=== PATIENT | male | born 1970 | race Caucasian/White ===

== ENCOUNTER 2019-02-04 20:18 | Inpatient (IN) | payer MEDICARE, MEDICAID, SELFPAY ==
[2019-02-04 20:20] VITALS: BP 134/88; PULSE 114; RESP 16; TEMP 37.1; O2SAT 95; BMI 29.7
--- NOTE | 2019-02-04 20:34 | RAD_ITS ---
HISTORY: NAUSEA/VOMITING, ABD PAIN EXAM: Abdominal series COMPARISON: None FINDINGS: # of images incl. paperwork: 3 XR Abdomen 3 images: Pelvic phleboliths. Gaseous distention of loops of small bowel throughout the abdomen. No pneumatosis is perceived. Stool is present within the rectum. Degenerative disc disease. No free air is perceived. There is no mass or suspicious calcification. No evidence of obstruction. RAD/Abdomen Single View IMPRESSION: Abnormal gaseous distention of loops of small bowel within the left hemiabdomen with some stool type contents within bowel within the right hemipelvis may be indicative of a small bowel obstruction. at 2220 Reported and signed by: Fernando Huitron MD Electronically Signed: Fernando Huitron MD at 22:19 EST Tel , Service support ,
[2019-02-04] MEDS: Ondansetron 4 MG/2 ML Vial IV (20:49)
--- NOTE | 2019-02-04 21:09 | ED.VISSUMM ---
- ER Visit Summary Date of Service: 02/04/19 Chief Complaint: Nausea, vomiting History of Present Illness: The patient is a 48 M [facility], vomiting. Patient has had 3 episodes of vomiting today. Another resident also has similar symptoms. No known bad food exposure. No recent antibiotics. He complains of vomiting and diarrhea. Denies blood in the stool or emesis. Denies abdominal pain. He has had temperature up to 99.5. Denies other complaints. Physical Examination: Vitals are stable. Patient is afebrile. Alert no acute distress. HEENT exam is unremarkable. Neck is supple. Lungs are clear and equal bilaterally. Heart is regular and tachycardic Abdomen is soft nontender, distended. No guarding or rebound Extremities are unremarkable. Skin is warm and dry. No focal neurologic deficit. Remainder of exam is unremarkable. Emergency Department Course and Treatment: Patient was given IV fluids, Zofran. CBC, chemistries unremarkable. KUB shows abnormal gaseous distention of loops of small bowel within the left hemiabdomen with some stool type contents within bowel within the right hemipelvis may be indicative of a small bowel obstruction. CT abdomen pelvis shows findings consistent with a distal small bowel obstruction. I cannot identify the exact location of the obstruction. 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 Although this could just represent atelectasis, the possibility of pneumonia is within the differential. While in the emergency room patient developed a fever up to 102. He was given Tylenol. Influenza negative. Lactic acid normal. Urinalysis pending. He had another episode of vomiting with concern for aspiration. Chest x-ray will be obtained and is pending. NG tube will be placed. Discussed with Dr. Phelps and the hospitalist and patient will be admitted. Disposition: Admission Impression: Small bowel obstruction This note was generated with [employer] dictation software. It may contain incorrect words, spelling, and punctuation that were not noted in review of the chart prior to signing ED Disposition - Plan for ED Patient: Referrals: Mervat Carrillo MD [Primary Care Provider] -
[2019-02-04 21:26] LABS: Anion Gap 6 (5-15); BUN 18 mg/dL (7-18); BUN/Creat Ratio 17.5 RATIO (10-20); Calcium,Total 8.1 mg/dL (8.5-10.1); Chloride 105 mmol/L (98-107); Creatinine, Serum 1.03 mg/dL (0.70-1.30); EST Glomerular Filtration Rate 82 mL/min (>60); Est Glom Filt Rate - Afr Amer 99 mL/min (>60); Estimated Creatinine Clearance 87.71 ml/min; Glucose 133 mg/dL (74-106); Potassium 3.4 mmol/L (3.5-5.1); Sodium Level 139 mmol/L (136-145)
[2019-02-04] MEDS: 0.9% Normal Saline 1,000 ML 999 ML IV ×2 (21:31→23:34)
[2019-02-04 22:41] LABS: Absolute Lymphocyte Count 0.36 X10^3/uL (0.83-4.51); Absolute Neutrophil Count 9.6 X10^3/uL (2.0-7.7); Basophil# 0.03 X10^3/uL; Basophil% 0.3 % (0-1); Eosinophil# 0.01 X10^3/uL; Eosinophils% 0.1 % (0-5); Hemoglobin 14.7 g/dL (13.0-16.5); Lymphocyte # 0.36 X10^3/ul (4.0); Lymphocyte % 3.4 % (19-41); Mean Corp Hgb Conc 34.2 g/dL (32-36); Mean Corpuscular Hgb 31.6 pg (27.0-32.0); Mean Corpuscular Volume 92.5 fL (80-94); Mean Platelet Vol. 11.5 fl (6.2-12.0); Monocyte# 0.65 X10^3/uL; Monocyte% 6.1 % (0-10); NRBC Flagged by Analyzer 0 % (0-5); Neutrophil # 9.55 X10^3/uL (2.7-7.7); Neutrophil % 89.8 % (47-70); POSITIVE DIFFERENTIAL YES; Platelet Count 158 K/mm3 (150-450); RBC Distribution Width CV 13.9 % (11.6-14.6); RBC Distribution Width SD 47.7 fl (35.1-43.9); Red Blood Count 4.65 M/mm3 (4.6-6.2); White Blood Count 10.6 K/mm3 (4.4-11.0)
[2019-02-04 22:42] LABS: Differential Indicated SCAN CRITERIA MET
[2019-02-04 22:52] VITALS: BP 134/93; PULSE 121; RESP 18; TEMP 39; O2SAT 96
[2019-02-04 23:01] LABS: Platelet Estimate ADEQUATE (ADEQ); Red Cell Morphology N CHROM NORMAL (NORM C&C)
[2019-02-04 23:02] LABS: Anisocytosis RARE; Macrocytosis RARE
[2019-02-04] MEDS: Acetaminophen 500 MG Tablet 1000 MG PO (23:34)
[2019-02-04 23:43] LABS: Lactic Acid 1.6 mmol/L (0.4-1.9)
[2019-02-05] VITALS (8 sets, daily range): BP systolic 132–151; BP diastolic 61–91; PULSE 88–117; RESP 16–20; TEMP 36.6–38.2; O2SAT 91–97; BMI 28.3; BMI 28.4
--- NOTE | 2019-02-05 | CT_ITS ---
HISTORY: N/V ? sbo TECHNIQUE: Helically acquired images were obtained of the abdomen and pelvis following the intravenous administration of 94 ML of Isovue-370 Iodinated contrast. 2D reformats. No oral contrast was administered. A radiation dose optimization technique was used for this scan. COMPARISON: X-ray of the abdomen from 2 hours earlier FINDINGS: # of images incl. paperwork: 454 LUNG BASES: Bilateral basilar airspace disease greater on the right than left. No effusions. The heart is not enlarged. No pericardial effusion. CT abdomen: Thoracic spondylosis with enthesophytes continuing the lumbar spine to a lesser degree severity. Facet arthropathy is present within the lower lumbar spine. The gallbladder remains. Liver, spleen, pancreas, and adrenal glands, are normal. The right kidney is normal. The patient has a left hemipelvic kidney. It is slightly irregularly rotated and lobulated. The left renal artery comes off the aorta just above the aortic bifurcation, of below the DEAN. The aorta is normal. CT pelvis: No ascites is present. The prostate gland is not enlarged. The appendix is normal. Series 2 image 68. The bladder is normal. Abnormal increased amount of stool is present within the rectum and into the sigmoid colon. Were this stool stops within the sigmoid colon and is very anterior within the right hemiabdomen there is gaseous distention of the sigmoid colon before it becomes decompressed and traverses back across the abdomen to the ascending colon. There is gas within the anterior portions of the ascending colon, but more posterior portions of the ascending colon are almost completely decompressed. The ascending colon and the hepatic flexure of colon are very posterior in position due to the empty left renal fossa due to the left hemipelvic kidney. The transverse colon is posterior to many loops of abnormally distended and dilated loops of small bowel with many air-fluid levels. There is some gas within the anterior aspects of the transverse colon, and more posterior portions of the transverse colon into the descending colon are decompressed. There are abnormal dilated fluid-filled loops of small bowel with air-fluid levels. There are decompressed loops of distal small bowel. I cannot follow the small bowel to determine where the obstruction is. I believe it is a distal small bowel obstruction. CT/Abdomen/Pelvis WITH Contrast IMPRESSION: Findings consistent with a distal small bowel obstruction. I cannot identify the exact location of the obstruction. 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 Although this could just represent atelectasis, the possibility of pneumonia is within the differential. Individualized dose optimization techniques were used for this CT. at 0037 Reported and signed by: Fernando Huitron MD Electronically Signed: Fernando Huitron MD at 0:36 EST Tel , Service support ,
--- NOTE | 2019-02-05 00:40 | RAD_ITS ---
HISTORY: NG TUBE PLACEMENTBEST IMAGES POSSIBLE, PATIENT UNABLE TO FOLLOW INSTRUCTIONS EXAMINATION/TECHNIQUE: XR Abdomen 1 View: COMPARISON: Chest x-ray from [address] scan of the abdomen and pelvis from February 05, 2019, 1-1/2 hours earlier FINDINGS: LINES AND TUBES: The esophagogastric tube tip terminates within the left hemiabdomen below the diaphragm, likely within the stomach. The proximalmost sidehole is also below the diaphragm, and likely within the stomach BOWEL GAS PATTERN: Distention of small bowel loops persists. No bowel or stomach distention. FREE AIR: Not assessed on a single supine view. ORGANOMEGALY: Not seen. CALCIFICATIONS: No abnormal calcifications observed. LOWER CHEST: No acute pathology. BONES AND SOFT TISSUES: No acute pathology. Contrast within the right renal collecting system is well demonstrated. RAD/Abdomen Single View (Portable) IMPRESSION: Adequate position of esophagogastric tube below the diaphragm in the left upper quadrant, likely within the stomach. Persistent gaseous distention of many loops of small bowel, suggestive of small bowel obstruction at 0241 Reported and signed by: Fernando Huitron MD Electronically Signed: Fernando Huitron MD at 2:40 EST Tel , Service support ,
--- NOTE | 2019-02-05 00:40 | RAD_ITS ---
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 paperwork: 2 Esophagogastric tube tip and its proximal sidehole but terminate below the diaphragm, likely within the stomach. Basilar atelectasis was better demonstrated on the CT scan. That right long basilar airspace disease and right lower lobe right middle lobe is better demonstrated on the CT scan. The left lung has some minimal left basilar disease better demonstrated on the CT scan. No more apical lung disease is perceived. No pneumothorax is identified Heart is not enlarged. Thoracic spondylosis persists Pulmonary vascularity is distinct. No effusions. RAD/Chest 1 View (Portable) IMPRESSION: Basilar airspace disease greatest within the right middle lobe and right lower lobe better demonstrated on the previous CT scan and may represent pneumonia. at 0244 Reported and signed by: Fernando Huitron MD Electronically Signed: Fernando Huitron MD at 2:43 EST Tel , Service support ,
--- NOTE | 2019-02-05 00:48 | HP.PCM_ITS ---
Problem List (1) Small bowel obstruction Status: Acute (2) Gastroenteritis Status: Acute (3) Aspiration pneumonia Status: Acute (4) Sepsis Status: Acute History of Present Illness Date of Admission: 02/05/19 Chief Complaint: nausea and vomiting The patient is a 48 year old M with a significant history of mental retardation who [facility] the [facility] presenting with nausea and vomiting. Associated with symptoms is abdominal pain. Another resident in a [facility] was also vomiting. Patient reports dizziness but is unable to elaborate on what he means by dizziness. Patient's restaurant operations manager who was with patient reported that patient has an increase in his abdominal girth. Initial KUB at the emergency department was concerning for small bowel obstruction. Follow-up CT was also concern for small bowel obstruction and bilateral basilar lung disease. At the emergency department patient developed a fever of 102.2. Also his heart rate was elevated. Emergent department doctor ordered follow-up x-ray. Past Medical History Medical History: Medical History (Last Reviewed 02/05/19 @ 07:07 by Tam Oropeza MD) MRDD Allergies No Known Allergies Allergy (Verified 02/04/19 20:20) Home Medications: Ambulatory Orders Medication Instructions Recorded Clozapine 100 mg PO BREAKFAST 02/04/19 Clozapine 125 mg PO QHS 02/04/19 Docusate Sodium [Dok] 100 mg PO BID 02/04/19 Escitalopram Oxalate 15 mg PO DAILY 02/04/19 Lorazepam 0.5 mg PO DAILY 02/04/19 Melatonin 6 mg PO QHS 02/04/19 Polyethylene Glycol 3350 [Gavilax] 8.5 gm PO DAILY 02/04/19 Clindamycin Phos/Benzoyl Perox 1 applic TOPICAL QHS 02/05/19 [Clind pH-Benzoyl Perox 1.2-5%] Lorazepam 1 mg PO QHS 02/05/19 Surgical History: - - Patient did not know and restaurant operations manager who was with patient also did not know. Lives: Long Term Smoking Status: Never smoker Alcohol: None - *Family History Maternal History Items: - - Patient is an MRDD patient and he did not know. Patient's restaurant operations manager who was with patient also did not know. Paternal History Items: - - Patient is an MRDD patient and he did not know. Patient's restaurant operations manager who was with patient also did not know. Review of Systems Constitutional: Denies: Chills, Fever, Weight Change HEENT: Denies: Head Aches, Sinus Congestion, Sinus Drainage Cardiovascular: Denies: Chest Pain, Palpitations Respiratory: Denies: Cough, Shortness of breath at rest, Sputum production Gastrointestinal: Reports: Abdominal Pain, Nausea, Vomiting Genitourinary: Denies: Dysuria Musculoskeletal: Denies: Joint Pain, Joint Tenderness Skin: Denies: Rash, Wounds Neurological: Denies: Numbness, Tingling, Focal weakness Psychiatric: Denies: Anxiety, Depression, Homicidal Ideations, Suicidal Ideations Hematologic/ Lymphatic: Denies: Easy Bruising, Easy Bleeding VTE Information - Inpt Only VTE Present on Admission: No VTE Mechan Device Prophylaxis: None VTE Pharm Prophylaxis ordered?: Yes Patient Problems: Active and Suspected Problems (Last Reviewed 02/05/19 @ 07:07 by Tam Oropeza MD) Small bowel obstruction (Acute) Gastroenteritis (Acute) Aspiration pneumonia (Acute) Sepsis (Acute) - Physical Exam Vitals/I&O's: Vital Signs Temp Pulse Resp BP Pulse Ox 102.2 F H 121 H 18 134/93 H 96 02/04/19 22:52 02/04/19 22:52 02/04/19 22:52 02/04/19 22:52 02/04/19 22:52 Oxygen Delivery Method Room Air Weight: 91.3 kg Body Mass Index (BMI) 29.7 Intake and Output for Last 24 Hours 02/03/19 02/04/19 02/05/19 23:59 23:59 23:59 Intake Total 1000 / 1000 Balance 1000 / 1000 General: Alert, Oriented x3, Cooperative HEENT: Atraumatic, PERRLA, EOMI, Normocephalic Neck: Supple, No JVD, Negative Carotid Bruits Lungs: Clear to auscultation, Normal air movement, No rhonchi, No wheeze, No rales Cardiovascular: Regular Rhythm, Normal S1, Normal S2, No murmurs, Tachycardic Abdomen: Bowel Sounds Present, Soft, Non Tender, Obese Extremities: No edema, Capillary Refill Less than 3 Seconds Skin: No rashes, No breakdown Musculoskeletal: No Tenderness to Palpation of Joints or Extremities Neurological: Cranial nerves II-XII grossly intact Psych/Mental Status: Normal Affect, Appropriate Microbiology Past 72 Hours 02/04/19 23:10 Mucosa - Nasopharyngeal Influenza Types A,B Direct FA (RADHA) - Final Laboratory Results 02/04/19 20:50: Sodium 139, Potassium 3.4 L, Chloride 105, Carbon Dioxide 28.0, Anion Gap 6, BUN 18, Creatinine 1.03, Estim Creat Clear Calc 87.71, Est GFR (MDRD) Af Amer 99, Est GFR (MDRD) Non-Af 82, BUN/Creatinine Ratio 17.5, Glucose 133 H, Calcium 8.1 L 02/04/19 20:50: WBC 10.6, RBC 4.65, Hgb 14.7, Hct 43.0, MCV 92.5, MCH 31.6, MCHC 34.2, RDW Std Deviation 47.7 H, RDW Coeff of J Luis 13.9, Plt Count 158, MPV 11.5, Immature Gran % (Auto) 0.300, Neut % (Auto) 89.8 H, Lymph % (Auto) 3.4 L, Mcnairy % (Auto) 6.1, Eos % (Auto) 0.1, Baso % (Auto) 0.3, Absolute Neuts (auto) 9.6 H, Absolute Lymphs (auto) 0.36 L, Nucleated RBC % 0, Differential Comment SEE COMMENT, Platelet Estimate ADEQUATE, RBC Morphology N CHROM, Anisocytosis RARE, Macrocytosis RARE 02/04/19 23:09: Lactic Acid 1.6 Assessment/Plan All Active Problems (Last Reviewed 02/05/19 @ 07:07 by Tam Oropeza MD) Small bowel obstruction (Acute) Gastroenteritis (Acute) Aspiration pneumonia (Acute) Sepsis (Acute) The patient is a 48 year old M with a significant history of mental retardation who [facility] the [facility] presenting with nausea and vomiting; and abdominal pain concerning and radiographic finding consistent with SBO; and bibasilar lung disease which could also represent aspiration pneumonia in the setting of vomiting; and who meet SIRS criteria making an additional diagnosis of sepsis. Small bowel obstruction Patient will be kept n.p.o. for now. Received normal saline bolus at the emergency department. Because of concomitant mild hypokalemia will start patient on lactated Ringer's with potassium. Will consult general surgery. The plan for the emergency department was to put an NG tube and get an x-ray that is also important in the setting suggested bibasilar atelectasis on CT of the abdomen. Antiemetics with Zofran; pain medication with IV morphine. Hold all medications including home psychiatry medications. General surgery consult Sepsis from probable aspiration pneumonia and gastroenteritis Sirs criteria: Temperature of 102.2; highest heart rate of 121. Source: Abdomen; lungs Received Unasyn at emergency department; continued Lactic acid is unremarkable. Follow-up checks x-ray ordered at the emergency department. Get blood cultures . Hypokalemia Normal saline with IV potassium was ordered. Because of persistent hypokalemia will order potassium boluses. Trend BMP. Magnesium was ordered. Magnesium level returned unremarkable. DVT prophylaxis Subcutaneous Lovenox Code Visit Inpatient E&M: 94056 Init Hosp L3
[2019-02-05] MEDS: Lidocaine 4% 5 ML Ampul 2 ML INHALATION (01:03)
[2019-02-05 01:26] LABS: Bacteria 0 SEEN /hpf (None Seen); Mucous, Urine 0 SEEN /hpf (<or=2+); Red Blood Cells-Urine 0 SEEN /hpf (0-5); White Blood Cells 0 SEEN /hpf (0-5)
[2019-02-05 01:42] LABS: Color, Urine Yellow (Yellow); Glucose, Dipstick Normal (Normal); Ketone-Dipstick 5 mg/dl (Negative); Leukocyte Esterase-Dipstick Negative /ul (Negative); Nitrite-Dipstick Negative (Negative); Occult Blood-Urine Negative /ul (Negative); Protein-Dipstick 15 mg/dl (Negative); Urine Bilirubin Dipstick Negative (Negative); Urine Clarity Clear (Clear); Urine Urobilinogen Normal (Normal)
[2019-02-05 01:44] LABS: Squamous Epithelial Cells - UA 0-5 SEEN /hpf (0-5)
[2019-02-05 04:25] LABS: Magnesium 2.2 mg/dL (1.6-2.6)
[2019-02-05 04:54] LABS: Absolute Lymphocyte Count 0.34 X10^3/uL (0.83-4.51); Absolute Neutrophil Count 9.9 X10^3/uL (2.0-7.7); Anion Gap 8 (5-15); BUN 17 mg/dL (7-18); BUN/Creat Ratio 16.3 RATIO (10-20); Basophil# 0.01 X10^3/uL; Basophil% 0.1 % (0-1); Calcium,Total 7.7 mg/dL (8.5-10.1); Chloride 109 mmol/L (98-107); Creatinine, Serum 1.04 mg/dL (0.70-1.30); EST Glomerular Filtration Rate 81 mL/min (>60); Eosinophil# 0.15 X10^3/uL; Eosinophils% 1.4 % (0-5); Est Glom Filt Rate - Afr Amer 98 mL/min (>60); Estimated Creatinine Clearance 86.86 ml/min; Glucose 143 mg/dL (74-106); Hematocrit 39.2 % (40-54); Hemoglobin 13.2 g/dL (13.0-16.5); Lymphocyte # 0.34 X10^3/ul (4.0); Lymphocyte % 3.1 % (19-41); Mean Corp Hgb Conc 33.7 g/dL (32-36); Mean Corpuscular Hgb 31.4 pg (27.0-32.0); Mean Corpuscular Volume 93.1 fL (80-94); Mean Platelet Vol. 11.8 fl (6.2-12.0); Monocyte# 0.49 X10^3/uL; Monocyte% 4.5 % (0-10); NRBC Flagged by Analyzer 0 % (0-5); Neutrophil # 9.87 X10^3/uL (2.7-7.7); Neutrophil % 90.5 % (47-70); POSITIVE DIFFERENTIAL YES; POSITIVE MORPHOLOGY YES; Platelet Count 158 K/mm3 (150-450); Potassium 3.2 mmol/L (3.5-5.1); RBC Distribution Width CV 14.3 % (11.6-14.6); RBC Distribution Width SD 48.7 fl (35.1-43.9); Red Blood Count 4.21 M/mm3 (4.6-6.2); Sodium Level 143 mmol/L (136-145); White Blood Count 10.9 K/mm3 (4.4-11.0)
[2019-02-05 05:01] LABS: Differential Indicated SCAN CRITERIA MET
[2019-02-05 05:02] LABS: Differential Comment SCANNED
[2019-02-05] MEDS: Acetaminophen 650 MG Suppository RECTAL (07:13)
[2019-02-05] MEDS: Potassium Chloride 10mEq/100mL 10 MEQ/100 ML IV.SOLN. 100 MEQ IV BOLUS (08:19)
--- NOTE | 2019-02-05 08:19 | NURSING ---
K-riders titrated and diluted for patient comfort.
[2019-02-05] MEDS: Potassium Chloride 10mEq/100mL 10 MEQ/100 ML IV.SOLN. 75 MEQ IV BOLUS ×3 (09:36→12:37)
[2019-02-05] MEDS: Enoxaparin 40 MG/0.4 ML Syringe SC (09:40)
--- NOTE | 2019-02-05 09:57 | PN_ITS ---
Patient Problems: Active and Suspected Problems (Last Reviewed 02/05/19 @ 07:07 by Tam Oropeza MD) Small bowel obstruction (Acute) Gastroenteritis (Acute) Aspiration pneumonia (Acute) Sepsis (Acute) Reason for Visit: Patient seen and examined. He was admitted from his longterm with a complaint of nausea and vomiting, together with abdominal pain. He also complained of dizziness, and he also had increase in abdominal girth. KUB done in ED was concerning for small bowel obstruction, and CT abdomen done afterwards was also concerning for small bowel obstruction and bibasilar lung disease. He was also noted to be febrile, with temperature of 102.2F and tachyardia. He is being managed for small bowel obstruction and sepsis possibly due to aspiration pneumonia. Patient has no complaints today. He has an NG tube in, draining bilious fluid. He says he is passing gas. He denies any nausea, fever or chills or diarrhea. R eview of systems otherwise negative. Patient kept asking if he was going to have surgery; I informed patient that he had to be evaluated by general surgery, before decision about surgery, if any, could be made. Vitals/I&O's: Vital Signs Temp Pulse Resp BP Pulse Ox 98.9 F 110 H 18 140/72 H 95 02/05/19 08:32 02/05/19 08:32 02/05/19 08:32 02/05/19 08:32 02/05/19 08:32 Oxygen Flow Rate (L/min) 2 Oxygen Delivery Method Nasal Cannula Weight: 192 lb 3.889 oz Body Mass Index (BMI) 28.3 Intake and Output for Last 24 Hours 02/03/19 02/04/19 02/05/19 23:59 23:59 23:59 Intake Total 1000 / 1000 1634.5 / 1634.5 Balance 1000 / 1000 1634.5 / 1634.5 General: Alert, Cooperative, No apparent distress HEENT: Atraumatic, PERRLA, EOMI, Normocephalic Oral: Moist Mucosa, - - NG tube in place, draining bilious fluid Neck: Supple, No JVD, Negative Carotid Bruits Lungs: Clear to auscultation, Normal air movement, No rhonchi, No wheeze Cardiovascular: Regular Rhythm, Normal S1, Normal S2, No murmurs, Tachycardic Abdomen: Bowel Sounds Present, Soft, Distended - tympanitic to percussion Extremities: No clubbing, No cyanosis, No edema, Capillary Refill Less than 3 Seconds Skin: No rashes, No breakdown Musculoskeletal: No Tenderness to Palpation of Joints or Extremities Lymphatic: No Cervical, Supraclavicular, or Inguinal Adenopathy Neurological: Cranial nerves II-XII grossly intact Psych/Mental Status: Normal Affect, Appropriate Microbiology Past 72 Hours 02/04/19 23:10 Mucosa - Nasopharyngeal Influenza Types A,B Direct FA (RADHA) - Final Laboratory Results 02/04/19 20:50: Sodium 139, Potassium 3.4 L, Chloride 105, Carbon Dioxide 28.0, Anion Gap 6, BUN 18, Creatinine 1.03, Estim Creat Clear Calc 87.71, Est GFR (MDRD) Af Amer 99, Est GFR (MDRD) Non-Af 82, BUN/Creatinine Ratio 17.5, Glucose 133 H, Calcium 8.1 L 02/04/19 20:50: WBC 10.6, RBC 4.65, Hgb 14.7, Hct 43.0, MCV 92.5, MCH 31.6, MCHC 34.2, RDW Std Deviation 47.7 H, RDW Coeff of J Luis 13.9, Plt Count 158, MPV 11.5, Immature Gran % (Auto) 0.300, Neut % (Auto) 89.8 H, Lymph % (Auto) 3.4 L, Terrell % (Auto) 6.1, Eos % (Auto) 0.1, Baso % (Auto) 0.3, Absolute Neuts (auto) 9.6 H, Absolute Lymphs (auto) 0.36 L, Nucleated RBC % 0, Differential Comment SEE COMMENT, Platelet Estimate ADEQUATE, RBC Morphology N CHROM, Anisocytosis RARE, Macrocytosis RARE 02/04/19 23:09: Lactic Acid 1.6 02/05/19 01:25: Urine Color Yellow, Urine Clarity Clear, Urine pH 5.0, Ur Specific [place] 1.020, Urine Protein 15 H, Urine Glucose (UA) Normal, Urine Ketones 5 H, Urine Occult Blood Negative, Urine Nitrite Negative, Urine Bilirubin Negative, Urine Urobilinogen Normal, Ur Leukocyte Esterase Negative, Urine RBC 0 SEEN, Urine WBC 0 SEEN, Ur Squamous Epith Cells 0-5 SEEN, Urine Bacteria 0 SEEN, Urine Mucus 0 SEEN 02/05/19 02:40: Magnesium 2.2 02/05/19 02:40: WBC 10.9, RBC 4.21 L, Hgb 13.2, Hct 39.2 L, MCV 93.1, MCH 31.4, MCHC 33.7, RDW Std Deviation 48.7 H, RDW Coeff of J Luis 14.3, Plt Count 158, MPV 11.8, Immature Gran % (Auto) 0.400, Neut % (Auto) 90.5 H, Lymph % (Auto) 3.1 L, Terrell % (Auto) 4.5, Eos % (Auto) 1.4, Baso % (Auto) 0.1, Absolute Neuts (auto) 9.9 H, Absolute Lymphs (auto) 0.34 L, Nucleated RBC % 0, Differential Comment SCANNED 02/05/19 02:40: Sodium 143, Potassium 3.2 L, Chloride 109 H, Carbon Dioxide 26.0, Anion Gap 8, BUN 17, Creatinine 1.04, Estim Creat Clear Calc 86.86, Est GFR (MDRD) Af Amer 98, Est GFR (MDRD) Non-Af 81, BUN/Creatinine Ratio 16.3, Glucose 143 H, Calcium 7.7 L Diagnostic Data Abdomen/Pelvis CT 02/05/19 00:00 IMPRESSION: Findings consistent with a distal small bowel obstruction. I cannot identify the exact location of the obstruction. 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 Although this could just represent atelectasis, the possibility of pneumonia is within the differential. Individualized dose optimization techniques were used for this CT. at 0037 Reported and signed by: Fernando Huitron MD Electronically Signed: Fernando Huitron MD at 0:36 EST Tel , Service support , Chest X-Ray 02/05/19 00:40 IMPRESSION: Basilar airspace disease greatest within the right middle lobe and right lower lobe better demonstrated on the previous CT scan and may represent pneumonia. at 0244 Reported and signed by: Fernando Huitron MD Electronically Signed: Fernando Huitron MD at 2:43 EST Tel , Service support , KUB X-Ray 02/05/19 00:40 IMPRESSION: Adequate position of esophagogastric tube below the diaphragm in the left upper quadrant, likely within the stomach. Persistent gaseous distention of many loops of small bowel, suggestive of small bowel obstruction at 0241 Reported and signed by: Fernando Huitron MD Electronically Signed: Fernando Huitron MD at 2:40 EST Tel , Service support , Current Medications Acetaminophen (Tylenol) 650 mg RECTAL Q6H PRN PRN PRN Reason: Temp > 100.7 F Last Admin: 02/05/19 07:13 Dose: 650 mg Documented by: Enoxaparin Sodium (Lovenox) 40 mg SC DAILY TYLER Last Admin: 02/05/19 09:40 Dose: 40 mg Documented by: Glucagon () 1 mg IM .X1 PRN PRN Reason: Hypoglycemia Ampicillin Sodium/Sulbactam (Sodium 3 gm/ Sodium Chloride) 112 mls @ 150 mls/hr IV Q6 TYLER Last Infusion: 02/05/19 07:22 Dose: Infused Documented by: Potassium Chloride 40 meq/ (Lactated Ringer's) 1,020 mls @ 100 mls/hr IV .[id number] TYLER Stop: 02/05/19 23:05 Last Infusion: 02/05/19 06:37 Dose: 0 mls/hr Documented by: Dextrose (Dextrose 10%-Water) 250 mls @ 999 mls/hr IV X1 PRN; Protocol PRN Reason: HYPOGLYCEMIA Sodium Chloride () 250 mls @ 15 mls/hr IV .[id number] PRN PRN Reason: Saline Flush Last Infusion: 02/05/19 08:19 Dose: 40 mls/hr Documented by: Potassium Chloride () 10 meq in 100 mls @ 100 mls/hr IV BOLUS Q1H TYLER Stop: 02/05/19 09:59 Last Admin: 02/05/19 09:36 Dose: 75 mls/hr Documented by: Non-Formulary Medication (Clindamycin Phos/Benzoyl Perox [Clind Ph-Benzoyl Perox 1.2-5%]) 1 applic topical QHS TYLER Ondansetron HCl (Zofran) 4 mg IV Q8H PRN PRN PRN Reason: NAUSEA/VOMITING Sodium Chloride () 10 - 40 ml IV UD PRN PRN Reason: SALINE FLUSH STROKE Vital Signs/Narrative: Vital Signs Temp Pulse Resp BP Pulse Ox 02/05/19 08:32 98.9 F 110 H 18 140/72 H 95 02/05/19 06:11 100.8 F H 117 H 20 H 137/91 H 94 Medical Necessity - Tobacco Use Smoking Status: Never smoker Assessment/Plan All Active Problems (Last Reviewed 02/05/19 @ 07:07 by Tam Oropeza MD) Small bowel obstruction (Acute) Gastroenteritis (Acute) Aspiration pneumonia (Acute) Sepsis (Acute) 1. Small bowel obstruction * patient remains NPO * still has significant abdominal distension; does have good bowel sounds, and he says he passed gas this morning * general surgery consulted; per discussion with Dr Phelps, size of patient's abdomen is normal for him. She thinks this is all likely due to severe constipation. Relief of constipation should help with his symptoms. * NG tube in place * on IVF with Lactated Ringer's * on IV zofran prn 2. Sepsis due to aspiration pneumonia and gastroenteritis * SIRS criteria is now 1/3 (tachycardia) * CXR showed bibasilar airspace disease greatest in right middle lobe and right lower lobe * may have been caused by aspiration during vomiting * On IV unasyn * blood cultures pending * KUB this morning shows persistent gaseous distension of many loops of small bowel, suggestive of small bowel obstruction * 3.Hypokalemia: K is 3.2. Likely due to vomiting. Will replace and monitor 4. History of MRDD: stable DVT prophylaxis: lovenox Code Visit Inpatient E&M: 28172 Subs Hosp L3
--- NOTE | 2019-02-05 11:29 | PCM.CONS.B ---
- Consult Date of Consult: 02/05/19 - Reason for Consult CC: nausea and emesis HISTORY OF PRESENT ILLNESS: 48 y/o WM with MRDD who lives in a penitentiary presents with nausea and emesis. He was also noted to have abdominal pain, though he denies this at present. Had noted to have temp 102.2F. Admitted to hospitalist service WBC 10.9, positive left shift of differential, low potassium, normal lactate acid ? PAST MEDICAL HISTORY ? Acne vulgaris ? ? Impulse control disorder, unspecified ? ? Mild intellectual disabilities ? ? PAST SURGICAL HISTORY: denies ? Current Outpatient Medications: docusate sodium (COLACE) 100 mg capsule Take 1 capsule by mouth twice daily. polyethylene glycol 3350 (MIRALAX, GLYCOLAX) 17 gram/dose powder Take 17 g by mouth twice daily. Drink a mix of 1 scoop in 8oz of water/beverage once daily as needed for constipation. ondansetron orally disintegrating (ZOFRAN ODT) 4 mg disintegrating tablet Take 1 tablet by mouth every 6 hours as needed for Nausea/Vomiting. melatonin 3 mg tablet Take 2 tablets by mouth daily at bedtime. Clindamycin-Benzoyl Peroxide (DUAC) 1.2 %(1 % base) -5 % gel Apply 1 application to affected area daily at bedtime. LORazepam (ATIVAN) 1 mg tablet 0.5 mg each AM and 1 mg each PM. cloZAPine (CLOZARIL) 25 mg tablet Take 1 tablet by mouth daily at bedtime. (take with 100 mg to total 125 mg) escitalopram oxalate (LEXAPRO) 10 mg tablet Take 1 tablet by mouth once daily. take with 5 mg pill escitalopram oxalate (LEXAPRO) 5 mg tablet Take 1 tablet by mouth once daily. take with 10 mg capsules clozapine (CLOZARIL) 100 mg ORAL Tab Take one(1) tablet two(2) times daily. COMPOUNDED PRESCRIPTION CBC w/ diff Q month. Dx: V58.[address] Carrillo and patient's psychiatrist ? REVIEW OF SYSTEMS: General: patient resident of penitentiary with MRDD with limited communication skill (ROS obtained from medical records) Neuro: no chronic headaches/numbness or weakness of extremities Cardiac: denies chest pain Pulmonary: no cough GI: long history of constipation, has had intermittent bouts of nausea and emesis as reported in outpatient records : hemipelvic kidney - left Neuro: sleeping disorder Psych: history of depression, anxiety and impulse control disorder - seen by psychology PHYSICAL EXAMINATION: Vitals: Temp 98.9F HR 110 BP 140/72 RR 20 General: WD/WN WM in no apparent distress, with NG tube in place Head: normocephalic Neck: supple with no JVD or tracheal deviation Lungs: normal breath sounds, no labored breathing noted, no rhonchi/wheezing/rales noted Heart: regular rate Abdomen: soft and protuberant -(from previous notes - this is his baseline), some bowel sounds noted, no peritoneal signs noted Extremities: no pitting edema IMPRESSION: constipation nausea/emesis ileus PLAN: In my opinion, patient presents with ileus, primarily due to chronic constipation. May be viral, as another penitentiary member with similar symptoms. No surgical options at this point in time. Can continue NG tube decompression. Will order reglan to improve peristalsis In review of patient's PMH, he has a long history of chronic constipation Oral contrast from CT scan should help as a laxative (gastrografin) follow with serial KUB will follow patient with you, thank you for this consultation
[2019-02-05] MEDS: 0.9% Saline Lock 10 ML Syringe IV ×4 (12:47→23:14)
--- NOTE | 2019-02-05 14:02 | CASEMGMT ---
SOCIAL WORK: SW consult received this date per RN Nicolasa NELSON. Patient Address: [address] [place] [address] ([place]irement) Legal Guardian: Rashmi Cuello [phone] PCP: Mervat Carrillo Insurance: Medicare A&B Medicaid Warranty Manager through [facility] and [place]. Guardian did not have this information with her when we spoke PLAN: Return to assisted when medically ready This SW met with patient in his room. Introduced self and SW role. Patient very sweet and kept asking when he can go home. Reassured him that his doctor will talk to him about this. Subsequent call to legal guardian, Rashmi, who reports that assisted did not notify her of patient admission. She confirms that plan is for his return to current assisted when medically ready. She states this is his home and that he has lived there for a long time. She plans to call assisted. Guardian unable to provide electrical contacts adjuster for assisted at this time. Advised her of SW availability during the week. She thanked me for calling and states she will come to visit patient. No further issues at this time. RADHA Prakash
[2019-02-05 15:42] LABS: Anion Gap 9 (5-15); BUN 19 mg/dL (7-18); BUN/Creat Ratio 17.4 RATIO (10-20); Calcium,Total 8.3 mg/dL (8.5-10.1); Chloride 109 mmol/L (98-107); Creatinine, Serum 1.09 mg/dL (0.70-1.30); EST Glomerular Filtration Rate 77 mL/min (>60); Est Glom Filt Rate - Afr Amer 93 mL/min (>60); Estimated Creatinine Clearance 82.88 ml/min; Glucose 138 mg/dL (74-106); Potassium 3.6 mmol/L (3.5-5.1); Sodium Level 142 mmol/L (136-145)
[2019-02-05] MEDS: Metoclopramide 10 MG/2 ML Vial IV ×2 (18:32→23:07)
[2019-02-05] MEDS: Ondansetron 4 MG/2 ML Vial IV (19:20)
[2019-02-06] VITALS (8 sets, daily range): BP systolic 126–144; BP diastolic 72–92; PULSE 94–103; RESP 16–20; TEMP 36.6–37.1; O2SAT 91–100
[2019-02-06] MEDS: 0.9% Saline Lock 10 ML Syringe IV
--- NOTE | 2019-02-06 04:55 | RAD_ITS ---
STUDY: X-RAY - ABDOMEN/PELVIS REASON FOR EXAM: Male, 48 years old. Follow-up small bowel obstruction. TECHNIQUE: 3 AP supine views of the abdomen and pelvis were performed. COMPARISON: 02/05/2019. FINDINGS: Nasogastric tube tip is in the body the stomach. There is gaseous distention of large and small bowel loops, which shows no definite change from previous exam. There is no demonstrated free abdominal air. The visualized liver, spleen and kidneys are grossly normal in size and morphology. Normal soft tissue structures. Normal visualized osseous structures. RAD/Abdomen Single View IMPRESSION: Persistent gaseous distention of large and small bowel loops, with no definite change from previous study. Nasogastric tube is in adequate position. Electronically Signed: Mau Duong MD at 6:27 EST , Service support ,
[2019-02-06] MEDS: Metoclopramide 10 MG/2 ML Vial IV ×4 (05:22→23:51)
[2019-02-06 06:22] LABS: Absolute Lymphocyte Count 0.85 X10^3/uL (0.83-4.51); Absolute Neutrophil Count 3.9 X10^3/uL (2.0-7.7); Basophil# 0.01 X10^3/uL; Basophil% 0.2 % (0-1); Hematocrit 39.5 % (40-54); Hemoglobin 12.9 g/dL (13.0-16.5); Lymphocyte # 0.85 X10^3/ul (4.0); Lymphocyte % 15.5 % (19-41); Mean Corp Hgb Conc 32.7 g/dL (32-36); Mean Platelet Vol. 11.6 fl (6.2-12.0); Monocyte# 0.68 X10^3/uL; Monocyte% 12.4 % (0-10); NRBC Flagged by Analyzer 0 % (0-5); Neutrophil # 3.93 X10^3/uL (2.7-7.7); Neutrophil % 71.5 % (47-70); Platelet Count 159 K/mm3 (150-450); RBC Distribution Width CV 14.6 % (11.6-14.6); RBC Distribution Width SD 51.3 fl (35.1-43.9); Red Blood Count 4.16 M/mm3 (4.6-6.2); White Blood Count 5.5 K/mm3 (4.4-11.0)
[2019-02-06 07:06] LABS: Anion Gap 6 (5-15); BUN 22 mg/dL (7-18); BUN/Creat Ratio 23.9 RATIO (10-20); Calcium,Total 7.8 mg/dL (8.5-10.1); Chloride 111 mmol/L (98-107); Creatinine, Serum 0.92 mg/dL (0.70-1.30); EST Glomerular Filtration Rate 93 mL/min (>60); Est Glom Filt Rate - Afr Amer 113 mL/min (>60); Estimated Creatinine Clearance 98.19 ml/min; Glucose 118 mg/dL (74-106); Potassium 3.4 mmol/L (3.5-5.1); Sodium Level 144 mmol/L (136-145)
[2019-02-06] MEDS: Potassium Chloride 10mEq/100mL 10 MEQ/100 ML IV.SOLN. 100 MEQ IV BOLUS ×4 (08:17→13:23)
--- NOTE | 2019-02-06 09:08 | NURSING ---
Walked in ness, did 2 laps with this nurse. Sitting in chair now with personal chair alarm maintained. Call lomeli in reach. Tv on. Ng back to suction after walking ness.
[2019-02-06] MEDS: Enoxaparin 40 MG/0.4 ML Syringe SC (11:09)
--- NOTE | 2019-02-06 11:10 | PN.SURG_ITS ---
Patient Problems: Active and Suspected Problems (Last Reviewed 02/05/19 @ 07:07 by Tam Oropeza MD) Small bowel obstruction (Acute) Gastroenteritis (Acute) Aspiration pneumonia (Acute) Sepsis (Acute) Subjective: difficult to assess patient's pain and discomfort level - his communicative skill are minimal. He will state that he has pain and then shortly will state that he has no pain He has been noted to have two bowel movements since yesterday repeat KUB reveals large amount of bowel gas, but this may be patient's baseline - Physical Exam Vitals/I&O's: Vital Signs Temp Pulse Resp BP Pulse Ox 98 F 99 20 H 134/89 H 100 02/06/19 10:07 02/06/19 10:07 02/06/19 10:07 02/06/19 10:07 02/06/19 10:07 Oxygen Flow Rate (L/min) 2 Oxygen Delivery Method Room Air Weight: 87.2 kg Body Mass Index (BMI) 28.3 Intake and Output for Last 24 Hours 02/04/19 02/05/19 02/06/19 23:59 23:59 23:59 Intake Total 1000 / 1000 3314.50 / 3314.50 1084 / 1084 Output Total 1650 / 1650 1025 / 1025 Balance 1000 / 1000 1664.50 / 1664.50 59 / 59 General: Alert, Cooperative - limited communication Oral: Moist Mucosa Neck: Supple Lungs: Normal air movement Abdomen: Soft - distended - but this is patient's norm according to outpatient notes no tenderness elicited by my examination Microbiology Past 72 Hours 02/04/19 23:10 Mucosa - Nasopharyngeal Influenza Types A,B Direct FA (RADHA) - Final Laboratory Results 02/05/19 15:00: Sodium 142, Potassium 3.6, Chloride 109 H, Carbon Dioxide 24.0, Anion Gap 9, BUN 19 H, Creatinine 1.09, Estim Creat Clear Calc 82.88, Est GFR (MDRD) Af Amer 93, Est GFR (MDRD) Non-Af 77, BUN/Creatinine Ratio 17.4, Glucose 138 H, Calcium 8.3 L 02/06/19 00:51: WBC 5.5, RBC 4.16 L, Hgb 12.9 L, Hct 39.5 L, MCV 95.0 H, MCH 31.0, MCHC 32.7, RDW Std Deviation 51.3 H, RDW Coeff of J Luis 14.6, Plt Count 159, MPV 11.6, Immature Gran % (Auto) 0.400, Neut % (Auto) 71.5 H, Lymph % (Auto) 15.5 L, [place] % (Auto) 12.4 H, Eos % (Auto) 0.0, Baso % (Auto) 0.2, Absolute Neuts (auto) 3.9, Absolute Lymphs (auto) 0.85, Nucleated RBC % 0 02/06/19 00:51: Sodium 144, Potassium 3.4 L, Chloride 111 H, Carbon Dioxide 27.0, Anion Gap 6, BUN 22 H, Creatinine 0.92, Estim Creat Clear Calc 98.19, Est GFR (MDRD) Af Amer 113, Est GFR (MDRD) Non-Af 93, BUN/Creatinine Ratio 23.9 H, Glucose 118 H, Calcium 7.8 L Current Medications Acetaminophen (Tylenol) 650 mg RECTAL Q6H PRN PRN PRN Reason: Temp > 100.7 F Last Admin: 02/05/19 07:13 Dose: 650 mg Documented by: Enoxaparin Sodium (Lovenox) 40 mg SC DAILY [facility] Last Admin: 02/05/19 09:40 Dose: 40 mg Documented by: Glucagon () 1 mg IM .X1 PRN PRN Reason: Hypoglycemia Ampicillin Sodium/Sulbactam (Sodium 3 gm/ Sodium Chloride) 112 mls @ 150 mls/hr IV Q6 [facility] Last Infusion: 02/06/19 06:13 Dose: Infused Documented by: Dextrose (Dextrose 10%-Water) 250 mls @ 999 mls/hr IV X1 PRN; Protocol PRN Reason: HYPOGLYCEMIA Sodium Chloride () 250 mls @ 15 mls/hr IV .[id number] PRN PRN Reason: Saline Flush Last Infusion: 02/05/19 16:15 Dose: 0 mls/hr Documented by: Potassium Chloride () 10 meq in 100 mls @ 100 mls/hr IV BOLUS Q1H [facility] Stop: 02/06/19 11:29 Last Admin: 02/06/19 10:38 Dose: 100 mls/hr Documented by: Pantoprazole Sodium 40 mg/ (Sodium Chloride) 110 mls @ 330 mls/hr IV Q12 [facility] Metoclopramide HCl (Reglan) 10 mg IV Q6 [facility] Last Admin: 02/06/19 05:22 Dose: 10 mg Documented by: Ondansetron HCl (Zofran) 4 mg IV Q8H PRN PRN PRN Reason: NAUSEA/VOMITING Last Admin: 02/05/19 19:20 Dose: 4 mg Documented by: Sodium Chloride () 10 - 40 ml IV UD PRN PRN Reason: SALINE FLUSH Last Admin: 02/06/19 00:00 Dose: 10 ml Documented by: Medical Necessity - Tobacco Use Smoking Status: Never smoker Assessment/Plan All Active Problems (Last Reviewed 02/05/19 @ 07:07 by Tam Oropeza MD) Small bowel obstruction (Acute) Gastroenteritis (Acute) Aspiration pneumonia (Acute) Sepsis (Acute) Impression: ?bowel obstruction - however patient is having bowel movements KUB difficult to evaluate due to large amount of bowel gas Plan: 48 y/o WM with limited communicative skills - cannot discern if having good bowel function and assessment of abdominal pain Patient still with large amount of NG output - about 700 ml over last 24 hours, albeit he has had two bowel movements He has a protuberant abdomen, this may be his baseline as his outpatient notes chronic constipation/distention/intermittent nausea and emesis at this point, as an inpatient, if he remains status quo, will obtain repeat CT scan to re-evaluate his abdomen tomorrow
--- NOTE | 2019-02-06 11:23 | PN_ITS ---
Patient Problems: Active and Suspected Problems (Last Reviewed 02/05/19 @ 07:07 by Tam Oropeza MD) Small bowel obstruction (Acute) Gastroenteritis (Acute) Aspiration pneumonia (Acute) Sepsis (Acute) Subjective: Patient seen and examined. He had no active complaints. He said he had 2 large bowel movements overnight. He denied any abdominal pain, nausea vomiting. Review of symptoms otherwise negative. Patient does appear to have coffee- ground emesis being suctioned out of his NG tube. This was not present yesterday. Does deny any abdominal pain and hemoglobin has remained stable. It was 14.7 on admission and is now 12.9. He denies any history of peptic ulcer disease and any frequent use of NSAIDs. Vitals/I&O's: Vital Signs Temp Pulse Resp BP Pulse Ox 98 F 99 20 H 134/89 H 100 02/06/19 10:07 02/06/19 10:07 02/06/19 10:07 02/06/19 10:07 02/06/19 10:07 Oxygen Flow Rate (L/min) 2 Oxygen Delivery Method Room Air Weight: 192 lb 3.889 oz Body Mass Index (BMI) 28.3 Intake and Output for Last 24 Hours 02/04/19 02/05/19 02/06/19 23:59 23:59 23:59 Intake Total 1000 / 1000 3314.50 / 3314.50 1084 / 1084 Output Total 1650 / 1650 1025 / 1025 Balance 1000 / 1000 1664.50 / 1664.50 59 / 59 General: Alert, Cooperative, No apparent distress HEENT: Atraumatic, PERRLA, EOMI, Normocephalic Oral: Moist Mucosa, - - NG tube in place, draining coffee ground fluid. Neck: Supple, No JVD, Negative Carotid Bruits Lungs: Clear to auscultation, Normal air movement, No rhonchi, No wheeze Cardiovascular: Regular Rhythm, Normal S1, Normal S2, No murmurs, Tachycardic Abdomen: Bowel Sounds Present, Soft, Distended - tympanitic to percussion Extremities: No clubbing, No cyanosis, No edema, Capillary Refill Less than 3 Seconds Skin: No rashes, No breakdown Musculoskeletal: No Tenderness to Palpation of Joints or Extremities Lymphatic: No Cervical, Supraclavicular, or Inguinal Adenopathy Neurological: Cranial nerves II-XII grossly intact Psych/Mental Status: Normal Affect, Appropriate Microbiology Past 72 Hours 02/04/19 23:10 Mucosa - Nasopharyngeal Influenza Types A,B Direct FA (RADHA) - Final Laboratory Results 02/05/19 15:00: Sodium 142, Potassium 3.6, Chloride 109 H, Carbon Dioxide 24.0, Anion Gap 9, BUN 19 H, Creatinine 1.09, Estim Creat Clear Calc 82.88, Est GFR (MDRD) Af Amer 93, Est GFR (MDRD) Non-Af 77, BUN/Creatinine Ratio 17.4, Glucose 138 H, Calcium 8.3 L 02/06/19 00:51: WBC 5.5, RBC 4.16 L, Hgb 12.9 L, Hct 39.5 L, MCV 95.0 H, MCH 31.0, MCHC 32.7, RDW Std Deviation 51.3 H, RDW Coeff of J Luis 14.6, Plt Count 159, MPV 11.6, Immature Gran % (Auto) 0.400, Neut % (Auto) 71.5 H, Lymph % (Auto) 15.5 L, [place] % (Auto) 12.4 H, Eos % (Auto) 0.0, Baso % (Auto) 0.2, Absolute Neuts (auto) 3.9, Absolute Lymphs (auto) 0.85, Nucleated RBC % 0 02/06/19 00:51: Sodium 144, Potassium 3.4 L, Chloride 111 H, Carbon Dioxide 27.0, Anion Gap 6, BUN 22 H, Creatinine 0.92, Estim Creat Clear Calc 98.19, Est GFR (MDRD) Af Amer 113, Est GFR (MDRD) Non-Af 93, BUN/Creatinine Ratio 23.9 H, Glucose 118 H, Calcium 7.8 L Diagnostic Data Abdomen/Pelvis CT 02/05/19 00:00 IMPRESSION: Findings consistent with a distal small bowel obstruction. I cannot identify the exact location of the obstruction. 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 Although this could just represent atelectasis, the possibility of pneumonia is within the differential. Individualized dose optimization techniques were used for this CT. at 0037 Reported and signed by: Fernando Huitron MD Electronically Signed: Fernando Huitron MD at 0:36 EST Tel , Service support , Chest X-Ray 02/05/19 00:40 IMPRESSION: Basilar airspace disease greatest within the right middle lobe and right lower lobe better demonstrated on the previous CT scan and may represent pneumonia. at 0244 Reported and signed by: Fernando Huitron MD Electronically Signed: Fernando Huitron MD at 2:43 EST Tel , Service support , KUB X-Ray 02/06/19 04:55 IMPRESSION: Persistent gaseous distention of large and small bowel loops, with no definite change from previous study. Nasogastric tube is in adequate position. Electronically Signed: Mau Duong MD at 6:27 EST , Service support , Current Medications Acetaminophen (Tylenol) 650 mg RECTAL Q6H PRN PRN PRN Reason: Temp > 100.7 F Last Admin: 02/05/19 07:13 Dose: 650 mg Documented by: Enoxaparin Sodium (Lovenox) 40 mg SC DAILY [facility] Last Admin: 02/06/19 11:09 Dose: 40 mg Documented by: Glucagon () 1 mg IM .X1 PRN PRN Reason: Hypoglycemia Ampicillin Sodium/Sulbactam (Sodium 3 gm/ Sodium Chloride) 112 mls @ 150 mls/hr IV Q6 [facility] Last Infusion: 02/06/19 06:13 Dose: Infused Documented by: Dextrose (Dextrose 10%-Water) 250 mls @ 999 mls/hr IV X1 PRN; Protocol PRN Reason: HYPOGLYCEMIA Sodium Chloride () 250 mls @ 15 mls/hr IV .[id number] PRN PRN Reason: Saline Flush Last Infusion: 02/05/19 16:15 Dose: 0 mls/hr Documented by: Potassium Chloride () 10 meq in 100 mls @ 100 mls/hr IV BOLUS Q1H [facility] Stop: 02/06/19 11:29 Last Admin: 02/06/19 10:38 Dose: 100 mls/hr Documented by: Pantoprazole Sodium 40 mg/ (Sodium Chloride) 110 mls @ 330 mls/hr IV Q12 [facility] Metoclopramide HCl (Reglan) 10 mg IV Q6 [facility] Last Admin: 02/06/19 05:22 Dose: 10 mg Documented by: Ondansetron HCl (Zofran) 4 mg IV Q8H PRN PRN PRN Reason: NAUSEA/VOMITING Last Admin: 02/05/19 19:20 Dose: 4 mg Documented by: Sodium Chloride () 10 - 40 ml IV UD PRN PRN Reason: SALINE FLUSH Last Admin: 02/06/19 00:00 Dose: 10 ml Documented by: STROKE Vital Signs/Narrative: Vital Signs Temp Pulse Resp BP Pulse Ox 02/06/19 10:07 98 F 99 20 H 134/89 H 100 02/06/19 10:00 20 H 100 Medical Necessity - Tobacco Use Smoking Status: Never smoker Assessment/Plan All Active Problems (Last Reviewed 02/05/19 @ 07:07 by Tam Oropeza MD) Small bowel obstruction (Acute) Gastroenteritis (Acute) Aspiration pneumonia (Acute) Sepsis (Acute) 1. Small bowel obstruction * patient remains NPO * had 2 larger bowel movements yesterday * general surgery on board: think it is due to severe constipation. Plan of CT abdomen tomorrow if abdomen is still distended * NG tube draining coffee ground fluids. Hb is 12.7 today, from ~ 14 on admission * continue gentle hydration with IVF * start IV pantoprazole and monitor * KUB of abdomen today: Persistent gaseous distention of small and large bowel loops with no definite change from previous study. * IV zofran prn * * 2. Sepsis due to aspiration pneumonia * SIRS criteria is now 0/4 * CXR showed bibasilar airspace disease greatest in right middle lobe and right lower lobe * may have been caused by aspiration during vomiting * On IV unasyn * blood cultures pending * 3.Hypokalemia: K is 3.4 today. WIll replace and monitor. 4. History of MRDD: stable DVT prophylaxis: lovenox Code Visit Inpatient E&M: 39618 Subs Hosp L2
[2019-02-06] MEDS: 0.9% Normal Saline 1,000 ML 150 ML IV ×2 (13:08→18:56)
[2019-02-07] VITALS: BP 141/94; PULSE 96; RESP 18; TEMP 36.8; O2SAT 97
[2019-02-07] MEDS: 0.9% Normal Saline 1,000 ML 150 ML IV ×3 (01:53→19:14)
[2019-02-07] MEDS: Metoclopramide 10 MG/2 ML Vial IV ×4 (05:08→23:33)
[2019-02-07 05:43] LABS: Absolute Lymphocyte Count 1.15 X10^3/uL (0.83-4.51); Absolute Neutrophil Count 5.1 X10^3/uL (2.0-7.7); Basophil# 0.02 X10^3/uL; Basophil% 0.3 % (0-1); Eosinophil# 0.08 X10^3/uL; Eosinophils% 1.1 % (0-5); Hemoglobin 11.3 g/dL (13.0-16.5); Lymphocyte # 1.15 X10^3/ul (4.0); Lymphocyte % 16.2 % (19-41); Mean Corp Hgb Conc 32.3 g/dL (32-36); Mean Corpuscular Hgb 31.1 pg (27.0-32.0); Mean Corpuscular Volume 96.4 fL (80-94); Monocyte# 0.71 X10^3/uL; NRBC Flagged by Analyzer 0 % (0-5); Neutrophil # 5.12 X10^3/uL (2.7-7.7); Neutrophil % 72.1 % (47-70); Platelet Count 155 K/mm3 (150-450); RBC Distribution Width CV 14.9 % (11.6-14.6); RBC Distribution Width SD 52.9 fl (35.1-43.9); Red Blood Count 3.63 M/mm3 (4.6-6.2); White Blood Count 7.1 K/mm3 (4.4-11.0)
--- NOTE | 2019-02-07 06:00 | CT_ITS ---
STUDY: CT ABDOMEN AND PELVIS WITHOUT CONTRAST REASON FOR EXAM: Male, 48 years old. Small bowel obstruction. Abdominal pain. Nausea and vomiting. RADIATION DOSAGE (If Supplied By Facility): CTDIvol = ( 12.22 ) mGy, DLP = ( 656.51 ) mGycm TECHNIQUE: Transaxial images were obtained from the dome of the diaphragm to the symphysis pubis with oral contrast, and without intravenous contrast. Sagittal and coronal images were reconstructed. Individualized dose optimization techniques were used for this CT. COMPARISON: February 05, 2019. FINDINGS: Bibasilar groundglass opacities more nodular in the left lower lobe since the prior exam which could represent pneumonia. The visualized portions of the heart are within normal limits. Normal liver. No gallstones or gallbladder wall thickening. Normal spleen. Normal pancreas. Normal bilateral adrenal glands. Normal right kidney. Left pelvic kidney. Nasogastric tube in the proximal gastric body. Mild wall thickening involving multiple loops of small bowel, including the terminal ileum, compatible with enteritis. Normal colon. The appendix is visualized and appears normal. Normal abdominal aorta. Normal inferior vena cava. Normal retroperitoneum. No intra-abdominal free air. Normal urinary bladder. Prostate gland not enlarged. Normal abdominal wall. Degenerative changes of the lower thoracic and lumbar spine. CT/Abdomen/Pel W ORAL Cont Only IMPRESSION: Interval development of mild wall thickening involving the majority of the small bowel compatible with enteritis. Considerations include infection, inflammatory bowel disease and probably less likely ischemia. Appearance does not suggest a small bowel obstruction. Possible pneumonia involving the lung bases most prominent in the left lower lobe. Left pelvic kidney noted previously. Electronically Signed: Bam Ware MD at 6:46 EST , Service support ,
[2019-02-07 06:08] LABS: Anion Gap 6 (5-15); BUN 17 mg/dL (7-18); BUN/Creat Ratio 21.5 RATIO (10-20); Calcium,Total 7.4 mg/dL (8.5-10.1); Chloride 116 mmol/L (98-107); Creatinine, Serum 0.79 mg/dL (0.70-1.30); EST Glomerular Filtration Rate 111 mL/min (>60); Est Glom Filt Rate - Afr Amer 134 mL/min (>60); Estimated Creatinine Clearance 114.35 ml/min; Glucose 82 mg/dL (74-106); Potassium 3.6 mmol/L (3.5-5.1); Sodium Level 146 mmol/L (136-145)
[2019-02-07 06:15] VITALS: BP 123/87; PULSE 74; RESP 18; TEMP 36.8; O2SAT 95
[2019-02-07 07:31] VITALS: O2SAT 94
[2019-02-07] MEDS: Enoxaparin 40 MG/0.4 ML Syringe SC (07:38)
[2019-02-07 09:46] VITALS: BP 137/94; PULSE 92; RESP 18; TEMP 36.5; O2SAT 97
--- NOTE | 2019-02-07 12:25 | PN_ITS ---
Patient Problems: Active and Suspected Problems (Last Reviewed 02/05/19 @ 07:07 by Tam Oropeza MD) Small bowel obstruction (Acute) Gastroenteritis (Acute) Aspiration pneumonia (Acute) Sepsis (Acute) Subjective: Patient seen and examined. NG tube was removed this morning and he was started on clear liquid diet, which he is tolerating. He had no active complaints. Review of systems is otherwise negative. Labs and vitals reviewed. Vitals/I&O's: Vital Signs Temp Pulse Resp BP Pulse Ox 97.7 F L 92 18 137/94 H 97 02/07/19 09:46 02/07/19 09:46 02/07/19 09:46 02/07/19 09:46 02/07/19 09:46 Oxygen Flow Rate (L/min) 2 Oxygen Delivery Method Room Air Weight: 192 lb 3.889 oz Body Mass Index (BMI) 28.3 Intake and Output for Last 24 Hours 02/05/19 02/06/19 02/07/19 23:59 23:59 23:59 Intake Total 3314.50 / 3314.50 3279.50 / 3279.50 2803.5 / 2803.5 Output Total 1650 / 1650 1935 / 1935 120 / 120 Balance 1664.50 / 1664.50 1344.50 / 1344.50 2683.5 / 2683.5 General: Alert, Cooperative, No apparent distress HEENT: Atraumatic, PERRLA, EOMI, Normocephalic Oral: Moist Mucosa, - NG tube has been removed. Suction container had bilious fluid Neck: Supple, No JVD, Negative Carotid Bruits Lungs: Clear to auscultation, Normal air movement, No rhonchi, No wheeze Cardiovascular: Regular Rhythm, Normal S1, Normal S2, No murmurs, Tachycardic Abdomen: Bowel Sounds Present, Soft, Distended - tympanitic to percussion Extremities: No clubbing, No cyanosis, No edema, Capillary Refill Less than 3 Seconds Skin: No rashes, No breakdown Musculoskeletal: No Tenderness to Palpation of Joints or Extremities Lymphatic: No Cervical, Supraclavicular, or Inguinal Adenopathy Neurological: Cranial nerves II-XII grossly intact Psych/Mental Status: Normal Affect, Appropriate Microbiology Past 72 Hours 02/04/19 23:10 Mucosa - Nasopharyngeal Influenza Types A,B Direct FA (RADHA) - Final Laboratory Results 02/07/19 05:25: WBC 7.1, RBC 3.63 L, Hgb 11.3 L, Hct 35.0 L, MCV 96.4 H, MCH 3 1.1, MCHC 32.3, RDW Std Deviation 52.9 H, RDW Coeff of J Luis 14.9 H, Plt Count 155, MPV 11.0, Immature Gran % (Auto) 0.300, Neut % (Auto) 72.1 H, Lymph % (Auto) 16.2 L, [place] % (Auto) 10.0, Eos % (Auto) 1.1, Baso % (Auto) 0.3, Absolute Neuts (auto) 5.1, Absolute Lymphs (auto) 1.15, Nucleated RBC % 0 02/07/19 05:25: Sodium 146 H, Potassium 3.6, Chloride 116 H, Carbon Dioxide 24.0, Anion Gap 6, BUN 17, Creatinine 0.79, Estim Creat Clear Calc 114.35, Est GFR (MDRD) Af Amer 134, Est GFR (MDRD) Non-Af 111, BUN/Creatinine Ratio 21.5 H, Glucose 82, Calcium 7.4 L Diagnostic Data Abdomen/Pelvis CT 02/05/19 00:00 IMPRESSION: Findings consistent with a distal small bowel obstruction. I cannot identify the exact location of the obstruction. 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 Although this could just represent atelectasis, the possibility of pneumonia is within the differential. Individualized dose optimization techniques were used for this CT. at 0037 Reported and signed by: Fernando Huitron MD Electronically Signed: Fernando Huitron MD at 0:36 EST Tel , Service support , Chest X-Ray 02/05/19 00:40 IMPRESSION: Basilar airspace disease greatest within the right middle lobe and right lower lobe better demonstrated on the previous CT scan and may represent pneumonia. at 0244 Reported and signed by: Fernando Huitron MD Electronically Signed: Fernando Huitron MD at 2:43 EST Tel , Service support , KUB X-Ray 02/06/19 04:55 IMPRESSION: Persistent gaseous distention of large and small bowel loops, with no definite change from previous study. Nasogastric tube is in adequate position. Electronically Signed: Mau Duong MD at 6:27 EST , Service support , Abdomen CT 02/07/19 06:00 IMPRESSION: Interval development of mild wall thickening involving the majority of the small bowel compatible with enteritis. Considerations include infection, inflammatory bowel disease and probably less likely ischemia. Appearance does not suggest a small bowel obstruction. Possible pneumonia involving the lung bases most prominent in the left lower lobe. Left pelvic kidney noted previously. Electronically Signed: Bam Ware MD at 6:46 EST , Service support , Current Medications Acetaminophen (Tylenol) 650 mg RECTAL Q6H PRN PRN PRN Reason: Temp > 100.7 F Last Admin: 02/05/19 07:13 Dose: 650 mg Documented by: Enoxaparin Sodium (Lovenox) 40 mg SC DAILY [facility] Last Admin: 02/07/19 07:38 Dose: 40 mg Documented by: Glucagon () 1 mg IM .X1 PRN PRN Reason: Hypoglycemia Ampicillin Sodium/Sulbactam (Sodium 3 gm/ Sodium Chloride) 112 mls @ 150 mls/hr IV Q6 [facility]YLER Last Admin: 02/07/19 11:47 Dose: 150 mls/hr Documented by: Dextrose (Dextrose 10%-Water) 250 mls @ 999 mls/hr IV X1 PRN; Protocol PRN Reason: HYPOGLYCEMIA Sodium Chloride () 250 mls @ 15 mls/hr IV .[id number] PRN PRN Reason: Saline Flush Last Infusion: 02/07/19 11:38 Dose: Infused Documented by: Pantoprazole Sodium 40 mg/ (Sodium Chloride) 110 mls @ 330 mls/hr IV Q12 [facility] Last Infusion: 02/07/19 09:50 Dose: Infused Documented by: Sodium Chloride () 1,000 mls @ 150 mls/hr IV .[id number] [facility] Last Infusion: 02/07/19 11:51 Dose: 0 mls/hr Documented by: Metoclopramide HCl (Reglan) 10 mg IV Q6 TYLER Last Admin: 02/07/19 11:42 Dose: 10 mg Documented by: Ondansetron HCl (Zofran) 4 mg IV Q8H PRN PRN PRN Reason: NAUSEA/VOMITING Last Admin: 02/05/19 19:20 Dose: 4 mg Documented by: Sodium Chloride () 10 - 40 ml IV UD PRN PRN Reason: SALINE FLUSH Last Admin: 02/06/19 00:00 Dose: 10 ml Documented by: STROKE Vital Signs/Narrative: Vital Signs Temp Pulse Resp BP Pulse Ox 02/07/19 09:46 97.7 F L 92 18 137/94 H 97 Medical Necessity - Tobacco Use Smoking Status: Never smoker Assessment/Plan All Active Problems (Last Reviewed 02/05/19 @ 07:07 by Tam Oropeza MD) Small bowel obstruction (Acute) Gastroenteritis (Acute) Aspiration pneumonia (Acute) Sepsis (Acute) 1. Small bowel obstruction * patient has had several large bowel movements * now on clear liquid diet; NG tube was removed this morning * CT abdomen showed interval development of mild wall thickening of majority of small gowel, compatible with enteritis,a nd possible pneumonia of hte lung bases, prominent in left lower lobe. * on IV zofran. * Suspected coffee ground NG tube aspirate has cleared up to bilious fluid. * will monitor * general surgery on board. * 2. Sepsis due to aspiration pneumonia * SIRS criteria is now 0/4 * CXR showed bibasilar airspace disease greatest in right middle lobe and right lower lobe * CT abdomen also showed pneumonia in lung bases, most prominent in left lower lobe * may have been caused by aspiration during vomiting * On IV unasyn * blood cultures pending * 3.Hypokalemia: resolved. 4. History of MRDD: stable DVT prophylaxis: lovenox Code Visit Inpatient E&M: 92346 Subs Hosp L2
[2019-02-07 15:45] VITALS: BP 146/90; PULSE 91; RESP 18; TEMP 37; O2SAT 97
--- NOTE | 2019-02-07 15:53 | PN.SURG_ITS ---
Patient Problems: Active and Suspected Problems (Last Reviewed 02/05/19 @ 07:07 by Tam Oropeza MD) Small bowel obstruction (Acute) Gastroenteritis (Acute) Aspiration pneumonia (Acute) Sepsis (Acute) Subjective: patient tells me that he has no abdominal pain he states that he is passing flatus - Physical Exam Vitals/I&O's: Vital Signs Temp Pulse Resp BP Pulse Ox 97.7 F L 92 18 137/94 H 97 02/07/19 09:46 02/07/19 09:46 02/07/19 09:46 02/07/19 09:46 02/07/19 09:46 Oxygen Flow Rate (L/min) 2 Oxygen Delivery Method Room Air Weight: 87.2 kg Body Mass Index (BMI) 28.3 Intake and Output for Last 24 Hours 02/05/19 02/06/19 02/07/19 23:59 23:59 23:59 Intake Total 3314.50 / 3314.50 3279.50 / 3279.50 3275.5 / 3275.5 Output Total 1650 / 1650 1935 / 1935 120 / 120 Balance 1664.50 / 1664.50 1344.50 / 1344.50 3155.5 / 3155.5 General: Alert HEENT: Atraumatic Oral: Moist Mucosa Lungs: Normal air movement Abdomen: Soft - and protuberant (this is his baseline), Non Tender - with deep palpation - patient denies abdominal pain and there is no wincing noted Microbiology Past 72 Hours 02/05/19 02:50 Blood Culture (Wb) - Right Hand Blood Culture - Preliminary No growth in 48 hours. 02/05/19 02:40 Blood Culture (Wb) - Anticubital Right Blood Culture - Preliminary No growth in 48 hours. 02/04/19 23:10 Mucosa - Nasopharyngeal Influenza Types A,B Direct FA (RADHA) - Final Laboratory Results 02/07/19 05:25: WBC 7.1, RBC 3.63 L, Hgb 11.3 L, Hct 35.0 L, MCV 96.4 H, MCH 31.1, MCHC 32.3, RDW Std Deviation 52.9 H, RDW Coeff of J Luis 14.9 H, Plt Count 155, MPV 11.0, Immature Gran % (Auto) 0.300, Neut % (Auto) 72.1 H, Lymph % (Auto) 16.2 L, [place] % (Auto) 10.0, Eos % (Auto) 1.1, Baso % (Auto) 0.3, Absolute Neuts (auto) 5.1, Absolute Lymphs (auto) 1.15, Nucleated RBC % 0 02/07/19 05:25: Sodium 146 H, Potassium 3.6, Chloride 116 H, Carbon Dioxide 24.0, Anion Gap 6, BUN 17, Creatinine 0.79, Estim Creat Clear Calc 114.35, Est GFR (MDRD) Af Amer 134, Est GFR (MDRD) Non-Af 111, BUN/Creatinine Ratio 21.5 H, Glucose 82, Calcium 7.4 L Current Medications Acetaminophen (Tylenol) 650 mg RECTAL Q6H PRN PRN PRN Reason: Temp > 100.7 F Last Admin: 02/05/19 07:13 Dose: 650 mg Documented by: Enoxaparin Sodium (Lovenox) 40 mg SC DAILY [facility] Last Admin: 02/07/19 07:38 Dose: 40 mg Documented by: Glucagon () 1 mg IM .X1 PRN PRN Reason: Hypoglycemia Ampicillin Sodium/Sulbactam (Sodium 3 gm/ Sodium Chloride) 112 mls @ 150 mls/hr IV Q6 TYLER Last Infusion: 02/07/19 12:32 Dose: Infused Documented by: Dextrose (Dextrose 10%-Water) 250 mls @ 999 mls/hr IV X1 PRN; Protocol PRN Reason: HYPOGLYCEMIA Sodium Chloride () 250 mls @ 15 mls/hr IV .[id number] PRN PRN Reason: Saline Flush Last Infusion: 02/07/19 11:38 Dose: Infused Documented by: Pantoprazole Sodium 40 mg/ (Sodium Chloride) 110 mls @ 330 mls/hr IV Q12 TYLER Last Infusion: 02/07/19 09:50 Dose: Infused Documented by: Sodium Chloride () 1,000 mls @ 150 mls/hr IV .Q6H40M [facility]YLER Last Infusion: 02/07/19 12:35 Dose: 150 mls/hr Documented by: Metoclopramide HCl (Reglan) 10 mg IV Q6 [facility] Last Admin: 02/07/19 11:42 Dose: 10 mg Documented by: Ondansetron HCl (Zofran) 4 mg IV Q8H PRN PRN PRN Reason: NAUSEA/VOMITING Last Admin: 02/05/19 19:20 Dose: 4 mg Documented by: Sodium Chloride () 10 - 40 ml IV UD PRN PRN Reason: SALINE FLUSH Last Admin: 02/06/19 00:00 Dose: 10 ml Documented by: Medical Necessity - Tobacco Use Smoking Status: Never smoker Assessment/Plan All Active Problems (Last Reviewed 02/05/19 @ 07:07 by Tam Oropeza MD) Small bowel obstruction (Acute) Gastroenteritis (Acute) Aspiration pneumonia (Acute) Sepsis (Acute) Impression: ileus - resolved Plan: 48 y/o WM with limited communicative skills CT scan - no evidence of bowel obstruction NG tube was removed and patient started on clear liquids, has tolerated this can advance to regular diet No surgical indications at this point in time
[2019-02-07 20:37] VITALS: BP 143/98; PULSE 95; RESP 18; TEMP 37.3; O2SAT 98
[2019-02-08 01:51] VITALS: BP 135/91; PULSE 93; RESP 16; TEMP 36.8; O2SAT 97
[2019-02-08] MEDS: 0.9% Normal Saline 1,000 ML 150 ML IV (02:01)
[2019-02-08] MEDS: Metoclopramide 10 MG/2 ML Vial IV (05:13)
[2019-02-08 05:54] LABS: Absolute Lymphocyte Count 1.05 X10^3/uL (0.83-4.51); Absolute Neutrophil Count 7.6 X10^3/uL (2.0-7.7); Basophil# 0.03 X10^3/uL; Basophil% 0.3 % (0-1); Eosinophil# 0.09 X10^3/uL; Eosinophils% 0.9 % (0-5); Hematocrit 38.7 % (40-54); Hemoglobin 12.8 g/dL (13.0-16.5); Lymphocyte # 1.05 X10^3/ul (4.0); Lymphocyte % 11.1 % (19-41); Mean Corp Hgb Conc 33.1 g/dL (32-36); Mean Corpuscular Volume 93.7 fL (80-94); Mean Platelet Vol. 10.6 fl (6.2-12.0); Monocyte# 0.73 X10^3/uL; Monocyte% 7.7 % (0-10); NRBC Flagged by Analyzer 0 % (0-5); Neutrophil # 7.56 X10^3/uL (2.7-7.7); Neutrophil % 79.6 % (47-70); Platelet Count 182 K/mm3 (150-450); RBC Distribution Width CV 14.2 % (11.6-14.6); RBC Distribution Width SD 48.9 fl (35.1-43.9); Red Blood Count 4.13 M/mm3 (4.6-6.2); White Blood Count 9.5 K/mm3 (4.4-11.0)
[2019-02-08 06:11] LABS: Anion Gap 7 (5-15); BUN 7 mg/dL (7-18); Calcium,Total 7.9 mg/dL (8.5-10.1); Chloride 111 mmol/L (98-107); Creatinine, Serum 0.78 mg/dL (0.70-1.30); EST Glomerular Filtration Rate 113 mL/min (>60); Est Glom Filt Rate - Afr Amer 137 mL/min (>60); Estimated Creatinine Clearance 115.82 ml/min; Glucose 99 mg/dL (74-106); Potassium 3.4 mmol/L (3.5-5.1); Sodium Level 141 mmol/L (136-145)
[2019-02-08 09:55] VITALS: BP 152/99; PULSE 107; RESP 16; TEMP 36.8; O2SAT 97
[2019-02-08] MEDS: Enoxaparin 40 MG/0.4 ML Syringe SC (09:56)
--- NOTE | 2019-02-08 10:28 | PCM.DC ---
- Discharge Diagnoses Current Active Problems: Current Active and Chronic Problems (Last Reviewed 02/05/19 @ 07:07 by Tam Oropeza MD) Small bowel obstruction (Acute) Gastroenteritis (Acute) Aspiration pneumonia (Acute) Sepsis (Acute) You will use the following diet at home:: Regular, High fiber Your food should be the consistency of: Regular Your liquids should be the consistency of: Regular/Thin Discharge Activity: Return to Normal Activity Weight Bearing Status: Weight bearing as tolerated Call your doctor if you observe: Fever of 101 or Higher, Inability to have a bowel movement, Shortness of breath Instructions: Small Bowel Obstruction, Pneumonia, Treating Constipation Allergies/Adverse Reactions: Allergies No Known Allergies Allergy (Verified 02/04/19 20:20) Medications to take at Discharge Clozapine 100 mg PO BREAKFAST 02/04/19 Clozapine 125 mg PO QHS 02/04/19 Docusate Sodium [Dok] 100 mg PO BID 02/04/19 Escitalopram Oxalate 15 mg PO DAILY 02/04/19 Lorazepam 0.5 mg PO DAILY 02/04/19 Melatonin 6 mg PO QHS 02/04/19 Polyethylene Glycol 3350 [Gavilax] 8.5 gm PO DAILY 02/04/19 Clindamycin Phos/Benzoyl Perox [Clind pH-Benzoyl Perox 1.2-5%] 1 applic TOPICAL QHS 02/05/19 Lorazepam 1 mg PO QHS 02/05/19 levoFLOXacin tablet [Levaquin tablet] 750 mg PO DAILY #3 tab 02/08/19 The following prescriptions were given: levoFLOXacin tablet [Levaquin tablet] 750 mg PO DAILY #3 tab Transmission Status: Pending to [facility] Primary Care Physician: Mervat Carrillo MD [Primary Care Provider] - Please follow up with your Primary Care Physician in: one week Test Results: Test results from this visit will be discussed in further detail at your follow-up appointment, if applicable. Please Follow Up With: Jazlyn Phelps MD When: 1-2 weeks Proposed Discharge Date: 02/08/19
--- NOTE | 2019-02-08 10:30 | PCM.DC.SUM ---
Discharge Date and Diagnosis Date of Admission: 02/05/19 Date of Discharge: 02/08/19 - Primary Discharge Diagnosis Active and Suspected Problems (Last Reviewed 02/05/19 @ 07:07 by Tam Oropeza MD) Small bowel obstruction (Acute) Gastroenteritis (Acute) Aspiration pneumonia (Acute) Sepsis (Acute) Hospital Course and Treatment Imaging Results: Diagnostic Data Abdomen/Pelvis CT 02/05/19 00:00 IMPRESSION: Findings consistent with a distal small bowel obstruction. I cannot identify the exact location of the obstruction. 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 Although this could just represent atelectasis, the possibility of pneumonia is within the differential. Individualized dose optimization techniques were used for this CT. at 0037 Reported and signed by: Fernando Huitron MD Electronically Signed: Fernando Huitron MD at 0:36 EST Tel , Service support , Chest X-Ray 02/05/19 00:40 IMPRESSION: Basilar airspace disease greatest within the right middle lobe and right lower lobe better demonstrated on the previous CT scan and may represent pneumonia. at 0244 Reported and signed by: Fernando Huitron MD Electronically Signed: Fernando Huitron MD at 2:43 EST Tel , Service support , KUB X-Ray 02/06/19 04:55 IMPRESSION: Persistent gaseous distention of large and small bowel loops, with no definite change from previous study. Nasogastric tube is in adequate position. Electronically Signed: Mau Duong MD at 6:27 EST , Service support , Abdomen CT 02/07/19 06:00 IMPRESSION: Interval development of mild wall thickening involving the majority of the small bowel compatible with enteritis. Considerations include infection, inflammatory bowel disease and probably less likely ischemia. Appearance does not suggest a small bowel obstruction. Possible pneumonia involving the lung bases most prominent in the left lower lobe. Left pelvic kidney noted previously. Electronically Signed: Bam Ware MD at 6:46 EST , Service support , general surgery- Dr Phelps Operations: None Procedures: None Summary of Care Provided: The patient is a 48 year old M with a history of MRDD and resident in a nursing home. He was admitted through the ED on 02/05/2019 with a complaint of nausea and vomiting. He also had abdominal pain. Patient's international sourcing manager who brought patient also noted that patient had had an increase in his abdominal girth. On admission KUB done in the ED was concerning for small bowel obstruction and CT of the abdomen done also showed possible small bowel obstruction and by lateral basilar lung disease. He also developed a fever of 102.2 Fahrenheit in the ED with associated tachycardia. He was admitted and managed for small bowel obstruction and sepsis due to probable aspiration pneumonia. He was started on IV Unasyn and he was kept n.p.o. and NG tube inserted. General surgery was consulted. General surgery evaluated patient's and thought his symptoms were likely due to constipation as CT of the abdomen showed a large stool burden. Patient had a follow-up KUB with Gastrografin with Gastrografin acting as a laxative. Patient subsequently had several large bowel movements. NG tube aspirate at a point was thought to be possibly coffee-ground in nature but it subsequently cleared up after the canister was changed. Patient remained stable and NG tube was taken out on 02/07/2019. He tolerated clear liquids and also tolerated regular diet once diet was advanced. Blood culture showed no growth after 48 hours. Patient remained stable and was discharged home on 02/08/2019. He was discharged with a prescription for p.o. levofloxacin for 3 days. He is to follow-up with his primary care doctor and general surgery. Patient seen and examined prior to discharge. He had no active complaints. Review of symptoms otherwise negative. Labs and vitals reviewed. Home medications reviewed and reconciled. o/e: Vital Signs Height 5 ft 9 in Weight: 192 lb 3.889 oz Weight in Pounds 192.2 lbs Pulse Ox 97 Temperature 98.3 F Pulse Rate 107 Respiratory Rate 16 Blood Pressure 152/99 Blood Pressure Position Semi-Fowlers General: Alert, Cooperative, No apparent distress HEENT: Atraumatic, PERRLA, EOMI, Normocephalic Oral: Moist Mucosa, - - NG tube in place, draining bilious fluid Neck: Supple, No JVD, Negative Carotid Bruits Lungs: Clear to auscultation, Normal air movement, No rhonchi, No wheeze Cardiovascular: Regular Rhythm, Normal S1, Normal S2, No murmurs, Tachycardic Abdomen: Bowel Sounds Present, Soft, Distended - tympanitic to percussion Extremities: No clubbing, No cyanosis, No edema, Capillary Refill Less than 3 Seconds Skin: No rashes, No breakdown Musculoskeletal: No Tenderness to Palpation of Joints or Extremities Lymphatic: No Cervical, Supraclavicular, or Inguinal Adenopathy Neurological: Cranial nerves II-XII grossly intact Psych/Mental Status: Normal Affect, Appropriate Plan as above. - Physical Exam Vitals/I&O's: Vital Signs Temp Pulse Resp BP Pulse Ox 98.3 F 107 H 16 152/99 H 97 02/08/19 09:55 02/08/19 09:55 02/08/19 09:55 02/08/19 09:55 02/08/19 09:55 Oxygen Flow Rate (L/min) 2 Oxygen Delivery Method Room Air Weight: 192 lb 3.889 oz Body Mass Index (BMI) 28.3 Intake and Output for Last 24 Hours 02/06/19 02/07/19 02/08/19 23:59 23:59 23:59 Intake Total 3279.50 / 3279.50 4752.5 / 4752.5 1484 / 1484 Output Total 1935 / 1935 120 / 120 Balance 1344.50 / 1344.50 4632.5 / 4632.5 1484 / 1484 Microbiology Past 72 Hours 02/05/19 02:50 Blood Culture (Wb) - Right Hand Blood Culture - Preliminary No growth in 48 hours. 02/05/19 02:40 Blood Culture (Wb) - Anticubital Right Blood Culture - Preliminary No growth in 48 hours. Laboratory Results 02/08/19 05:37: WBC 9.5, RBC 4.13 L, Hgb 12.8 L, Hct 38.7 L, MCV 93.7, MCH 31.0, MCHC 33.1, RDW Std Deviation 48.9 H, RDW Coeff of J Luis 14.2, Plt Count 182, MPV 10.6, Immature Gran % (Auto) 0.400, Neut % (Auto) 79.6 H, Lymph % (Auto) 11.1 L, [place] % (Auto) 7.7, Eos % (Auto) 0.9, Baso % (Auto) 0.3, Absolute Neuts (auto) 7.6, Absolute Lymphs (auto) 1.05, Nucleated RBC % 0 02/08/19 05:37: Sodium 141, Potassium 3.4 L, Chloride 111 H, Carbon Dioxide 23.0, Anion Gap 7, BUN 7, Creatinine 0.78, Estim Creat Clear Calc 115.82, Est GFR (MDRD) Af Amer 137, Est GFR (MDRD) Non-Af 113, BUN/Creatinine Ratio 9.0 L, Glucose 99, Calcium 7.9 L Current Medications Acetaminophen (Tylenol) 650 mg RECTAL Q6H PRN PRN PRN Reason: Temp > 100.7 F Last Admin: 02/05/19 07:13 Dose: 650 mg Documented by: Enoxaparin Sodium (Lovenox) 40 mg SC DAILY [facility] Last Admin: 02/07/19 07:38 Dose: 40 mg Documented by: Glucagon () 1 mg IM .X1 PRN PRN Reason: Hypoglycemia Ampicillin Sodium/Sulbactam (Sodium 3 gm/ Sodium Chloride) 112 mls @ 150 mls/hr IV Q6 [facility] Last Infusion: 02/08/19 05:58 Dose: Infused Documented by: Dextrose (Dextrose 10%-Water) 250 mls @ 999 mls/hr IV X1 PRN; Protocol PRN Reason: HYPOGLYCEMIA Sodium Chloride () 250 mls @ 15 mls/hr IV .[id number] PRN PRN Reason: Saline Flush Last Infusion: 02/07/19 11:38 Dose: Infused Documented by: Pantoprazole Sodium 40 mg/ (Sodium Chloride) 110 mls @ 330 mls/hr IV Q12 TYLER Last Infusion: 02/07/19 21:10 Dose: Infused Documented by: Sodium Chloride () 1,000 mls @ 150 mls/hr IV .Q6H40M [facility] Last Infusion: 02/08/19 09:46 Dose: Infused Documented by: Metoclopramide HCl (Reglan) 10 mg IV Q6 [facility]YLER Last Admin: 02/08/19 05:13 Dose: 10 mg Documented by: Ondansetron HCl (Zofran) 4 mg IV Q8H PRN PRN PRN Reason: NAUSEA/VOMITING Last Admin: 02/05/19 19:20 Dose: 4 mg Documented by: Sodium Chloride () 10 - 40 ml IV UD PRN PRN Reason: SALINE FLUSH Last Admin: 02/06/19 00:00 Dose: 10 ml Documented by: Discharge Diet: No Restrictions Discharge Activity: Return to Normal Activity Weight Bearing Status: Weight bearing as tolerated Call your doctor if you observe: Fever of 101 or Higher, Inability to have a bowel movement, Shortness of breath Home Medications: Medications to take at Discharge Clozapine 100 mg PO BREAKFAST 02/04/19 Clozapine 125 mg PO QHS 02/04/19 Docusate Sodium [Dok] 100 mg PO BID 02/04/19 Escitalopram Oxalate 15 mg PO DAILY 02/04/19 Lorazepam 0.5 mg PO DAILY 02/04/19 Melatonin 6 mg PO QHS 02/04/19 Polyethylene Glycol 3350 [Gavilax] 8.5 gm PO DAILY 02/04/19 Clindamycin Phos/Benzoyl Perox [Clind pH-Benzoyl Perox 1.2-5%] 1 applic TOPICAL QHS 02/05/19 Lorazepam 1 mg PO QHS 02/05/19 levoFLOXacin tablet [Levaquin tablet] 750 mg PO DAILY #3 tab 02/08/19 Following Prescrptions Were Given to Patient: levoFLOXacin tablet [Levaquin tablet] 750 mg PO DAILY #3 tab Transmission Status: Received by [facility] Primary Care Physician: Mervat Carrillo MD [Primary Care Provider] - Please follow up with your Primary Care Physician in: one week Please Follow Up With: Jazlyn Phelps MD When: 1-2 weeks Patient Instructions: Small Bowel Obstruction, Treating Constipation, Pneumonia Disposition: Asstd Living/Non-Skill [place] - [facility] Minutes spent on discharge:: 40 Patient Condition:: Stable Medical Necessity - Tobacco Use Smoking Status: Never smoker Meaningful Use Info Meaningful Use Diagnoses (Choose all that apply): None applicable Code Visit Inpatient E&M: 00599 Disch Hosp
--- NOTE | 2019-02-08 10:45 | CASEMGMT ---
Social Work Note Pt is discharging back to [facility] today. ELI placed a call to Ophelia that is listed on pt's contact sheet and has the same address as snf. Ophelia states she used to work at pt's snf but transferred to different region. Ophelia states pt's nurse at [facility] and [facility] and number is [phone]. ELI placed a call to SUSAN Mars at [facility] ([facility]). Madisyn confirms pt is able to return to snf. ELI reviewed discharge paperwork with SUSAN Mars and discharge paperwork states pt is able to have regular diet at [facility] and resume activities. Per notes, pt has been ambulating in hallways. Madisyn asked for discharge paperwork to be faxed to [phone]. Madisyn states that [facility] is able to transport pt back to snf. ELI updated Madisyn that discharge is in and pt is able to discharge. Madisyn states she will check with staff at [facility] to determine when they are able to transport pt. ELI updated RN that staff from [facility] will be transporting pt and that this worker is just waiting to determine time that they will transport. ELI faxed discharge paperwork to [facility]. Yasmine Sanchez LUNG PULLER, UTILITIES OPERATOR
--- NOTE | 2019-02-08 11:10 | CASEMGMT ---
Social Work Note ELI receive call from SUSAN Mars at [facility] stating transportation is able to come to [facility] now to transport pt. 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 ELI updated RN. RN confirms pt is ready for discharge. ELI placed a call to pt's Legal Guardian Kia and updated her that pt will be discharged back to [facility] today and assisted is on way to transport pt. Kia states understanding. Plan: Return to [facility] with [facility] transporting pt. Yasmine Sanchez HARDBOARD PANEL PRINTER, STATION ATTENDANT
== END 2019-02-08 12:00 | disposition home or self-care (01) | DRG 871 ==
LOC: ED 21:04 → MS3 02-05 01:37
PROVIDERS: Admitting Provider Hospitalist; Emergency Provider Emergency Medicine; Family Provider Internal Medicine; PCP Internal Medicine; Visit Provider Student in an Organized Health Care Education/Training Program
DX: A41.9 Sepsis, unspecified organism (principal); J69.0 Pneumonitis due to inhalation of food and vomit; K56.609 Unspecified intestinal obstruction, unspecified as to partial versus complete obstruction; E87.6 Hypokalemia; F70 Mild intellectual disabilities; K52.9 Noninfective gastroenteritis and colitis, unspecified; K59.00 Constipation, unspecified
CPT/HCPCS: 36415; 71045; 74018; 74176; 74177; 80048; 81001; 83605; 83735; 85025; 87040; 87804; 94640; 97802; 99251; 99285; J7030; J7040; J7050; J7120; Q9967; A4216; G0463; J0295; J2405

== ENCOUNTER 2019-07-18 23:22 | Inpatient (IN) | payer MEDICARE, MEDICAID, SELFPAY ==
[2019-02-05 02:10] VITALS: BMI 28.3
[2019-07-18 23:23] VITALS: BP 136/101; PULSE 122; RESP 16; TEMP 36.6; O2SAT 97; BMI 29.3
--- NOTE | 2019-07-18 23:57 | ED.VIS.GI ---
History of Present Illness Chief Complaint: Abd Pain Informant: Patient - Abdominal Pain/Flank Pain Onset: Hours - 7-8 approximately Context: Gradual Onset Timing: Waxes and wanes Quality: Aching Location: - - Periumbilical Current Severity: Gone Maximum Severity: Moderate Worsened by: - - Unknown Relieved by: - - Unknown - Nausea/Vomiting/Emesis GI Symptom: Nausea, Vomiting Onset: Today Quality: Nonbilious - Diarrhea/Melena/Hematochezia GI Symptom: Diarrhea - Once before coming to emergency department, - - Unknown last bowel movement prior to diarrhea Stool Quality: Negative for: TRISTIAN per rectum Narrative: History is limited due to the patient's mental retardation and intellectual disability, there is a snf staff that is helping. She thinks he is more distended than usual. He has a history of a small bowel obstruction, and there was concern that he may have a recurrent one. He has never had any abdominal surgeries. He points to the periumbilical area where he was having pain earlier, he states it is not hurting as bad now. - Past Medical History (1) Intellectual disability Status: Chronic (2) Conduct disorder Status: Chronic Past Medical History - Allergies and Home Meds Allergies/Adverse Reactions: Allergies No Known Allergies Allergy (Verified 07/18/19 23:28) Primary Care Physician: Mervat Carrillo MD [Primary Care Provider] - Surgical History: - - Patient did not know and assistant community manager who was with patient also did not know. Smoking Status: Never smoker - Family History Maternal Family History: Reports: - - Patient is an MRDD patient and he did not know. Patient's assistant community manager who was with patient also did not know. Paternal Family History: Reports: - - Patient is an MRDD patient and he did not know. Patient's assistant community manager who was with patient also did not know. Review of Systems General: Denies: Chills, Fever, Sweats Eyes: Denies: Visual changes - bilaterally, Diplopia ENT: Denies: Rhinorrhea, Sore throat Cardiovascular: Denies: Chest pain, Palpitations Respiratory: Denies: Dyspnea, Cough, Dyspnea on exertion Gastrointestinal: Reports: Abdominal pain, Nausea, Vomiting. Denies: Diarrhea, Melena, Hematochezia Genitourinary: Denies: Dysuria, Hematuria, Frequency Musculoskeletal: Denies: Back pain, Extremity Pain Skin: Denies: Rash, Wounds Neurological: Denies: Headache, Weakness, Numbness Physical Exam Vital Signs/Narrative: Vital Signs Temp Pulse Resp BP Pulse Ox 07/18/19 23:23 97.9 F 122 H 16 136/101 H 97 Inital Vital Signs reviewed: Yes General: Well nourished, Well developed, No Acute Distress - Well-appearing, cooperative Head: Normocephalic, Atraumatic Eyes: Perrl, EOMI ENT: Moist mucous membranes, No rhinorrhea Neck: Supple, Nontender Cardiovascular: Regular rate, Regular rhythm, No murmurs, Tachycardia Respiratory: No distress, CTA bilaterally, Chest nontender Abdomen: Soft, Nontender, No masses, Hypoactive bowel sounds - But present and normal-sounding, - - Diffusely distended. Negative for: Rebound tenderness, Pulsatile mass Back: Nontender, Normal Inspection. Negative for: CVA tenderness Extremities: Nontender, No edema Skin: Normal color, No rash, No Trauma Neurological: Alert, Oriented x3, Cranial nerves II-XII grossly intact, Normal Strength, Normal Sensation Psychological: Normal affect, Normal Mood Diagnostic/Tx/Re-eval Impressions Abdomen/Pelvis CT 07/19/19 00:05 IMPRESSION: Motion degraded study. Fluid distended colon correlate for diarrhea/infectious inflammatory process. There are multiple loops of dilated small bowel with air-fluid levels present. There is distal small bowel decompression. Findings would be concerning for small bowel obstruction given the distal decompression. Likely right upper abdominal lead point. No hydronephrosis or nephrolithiasis. The left kidney is located within the pelvis. Other findings as discussed above. Electronically Signed: Moises Cole, at 0:49 EDT Tel , Service support , 07/19/19 00:05 Abdomen/Pelvis without Cont [CT] Stat Laboratory Results 07/18/19 07/18/19 07/19/19 23:53 23:53 00:10 WBC 20.8 H RBC 5.12 Hgb 16.0 Hct 47.2 MCV 92.2 MCH 31.3 MCHC 33.9 RDW Std Deviation 46.4 H RDW Coeff of J Luis 13.6 Plt Count 184 MPV 10.9 Immature Gran % (Auto) 0.400 Neut % (Auto) 91.2 H Lymph % (Auto) 3.9 L [place] % (Auto) 4.3 Eos % (Auto) 0.0 Baso % (Auto) 0.2 Absolute Neuts (auto) 19.0 H Absolute Lymphs (auto) 0.81 L Nucleated RBC % 0 Sodium 138 Potassium 3.5 Chloride 105 Carbon Dioxide 25.0 Anion Gap 8 BUN 21 H Creatinine 1.00 Estim Creat Clear Calc 84.46 Est GFR (MDRD) Af Amer 102 Est GFR (MDRD) Non-Af 85 BUN/Creatinine Ratio 21.0 H Glucose 154 H Calcium 9.1 Total Bilirubin 0.60 AST 24 ALT 61 Alkaline Phosphatase 207 H Troponin I < 0.015 Total Protein 8.8 H Albumin 4.4 Globulin 4.4 H Albumin/Globulin Ratio 1.0 Lipase 42 L Urine Color Yellow Urine Clarity Clear Urine pH 5.0 Ur Specific [place] 1.025 Urine Protein 30 H Urine Glucose (UA) Normal Urine Ketones 15 H Urine Occult Blood Negative Urine Nitrite Negative Urine Bilirubin 1 H Urine Urobilinogen Normal Ur Leukocyte Esterase 25 H Urine RBC 0 SEEN Urine WBC 0-5 SEEN Ur Squamous Epith Cells 0-5 SEEN Urine Bacteria 0 SEEN Hyaline Casts 0-5 SEEN Urine Mucus 2+ - Medical Decision Making Patient had another bout of diarrhea here in the emergency department. It was nonbloody. He did not develop any more abdominal pain and his abdomen is benign on reevaluation, he is drinking sips of water and tolerating it without vomiting. His white blood count is 20 with certainly which is concerning. I suspect this all could be gastroenteritis, however the CT findings of some decompressed bowel with other areas that have air-fluid levels and distention is all consistent with small bowel obstruction which is in the differential diagnosis as well. I discussed with Dr. Valencia on-call for surgery, the patient had seen Dr. Phelps before, he recommends admission with observation and avoiding the NG tube for now since he is not vomiting. I think this is reasonable, discussed with hospitalist. ED Disposition - Plan for ED Patient: Disposition: Acute Care Hospital [facility] Diagnosis: Periumbilical abdominal pain, Nausea, vomiting, and diarrhea Referrals: Mervat Carrillo MD [Primary Care Provider] -
[2019-07-19] VITALS (7 sets, daily range): BP systolic 132–152; BP diastolic 79–89; PULSE 71–107; RESP 16–18; TEMP 36.6–36.8; O2SAT 95–99; BMI 29.2
[2019-07-19 00:03] LABS: Absolute Lymphocyte Count 0.81 X10^3/uL (0.83-4.51); Basophil# 0.05 X10^3/uL; Basophil% 0.2 % (0-1); Eosinophil# 0.01 X10^3/uL; Hematocrit 47.2 % (40-54); Lymphocyte # 0.81 X10^3/ul (4.0); Lymphocyte % 3.9 % (19-41); Mean Corp Hgb Conc 33.9 g/dL (32-36); Mean Corpuscular Hgb 31.3 pg (27.0-32.0); Mean Corpuscular Volume 92.2 fL (80-94); Mean Platelet Vol. 10.9 fl (6.2-12.0); Monocyte# 0.89 X10^3/uL; Monocyte% 4.3 % (0-10); NRBC Flagged by Analyzer 0 % (0-5); Neutrophil # 18.97 X10^3/uL (2.7-7.7); Neutrophil % 91.2 % (47-70); Platelet Count 184 K/mm3 (150-450); RBC Distribution Width CV 13.6 % (11.6-14.6); RBC Distribution Width SD 46.4 fl (35.1-43.9); Red Blood Count 5.12 M/mm3 (4.6-6.2); White Blood Count 20.8 K/mm3 (4.4-11.0)
--- NOTE | 2019-07-19 00:05 | CT_ITS ---
STUDY: CT ABDOMEN AND PELVIS WITHOUT CONTRAST REASON FOR EXAM: Male, 48 years old. ABD PAIN/VOMITING/HX SBO. Repeated images d/t motion RADIATION DOSAGE (If Supplied By Facility): CTDIvol = ( 16.26 ) mGy, DLP = ( 1113.12 ) mGycm TECHNIQUE: Transaxial images were obtained from the dome of the diaphragm to the symphysis pubis without oral contrast, and without intravenous contrast. Sagittal and coronal images were reconstructed. Individualized dose optimization techniques were used for this CT. COMPARISON: None. FINDINGS: Evaluation is limited by lack of IV and oral contrast material. Motion degraded evaluation of the lung bases. No focal consolidation is seen. Areas of groundglass opacity cannot be excluded. The visualized portions of the heart are within normal limits. Normal liver. Normal gallbladder and extrahepatic biliary system. Splenomegaly 15 cm. Normal pancreas. Normal bilateral adrenal glands. Normal right kidney. Left pelvic kidney. Evaluation of bowel limited by lack of IV and oral contrast. Fluid distended colon. Fluid dilated loops of small bowel with air-fluid levels measuring up to 4.5 cm. There is distal small bowel decompression. No free air is seen. No free fluid identified. Normal abdominal aorta. Normal inferior vena cava. Normal retroperitoneum. Normal urinary bladder. Normal abdominal wall. There are diffuse degenerative changes of the visualized lumbar spine. Degenerative changes of the sacroiliac joints greater on the right. CT/Abdomen/Pelvis without Cont IMPRESSION: Motion degraded study. Fluid distended colon correlate for diarrhea/infectious inflammatory process. There are multiple loops of dilated small bowel with air-fluid levels present. There is distal small bowel decompression. Findings would be concerning for small bowel obstruction given the distal decompression. Likely right upper abdominal lead point. No hydronephrosis or nephrolithiasis. The left kidney is located within the pelvis. Other findings as discussed above. Electronically Signed: Moises Cole, at 0:49 EDT Tel , Service support ,
[2019-07-19] MEDS: 0.9% Normal Saline 1,000 ML 125 ML IV (00:12)
[2019-07-19] MEDS: Ondansetron 4 MG/2 ML Vial IV (00:12)
[2019-07-19 00:15] LABS: Bacteria 0 SEEN /hpf (None Seen); Color, Urine Yellow (Yellow); Glucose, Dipstick Normal (Normal); Ketone-Dipstick 15 mg/dl (Negative); Leukocyte Esterase-Dipstick 25 /ul (Negative); Nitrite-Dipstick Negative (Negative); Occult Blood-Urine Negative /ul (Negative); Protein-Dipstick 30 mg/dl (Negative); Red Blood Cells-Urine 0 SEEN /hpf (0-5); Specific Gravity, Urine 1.025 (1.002-1.030); Urine Clarity Clear (Clear); Urine Urobilinogen Normal (Normal)
[2019-07-19 00:18] LABS: Urine Bilirubin Dipstick 1 mg/dL (Negative)
[2019-07-19 00:22] LABS: Hyaline Cast 0-5 SEEN /lpf (0-5); Mucous, Urine 2+ /hpf (<or=2+); Squamous Epithelial Cells - UA 0-5 SEEN /hpf (0-5); White Blood Cells 0-5 SEEN /hpf (0-5)
[2019-07-19 00:23] LABS: AST(SGOT) 24 U/L (15-37); Alanine Aminotransfer ALT/SGPT 61 U/L (16-61); Albumin, Serum 4.4 g/dL (3.2-5.0); Alkaline Phosphatase 207 U/L (45-117); Anion Gap 8 (5-15); BUN 21 mg/dL (7-18); Calcium,Total 9.1 mg/dL (8.5-10.1); Chloride 105 mmol/L (98-107); EST Glomerular Filtration Rate 85 mL/min (>60); Est Glom Filt Rate - Afr Amer 102 mL/min (>60); Estimated Creatinine Clearance 84.46 ml/min; Globulin 4.4 g/dL (2.2-4.2); Glucose 154 mg/dL (74-106); Lipase 42 U/L (73-393); Potassium 3.5 mmol/L (3.5-5.1); Protein, Total 8.8 g/dL (6.4-8.2); Sodium Level 138 mmol/L (136-145)
--- NOTE | 2019-07-19 02:53 | HP.PCM_ITS ---
Problem List (1) Ileus Status: Acute (2) History of small bowel obstruction Status: Chronic (3) Intellectual disability Status: Chronic (4) Conduct disorder Status: Chronic History of Present Illness Date of Admission: 07/19/19 Chief Complaint: Abdominal pain, vomiting. The patient is a 48 year old M with past medical history as mentioned above presented to the emergency room because of abdominal pain, nausea and vomiting. Patient is a poor informant because of history of intellectual disabilities and his caregiver was at the bedside. [facility]. According to the caregiver, patient had couple of episodes of nausea and vomiting yesterday and then he complained of lower abdominal pain with abdominal distention. Shortly after, he had an episode of diarrhea. Patient was not able to provide any details about this abdominal pain. He was admitted on January, for small bowel obstruction which was treated conservatively and was resolving. He had a history of MRDD and intellectual disability and he has been a resident of a [facility]. In the emergency department, patient was slightly tachycardic, other vital signs were stable. Routine blood work was remarkable for leukocytosis, otherwise normal. Alkaline phosphatase was slightly limited which is chronic, liver transaminases were normal. Lipase was normal. Troponin was negative. Urinalysis showed no evidence of infection. CT scan abdomen and pelvis without contrast revealed multiple loops of dilated small bowel with air-fluid levels and distal decompression. He is being admitted for ileus and suspected small bowel obstruction. Past Medical History Past Medical History (Chronic Problems): Chronic Problems (Last Reviewed 02/05/19 @ 07:[address] Tam Oropeza MD) History of small bowel obstruction (Chronic) Intellectual disability (Chronic) Conduct disorder (Chronic) Medical History: Medical History (Last Reviewed 02/05/19 @ 07:[address] Tam Oropeza MD) MRDD Allergies No Known Allergies Allergy (Verified 07/18/19 23:28) Home Medications: Ambulatory Orders Medication Instructions Recorded Clozapine 100 mg PO BREAKFAST 02/04/19 Clozapine 125 mg PO QHS 02/04/19 Docusate Sodium [Dok] 100 mg PO BID 02/04/19 Escitalopram Oxalate 15 mg PO DAILY 02/04/19 Lorazepam 0.5 mg PO DAILY 02/04/19 Melatonin 6 mg PO QHS 02/04/19 Polyethylene Glycol 3350 [Gavilax] 8.5 gm PO DAILY 02/04/19 Clindamycin Phos/Benzoyl Perox 1 applic TOPICAL QHS 02/05/19 [Clind pH-Benzoyl Perox 1.2-5%] Lorazepam 1 mg PO QHS 02/05/19 levoFLOXacin tablet [Levaquin 750 mg PO DAILY #3 tab 02/08/19 tablet] Surgical History: - - Patient did not know and manager center who was with patient also did not know. Lives: - - [facility]. Smoking Status: Current every day smoker Alcohol: None Drugs: None - *Family History Maternal History Items: - - Patient is an MRDD patient and he did not know. Paternal History Items: - - Patient is an MRDD patient and he did not know. Review of Systems Constitutional: Denies: Anorexia, Chills, Fever, Weakness Eyes: Denies: Blurred vision, Double vision, Drainage, Redness HEENT: Denies: Difficulty Hearing, Ear Pain, Eye Pain, Nasal Congestion, Sore Throat Cardiovascular: Denies: Chest Pain, Chest Pressure, Chest Tightness, Heaviness, Light Headedness, Palpitations, Syncope Respiratory: Denies: Cough, Pleuritic Pain, Shortness of Breath, Sputum production, Wheezing Gastrointestinal: Reports: Abdominal Pain, Diarrhea, Nausea, Vomiting. Denies: Constipation Genitourinary: Denies: Dysuria, Frequency, Hematuria Musculoskeletal: Denies: Arm Pain, Back Pain, Foot Pain Skin: Denies: Dryness, Rash Neurological: Denies: Balance problems, Double vision, Change in Speech, Slurred speech, Headaches, Incoordination Psychiatric: Denies: Anxiety, Depression Endocrine: Denies: Change in Body Habitus, Polydipsia, Polyuria VTE Information - Inpt Only VTE Present on Admission: No VTE Mechan Device Prophylaxis: None VTE Pharm Prophylaxis ordered?: No Patient Problems: Active and Suspected Problems (Last Reviewed 02/05/19 @ 07:[address] Tam Oropeaz MD) Ileus (Acute) - Physical Exam Vitals/I&O's: Vital Signs Temp Pulse Resp BP Pulse Ox 98 F 102 H 16 132/88 H 99 07/19/19 02:20 07/19/19 02:20 07/19/19 02:20 07/19/19 02:20 07/19/19 02:20 Oxygen Delivery Method Room Air Weight: 187 lb 6.287 oz Body Mass Index (BMI) 29.3 General: Alert, Oriented x3, Cooperative, No apparent distress HEENT: Atraumatic, PERRLA, EOMI, Normocephalic Oral: Moist Mucosa, No Gingival or Mucosal Lesions/ Ulcerations Neck: Supple, No JVD, Negative Carotid Bruits, Trachea Midline, Thyroid Normal Size and Texture Lungs: Clear to auscultation, Normal air movement, No rhonchi, No wheeze, No rales Cardiovascular: Regular rate, Regular Rhythm, Normal S1, Normal S2, PMI Normal Abdomen: Bowel Sounds Present, Soft, Non Tender, No Hepato-splenomegaly, Distended Extremities: No clubbing, No cyanosis, No edema Skin: No rashes, No breakdown Lymphatic: No Cervical, Supraclavicular, or Inguinal Adenopathy Neurological: Cranial nerves II-XII grossly intact, Motor Exam 5/5 strength throughout Psych/Mental Status: Normal Affect, Appropriate Laboratory Results 07/18/19 23:53: WBC 20.8 H, RBC 5.12, Hgb 16.0, Hct 47.2, MCV 92.2, MCH 31.3, MCHC 33.9, RDW Std Deviation 46.4 H, RDW Coeff of J Luis 13.6, Plt Count 184, MPV 10.9, Immature Gran % (Auto) 0.400, Neut % (Auto) 91.2 H, Lymph % (Auto) 3.9 L, [place] % (Auto) 4.3, Eos % (Auto) 0.0, Baso % (Auto) 0.2, Absolute Neuts (auto) 19.0 H, Absolute Lymphs (auto) 0.81 L, Nucleated RBC % 0 07/18/19 23:53: Sodium 138, Potassium 3.5, Chloride 105, Carbon Dioxide 25.0, Anion Gap 8, BUN 21 H, Creatinine 1.00, Estim Creat Clear Calc 84.46, Est GFR (MDRD) Af Amer 102, Est GFR (MDRD) Non-Af 85, BUN/Creatinine Ratio 21.0 H, Glucose 154 H, Calcium 9.1, Total Bilirubin 0.60, AST 24, ALT 61, Alkaline Phosphatase 207 H, Troponin I < 0.015, Total Protein 8.8 H, Albumin 4.4, Globulin 4.4 H, Albumin/Globulin Ratio 1.0, Lipase 42 L 07/19/19 00:10: Urine Color Yellow, Urine Clarity Clear, Urine pH 5.0, Ur Specific [place] 1.025, Urine Protein 30 H, Urine Glucose (UA) Normal, Urine Ketones 15 H, Urine Occult Blood Negative, Urine Nitrite Negative, Urine Bilirubin 1 H, Urine Urobilinogen Normal, Ur Leukocyte Esterase 25 H, Urine RBC 0 SEEN, Urine WBC 0-5 SEEN, Ur Squamous Epith Cells 0-5 SEEN, Urine Bacteria 0 SEEN, Hyaline Casts 0-5 SEEN, Urine Mucus 2+ Clinical Impression(s) from Imaging Studies Abdomen/Pelvis CT 07/19/19 00:05 IMPRESSION: Motion degraded study. Fluid distended colon correlate for diarrhea/infectious inflammatory process. There are multiple loops of dilated small bowel with air-fluid levels present. There is distal small bowel decompression. Findings would be concerning for small bowel obstruction given the distal decompression. Likely right upper abdominal lead point. No hydronephrosis or nephrolithiasis. The left kidney is located within the pelvis. Other findings as discussed above. Electronically Signed: Moises Cole, at 0:49 EDT Tel , Service support , Current Medications Sodium Chloride () 1,000 mls @ 125 mls/hr IV .Q8H TYLER Last Admin: 07/19/19 00:12 Dose: 125 mls/hr Documented by: Assessment/Plan All Active Problems (Last Reviewed 02/05/19 @ 07:[address] Tam Oropeza MD) Ileus (Acute) This is a 48 years old male patient presented to the emergency room because of abdominal pain, nausea and vomiting and he was found to have ileus and suspected small bowel obstruction on CT scan abdomen. #1 small bowel ileus/suspected small bowel obstruction: In context of recent history of small bowel obstruction back on January, which was treated conservatively. Patient never had abdominal surgery in his life. Plan: Admit to [facility] floor, n.p.o., IV fluids, IV antiemetics, IV morphine PRN, general surgery consult, KUB tomorrow morning, repeat CBC and BMP tomorrow morning. #2 leukocytosis: Likely reactive secondary to the ileus. No symptoms suggestive of infection, afebrile. Plan to monitor. #3 MRDD/intellectual disability: Stable, continue supportive treatment. #4 anxiety/depression: Continue his escitalopram and Ativan as needed. #5 DVT prophylaxis: Low risk patient, no prophylaxis indicated. This note was generated with [employer] dictation software. It may contain incorrect words, spelling, and punctuation that were not noted in checking the note before signing. Inpatient E&M: 53192 Init Hosp L2
[2019-07-19] MEDS: 0.9% Saline Lock 10 ML Syringe IV ×2 (04:04→12:11)
[2019-07-19] MEDS: 0.9% Normal Saline 1,000 ML 100 ML IV ×3 (04:04→23:41)
[2019-07-19 06:26] LABS: Absolute Lymphocyte Count 1.38 X10^3/uL (0.83-4.51); Absolute Neutrophil Count 9.8 X10^3/uL (2.0-7.7); Basophil# 0.02 X10^3/uL; Basophil% 0.2 % (0-1); Eosinophil# 0.03 X10^3/uL; Eosinophils% 0.2 % (0-5); Hematocrit 43.4 % (40-54); Hemoglobin 14.5 g/dL (13.0-16.5); Lymphocyte # 1.38 X10^3/ul (4.0); Lymphocyte % 11.2 % (19-41); Mean Corp Hgb Conc 33.4 g/dL (32-36); Mean Corpuscular Hgb 31.2 pg (27.0-32.0); Mean Corpuscular Volume 93.3 fL (80-94); Mean Platelet Vol. 11.3 fl (6.2-12.0); Monocyte# 1.05 X10^3/uL; Monocyte% 8.6 % (0-10); NRBC Flagged by Analyzer 0 % (0-5); Neutrophil # 9.75 X10^3/uL (2.7-7.7); Neutrophil % 79.5 % (47-70); Platelet Count 175 K/mm3 (150-450); RBC Distribution Width CV 13.7 % (11.6-14.6); RBC Distribution Width SD 46.9 fl (35.1-43.9); Red Blood Count 4.65 M/mm3 (4.6-6.2); White Blood Count 12.3 K/mm3 (4.4-11.0)
[2019-07-19 06:48] LABS: Anion Gap 8 (5-15); BUN 19 mg/dL (7-18); BUN/Creat Ratio 20.2 RATIO (10-20); Calcium,Total 8.5 mg/dL (8.5-10.1); Chloride 103 mmol/L (98-107); Creatinine, Serum 0.94 mg/dL (0.70-1.30); EST Glomerular Filtration Rate 91 mL/min (>60); Est Glom Filt Rate - Afr Amer 110 mL/min (>60); Estimated Creatinine Clearance 86.73 ml/min; Glucose 114 mg/dL (74-106); Potassium 3.3 mmol/L (3.5-5.1); Sodium Level 139 mmol/L (136-145)
--- NOTE | 2019-07-19 06:58 | PCM.PN.BLA ---
Progress Note CLOZORIL CHECK DONE 07/18 @ 0645 PATIENT IS ELIGABLE LAST DRAW 07/10 MONITORING FREQUENCY IS EVERY 4 WEEKS STROKE Vital Signs/Narrative: Vital Signs Temp Pulse Resp BP Pulse Ox 07/19/19 03:45 98.2 F 107 H 18 140/79 H 97 07/19/19 03:02 98 F 102 H 16 132/88 H 98
--- NOTE | 2019-07-19 07:43 | NURSING ---
Called Madisyn Leger from [facility] at [phone] to obtain pt's history and review home meds.
--- NOTE | 2019-07-19 09:14 | CT_ITS ---
STUDY: CT ABDOMEN AND PELVIS WITHOUT CONTRAST REASON FOR EXAM: Male, 48 years old. Small bowel obstruction, nausea/vomiting, diarrhea yesterday. No prior surgery. Hx SBO 01/2019. RADIATION DOSAGE (If Supplied By Facility): CTDIvol = ( 12.69 ) mGy, DLP = ( 665.97 ) mGycm TECHNIQUE: Transaxial images were obtained from the dome of the diaphragm to the symphysis pubis with oral contrast, and without intravenous contrast. Sagittal and coronal images were reconstructed. There is a degradation of this study due to motion artifact. Individualized dose optimization techniques were used for this CT. COMPARISON: Comparison is made with prior study dated July 19, 2019 at 12:20 AM. FINDINGS: The visualized lung bases are unremarkable. The visualized portions of the heart are within normal limits. Normal liver. Normal gallbladder and extrahepatic biliary system. Normal spleen. Normal pancreas. Normal bilateral adrenal glands. Normal right kidney. Normal left kidney. Normal visualized stomach. Once again, there are mildly fluid distended small bowel loops. Since prior study, there is less distention of the small bowel loops at this time. Fluid and fecal material are seen throughout the colon. There is no evidence of a bowel obstruction. Normal colon. The appendix is visualized and appears normal. Normal abdominal aorta. Normal inferior vena cava. Normal retroperitoneum. Normal urinary bladder. Normal abdominal wall. Normal osseous structures. CT/Abdomen/Pel W ORAL Cont Only IMPRESSION: Mildly dilated fluid distention of the small bowel loops as well as the colon. There has been improvement as compared to prior study. Electronically Signed: Terry Sinclair, at 12:21 EDT , Service support ,
--- NOTE | 2019-07-19 10:54 | PCM.CONS.B ---
- Consult Date of Consult: 07/19/19 - Reason for Consult CC: abdominal pain, nausea and emesis HISTORY OF PRESENT ILLNESS: 48 y/o WM with MRDD who lives in a skilled nursing is brought to the ED at [facility] because of abdominal pain, nausea and vomiting. Patient is a poor informant because of history of intellectual disabilities and his caregiver was at the bedside. Patient lives at the skilled nursing. According to the caregiver, patient had couple of episodes of nausea and vomiting yesterday and then he complained of lower abdominal pain with abdominal distention. Shortly after, he had an episode of diarrhea. Patient was not able to provide any details about this abdominal pain. He was admitted on January, for small bowel obstruction which was treated conservatively and was resolving. He has a history of MRDD and intellectual disability and he has been a resident of a skilled nursing. In the emergency department, patient was slightly tachycardic, other vital signs were stable. Routine blood work was remarkable for leukocytosis, otherwise normal. Alkaline phosphatase was slightly limited which is chronic, liver transaminases were normal. Lipase was normal. Troponin was negative. Urinalysis showed no evidence of infection. CT scan abdomen and pelvis without contrast (reviewed by me) revealed multiple loops of dilated small bowel with air-fluid levels and distal decompression. He is being admitted for ileus and suspected small bowel obstruction to the hospitalist service. At present, he denies abdominal pain. He states that he last passed flatus yesterday and had a bowel movement several days ago. His WBC was initially elevated, presently at 12K. ? PAST MEDICAL HISTORY ? Acne vulgaris ? ? Impulse control disorder, unspecified ? ? Mild intellectual disabilities ? ? PAST SURGICAL HISTORY: denies ? Current Outpatient Medications: docusate sodium (COLACE) 100 mg capsule Take 1 capsule by mouth twice daily. polyethylene glycol 3350 (MIRALAX, GLYCOLAX) 17 gram/dose powder Take 17 g by mouth twice daily. Drink a mix of 1 scoop in 8oz of water/beverage once daily as needed for constipation. ondansetron orally disintegrating (ZOFRAN ODT) 4 mg disintegrating tablet Take 1 tablet by mouth every 6 hours as needed for Nausea/Vomiting. melatonin 3 mg tablet Take 2 tablets by mouth daily at bedtime. Clindamycin-Benzoyl Peroxide (DUAC) 1.2 %(1 % base) -5 % gel Apply 1 application to affected area daily at bedtime. LORazepam (ATIVAN) 1 mg tablet 0.5 mg each AM and 1 mg each PM. cloZAPine (CLOZARIL) 25 mg tablet Take 1 tablet by mouth daily at bedtime. (take with 100 mg to total 125 mg) escitalopram oxalate (LEXAPRO) 10 mg tablet Take 1 tablet by mouth once daily. take with 5 mg pill escitalopram oxalate (LEXAPRO) 5 mg tablet Take 1 tablet by mouth once daily. take with 10 mg capsules clozapine (CLOZARIL) 100 mg ORAL Tab Take one(1) tablet two(2) times daily. COMPOUNDED PRESCRIPTION CBC w/ diff Q month. Dx: V58.[address] Carrillo and patient's psychiatrist ? REVIEW OF SYSTEMS: General: patient resident of skilled nursing with MRDD with limited communication skill (ROS obtained from medical records) Neuro: no chronic headaches/numbness or weakness of extremities Cardiac: denies chest pain Pulmonary: no cough GI: long history of constipation, has had intermittent bouts of nausea and emesis as reported in outpatient records : hemipelvic kidney - left Neuro: sleeping disorder Psych: MRDD, history of depression, anxiety and impulse control disorder - seen by psychology PHYSICAL EXAMINATION: Vitals: Temp 98.6F HR 108 BP 142/72 RR 18 General: WD/WN WM in no apparent distress, not understanding of situation Head: normocephalic Neck: supple with no JVD or tracheal deviation Lungs: normal breath sounds, no labored breathing noted, no rhonchi/wheezing/rales noted Heart: regular rate Abdomen: soft and protuberant -(from previous - this is his baseline), some bowel sounds noted, no peritoneal signs noted - not tender to deep palpation Extremities: no pitting edema IMPRESSION: chronic constipation nausea/emesis ileus IMPRESSION: ileus versus small bowel obstruction PLAN: since CT scan done without contrast, difficult to discern if ileus versus SBO, will therefore obtain CT scan with oral contrast - the gastrografin may also alleviate a partial bowel obstruction. also since patient is a poor historian, will obtain serum lactic acid Have discussed above with patient's legal guardian, Rashmi - she knows of no prior surgery for Stu Will follow patient with you, thank you
--- NOTE | 2019-07-19 11:27 | PN_ITS ---
<Radha Luu - Last Filed: 07/19/19 11:34> Patient Problems: Active and Suspected Problems (Last Reviewed 02/05/19 @ 07:[address] Tam Oropeza MD) Ileus (Acute) Subjective: Patient seen and examined. Denies abdominal pain. Asking if he can go home this afternoon. Denies nausea/vomiting. - Physical Exam Vitals/I&O's: Vital Signs Temp Pulse Resp BP Pulse Ox 97.8 F 103 H 18 152/89 H 95 07/19/19 09:45 07/19/19 09:45 07/19/19 09:45 07/19/19 09:45 07/19/19 09:45 Oxygen Delivery Method Room Air Weight: 186 lb 1.122 oz Body Mass Index (BMI) 29.2 Intake and Output for Last 24 Hours 07/17/19 07/18/19 07/19/19 23:59 23:59 23:59 Intake Total Output Total 0 / 0 Balance General: Alert, Cooperative, No apparent distress, - - MRDD HEENT: Atraumatic, PERRLA, EOMI, Normocephalic Oral: Dry Mucosa Neck: Supple, No JVD, Negative Carotid Bruits Lungs: Clear to auscultation, Diminished Cardiovascular: Regular rate, No murmurs Abdomen: Bowel Sounds Present, Soft, Non Tender, Non-Distended Extremities: No clubbing, No cyanosis, No edema, Capillary Refill Less than 3 Seconds Skin: No rashes, No breakdown Musculoskeletal: No Tenderness to Palpation of Joints or Extremities Neurological: Cranial nerves II-XII grossly intact, Neuro grossly intact Psych/Mental Status: Normal Affect, Appropriate Laboratory Results 07/18/19 23:53: WBC 20.8 H, RBC 5.12, Hgb 16.0, Hct 47.2, MCV 92.2, MCH 31.3, MCHC 33.9, RDW Std Deviation 46.4 H, RDW Coeff of J Luis 13.6, Plt Count 184, MPV 10.9, Immature Gran % (Auto) 0.400, Neut % (Auto) 91.2 H, Lymph % (Auto) 3.9 L, [place] % (Auto) 4.3, Eos % (Auto) 0.0, Baso % (Auto) 0.2, Absolute Neuts (auto) 19.0 H, Absolute Lymphs (auto) 0.81 L, Nucleated RBC % 0 07/18/19 23:53: Sodium 138, Potassium 3.5, Chloride 105, Carbon Dioxide 25.0, Anion Gap 8, BUN 21 H, Creatinine 1.00, Estim Creat Clear Calc 84.46, Est GFR (MDRD) Af Amer 102, Est GFR (MDRD) Non-Af 85, BUN/Creatinine Ratio 21.0 H, Glucose 154 H, Calcium 9.1, Total Bilirubin 0.60, AST 24, ALT 61, Alkaline Phosphatase 207 H, Troponin I < 0.015, Total Protein 8.8 H, Albumin 4.4, Globulin 4.4 H, Albumin/Globulin Ratio 1.0, Lipase 42 L 07/19/19 00:10: Urine Color Yellow, Urine Clarity Clear, Urine pH 5.0, Ur Specific Raymond 1.025, Urine Protein 30 H, Urine Glucose (UA) Normal, Urine Ketones 15 H, Urine Occult Blood Negative, Urine Nitrite Negative, Urine Bilirubin 1 H, Urine Urobilinogen Normal, Ur Leukocyte Esterase 25 H, Urine RBC 0 SEEN, Urine WBC 0-5 SEEN, Ur Squamous Epith Cells 0-5 SEEN, Urine Bacteria 0 SEEN, Hyaline Casts 0-5 SEEN, Urine Mucus 2+ 07/19/19 05:53: WBC 12.3 H, RBC 4.65, Hgb 14.5, Hct 43.4, MCV 93.3, MCH 31.2, MCHC 33.4, RDW Std Deviation 46.9 H, RDW Coeff of J Luis 13.7, Plt Count 175, MPV 11.3, Immature Gran % (Auto) 0.300, Neut % (Auto) 79.5 H, Lymph % (Auto) 11.2 L, [place] % (Auto) 8.6, Eos % (Auto) 0.2, Baso % (Auto) 0.2, Absolute Neuts (auto) 9.8 H, Absolute Lymphs (auto) 1.38, Nucleated RBC % 0 07/19/19 05:53: Sodium 139, Potassium 3.3 L, Chloride 103, Carbon Dioxide 28.0, Anion Gap 8, BUN 19 H, Creatinine 0.94, Estim Creat Clear Calc 86.73, Est GFR (MDRD) Af Amer 110, Est GFR (MDRD) Non-Af 91, BUN/Creatinine Ratio 20.2 H, Glucose 114 H, Calcium 8.5 07/19/19 11:05: Lactic Acid Pending Current Medications Acetaminophen (Tylenol) 650 mg PO Q6H PRN PRN PRN Reason: Pain Score 1-10/Temp > 100.7 F Clozapine (Clozaril) 25 mg PO DAILY@1999 [facility] Clozapine (Clozaril) 100 mg PO BID@0800,1999 [facility] Escitalopram Oxalate (Lexapro) 15 mg PO DAILY [facility] Sodium Chloride () 1,000 mls @ 100 mls/hr IV .Q10H [facility] Last Admin: 07/19/19 04:04 Dose: 100 mls/hr Documented by: Sodium Chloride () 250 mls @ 15 mls/hr IV .[id number] PRN PRN Reason: Saline Flush Lorazepam (Ativan) 0.5 mg PO DAILY [facility] Lorazepam (Ativan) 1 mg PO DAILY@1999 [facility] Melatonin (Melatonin) 6 mg PO QHS [facility] Morphine Sulfate () 2 mg IV Q4H PRN PRN PRN Reason: Pain Score 6-10/10 Ondansetron HCl (Zofran) 4 mg IV Q8H PRN PRN PRN Reason: NAUSEA/VOMITING Sodium Chloride () 10 - 40 ml IV UD PRN PRN Reason: SALINE FLUSH Last Admin: 07/19/19 04:04 Dose: 10 ml Documented by: Medical Necessity - Tobacco Use Smoking Status: Never smoker Assessment/Plan All Active Problems (Last Reviewed 02/05/19 @ 07:[address] Tam Oropeza MD) Ileus (Acute) 1. Small bowel obstruction versus ileus-CT abdomen and pelvis without contrast on admission shows fluid distended colon, multiple loops of dilated small bowel with air-fluid levels, distal small bowel decompression. Dr. Phelps, general surgery on consult. Repeat CT of abdomen with contrast ordered. NPO. Encourage ambulation. PRN antiemetics. 2. Leukocytosis-suspect reactive. Lactic acid pending. Urinalysis unremarkable. Afebrile. White count trending down. 3. MRDD-resides in senior living. Has legal guardian and caregiver. 4. Anxiety/depression-continue home escitalopram and PRN Ativan. DVT prophylaxis-low risk, encourage ambulation This patient was seen by NEELAM Camejo under the supervision of Dr. Santos. <Johnson Santos F - Last Filed: 07/19/19 12:29> - Physical Exam Vitals/I&O's: Vital Signs Temp Pulse Resp BP Pulse Ox 97.8 F 103 H 18 152/89 H 95 07/19/19 09:45 07/19/19 09:45 07/19/19 09:45 07/19/19 09:45 07/19/19 09:45 Oxygen Delivery Method Room Air Weight: 186 lb 1.122 oz Body Mass Index (BMI) 29.2 Intake and Output for Last 24 Hours 07/17/19 07/18/19 07/19/19 23:59 23:59 23:59 Intake Total 32.75 / 32.75 Output Total 0 / 0 Balance 32.75 / 32.75 Laboratory Results 07/18/19 23:53: WBC 20.8 H, RBC 5.12, Hgb 16.0, Hct 47.2, MCV 92.2, MCH 31.3, MCHC 33.9, RDW Std Deviation 46.4 H, RDW Coeff of J Luis 13.6, Plt Count 184, MPV 10.9, Immature Gran % (Auto) 0.400, Neut % (Auto) 91.2 H, Lymph % (Auto) 3.9 L, [place] % (Auto) 4.3, Eos % (Auto) 0.0, Baso % (Auto) 0.2, Absolute Neuts (auto) 19.0 H, Absolute Lymphs (auto) 0.81 L, Nucleated RBC % 0 07/18/19 23:53: Sodium 138, Potassium 3.5, Chloride 105, Carbon Dioxide 25.0, Anion Gap 8, BUN 21 H, Creatinine 1.00, Estim Creat Clear Calc 84.46, Est GFR (MDRD) Af Amer 102, Est GFR (MDRD) Non-Af 85, BUN/Creatinine Ratio 21.0 H, Glucose 154 H, Calcium 9.1, Total Bilirubin 0.60, AST 24, ALT 61, Alkaline Phosphatase 207 H, Troponin I < 0.015, Total Protein 8.8 H, Albumin 4.4, Globulin 4.4 H, Albumin/Globulin Ratio 1.0, Lipase 42 L 07/19/19 00:10: Urine Color Yellow, Urine Clarity Clear, Urine pH 5.0, Ur Specific Raymond 1.025, Urine Protein 30 H, Urine Glucose (UA) Normal, Urine Ketones 15 H, Urine Occult Blood Negative, Urine Nitrite Negative, Urine Bilirubin 1 H, Urine Urobilinogen Normal, Ur Leukocyte Esterase 25 H, Urine RBC 0 SEEN, Urine WBC 0-5 SEEN, Ur Squamous Epith Cells 0-5 SEEN, Urine Bacteria 0 SEEN, Hyaline Casts 0-5 SEEN, Urine Mucus 2+ 07/19/19 05:53: WBC 12.3 H, RBC 4.65, Hgb 14.5, Hct 43.4, MCV 93.3, MCH 31.2, MCHC 33.4, RDW Std Deviation 46.9 H, RDW Coeff of J Luis 13.7, Plt Count 175, MPV 11.3, Immature Gran % (Auto) 0.300, Neut % (Auto) 79.5 H, Lymph % (Auto) 11.2 L, [place] % (Auto) 8.6, Eos % (Auto) 0.2, Baso % (Auto) 0.2, Absolute Neuts (auto) 9.8 H, Absolute Lymphs (auto) 1.38, Nucleated RBC % 0 07/19/19 05:53: Sodium 139, Potassium 3.3 L, Chloride 103, Carbon Dioxide 28.0, Anion Gap 8, BUN 19 H, Creatinine 0.94, Estim Creat Clear Calc 86.73, Est GFR (MDRD) Af Amer 110, Est GFR (MDRD) Non-Af 91, BUN/Creatinine Ratio 20.2 H, Glucose 114 H, Calcium 8.5 07/19/19 05:53: Magnesium Pending 07/19/19 11:05: Lactic Acid 0.9 Current Medications Acetaminophen (Tylenol) 650 mg PO Q6H PRN PRN PRN Reason: Pain Score 1-10/Temp > 100.7 F Clozapine (Clozaril) 25 mg PO DAILY@1999 [facility] Clozapine (Clozaril) 100 mg PO BID@ [facility] Last Admin: 07/19/19 12:15 Dose: 100 mg Documented by: Escitalopram Oxalate (Lexapro) 15 mg PO DAILY [facility] Last Admin: 07/19/19 12:12 Dose: 15 mg Documented by: Sodium Chloride () 1,000 mls @ 100 mls/hr IV .Q10H [facility] Last Admin: 07/19/19 04:04 Dose: 100 mls/hr Documented by: Sodium Chloride () 250 mls @ 15 mls/hr IV .[id number] PRN PRN Reason: Saline Flush Last Infusion: 07/19/19 12:22 Dose: 0 mls/hr Documented by: Potassium Chloride () 10 meq in 100 mls @ 100 mls/hr IV BOLUS Q1H [facility] Stop: 07/19/19 13:44 Last Admin: 07/19/19 12:11 Dose: 100 mls/hr Documented by: Lorazepam (Ativan) 0.5 mg PO DAILY [facility] Last Admin: 07/19/19 12:12 Dose: 0.5 mg Documented by: Lorazepam (Ativan) 1 mg PO DAILY@1999 [facility] Melatonin (Melatonin) 6 mg PO QHS [facility] Morphine Sulfate () 2 mg IV Q4H PRN PRN PRN Reason: Pain Score 6-10/10 Ondansetron HCl (Zofran) 4 mg IV Q8H PRN PRN PRN Reason: NAUSEA/VOMITING Sodium Chloride () 10 - 40 ml IV UD PRN PRN Reason: SALINE FLUSH Last Admin: 07/19/19 12:11 Dose: 10 ml Documented by: Addendum: Dr. Santos I personally examined the patient and reviewed the chart. I agree with the above. 48-year-old male from a senior living due to MRDD presents with abdominal pain and vomiting. He says that he feels much better and he denies any vomiting or nausea with this. CT scan showed either possible ileus versus small bowel obstruction however this is noncontrast therefore the CT scan will be repeated with contrast for better evaluation. He is still n.p.o. and denies bowel movement or flatus. Appreciate surgical input. Inpatient E&M: [id number] [facility] L2
[2019-07-19 11:36] LABS: Lactic Acid 0.9 mmol/L (0.4-1.9)
[2019-07-19] MEDS: Potassium Chloride 10mEq/100mL 10 MEQ/100 ML IV.SOLN. 100 MEQ IV BOLUS ×2 (12:11→13:28)
[2019-07-19] MEDS: Escitalopram Oxalate 10 MG Tablet 15 MG PO (12:12)
[2019-07-19] MEDS: LORazepam 0.5 MG Tablet PO (12:12)
[2019-07-19 13:33] LABS: Magnesium 2.4 mg/dL (1.6-2.6)
--- NOTE | 2019-07-19 14:12 | CASEMGMT ---
Social Work Note Pt is Detention resident and has legal guardian Kia Cuello. SW placed a call to Kai, updated Kia on pt's admission. Kia states pt will be able to return to Detention at discharge. Plan: Return to Detention Yasmine Sanchez MSW, [employer]IENT [employer] DRIVER
--- NOTE | 2019-07-19 15:38 | PCM.PN.BLA ---
Progress Note CT scan with contrast reveals no evidence of obstruction - I suspect that patient has slow moving peristasis of his intestines, which may be due to his medications Will add reglan to improve bowel function - will observe for side effects while he is an inpatient to determine if this will be safe to discharge patient with I have left message on answering machine of patient's guardian as to CT scan results Will start on clear liquids to see if patient tolerates this Check KUB tomorrow to see if contrast in colon STROKE Vital Signs/Narrative: Vital Signs Temp Pulse Resp BP Pulse Ox 07/19/19 14:45 98.0 F 71 16 138/87 H 96
[2019-07-19] MEDS: Metoclopramide 5 MG TABLET PO (15:56)
[2019-07-19] MEDS: LORazepam 1 MG Tablet PO (20:01)
[2019-07-19] MEDS: MELATONIN 3 MG TABLET 6 MG PO (20:01)
[2019-07-20 02:42] VITALS: BP 131/80; PULSE 99; RESP 16; TEMP 36.7; O2SAT 96
[2019-07-20] MEDS: Metoclopramide 5 MG TABLET PO ×2 (06:16→09:55)
[2019-07-20 08:45] VITALS: BP 134/96; PULSE 104; RESP 16; TEMP 36.6; O2SAT 96
[2019-07-20 09:22] VITALS: O2SAT 96
[2019-07-20] MEDS: Escitalopram Oxalate 10 MG Tablet 15 MG PO (09:55)
[2019-07-20] MEDS: 0.9% Normal Saline 1,000 ML 100 ML IV (09:56)
--- NOTE | 2019-07-20 10:41 | PCM.PN.SRG ---
Patient Problems: Active and Suspected Problems (Last Reviewed 02/05/19 @ 07:[address] Tam Oropeza MD) Ileus (Acute) Subjective: patient denies abdominal pain, has been having small bowel movements and has flatus - Physical Exam Vitals/I&O's: Vital Signs Temp Pulse Resp BP Pulse Ox 98 F 104 H 16 134/96 H 96 07/20/19 08:45 07/20/19 08:45 07/20/19 08:45 07/20/19 08:45 07/20/19 09:22 Oxygen Delivery Method Room Air Weight: 84.4 kg Body Mass Index (BMI) 29.2 Intake and Output for Last 24 Hours 07/18/19 07/19/19 07/20/19 23:59 23:59 23:59 Intake Total 2783.67 / 2783.67 1050 / 1050 Output Total 500 / 500 Balance 2283.67 / 2283.67 1050 / 1050 General: Alert, Oriented x3 Oral: Moist Mucosa Neck: Supple Lungs: Normal air movement Abdomen: Bowel Sounds Present - protuberant, distended, Soft Laboratory Results 07/19/19 05:53: Magnesium 2.4 07/19/19 11:05: Lactic Acid 0.9 Current Medications Acetaminophen (Tylenol) 650 mg PO Q6H PRN PRN PRN Reason: Pain Score 1-10/Temp > 100.7 F Clozapine (Clozaril) 25 mg PO DAILY@1999 [facility] Last Admin: 07/19/19 20:01 Dose: 25 mg Documented by: Clozapine (Clozaril) 100 mg PO BID@ [facility] Last Admin: 07/19/19 20:01 Dose: 100 mg Documented by: Escitalopram Oxalate (Lexapro) 15 mg PO DAILY [facility] Last Admin: 07/20/19 09:55 Dose: 15 mg Documented by: Sodium Chloride () 1,000 mls @ 100 mls/hr IV .Q10H [facility] Last Admin: 07/20/19 09:56 Dose: 100 mls/hr Documented by: Sodium Chloride () 250 mls @ 15 mls/hr IV .[id number] PRN PRN Reason: Saline Flush Last Infusion: 07/19/19 14:45 Dose: 0 mls/hr Documented by: Lorazepam (Ativan) 1 mg PO DAILY@1999 [facility] Last Admin: 07/19/19 20:01 Dose: 1 mg Documented by: Lorazepam (Ativan) 0.5 mg PO DAILY@1599 [facility] Melatonin (Melatonin) 6 mg PO QHS [facility] Last Admin: 07/19/19 20:01 Dose: 6 mg Documented by: Metoclopramide HCl (Reglan) 5 mg PO TIDAC [facility] Last Admin: 07/20/19 09:55 Dose: 5 mg Documented by: Morphine Sulfate () 2 mg IV Q4H PRN PRN PRN Reason: Pain Score 6-10/10 Ondansetron HCl (Zofran) 4 mg IV Q8H PRN PRN PRN Reason: NAUSEA/VOMITING Sodium Chloride () 10 - 40 ml IV UD PRN PRN Reason: SALINE FLUSH Last Admin: 07/19/19 12:11 Dose: 10 ml Documented by: Medical Necessity - Tobacco Use Smoking Status: Never smoker Assessment/Plan All Active Problems (Last Reviewed 02/05/19 @ 07:[address] Tam Oropeza MD) Ileus (Acute) Impression: episode of bowel obstruction, suspect slow peristalsis and chronic constipation Plan: I had ordered a KUB but it wasn't done, at the time of this note advance diet - if patient tolerates - can d/c to home I have ordered an outpatient UGI with SBFT to determine if any small intestine pathology
--- NOTE | 2019-07-20 10:58 | PCM.DC ---
- Discharge Diagnoses Current Active Problems: Current Active and Chronic Problems (Last Reviewed 02/05/19 @ 07:[address] Tam Oropeza MD) Ileus (Acute) History of small bowel obstruction (Chronic) You will use the following diet at home:: Other - Light diet, advance as tolerated Discharge Activity: Return to Normal Activity Call your doctor if you observe: Shortness of breath, Dizziness, Fainting spells, Chest pain Additional Instructions: Outpatient upper GI and Small bowl follow through as outpatient. Allergies/Adverse Reactions: Allergies No Known Allergies Allergy (Verified 07/18/19 23:28) Medications to take at Discharge Clozapine 100 mg PO BREAKFAST 02/04/19 Clozapine 125 mg PO QHS 02/04/19 Docusate Sodium [Dok] 200 mg PO DAILY 02/04/19 Escitalopram Oxalate 15 mg PO DAILY 02/04/19 Lorazepam 0.5 mg PO DAILY 02/04/19 Melatonin 3 mg PO QHS 02/04/19 Polyethylene Glycol 3350 [Gavilax] 17 gm PO DAILY 02/04/19 Clindamycin Phos/Benzoyl Perox [Clind pH-Benzoyl Perox 1.2-5%] 1 applic TOPICAL QHS 02/05/19 Lorazepam 1 mg PO QHS 02/05/19 Orders to be completed after discharge: Upper GI/w Small Bowel [RAD] Facility: [facility], Location: [facility] Primary Care Physician: Mervat Carrillo MD [Primary Care Provider] - Please follow up with your Primary Care Physician in: 1 Week Test Results: Test results from this visit will be discussed in further detail at your follow-up appointment, if applicable. Please Follow Up With: Jazlyn Phelps MD When: 1 Week Proposed Discharge Date: 07/20/19
--- NOTE | 2019-07-20 11:00 | PCM.DC.SUM ---
<Radha Luu - Last Filed: 07/20/19 11:04> Discharge Date and Diagnosis Date of Admission: 07/19/19 Date of Discharge: 07/20/19 - Primary Discharge Diagnosis Acute Problems: Active Problems (Last Reviewed 02/05/19 @ 07:[address] Tam Oropeza MD) 1. Small bowel obstruction versus ileus 2. Leukocytosis-suspect reactive. 3. MRDD 4. Anxiety/depression - Secondary Discharge Diagnosis Chronic Problems: Chronic Problems (Last Reviewed 02/05/19 @ 07:[address] Tam Oropeza MD) History of small bowel obstruction (Chronic) Intellectual disability (Chronic) Conduct disorder (Chronic) Hospital Course and Treatment Imaging Results: Diagnostic Data Abdomen/Pelvis CT 07/19/19 00:05 IMPRESSION: Motion degraded study. Fluid distended colon correlate for diarrhea/infectious inflammatory process. There are multiple loops of dilated small bowel with air-fluid levels present. There is distal small bowel decompression. Findings would be concerning for small bowel obstruction given the distal decompression. Likely right upper abdominal lead point. No hydronephrosis or nephrolithiasis. The left kidney is located within the pelvis. Other findings as discussed above. Electronically Signed: Moises Cole, at 0:49 EDT Tel , Service support , Abdomen CT 07/19/19 09:14 IMPRESSION: Mildly dilated fluid distention of the small bowel loops as well as the colon. There has been improvement as compared to prior study. Electronically Signed: Terry Sinclair, at 12:21 EDT , Service support , Dr. Phelps- general surgery Operations: None Procedures: None Summary of Care Provided: The patient is a 48 year old M admitted 07/19/2019 due to abdominal pain, vomiting. 1. Small bowel obstruction versus ileus-CT abdomen and pelvis without contrast on admission shows fluid distended colon, multiple loops of dilated small bowel with air-fluid levels, distal small bowel decompression. Dr. Phelps, general surgery on consult. Repeat CT of abdomen with contrast demonstrated mildly dilated fluid distention of the small bowel loops as well as the colon, improved from prior study. Patient improved with conservative measures. Now tolerating diet. Dr. Phelps ordered upper GI and small bowel follow-through as outpatient. Follow-up in 1 week. Follow-up with PCP in 1 week as well. 2. Leukocytosis-suspect reactive. Lactic acid negative. Urinalysis unremarkable. Afebrile. White count trending down. 3. MRDD-resides in halfway. Has legal guardian and caregiver. 4. Anxiety/depression-continue home escitalopram and PRN Ativan. General: Alert, Cooperative, No apparent distress, - - MRDD HEENT: Atraumatic, PERRLA, EOMI, Normocephalic Oral: Dry Mucosa Neck: Supple, No JVD, Negative Carotid Bruits Lungs: Clear to auscultation, Diminished Cardiovascular: Regular rate, No murmurs Abdomen: Bowel Sounds Present, Soft, Non Tender, Non-Distended Extremities: No clubbing, No cyanosis, No edema, Capillary Refill Less than 3 Seconds Skin: No rashes, No breakdown Musculoskeletal: No Tenderness to Palpation of Joints or Extremities Neurological: Cranial nerves II-XII grossly intact, Neuro grossly intact Psych/Mental Status: Normal Affect, Appropriate Patient seen and examined prior to discharge. Physical assessment as noted above. Patient is stable for discharge with follow up recommendations as noted above. This patient was seen by NEELAM Camejo under the supervision of Dr. Santos. - Physical Exam Vitals/I&O's: Vital Signs Temp Pulse Resp BP Pulse Ox 98 F 104 H 16 134/96 H 96 07/20/19 08:45 07/20/19 08:45 07/20/19 08:45 07/20/19 08:45 07/20/19 09:22 Oxygen Delivery Method Room Air Weight: 186 lb 1.122 oz Body Mass Index (BMI) 29.2 Intake and Output for Last 24 Hours 07/18/19 07/19/19 07/20/19 23:59 23:59 23:59 Intake Total 2783.67 / 2783.67 1050 / 1050 Output Total 500 / 500 Balance 2283.67 / 2283.67 1050 / 1050 Laboratory Results 07/19/19 05:53: Magnesium 2.4 07/19/19 11:05: Lactic Acid 0.9 Current Medications Acetaminophen (Tylenol) 650 mg PO Q6H PRN PRN PRN Reason: Pain Score 1-10/Temp > 100.7 F Clozapine (Clozaril) 25 mg PO DAILY@1999 [facility] Last Admin: 07/19/19 20:01 Dose: 25 mg Documented by: Clozapine (Clozaril) 100 mg PO BID@0800,1999 [facility] Last Admin: 07/19/19 20:01 Dose: 100 mg Documented by: Escitalopram Oxalate (Lexapro) 15 mg PO DAILY [facility] Last Admin: 07/20/19 09:55 Dose: 15 mg Documented by: Sodium Chloride () 1,000 mls @ 100 mls/hr IV .Q10H [facility] Last Admin: 07/20/19 09:56 Dose: 100 mls/hr Documented by: Sodium Chloride () 250 mls @ 15 mls/hr IV .[id number] PRN PRN Reason: Saline Flush Last Infusion: 07/19/19 14:45 Dose: 0 mls/hr Documented by: Lorazepam (Ativan) 1 mg PO DAILY@1999 [facility] Last Admin: 07/19/19 20:01 Dose: 1 mg Documented by: Lorazepam (Ativan) 0.5 mg PO DAILY@1599 [facility] Melatonin (Melatonin) 6 mg PO QHS [facility] Last Admin: 07/19/19 20:01 Dose: 6 mg Documented by: Metoclopramide HCl (Reglan) 5 mg PO TIDAC [facility] Last Admin: 07/20/19 09:55 Dose: 5 mg Documented by: Morphine Sulfate () 2 mg IV Q4H PRN PRN PRN Reason: Pain Score 6-10/10 Ondansetron HCl (Zofran) 4 mg IV Q8H PRN PRN PRN Reason: NAUSEA/VOMITING Sodium Chloride () 10 - 40 ml IV UD PRN PRN Reason: SALINE FLUSH Last Admin: 07/19/19 12:11 Dose: 10 ml Documented by: Discharge Diet: Light diet - advance as tolerated Discharge Activity: Return to Normal Activity Call your doctor if you observe: Shortness of breath, Dizziness, Fainting spells, Chest pain Home Medications: Medications to take at Discharge Clozapine 100 mg PO BREAKFAST 02/04/19 Clozapine 125 mg PO QHS 02/04/19 Docusate Sodium [Dok] 200 mg PO DAILY 02/04/19 Escitalopram Oxalate 15 mg PO DAILY 02/04/19 Lorazepam 0.5 mg PO DAILY 02/04/19 Melatonin 3 mg PO QHS 02/04/19 Polyethylene Glycol 3350 [Gavilax] 17 gm PO DAILY 02/04/19 Clindamycin Phos/Benzoyl Perox [Clind pH-Benzoyl Perox 1.2-5%] 1 applic TOPICAL QHS 02/05/19 Lorazepam 1 mg PO QHS 02/05/19 Other Amb Orders: Upper GI/w Small Bowel [RAD] Facility: [facility], Location: [facility] Primary Care Physician: Mervat Carrillo MD [Primary Care Provider] - Please follow up with your Primary Care Physician in: 1 Week Please Follow Up With: Jazlyn Phelps MD When: 1 Week Disposition: Home Minutes spent on discharge:: 35 Patient Condition:: Stable Medical Necessity - Tobacco Use Smoking Status: Never smoker Meaningful Use Info Meaningful Use Diagnoses (Choose all that apply): None applicable <Johnson Santos F - Last Filed: 07/20/19 12:38> Discharge Date and Diagnosis - Secondary Discharge Diagnosis Chronic Problems: Chronic Problems (Last Reviewed 02/05/19 @ 07:[address] Tam Oropeza MD) History of small bowel obstruction (Chronic) Intellectual disability (Chronic) Conduct disorder (Chronic) Hospital Course and Treatment Imaging Results: 07/20/19 05:55 KUB [Abdomen Single View] [RAD] AM (NON MEDS) Summary of Care Provided: The patient is a 48 year old M [] - Physical Exam Vitals/I&O's: Vital Signs Temp Pulse Resp BP Pulse Ox 98 F 104 H 16 134/96 H 96 07/20/19 08:45 07/20/19 08:45 07/20/19 08:45 07/20/19 08:45 07/20/19 09:22 Oxygen Delivery Method Room Air Weight: 186 lb 1.122 oz Body Mass Index (BMI) 29.2 Intake and Output for Last 24 Hours 07/18/19 07/19/19 07/20/19 23:59 23:59 23:59 Intake Total 2783.67 / 2783.67 1650 / 1650 Output Total 500 / 500 Balance 2283.67 / 2283.67 1650 / 1650 Laboratory Results 07/19/19 05:53: Magnesium 2.4 Current Medications Acetaminophen (Tylenol) 650 mg PO Q6H PRN PRN PRN Reason: Pain Score 1-10/Temp > 100.7 F Clozapine (Clozaril) 25 mg PO DAILY@1999 [facility] Last Admin: 07/19/19 20:01 Dose: 25 mg Documented by: Clozapine (Clozaril) 100 mg PO BID@08 [facility] Last Admin: 07/20/19 11:06 Dose: 100 mg Documented by: Escitalopram Oxalate (Lexapro) 15 mg PO DAILY [facility] Last Admin: 07/20/19 09:55 Dose: 15 mg Documented by: Sodium Chloride () 1,000 mls @ 100 mls/hr IV .Q10H [facility] Last Admin: 07/20/19 09:56 Dose: 100 mls/hr Documented by: Sodium Chloride () 250 mls @ 15 mls/hr IV .[id number] PRN PRN Reason: Saline Flush Last Infusion: 07/19/19 14:45 Dose: 0 mls/hr Documented by: Lorazepam (Ativan) 1 mg PO DAILY@1999 [facility] Last Admin: 07/19/19 20:01 Dose: 1 mg Documented by: Lorazepam (Ativan) 0.5 mg PO DAILY@1599 [facility] Melatonin (Melatonin) 6 mg PO QHS [facility] Last Admin: 07/19/19 20:01 Dose: 6 mg Documented by: Metoclopramide HCl (Reglan) 5 mg PO TIDAC [facility] Last Admin: 07/20/19 09:55 Dose: 5 mg Documented by: Morphine Sulfate () 2 mg IV Q4H PRN PRN PRN Reason: Pain Score 6-10/10 Ondansetron HCl (Zofran) 4 mg IV Q8H PRN PRN PRN Reason: NAUSEA/VOMITING Sodium Chloride () 10 - 40 ml IV UD PRN PRN Reason: SALINE FLUSH Last Admin: 07/19/19 12:11 Dose: 10 ml Documented by: Addendum: Dr. Santos I personally examined the patient and reviewed the chart. I agree with the above. 48-year-old male from a halfway due to MRDD presents with abdominal pain and vomiting. He says that he feels much better and he denies any vomiting or nausea with this. CT scan showed either possible ileus versus small bowel obstruction however this is noncontrast therefore the CT scan was repeated with contrast for better evaluation and it showed that the small bowel dilatation was slightly improved from the prior study. He has had some small bowel movements and states he has been passing gas. He has been tolerating a diet and surgery feels that he can go home with outpatient follow-up. They recommend an outpatient upper GI with a small bowel follow-through. He is okay for discharge back to his halfway today. Inpatient E&M: [id number] Disch Hosp
--- NOTE | 2019-07-20 11:35 | NURSING ---
Addendum entered by Shahla Goldberg 07/20/19 15:01: [address] Phelps's office and verified that pt is not to receive script for Reglan and that small GI f/u can be completed whenever convenient for pt and facility. States not necessary that this be completed prior to appt. At time of d/c- this RN assisted patient down to awaiting vehicle with Kati laborer mine. Kati updated with discharge instructions/ information. Understanding verbalized. Notified of need for f/u appt with PCP and Dr. Phelps. Notified pt was taking Reglan here and that PCP may order if they feel it is necessary. Original Note: This RN called legal GuardianRashmi and notified her of patient progress and multiple bowel movements this morning and of plan to advance diet for lunch and then d/c later this afternoon. Rashmi requested that Kati, laborer mine be notified at the following number: [phone]. Kati states she will be the one to pick him up at time of d/c. notified Kati that this RN will call her again when we are ready for pickup- understanding verbalized.
[2019-07-20 13:20] VITALS: BP 138/85; PULSE 100; RESP 16; TEMP 36.7; O2SAT 96
--- NOTE | 2019-07-20 14:20 | CASEMGMT ---
Addendum entered by Yasmine Sanchez 07/20/19 14:27: SW also placed a call to pt's legal guardian Kia and updated her that pt will be discharged to the [facility] today. Original Note: Social Work Note [facility]. RN updated this worker that pt's legal guardian Kia and pt's caregiver have been notified of discharge and caregiver will transport pt [facility] the [facility] today. Yasmine Sanchez DAY LIGHT RELIEF OPERATOR, TRENCH DIGGER
== END 2019-07-20 14:43 | disposition home or self-care (01) | DRG 390 ==
LOC: ED 07-19 02:16 → MS3 07-19 03:16
PROVIDERS: Nurse Practitioner Family; Surgery; Admitting Provider Hospitalist; Emergency Provider Emergency Medicine; PCP Internal Medicine; Referring Provider Hospitalist; Visit Provider Family Medicine
DX: K56.609 Unspecified intestinal obstruction, unspecified as to partial versus complete obstruction (principal); D72.829 Elevated white blood cell count, unspecified; F32.9 Major depressive disorder, single episode, unspecified; F41.9 Anxiety disorder, unspecified; F70 Mild intellectual disabilities
CPT/HCPCS: 36415; 74176; 80048; 80053; 81001; 83605; 83690; 83735; 84484; 85025; 99284; J7030; J7050; A4216; J2405

== ENCOUNTER → 2019-08-01 09:08 | Outpatient (CLI) | payer MEDICARE, MEDICAID, SELFPAY ==
[2019-07-19 03:41] VITALS: BMI 29.2
--- NOTE | 2019-08-01 09:15 | RAD_ITS ---
STUDY: AIR-CONTRAST UPPER GI SERIES WITH SMALL BOWEL FOLLOW-THROUGH EXAMINATION. REASON FOR EXAM: Male, 48 years old. Hx of repeated bowel obstructions FLUOROSCOPY TIME (if supplied): ( 1 minute and 18 seconds ) minutes/seconds. 20 spot views were obtained. TECHNIQUE: The patient ingested barium. Multiple images of the esophagus, stomach and duodenum were obtained following this, a small bowel follow-through was performed. COMPARISON: None. FINDINGS: The esophagus is unremarkable. There is no evidence of obstruction. No evidence of gastroesophageal reflux. The stomach and duodenum are unremarkable. The small bowel transit is normal. There is no evidence of extensive or extrinsic small bowel disease. RAD/Upper GI/w Small Bowel IMPRESSION: Unremarkable air-contrast upper GI series and small bowel follow-through examination. Electronically Signed: Terry Sinclair, at 13:14 EDT , Service support ,
== END ==
PROVIDERS: PCP Internal Medicine; Referring Provider Surgery; Visit Provider Surgery
DX: Z87.19 Personal history of other diseases of the digestive system (principal)
CPT/HCPCS: 74246; 74248

== ENCOUNTER 2019-11-04 11:16 | Emergency (ER) | payer MEDICARE, MEDICAID, SELFPAY ==
[2019-07-19 03:41] VITALS: BMI 29.2
[2019-11-04 11:16] VITALS: BP 130/99; PULSE 110; RESP 18; TEMP 36.1; O2SAT 98; BMI 30.5
--- NOTE | 2019-11-04 11:34 | ED.DCSUM_ITS ---
History of Present Illness <Olu Hollins - Last Filed: 11/04/19 14:56> Informant: Patient, SNF Limited: - - developmental delay - Abdominal Pain/Flank Pain Onset: Yesterday Context: Gradual Onset Timing: Continuous Quality: Cramping Location: Diffuse Current Severity: Severe Maximum Severity: Severe Worsened by: Food, Movement Relieved by: Remaining Still - Nausea/Vomiting/Emesis GI Symptom: Nausea. Negative for: Vomiting - Diarrhea/Melena/Hematochezia GI Symptom: Negative for: Diarrhea, Melena, Hematochezia Associated Symptoms: Negative for: Dysuria, Frequency, Urgency Narrative: 49-year-old male history of bowel obstruction and developmental delay presents to the emergency department this caregiver for abdominal pain. Patient was admitted about 4 months ago for a bowel obstruction. He was scheduled for an outpatient colonoscopy yesterday but the day before that was unable to tolerate the prep for vomiting. Since that time he is only had one bowel movement and his abdomen is distended and his caregiver is concerned for another bowel obstruction. Patient is complaining of diffuse abdominal pain. He has not had any vomiting. He does feel nauseated. He has been urinating normally. He has not had difficulty swallowing. He was only able to tolerate clear liquids yesterday and refused to eat. Prior similar symptoms: Yes Recent Illness/Hospitalization: Yes <Paolo Ribeiro - Last Filed: 11/04/19 16:47> Chief Complaint: Abd Pain Past Medical History <Olu Hollins - Last Filed: 11/04/19 14:56> Prior records reviewed: Yes Past Medical History: - - developmental delay and bowel obstruction Surgical History: - - Patient did not know and brand strategy manager who was with patient also did not know. Smoking Status: Never smoker - Family History Maternal Family History: Reports: - - Patient is an MRDD patient and he did not know. Paternal Family History: Reports: - - Patient is an MRDD patient and he did not know. <Paolo Ribeiro - Last Filed: 11/04/19 16:47> - Allergies and Home Meds Allergies/Adverse Reactions: Allergies No Known Allergies Allergy (Verified 11/04/19 11:20) Primary Care Physician: Mervat Carrillo MD [Primary Care Provider] - Review of Systems All systems negative except as indicated General: Denies: Chills, Fever, Sweats Eyes: Denies: Visual changes - bilaterally, Diplopia ENT: Denies: Rhinorrhea, Sore throat Cardiovascular: Denies: Chest pain, Palpitations Respiratory: Denies: Dyspnea, Cough, Dyspnea on exertion Gastrointestinal: Reports: Abdominal pain, Nausea, Constipation. Denies: Vomiting, Diarrhea, Melena, Hematochezia Genitourinary: Denies: Dysuria, Hematuria, Frequency Musculoskeletal: Denies: Back pain, Extremity Pain Skin: Denies: Rash, Wounds Neurological: Denies: Headache, Weakness, Numbness <Poalo Ribeiro - Last Filed: 11/04/19 16:47> Physical Exam Vital Signs/Narrative: Vital Signs Temp Pulse Resp BP Pulse Ox 11/04/19 11:16 97 F L 110 H 18 130/99 H 98 <Olu Hollins - Last Filed: 11/04/19 14:56> Vital Signs/Narrative: Vital Signs Temp Pulse Resp BP Pulse Ox 11/04/19 11:16 97 F L 110 H 18 130/99 H 98 Inital Vital Signs reviewed: Yes General: Well nourished, Well developed, No Acute Distress Head: Normocephalic, Atraumatic Eyes: Perrl, EOMI ENT: Moist mucous membranes, No rhinorrhea Neck: Supple, Nontender Cardiovascular: Regular rate, Regular rhythm, No murmurs Respiratory: No distress, CTA bilaterally, Chest nontender Abdomen: Soft - significantly distended, Tender, Hypoactive bowel sounds. Nega tive for: Guarding, Rebound tenderness Back: Nontender, Normal Inspection Extremities: Nontender, No edema Skin: Normal color, No rash Neurological: Alert, Oriented x3, Cranial nerves II-XII grossly intact, Normal Strength, Normal Sensation Psychological: Normal affect, Normal Mood <Paolo Ribeiro - Last Filed: 11/04/19 16:47> Diagnostic/Tx/Re-eval - Medical Decision Making I supervised the PA and have performed my own pertinent history and physical. Results and treatment plan were discussed. HPI: Patient has a history of MRDD and is unable to contribute appropriately to history. Caregiver reports that the patient was supposed to have a colonoscopy yesterday by Dr. Phelps. He was not able to tolerate the preparation for this and has been vomiting since yesterday. He complained of abdominal pain today and his abdomen is obviously distended. PE: Vitals: Stable. Afebrile. General: Well-nourished and well-developed. Head: Normocephalic atraumatic. Neck: Supple, no lymphadenopathy. No JVD. Nontender. Cardiovascular: Regular rate and rhythm. No murmurs. Respiratory: No respiratory distress. Clear to auscultation bilaterally. Abdominal: Soft, mild diffuse tenderness palpation, distended, hypoactive bowel sounds. No peritoneal signs. Back: Nontender. Extremities: Nontender, no edema. Skin: Normal color, no rash. Psych: Normal affect. Emergency Department course: Lab work is quite unremarkable. CT shows a large amount of gaseous distention of his colon that ends at the level of the rectosigmoid junction. There is stool in the rectum. Treatment Plan: The patient was discussed with Dr. Phelps. She asked that we do a Gastrografin enema. Unfortunately this is not available at this time of day. He had a soapsuds enema performed. He will be turned over to the care of the oncoming physician for reevaluation. This note was generated with [employer] dictation software. It may contain incorrect words, spelling, and punctuation that were not noted in review of the chart prior to signing. <Olu Hollins - Last Filed: 11/04/19 14:56> Impressions Abdomen/Pelvis CT 11/04/19 12:37 IMPRESSION: Gaseous distention of the colon down to the level of the rectosigmoid junction. Gas and fecal material are seen in the rectum. Electronically Signed: Terry Sinclair, at 13:50 EDT , Service support , 11/04/19 12:37 CT Abd [Abdomen/Pelvis without Cont] [CT] Stat 11/04/19 16:00 KUB [Abdomen Single View] [RAD] Stat Laboratory Results 11/04/19 11/04/19 11/04/19 11:35 11:35 12:02 WBC 9.2 RBC 4.34 L Hgb 13.8 Hct 41.0 MCV 94.5 H MCH 31.8 MCHC 33.7 RDW Std Deviation 48.8 H RDW Coeff of J Luis 13.9 Plt Count 174 MPV 12.3 H Immature Gran % (Auto) 0.300 Neut % (Auto) 80.7 H Lymph % (Auto) 9.8 L [place] % (Auto) 8.8 Eos % (Auto) 0.3 Baso % (Auto) 0.1 Absolute Neuts (auto) 7.4 Absolute Lymphs (auto) 0.90 Nucleated RBC % 0 Sodium Cancelled Cancelled Potassium Cancelled Cancelled Chloride Cancelled Cancelled Carbon Dioxide Cancelled Cancelled Anion Gap Cancelled Cancelled BUN Cancelled Cancelled Creatinine Cancelled Cancelled Estim Creat Clear Calc Cancelled Cancelled Est GFR (MDRD) Af Amer Cancelled Cancelled Est GFR (MDRD) Non-Af Cancelled Cancelled BUN/Creatinine Ratio Cancelled Cancelled Glucose Cancelled Cancelled Calcium Cancelled Cancelled Total Bilirubin Cancelled Cancelled AST Cancelled Cancelled ALT Cancelled Cancelled Alkaline Phosphatase Cancelled Cancelled Total Protein Cancelled Cancelled Albumin Cancelled Cancelled Globulin Cancelled Cancelled Albumin/Globulin Ratio Cancelled Cancelled Lipase Cancelled Cancelled 11/04/19 12:45 WBC RBC Hgb Hct MCV MCH MCHC RDW Std Deviation RDW Coeff of J Luis Plt Count MPV Immature Gran % (Auto) Neut % (Auto) Lymph % (Auto) [place] % (Auto) Eos % (Auto) Baso % (Auto) Absolute Neuts (auto) Absolute Lymphs (auto) Nucleated RBC % Sodium 139 Potassium 3.6 Chloride 106 Carbon Dioxide 28.0 Anion Gap 5 BUN 18 Creatinine 0.89 Estim Creat Clear Calc 90.60 Est GFR (MDRD) Af Amer 116 Est GFR (MDRD) Non-Af 96 BUN/Creatinine Ratio 20.1 H Glucose 101 Calcium 8.6 Total Bilirubin 0.40 AST 16 ALT 32 Alkaline Phosphatase 160 H Total Protein 7.3 Albumin 3.7 Globulin 3.6 Albumin/Globulin Ratio 1.0 Lipase 40 L - Medical Decision Making I spoke with Dr. Phelps who recommended we do a soapsuds enema. This was performed. Patient had good results. He passed a significant amount of gas and stool. Dr. Phelps recommended repeat x-ray which demonstrated improvement. The patient is able to tolerate by mouth at this time. Dr. Phelps recommended discharge home and she will follow-up with him next week where they will reschedule his colonoscopy. She does not feel he needs to be admitted. She discussed this with the caregiver and the patient and me as well. Caregiver is agreeable with plan she will take the patient home and follow-up with Dr. Tello next week as scheduled. <Paolo Ribeiro - Last Filed: 11/04/19 16:47> ED Disposition <Olu Hollins - Last Filed: 11/04/19 14:56> <Paolo Ribeiro - Last Filed: 11/04/19 16:47> - Plan for ED Patient: Disposition: Home or Assisted Living Diagnosis: Intellectual disability, History of small bowel obstruction, Ileus Instructions: ED Constipation Prescriptions: Docusate Sodium [Colace] 100 mg PO BID #10 cap Prescription Printed Polyethylene Glycol 3350 [Miralax] 17 gm PO DAILY #10 packet Prescription Printed Metoclopramide [Reglan] 10 mg PO TID PRN #15 tab PRN Reason: Nausea Prescription Printed Referrals: Mervat Carrillo MD [Primary Care Provider] - Jazlyn Phelps MD [STAFF PHYSICIAN] - Keep Lacie appointment
[2019-11-04 11:42] LABS: Absolute Neutrophil Count 7.4 X10^3/uL (2.0-7.7); Basophil# 0.01 X10^3/uL; Basophil% 0.1 % (0-1); Eosinophil# 0.03 X10^3/uL; Eosinophils% 0.3 % (0-5); Hemoglobin 13.8 g/dL (13.0-16.5); Lymphocyte % 9.8 % (19-41); Mean Corp Hgb Conc 33.7 g/dL (32-36); Mean Corpuscular Hgb 31.8 pg (27.0-32.0); Mean Corpuscular Volume 94.5 fL (80-94); Mean Platelet Vol. 12.3 fl (6.2-12.0); Monocyte# 0.81 X10^3/uL; Monocyte% 8.8 % (0-10); NRBC Flagged by Analyzer 0 % (0-5); Neutrophil # 7.39 X10^3/uL (2.7-7.7); Neutrophil % 80.7 % (47-70); Platelet Count 174 K/mm3 (150-450); RBC Distribution Width CV 13.9 % (11.6-14.6); RBC Distribution Width SD 48.8 fl (35.1-43.9); Red Blood Count 4.34 M/mm3 (4.6-6.2); White Blood Count 9.2 K/mm3 (4.4-11.0)
[2019-11-04] MEDS: Ondansetron 4 MG/2 ML Vial IV (11:57)
--- NOTE | 2019-11-04 12:37 | CT_ITS ---
STUDY: CT ABDOMEN AND PELVIS WITHOUT CONTRAST REASON FOR EXAM: Male, 49 years old. Abdominal pain and distention, decreased appetite, hx obstruction. RADIATION DOSAGE (If Supplied By Facility): CTDIvol = ( 13.24 ) mGy, DLP = ( 699.31 ) mGycm TECHNIQUE: Transaxial images were obtained from the dome of the diaphragm to the symphysis pubis without oral contrast, and without intravenous contrast. Sagittal and coronal images were reconstructed. Individualized dose optimization techniques were used for this CT. COMPARISON: Comparison is made with prior study dated 07/19/2019. FINDINGS: Calcified subcarinal lymph nodes. Mild degree of increased markings at the lung bases suggestive of mild atelectasis. The visualized portions of the heart are within normal limits. Normal liver. Normal gallbladder and extrahepatic biliary system. Normal spleen. There is diffuse atrophy of the pancreas. Normal bilateral adrenal glands. Normal right kidney. Normal left kidney. There is a small hiatal hernia. Normal small intestine. Gaseous distention of the colon down to the region of the rectosigmoid colon. Fecal material is seen in the rectum. The appendix is visualized and appears normal. Normal abdominal aorta. Normal inferior vena cava. Normal retroperitoneum. Normal urinary bladder. Phleboliths are seen within the pelvis. There is a small umbilical hernia containing fat. There are diffuse degenerative changes of the visualized lumbar spine. CT/Abdomen/Pelvis without Cont IMPRESSION: Gaseous distention of the colon down to the level of the rectosigmoid junction. Gas and fecal material are seen in the rectum. Electronically Signed: Terry Sinclair, at 13:50 EDT , Service support ,
[2019-11-04 13:16] VITALS: BP 128/96; PULSE 101; RESP 16; O2SAT 96
[2019-11-04 13:18] LABS: AST(SGOT) 16 U/L (15-37); Alanine Aminotransfer ALT/SGPT 32 U/L (16-61); Albumin, Serum 3.7 g/dL (3.2-5.0); Alkaline Phosphatase 160 U/L (45-117); Anion Gap 5 (5-15); BUN 18 mg/dL (7-18); BUN/Creat Ratio 20.1 RATIO (10-20); Calcium,Total 8.6 mg/dL (8.5-10.1); Chloride 106 mmol/L (98-107); Creatinine, Serum 0.89 mg/dL (0.70-1.30); EST Glomerular Filtration Rate 96 mL/min (>60); Est Glom Filt Rate - Afr Amer 116 mL/min (>60); Globulin 3.6 g/dL (2.2-4.2); Glucose 101 mg/dL (74-106); Lipase 40 U/L (73-393); Potassium 3.6 mmol/L (3.5-5.1); Protein, Total 7.3 g/dL (6.4-8.2); Sodium Level 139 mmol/L (136-145)
[2019-11-04 15:00] VITALS: BP 132/96; PULSE 105; RESP 16; O2SAT 98
--- NOTE | 2019-11-04 15:41 | PCM.CONS.B ---
- Consult Date of Consult: 11/04/19 - Reason for Consult CC: abdominal pain, nausea and emesis HISTORY OF PRESENT ILLNESS: 48 y/o WM with MRDD who lives in a fdc is brought to the ED at [facility] because of abdominal pain, nausea and vomiting and distention. This present episode began yesterday. Patient has been admitted for same symptoms in past - findings of ileus. Patient is a poor informant because of history of intellectual disabilities and his caregiver was at the bedside. Patient lives at the fdc. He was found to have a normal WBC. CT scan abdomen and pelvis without contrast (reviewed by me and discussed with radiologist) reveals dilated colon with no evidence of mass, some stool in rectum. He was scheduled to have a colonoscopy with me, but patient is unable to follow through with colon cleansing preparation. ? PAST MEDICAL HISTORY ? Acne vulgaris ? ? Impulse control disorder, unspecified ? ? Mild intellectual disabilities ? ? PAST SURGICAL HISTORY: denies ? Current Outpatient Medications: docusate sodium (COLACE) 100 mg capsule Take 1 capsule by mouth twice daily. polyethylene glycol 3350 (MIRALAX, GLYCOLAX) 17 gram/dose powder Take 17 g by mouth twice daily. Drink a mix of 1 scoop in 8oz of water/beverage once daily as needed for constipation. ondansetron orally disintegrating (ZOFRAN ODT) 4 mg disintegrating tablet Take 1 tablet by mouth every 6 hours as needed for Nausea/Vomiting. melatonin 3 mg tablet Take 2 tablets by mouth daily at bedtime. Clindamycin-Benzoyl Peroxide (DUAC) 1.2 %(1 % base) -5 % gel Apply 1 application to affected area daily at bedtime. LORazepam (ATIVAN) 1 mg tablet 0.5 mg each AM and 1 mg each PM. cloZAPine (CLOZARIL) 25 mg tablet Take 1 tablet by mouth daily at bedtime. (take with 100 mg to total 125 mg) escitalopram oxalate (LEXAPRO) 10 mg tablet Take 1 tablet by mouth once daily. take with 5 mg pill escitalopram oxalate (LEXAPRO) 5 mg tablet Take 1 tablet by mouth once daily. take with 10 mg capsules clozapine (CLOZARIL) 100 mg ORAL Tab Take one(1) tablet two(2) times daily. COMPOUNDED PRESCRIPTION CBC w/ diff Q month. Dx: V58.[address] Carrillo and patient's psychiatrist ? REVIEW OF SYSTEMS: General: patient resident of fdc with MRDD with limited communication skill (ROS obtained from medical records) Neuro: no chronic headaches/numbness or weakness of extremities Cardiac: denies chest pain Pulmonary: no cough GI: long history of constipation, has had intermittent bouts of nausea and emesis as reported in outpatient records : hemipelvic kidney - left Neuro: sleeping disorder Psych: MRDD, history of depression, anxiety and impulse control disorder - seen by psychology PHYSICAL EXAMINATION: Vitals: Temp 97F HR 101 BP 130/98 RR 18 General: WD/WN WM in no apparent distress, not understanding of situation Head: normocephalic Neck: supple with no JVD or tracheal deviation Lungs: normal breath sounds, no labored breathing noted, no rhonchi/wheezing/rales noted Heart: regular rate Abdomen: soft and protuberant -(from previous - this is his baseline) and tympanitic, some bowel sounds noted, no peritoneal signs noted - not tender to deep palpation Rectal examination - no palpable masses - large amount of air in vault, no evidence of impaction, very tight sphincter tone Extremities: no pitting edema IMPRESSION: chronic constipation - suspect colonic inertia nausea/emesis ileus IMPRESSION: colonic inertia PLAN: Patient is a poor historian, medical history and symptoms obtained from fdc director but also is minimal I suspect that patient has colonic inertia - in my opinion, this is becoming a chronic condition and he may require a surgical procedure for this colonic inertia such as Vasquez stoma, permanent ostomy, partial colon resection, etc. Will make referral to gastroenterology at main [facility] for evaluation Patient appears stable. I have recommended to the fdc director that patient get daily enemas Patient can be discharged to home.
--- NOTE | 2019-11-04 16:00 | RAD_ITS ---
STUDY: X-RAY - ABDOMEN/PELVIS REASON FOR EXAM: Male, 49 years old. post enema, abdominal distention TECHNIQUE: Two AP supine views of the abdomen and pelvis. COMPARISON: None. FINDINGS: Normal visualized lung bases. Mild to moderate gaseous distention seen around the small and large bowel loops. There is no demonstrated free abdominal air. Normal soft tissue structures. There are mild degenerative changes of the visualized lumbar spine. RAD/Abdomen Single View IMPRESSION: Mild to moderate gaseous distention of the bowel loops Electronically Signed: Renato Josue MD at 16:55 EDT , Service support ,
[2019-11-04 17:03] VITALS: BP 132/98; PULSE 99; RESP 16; O2SAT 97
== END 2019-11-04 17:04 | disposition home or self-care (01) ==
PROVIDERS: Emergency Provider Physician Assistant Medical; PCP Internal Medicine
DX: K56.7 Ileus, unspecified (principal); F70 Mild intellectual disabilities; Z79.899 Other long term (current) drug therapy
CPT/HCPCS: 36415; 74018; 74176; 80053; 83690; 85025; 96374; 99285; J7030; A4216; J2405

== ENCOUNTER 2020-09-20 12:03 | Inpatient (IN) | payer MEDICARE, MEDICAID, SELFPAY ==
[2020-09-20 12:04] VITALS: BP 132/100; PULSE 128; RESP 18; TEMP 36.2; O2SAT 94; BMI 27.1
--- NOTE | 2020-09-20 12:49 | CT_ITS ---
STUDY: CT ABDOMEN AND PELVIS WITH CONTRAST REASON FOR EXAM: Male, 49 years old. Abdominal pain -- IV CONTRAST. History of small bowel obstruction. Abdominal distention. RADIATION DOSAGE (If Supplied By Facility): CTDIvol = ( 10.44 ) mGy, DLP = ( 629.75 ) mGycm TECHNIQUE: Transaxial images were obtained from the dome of the diaphragm to the symphysis pubis without oral contrast. IV 100ML ISOVUE 370 was administered. Sagittal and coronal images were reconstructed. Individualized dose optimization techniques were used for this CT. COMPARISON: Comparison is made with prior study dated 11/04/2019. FINDINGS: The visualized lung bases are unremarkable. The visualized portions of the heart are within normal limits. Normal liver. Normal gallbladder and extrahepatic biliary system. Normal spleen. Normal pancreas. Normal bilateral adrenal glands. Normal right kidney. Normal left kidney. The left kidney is within the pelvis. Fluid distention of the stomach. There are dilated loops of the small intestine with a non-distended colon consistent with a small bowel obstruction. The transition point appears to be in the mid ileal loops. Large amount of fecal material is seen in the rectosigmoid colon. The appendix is visualized and appears normal. Normal abdominal aorta. Normal inferior vena cava. Normal retroperitoneum. Normal urinary bladder. There is a small umbilical hernia containing fat. There are diffuse degenerative changes of the visualized lumbar spine. CT/Abdomen/Pelvis WITH Contrast IMPRESSION: Fluid distention of the stomach and small bowel obstruction with the transition point in the region of the mid ileal loops. Large amount of fecal material is seen in the rectosigmoid colon. Electronically Signed: Terry Sinclair MD at 14:49 EDT , Service support ,
[2020-09-20] MEDS: 0.9% Normal Saline 1,000 ML 1000 ML IV (13:10)
[2020-09-20 13:32] LABS: Absolute Neutrophil Count 16.2 X10^3/uL (2.0-7.7); Basophil# 0.03 X10^3/uL; Basophil% 0.2 % (0-1); Hemoglobin 16.8 g/dL (13.0-16.5); Lymphocyte % 3.4 % (19-41); Mean Corp Hgb Conc 32.9 g/dL (32-36); Mean Corpuscular Hgb 31.2 pg (27.0-32.0); Mean Corpuscular Volume 94.8 fL (80-94); Mean Platelet Vol. 11.3 fl (6.2-12.0); Monocyte# 0.77 X10^3/uL; Monocyte% 4.4 % (0-10); NRBC Flagged by Analyzer 0 % (0-5); Neutrophil # 16.18 X10^3/uL (2.7-7.7); Neutrophil % 91.4 % (47-70); POSITIVE DIFFERENTIAL YES; Platelet Count 192 K/mm3 (150-450); RBC Distribution Width CV 13.7 % (11.6-14.6); Red Blood Count 5.38 M/mm3 (4.6-6.2); White Blood Count 17.7 K/mm3 (4.4-11.0)
[2020-09-20 13:33] LABS: Differential Indicated SCAN CRITERIA MET
[2020-09-20] MEDS: Ondansetron 4 MG/2 ML Vial IV (13:47)
[2020-09-20 13:48] LABS: AST(SGOT) 33 U/L (15-37); Alanine Aminotransfer ALT/SGPT 105 U/L (16-61); Albumin, Serum 4.9 g/dL (3.2-5.0); Alkaline Phosphatase 217 U/L (45-117); Anion Gap 11 (5-15); BUN 20 mg/dL (7-18); BUN/Creat Ratio 15.7 RATIO (10-20); Calcium,Total 9.6 mg/dL (8.5-10.1); Chloride 99 mmol/L (98-107); Creatinine, Serum 1.27 mg/dL (0.70-1.30); EST Glomerular Filtration Rate 64 mL/min (>60); Est Glom Filt Rate - Afr Amer 77 mL/min (>60); Estimated Creatinine Clearance 70.36 ml/min; Globulin 4.7 g/dL (2.2-4.2); Glucose 163 mg/dL (74-106); Lipase 34 U/L (73-393); Protein, Total 9.6 g/dL (6.4-8.2); Sodium Level 138 mmol/L (136-145)
[2020-09-20 14:35] LABS: Bacteria 0 SEEN /hpf (None Seen); Red Blood Cells-Urine 0 SEEN /hpf (0-5); Squamous Epithelial Cells - UA 0 SEEN /hpf (0-5)
[2020-09-20 14:40] LABS: Color, Urine Yellow (Yellow); Glucose, Dipstick Normal (Normal); Ketone-Dipstick 5 mg/dl (Negative); Leukocyte Esterase-Dipstick 25 /ul (Negative); Nitrite-Dipstick Negative (Negative); Occult Blood-Urine Negative /ul (Negative); Protein-Dipstick 30 mg/dl (Negative); Specific Gravity, Urine 1.025 (1.002-1.030); Urine Bilirubin Dipstick 1 mg/dL (Negative); Urine Clarity Clear (Clear); Urine Urobilinogen 1 mg/dl (Normal)
[2020-09-20 14:45] LABS: Mucous, Urine 2+ /hpf (<or=2+); White Blood Cells 0-5 SEEN /hpf (0-5)
[2020-09-20 14:46] LABS: Hyaline Cast 0-5 SEEN /lpf (0-5)
[2020-09-20 15:30] VITALS: BP 145/105; PULSE 98; RESP 16; O2SAT 98
--- NOTE | 2020-09-20 15:38 | ED.VIS.GI ---
HPI HPI - GI History of Present Illness Chief Complaint: Abd Pain Informant: patient Abdominal Pain/Flank Pain Onset: Today Context: Gradual Onset Timing: Continuous Location: Diffuse Worsened by: Nothing Relieved by: Nothing Nausea/Vomiting/Emesis GI Symptom: Positive for Nausea; Negative for Vomiting Diarrhea/Melena/Hematochezia GI Symptom: Negative for Diarrhea, Melena and Hematochezia Associated Symptoms Associated Symptoms: Negative for Dysuria, Hematuria and Urgency Narrative Narrative: Patient presents with abdominal pain that began today. Patient has a history of mental retardation is a poor historian. Staff from the [facility] noted some distention of his abdomen today. Patient states his pain is diffuse across his abdomen. Patient admits to nausea but denies any vomiting. Patient denies any diarrhea, melena, or hematochezia. Patient denies any dysuria or hematuria. Patient has a history of bowel obstructions and staff is concerned that this is another bowel obstruction. [facility] Medical History Bowel obstruction Impulse control disorder MRDD OCD (obsessive compulsive disorder) Home Medications docusate sodium 200 mg PO DAILY@1400 02/04/19 [History Last Taken 11/03/19] escitalopram oxalate 10 mg PO DAILY@0700 02/04/19 [History Last Taken 11/04/19] melatonin 3 mg PO QHS 02/04/19 [History Last Taken 11/03/19] clindamycin-benzoyl peroxide 1 applic TOPICAL QHS 02/05/19 [History Last Taken 11/03/19] clonazepam 1 mg PO DAILY@1600 11/04/19 [History Last Taken Unknown] escitalopram oxalate 5 mg PO DAILY@0700 11/04/19 [History Last Taken 11/04/19] polyethylene glycol 3350 17 gm PO DAILY #10 packet 11/04/19 [Rx Last Taken Unknown] buspirone 5 mg PO BID 09/20/20 [History Last Taken Unknown] clonazepam 0.5 mg PO BREAKFAST 09/20/20 [History Last Taken Unknown] linaclotide [Linzess] 145 mcg PO DAILY 09/20/20 [History Last Taken Unknown] Allergy/AdvReac Type Severity Reaction Status Date / Time No Known Allergies Allergy Verified 09/20/20 12:04 Social History Smoking Status: Never smoker ROS ROS ED Constitutional Constitutional ED: Denies chills or fever(s) Eyes Eyes: Denies blurry vision or change in vision ENT ENT ED: Denies rhinorrhea or sore throat Cardiovascular Cardiovascular: Denies chest pain or palpitations Respiratory/Chest Respiratory/Chest: Denies cough or dyspnea Gastrointestinal Gastrointestinal: Reports abdominal pain and nausea; Denies vomiting Genitourinary Genitourinary ED: Denies dysuria or hematuria Musculoskeletal Musculoskeletal: Denies back pain or neck pain Integumentary Denies abscess or rash Neurologic Neurologic: Denies headache(s) or weakness Allergic/Immunologic Allergic/Immunologic ED: Denies mouth swelling or urticaria EXAM Physical Exam Const Vital Signs: 09/20/20 12:04 09/20/20 15:30 Temperature 97.1 F L Temperature Source Temporal Pulse Rate 128 H 98 Respiratory Rate 18 16 Blood Pressure 132/100 H 145/105 H Blood Pressure Mean 110 118 Pulse Ox 94 98 Oxygen Delivery Method Room Air Room Air Positive well nourished and well developed General Appearance ED: well developed HEENT Reports moist mucous membranes Neck supple and no JVD Resp normal respiratory effort and clear to auscultation bilaterally Cardio regular rate, regular rhythm and no murmurs GI normal to inspection, nondistended, normoactive bowel sounds Inspection: abdominal distention Palpation: soft and tender epigastric, LLQ, RLQ, LUQ, RUQ, periumbilical and suprapubic; Negative for guarding Extremity normal to inspection General Extremety ED: Negative for edema or tenderness General Extremity: Negative for edema Neuro oriented x3, CN's II-XII intact bilaterally and no sensory deficits noted Sensorium / Orientation: alert Motor Exam: strength 5/5 throughout Psych mental status grossly normal Skin no rashes or lesions noted MDM MDM MDM Narrative Medical decision making narrative: Patient was given IV fluids and Zofran. CBC shows a leukocytosis of 17.7. Comprehensive metabolic profile showed an alk phos of 217 and ALT of 105. AST was normal. Lipase was normal. Urinalysis does not show any evidence of urinary tract infection. CT scan of the abdomen pelvis with oral and IV contrast was obtained. There is fluid distention of the stomach and small bowel obstruction with the transition point in the region of the mid ileal loops. This was interpreted by the radiologist and reviewed by myself. Case was discussed with Dr. Pichardo. She recommended placing an NG tube. She recommended admitting to the medical service and she will see the patient in consultation. Portable abdominal x-ray was obtained. There is 1 view. On my interpretation, the NG tube goes past the diaphragm and appears to be in the stomach. Radiologist also interpreted the x-ray and agrees. COVID-19 rapid antigen was obtained and was negative. Case was discussed with the hospitalist. He will admit the patient to his service. Staff understood and was agreeable with the plan. All questions were answered. Lab Data Attestation: I reviewed the patient's lab results. Labs: Laboratory Results - last 24 hr 09/20/20 09/20/20 09/20/20 13:25 13:25 14:25 WBC 17.7 H RBC 5.38 Hgb 16.8 H Hct 51.0 MCV 94.8 H MCH 31.2 MCHC 32.9 RDW Std Deviation 48.0 H RDW Coeff of J Luis 13.7 Plt Count 192 MPV 11.3 Immature Gran % (Auto) 0.600 Neut % (Auto) 91.4 H Lymph % (Auto) 3.4 L [place] % (Auto) 4.4 Eos % (Auto) 0.0 Baso % (Auto) 0.2 Absolute Neuts (auto) 16.2 H Absolute Lymphs (auto) 0.60 L Nucleated RBC % 0 Differential Comment COMMENT Sodium 138 Potassium 4.0 Chloride 99 Carbon Dioxide 28.0 Anion Gap 11 BUN 20 H Creatinine 1.27 Estim Creat Clear Calc 70.36 Est GFR (MDRD) Af Amer 77 Est GFR (MDRD) Non-Af 64 BUN/Creatinine Ratio 15.7 Glucose 163 H Calcium 9.6 Total Bilirubin 0.60 AST 33 ALT 105 H Alkaline Phosphatase 217 H Total Protein 9.6 H Albumin 4.9 Globulin 4.7 H Albumin/Globulin Ratio 1.0 Lipase 34 L Urine Color Yellow Urine Clarity Clear Urine pH 5.0 Ur Specific [place] 1.025 Urine Protein 30 H Urine Glucose (UA) Normal Urine Ketones 5 H Urine Occult Blood Negative Urine Nitrite Negative Urine Bilirubin 1 H Urine Urobilinogen 1 H Ur Leukocyte Esterase 25 H Urine RBC 0 SEEN Urine WBC 0-5 SEEN Ur Squamous Epith Cells 0 SEEN Urine Bacteria 0 SEEN Hyaline Casts 0-5 SEEN Urine Mucus 2+ Radiography Diagnostic Testing: Radiology Impression Abdomen/Pelvis CT 09/20/20 12:49 IMPRESSION: Fluid distention of the stomach and small bowel obstruction with the transition point in the region of the mid ileal loops. Large amount of fecal material is seen in the rectosigmoid colon. Electronically Signed: Terry Sinclair MD at 14:49 EDT , Service support , Treatment and Re-Evaluation Vital Sign Attestation:: Vital signs were reviewed prior to admission. They are stable. Discharge Plan Dx/Rx/DC Orders Clinical Impression: Small bowel obstruction Disposition Disposition: Acute Care Hospital [facility]
[2020-09-20] MEDS: Oxymetazoline 0.05% 1 SPRAY SPRAY.BTL 2 SPRAY NASAL (15:49)
[2020-09-20] MEDS: Lidocaine Jelly 2% 20 ML Syringe (URO-JET) 20 APPLIC TOPICAL (15:49)
[2020-09-20] MEDS: Lidocaine 4% 5 ML Ampul 2 ML INHALATION (15:49)
--- NOTE | 2020-09-20 15:49 | RAD_ITS ---
STUDY: X-RAY - ABDOMEN REASON FOR EXAM: Male, 49 years old. NG Insertion TECHNIQUE: Single AP view of the abdomen . COMPARISON: CT FINDINGS: Normal visualized lung bases. Feeding tube extends to the stomach in the left upper quadrant of the abdomen. There are dilated loops of bowel. There is contrast in the urinary collecting system consistent with recent CT scan. There is no demonstrated free abdominal air. Normal visualized osseous structures. RAD/Abdomen Single View (Portable) IMPRESSION: Feeding tube extends to the stomach. Dilated loops of bowel. Electronically Signed: Rodolfo Wilkins MD at 16:20 EDT , Service support ,
--- NOTE | 2020-09-20 15:58 | HP.PCM.HOS_ITS ---
HPI - General General Date of Admission: 09/20/20 Date of Service: 09/20/20 Chief Complaint: Abdominal distention HPI Narrative MAIRA DAS, is a 49 M with history of MRDD currently in a assisted who was brought in with abdominal distention. History was taken from the mail processing machine operator who was by the patient at the time of my evaluation. Per the mail processing machine operator patient symptoms started on the morning of his admission. They did notice significant abdominal distention. There was no report of nausea. Per mail processing machine operator patient has had a similar experience in the past but does not recall if patient has had any abdominal surgery. Was brought to the emergency department as a result imaging studies obtained in the ED demonstrated Fluid distention of the stomach and small bowel obstruction with the transition point in the region of the mid ileal loops. Large amount of fecal material is seen in the rectosigmoid colon.. An NG tube was placed and patient admitted to regular nursing floor for further management [facility] Medical History Bowel obstruction Impulse control disorder MRDD OCD (obsessive compulsive disorder) Home Medications docusate sodium 200 mg PO DAILY@1400 02/04/19 [History Last Taken 11/03/19] escitalopram oxalate 10 mg PO DAILY@0700 02/04/19 [History Last Taken 11/04/19] melatonin 3 mg PO QHS 02/04/19 [History Last Taken 11/03/19] clindamycin-benzoyl peroxide 1 applic TOPICAL QHS 02/05/19 [History Last Taken 11/03/19] clonazepam 1 mg PO DAILY@1600 11/04/19 [History Last Taken Unknown] escitalopram oxalate 5 mg PO DAILY@0700 11/04/19 [History Last Taken 11/04/19] polyethylene glycol 3350 17 gm PO DAILY #10 packet 11/04/19 [Rx Last Taken Unknown] buspirone 5 mg PO BID 09/20/20 [History Last Taken Unknown] clonazepam 0.5 mg PO BREAKFAST 09/20/20 [History Last Taken Unknown] linaclotide [Linzess] 145 mcg PO DAILY 09/20/20 [History Last Taken Unknown] Allergy/AdvReac Type Severity Reaction Status Date / Time No Known Allergies Allergy Verified 09/20/20 12:04 unable to obtain Social History Smoking Status: Never smoker ROS Review of Systems ROS Unobtainable: other Details: Patient's underlying MRDD not reliable Vital Signs Vital Signs Vital Signs: 09/20/20 12:04 09/20/20 15:30 Temperature 97.1 F L Temperature Source Temporal Pulse Rate 128 H 98 Respiratory Rate 18 16 Blood Pressure 132/100 H 145/105 H Blood Pressure Mean 110 118 Pulse Ox 94 98 Oxygen Delivery Method Room Air Room Air Weight Weight: 83.5 kg Body Mass Index (BMI) 27.1 Physical Exam Narrative GENERAL: Appears anxious HEENT: Atraumatic; NG tube in place EYES; Anicteric, Normal Conjunctiva NECK; supple, normal thyroid, RESPIRATORY: Diminished to auscultation CARDIOVASCULAR: Regular S1 S2, GI: Distended, tympanic to percussion : No Renal angle tenderness; EXTREMITIES: No edema, no clubbing, MUSCULOSKELETAL: no muscle waisting NEURO: Awake; no lateralizing signs. SKIN: No Rash PSYCH; Flat affect Results Lab / Micro Data Result Diagrams: 09/20/20 13:25 09/20/20 13:25 Labs: Laboratory Results - last 24 hr 09/20/20 13:25: WBC 17.7 H, RBC 5.38, Hgb 16.8 H, Hct 51.0, MCV 94.8 H, MCH 31.2, MCHC 32.9, RDW Std Deviation 48.0 H, RDW Coeff of J Luis 13.7, Plt Count 192, MPV 11.3, Immature Gran % (Auto) 0.600, Neut % (Auto) 91.4 H, Lymph % (Auto) 3.4 L, [place] % (Auto) 4.4, Eos % (Auto) 0.0, Baso % (Auto) 0.2, Absolute Neuts (auto) 16.2 H, Absolute Lymphs (auto) 0.60 L, Nucleated RBC % 0, Differential Comment COMMENT 09/20/20 13:25: Sodium 138, Potassium 4.0, Chloride 99, Carbon Dioxide 28.0, Anion Gap 11, BUN 20 H, Creatinine 1.27, Estim Creat Clear Calc 70.36, Est GFR (MDRD) Af Amer 77, Est GFR (MDRD) Non-Af 64, BUN/Creatinine Ratio 15.7, Glucose 163 H, Calcium 9.6, Total Bilirubin 0.60, AST 33, ALT 105 H, Alkaline Phosphat ase 217 H, Total Protein 9.6 H, Albumin 4.9, Globulin 4.7 H, Albumin/Globulin Ratio 1.0, Lipase 34 L 09/20/20 14:25: Urine Color Yellow, Urine Clarity Clear, Urine pH 5.0, Ur Specific [place] 1.025, Urine Protein 30 H, Urine Glucose (UA) Normal, Urine Ketones 5 H, Urine Occult Blood Negative, Urine Nitrite Negative, Urine Bilirubin 1 H, Urine Urobilinogen 1 H, Ur Leukocyte Esterase 25 H, Urine RBC 0 SEEN, Urine WBC 0-5 SEEN, Ur Squamous Epith Cells 0 SEEN, Urine Bacteria 0 SEEN, Hyaline Casts 0-5 SEEN, Urine Mucus 2+ Micro: Microbiology 09/20/20 15:15 Mucosa - Nose SARS-CoV-2 Antigen (Rapid) - Final Radiology Impression Abdomen/Pelvis CT 09/20/20 12:49 IMPRESSION: Fluid distention of the stomach and small bowel obstruction with the transition point in the region of the mid ileal loops. Large amount of fecal material is seen in the rectosigmoid colon. Electronically Signed: Terry Sinclair MD at 14:49 EDT , Service support , Assessment & Plan Assessment/Plan (1) Small bowel obstruction: (2) Intellectual disability: PLAN: Patient is a 49-year-old gentleman with history of MRDD presented with abdominal distention 1. Small bowel obstruction ?Imaging studies obtained demonstrated Fluid distention of the stomach and small bowel obstruction with the transition point in the region of the mid ileal loops. Patient has been admitted to regular nursing floor and NG tube was passed and placed to suction. Patient to be managed with pain meds antinausea medication with consultation placed to general surgery. Subsequent evaluation with a repeat KUB in the orning ordered 2. Obstipation ?CT of the abdomen obtained demonstrated Large amount of fecal material is seen in the rectosigmoid colon.. Plan is to treat with subset enemas 3. Learning disability with obsessive-compulsive disorder ?Supportive care 4. DVT prophylaxis ?Lovenox Charges/Coding Visit Charges Inpatient E&M: 51778 Init Hosp L2
[2020-09-20 16:56] VITALS: BP 145/103; PULSE 122; RESP 18; TEMP 36.9; O2SAT 96
--- NOTE | 2020-09-20 17:46 | EX.PCM.CON.S ---
Assessment & Plan Assessment/Plan (1) Small bowel obstruction: (2) Intellectual disability: (3) Leukocytosis: PLAN: Patient CT abdomen pelvis reviewed. Patient does have distended small bowel loops however patient does have a history of small bowel obstruction/ileus numerous times in the past. Patient does have large amount of stool in the sigmoid rectal area as well as gas in the colon. NG placed put out 500 initially. Patient denies any abdominal pain after NG placement. Continue IV fluids/n.p.o./NG to low wall suction. Plan on conservative management. Leukocytosis unsure of patient's cause of leukocytosis as his urine appears to be clean no obvious source of inflammation on CT has also question if he has a possible bowel obstruction or possible ileus. HPI Consult Data Date of Consult: 09/21/20 HPI Narrative HPI Narrative: MAIRA DAS, is a 49 M who presents [facility] with a worker from the [facility]. Patient has an intellectual disability and is a poor historian. Pt says he has no abd pain now and asking if he can go home tomorrow. NG placed in ER-500 cc out. Pt denies n/v this AM but person with him states he did have N/V this AM. Pt did admit to abdominal pain before coming in. last BM yesterday per pt. CT a/p shows dilated SB and mod stool in rectosigmoid colon. Pt has a history of multiple admissions for possible sbo which were mostly ileus. [facility] Medical History Bowel obstruction Impulse control disorder MRDD OCD (obsessive compulsive disorder) Home Medications docusate sodium 200 mg PO DAILY@1400 02/04/19 [History Last Taken 09/19/20] escitalopram oxalate 10 mg PO DAILY@0700 02/04/19 [History Last Taken 09/20/20] melatonin 3 mg PO QHS 02/04/19 [History Last Taken 09/19/20] clindamycin-benzoyl peroxide 1 applic TOPICAL QHS 02/05/19 [History Last Taken 09/19/20] clonazepam 1 mg PO DAILY@1600 11/04/19 [History Last Taken 09/19/20] escitalopram oxalate 5 mg PO DAILY@0700 11/04/19 [History Last Taken 09/20/20] polyethylene glycol 3350 17 gm PO DAILY #10 packet 11/04/19 [Rx Last Taken 09/20/20] buspirone 5 mg PO BID 09/20/20 [History Last Taken 09/20/20] clonazepam 0.5 mg PO BREAKFAST 09/20/20 [History Last Taken 09/20/20] clozapine 100 mg PO BID 09/20/20 [History Last Taken 09/20/20] linaclotide [Linzess] 145 mcg PO DAILY 09/20/20 [History Last Taken 09/20/20] Allergy/AdvReac Type Severity Reaction Status Date / Time No Known Allergies Allergy Verified 09/20/20 12:04 Social History Smoking Status: Never smoker ROS Constitutional Constitutional: Reports anorexia ENT HEENT: Denies dizziness Cardiovascular Cardiovascular: Denies chest pain Respiratory/Chest Respiratory/Chest: Denies shortness of breath at rest Gastrointestinal Gastrointestinal: Denies abdominal pain, constipation, diarrhea, heartburn or hematemesis Genitourinary Genitourinary: Denies burning urination Musculoskeletal Musculoskeletal: Denies joint pain Integumentary Integumentary: Denies rash Neurologic Neurologic: Denies focal weakness Endocrine Endocrinology: Denies palpitations Hematologic/Lymphatic Hematologic/Lymphatic: Denies easy bleeding or easy bruising Physical Exam Const alert, oriented x3 and no apparent distress HEENT normocephalic and head/scalp atraumatic Resp normal respiratory effort Cardio regular rate GI soft to palpation and non-tender Inspection: abdominal distention Palpation: Negative for guarding Rectal Exam: visual inspection normal; Negative for fecal impaction, mass or tenderness Extremity no clubbing, cyanosis or edema Neuro CN's II-XII intact bilaterally Psych mental status grossly normal Lab / Micro Data Result Diagrams: 09/21/20 06:20 09/21/20 06:20 Labs: Laboratory Results - last 24 hr 09/20/20 13:25: WBC 17.7 H, RBC 5.38, Hgb 16.8 H, Hct 51.0, MCV 94.8 H, MCH 31.2, MCHC 32.9, RDW Std Deviation 48.0 H, RDW Coeff of J Luis 13.7, Plt Count 192, MPV 11.3, Immature Gran % (Auto) 0.600, Neut % (Auto) 91.4 H, Lymph % (Auto) 3.4 L, [place] % (Auto) 4.4, Eos % (Auto) 0.0, Baso % (Auto) 0.2, Absolute Neuts (auto) 16.2 H, Absolute Lymphs (auto) 0.60 L, Nucleated RBC % 0, Differential Comment COMMENT 09/20/20 13:25: Sodium 138, Potassium 4.0, Chloride 99, Carbon Dioxide 28.0, Anion Gap 11, BUN 20 H, Creatinine 1.27, Estim Creat Clear Calc 70.36, Est GFR (MDRD) Af Amer 77, Est GFR (MDRD) Non-Af 64, BUN/Creatinine Ratio 15.7, Glucose 163 H, Calcium 9.6, Total Bilirubin 0.60, AST 33, ALT 105 H, Alkaline Phosphatase 217 H, Total Protein 9.6 H, Albumin 4.9, Globulin 4.7 H, Albumin/Globulin Ratio 1.0, Lipase 34 L 09/20/20 14:25: Urine Color Yellow, Urine Clarity Clear, Urine pH 5.0, Ur Specific [place] 1.025, Urine Protein 30 H, Urine Glucose (UA) Normal, Urine Ketones 5 H, Urine Occult Blood Negative, Urine Nitrite Negative, Urine Bilirubin 1 H, Urine Urobilinogen 1 H, Ur Leukocyte Esterase 25 H, Urine RBC 0 SEEN, Urine WBC 0-5 SEEN, Ur Squamous Epith Cells 0 SEEN, Urine Bacteria 0 SEEN, Hyaline Casts 0-5 SEEN, Urine Mucus 2+ Micro: Microbiology 09/20/20 15:15 Mucosa - Nose SARS-CoV-2 Antigen (Rapid) - Final Radiology Impression Abdomen/Pelvis CT 09/20/20 12:49 IMPRESSION: Fluid distention of the stomach and small bowel obstruction with the transition point in the region of the mid ileal loops. Large amount of fecal material is seen in the rectosigmoid colon. Electronically Signed: Terry Sinclair MD at 14:49 EDT , Service support , KUB X-Ray 09/20/20 15:49 IMPRESSION: Feeding tube extends to the stomach. Dilated loops of bowel. Electronically Signed: Rodolfo Wilkins MD at 16:20 EDT , Service support , Charges/Coding Visit Charges Inpatient E&M: 04727 Init Hosp L3
[2020-09-20 18:14] VITALS: BMI 26.9
[2020-09-20 18:26] VITALS: BP 151/87; PULSE 121; RESP 16; TEMP 36.9; O2SAT 94
[2020-09-20 21:42] VITALS: BP 136/100; PULSE 118; RESP 18; TEMP 37.6; O2SAT 99
--- NOTE | 2020-09-20 21:48 | NURSING ---
Patient states had Covid vaccine a couple months ago. Unsure of which one, will need addressed with caregiver.
--- NOTE | 2020-09-21 05:55 | RAD_ITS ---
STUDY: X-RAY - ABDOMEN/PELVIS REASON FOR EXAM: Male, 49 years old. Abdominal pain and distention TECHNIQUE: 3 AP views COMPARISON: Yesterday FINDINGS: Normal visualized lung bases. ET tube tip remains in the body the stomach There are dilated loops of the small intestine with a non-distended colon consistent with a small bowel obstruction. No interval change since the previous study. There is no demonstrated free abdominal air. The visualized liver, spleen and kidneys are grossly normal in size and morphology. Normal soft tissue structures. Normal visualized osseous structures. RAD/Abd Inc Decub and/or Erect IMPRESSION: No interval change Electronically Signed: Cayetano Leblanc MD at 9:27 EDT , Service support ,
[2020-09-21 06:33] LABS: Absolute Lymphocyte Count 0.86 X10^3/uL (0.83-4.51); Absolute Neutrophil Count 10.4 X10^3/uL (2.0-7.7); Basophil# 0.01 X10^3/uL; Basophil% 0.1 % (0-1); Eosinophil# 0.01 X10^3/uL; Eosinophils% 0.1 % (0-5); Hematocrit 41.3 % (40-54); Hemoglobin 13.9 g/dL (13.0-16.5); Lymphocyte # 0.86 X10^3/ul (0.83-4.51); Mean Corp Hgb Conc 33.7 g/dL (32-36); Mean Corpuscular Hgb 31.4 pg (27.0-32.0); Mean Corpuscular Volume 93.2 fL (80-94); Mean Platelet Vol. 11.5 fl (6.2-12.0); Monocyte# 0.95 X10^3/uL; Monocyte% 7.8 % (0-10); NRBC Flagged by Analyzer 0 % (0-5); Neutrophil # 10.36 X10^3/uL (2.7-7.7); Neutrophil % 84.8 % (47-70); Platelet Count 171 K/mm3 (150-450); RBC Distribution Width CV 14.2 % (11.6-14.6); RBC Distribution Width SD 48.5 fl (35.1-43.9); Red Blood Count 4.43 M/mm3 (4.6-6.2); White Blood Count 12.2 K/mm3 (4.4-11.0)
--- NOTE | 2020-09-21 07:12 | PN.HOSP_ITS ---
Subjective Subjective Patient seen abdomen still remains distended an order was given for patient to receive subset enemas. Repeat KUB ordered this a.m. results pending Objective Data Objective Data Vital Signs: Vital Signs Temp Pulse Resp BP Pulse Ox 99.6 F H 118 H 18 136/100 H 99 09/20/20 21:42 09/20/20 21:42 09/20/20 21:42 09/20/20 21:42 09/20/20 21:42 Oxygen Delivery Method Room Air Weight: 82.5 kg Body Mass Index (BMI) 26.9 Intake & Output: Intake and Output for Last 24 Hours 09/19/20 09/20/20 09/21/20 23:59 23:59 23:59 Intake Total 1000 / 1000 1057.5 / 1057.5 Output Total 2049 / 2049 Balance 1000 / 700 -992.5 / -992.5 Lab / Micro Data Result Diagrams: 09/21/20 06:20 09/21/20 06:20 Labs: Laboratory Results - last 24 hr 09/20/20 13:25: WBC 17.7 H, RBC 5.38, Hgb 16.8 H, Hct 51.0, MCV 94.8 H, MCH 31.2, MCHC 32.9, RDW Std Deviation 48.0 H, RDW Coeff of J Luis 13.7, Plt Count 192, MPV 11.3, Immature Gran % (Auto) 0.600, Neut % (Auto) 91.4 H, Lymph % (Auto) 3.4 L, [place] % (Auto) 4.4, Eos % (Auto) 0.0, Baso % (Auto) 0.2, Absolute Neuts (auto) 16.2 H, Absolute Lymphs (auto) 0.60 L, Nucleated RBC % 0, Differential Comment COMMENT 09/20/20 13:25: Sodium 138, Potassium 4.0, Chloride 99, Carbon Dioxide 28.0, Anion Gap 11, BUN 20 H, Creatinine 1.27, Estim Creat Clear Calc 70.36, Est GFR (MDRD) Af Amer 77, Est GFR (MDRD) Non-Af 64, BUN/Creatinine Ratio 15.7, Glucose 163 H, Calcium 9.6, Total Bilirubin 0.60, AST 33, ALT 105 H, Alkaline Ph osphatase 217 H, Total Protein 9.6 H, Albumin 4.9, Globulin 4.7 H, Albumin/Globulin Ratio 1.0, Lipase 34 L 09/20/20 14:25: Urine Color Yellow, Urine Clarity Clear, Urine pH 5.0, Ur Specific [place] 1.025, Urine Protein 30 H, Urine Glucose (UA) Normal, Urine Ketones 5 H, Urine Occult Blood Negative, Urine Nitrite Negative, Urine Bilirubin 1 H, Urine Urobilinogen 1 H, Ur Leukocyte Esterase 25 H, Urine RBC 0 SEEN, Urine WBC 0-5 SEEN, Ur Squamous Epith Cells 0 SEEN, Urine Bacteria 0 SEEN, Hyaline Casts 0-5 SEEN, Urine Mucus 2+ 09/21/20 06:20: WBC 12.2 H, RBC 4.43 L, Hgb 13.9, Hct 41.3, MCV 93.2, MCH 31.4, MCHC 33.7, RDW Std Deviation 48.5 H, RDW Coeff of J Luis 14.2, Plt Count 171, MPV 11.5, Immature Gran % (Auto) 0.200, Neut % (Auto) 84.8 H, Lymph % (Auto) 7.0 L, [place] % (Auto) 7.8, Eos % (Auto) 0.1, Baso % (Auto) 0.1, Absolute Neuts (auto) 10.4 H, Absolute Lymphs (auto) 0.86, Nucleated RBC % 0 Micro: Microbiology 09/20/20 15:15 Mucosa - Nose SARS-CoV-2 Antigen (Rapid) - Final Radiography Diagnostic Testing: Radiology Impression Abdomen/Pelvis CT 09/20/20 12:49 IMPRESSION: Fluid distention of the stomach and small bowel obstruction with the transition point in the region of the mid ileal loops. Large amount of fecal material is seen in the rectosigmoid colon. Electronically Signed: Terry Sinclair MD at 14:49 EDT , Service support , KUB X-Ray 09/20/20 15:49 IMPRESSION: Feeding tube extends to the stomach. Dilated loops of bowel. Electronically Signed: Rodolfo Wilkins MD at 16:20 EDT , Service support , Physical Exam Narrative GENERAL: Appears anxious HEENT: Atraumatic; NG tube in place EYES; Anicteric, Normal Conjunctiva NECK; supple, normal thyroid, RESPIRATORY: Diminished to auscultation CARDIOVASCULAR: Regular S1 S2, GI: Distended, tympanic to percussion : No Renal angle tenderness; EXTREMITIES: No edema, no clubbing, MUSCULOSKELETAL: no muscle waisting NEURO: Awake; no lateralizing signs. SKIN: No Rash PSYCH; Flat affect Assessment & Plan Assessment/Plan (1) Small bowel obstruction: (2) Intellectual disability: PLAN: Patient is a 49-year-old gentleman with history of MRDD presented with abdominal distention 1. Small bowel obstruction ?Imaging studies obtained demonstrated Fluid distention of the stomach and small bowel obstruction with the transition point in the region of the mid ileal loops. Patient has been admitted to regular nursing floor and NG tube was passed and placed to suction. Patient to be managed with pain meds antinausea medication with consultation placed to general surgery. Subsequent evaluation with a repeat KUB in the [facility] ordered -09/21/2020 and order was given for patient to receive subsequent enemas. Repeat KUB ordered results pending. NG tube remains in place 2. Obstipation ?CT of the abdomen obtained demonstrated Large amount of fecal material is seen in the rectosigmoid colon.. Plan is to treat with subset enemas 3. Learning disability with obsessive-compulsive disorder ?Supportive care 4. DVT prophylaxis ?[place] Charges/Coding Visit Charges Inpatient E&M: 46107 Subs Hosp L2
[2020-09-21 07:13] LABS: Anion Gap 4 (5-15); BUN 18 mg/dL (7-18); Calcium,Total 7.9 mg/dL (8.5-10.1); Chloride 111 mmol/L (98-107); Creatinine, Serum 0.82 mg/dL (0.70-1.30); EST Glomerular Filtration Rate 106 mL/min (>60); Est Glom Filt Rate - Afr Amer 128 mL/min (>60); Estimated Creatinine Clearance 105.43 ml/min; Glucose 145 mg/dL (74-106); Magnesium 2.1 mg/dL (1.6-2.6); Phosphorus 1.8 mg/dL (2.5-4.9); Potassium 3.5 mmol/L (3.5-5.1); Sodium Level 143 mmol/L (136-145)
--- NOTE | 2020-09-21 08:19 | PCM.PN.SRG ---
Subjective Subjective Per charting about 700cc out of NG, no flatus or bowel movement per patient Objective Data Objective Data Vital Signs: Vital Signs Temp Pulse Resp BP Pulse Ox 99.6 F H 118 H 18 136/100 H 99 09/20/20 21:42 09/20/20 21:42 09/20/20 21:42 09/20/20 21:42 09/20/20 21:42 Oxygen Delivery Method Room Air Weight: 181 lb 14.102 oz Body Mass Index (BMI) 26.9 Intake & Output: Intake and Output for Last 24 Hours 09/19/20 09/20/20 09/21/20 23:59 23:59 23:59 Intake Total 1000 / 1000 1057.5 / 1057.5 Output Total 2049 / 2049 Balance 1000 / 700 -992.5 / -992.5 Lab / Micro Data Result Diagrams: 09/21/20 06:20 09/21/20 06:20 Labs: Laboratory Results - last 24 hr 09/20/20 13:25: WBC 17.7 H, RBC 5.38, Hgb 16.8 H, Hct 51.0, MCV 94.8 H, MCH 31.2, MCHC 32.9, RDW Std Deviation 48.0 H, RDW Coeff of J Luis 13.7, Plt Count 192, MPV 11.3, Immature Gran % (Auto) 0.600, Neut % (Auto) 91.4 H, Lymph % (Auto) 3.4 L, [place] % (Auto) 4.4, Eos % (Auto) 0.0, Baso % (Auto) 0.2, Absolute Neuts (auto) 16.2 H, Absolute Lymphs (auto) 0.60 L, Nucleated RBC % 0, Differential Comment COMMENT 09/20/20 13:25: Sodium 138, Potassium 4.0, Chloride 99, Carbon Dioxide 28.0, Anion Gap 11, BUN 20 H, Creatinine 1.27, Estim Creat Clear Calc 70.36, Est GFR (MDRD) Af Amer 77, Est GFR (MDRD) Non-Af 64, BUN/Creatinine Ratio 15.7, Glucose 163 H, Calcium 9.6, Total Bilirubin 0.60, AST 33, ALT 105 H, Alkaline Phosphatase 217 H, Total Protein 9.6 H, Albumin 4.9, Globulin 4.7 H, Albumin/Globulin Ratio 1.0, Lipase 34 L 09/20/20 14:25: Urine Color Yellow, Urine Clarity Clear, Urine pH 5.0, Ur Specific [place] 1.025, Urine Protein 30 H, Urine Glucose (UA) Normal, Urine Ketones 5 H, Urine Occult Blood Negative, Urine Nitrite Negative, Urine Bilirubin 1 H, Urine Urobilinogen 1 H, Ur Leukocyte Esterase 25 H, Urine RBC 0 SEEN, Urine WBC 0-5 SEEN, Ur Squamous Epith Cells 0 SEEN, Urine Bacteria 0 SEEN, Hyaline Casts 0-5 SEEN, Urine Mucus 2+ 09/21/20 06:20: WBC 12.2 H, RBC 4.43 L, Hgb 13.9, Hct 41.3, MCV 93.2, MCH 31.4, MCHC 33.7, RDW Std Deviation 48.5 H, RDW Coeff of J Luis 14.2, Plt Count 171, MPV 11.5, Immature Gran % (Auto) 0.200, Neut % (Auto) 84.8 H, Lymph % (Auto) 7.0 L, [place] % (Auto) 7.8, Eos % (Auto) 0.1, Baso % (Auto) 0.1, Absolute Neuts (auto) 10.4 H, Absolute Lymphs (auto) 0.86, Nucleated RBC % 0 09/21/20 06:20: Sodium 143, Potassium 3.5, Chloride 111 H, Carbon Dioxide 28.0, Anion Gap 4 L, BUN 18, Creatinine 0.82, Estim Creat Clear Calc 105.43, Est GFR (MDRD) Af Amer 128, Est GFR (MDRD) Non-Af 106, BUN/Creatinine Ratio 22.0 H, Glucose 145 H, Calcium 7.9 L, Phosphorus 1.8 L, Magnesium 2.1 Micro: Microbiology 09/20/20 15:15 Mucosa - Nose SARS-CoV-2 Antigen (Rapid) - Final Radiography Diagnostic Testing: Radiology Impression Abdomen/Pelvis CT 09/20/20 12:49 IMPRESSION: Fluid distention of the stomach and small bowel obstruction with the transition point in the region of the mid ileal loops. Large amount of fecal material is seen in the rectosigmoid colon. Electronically Signed: Terry Sinclair MD at 14:49 EDT , Service support , KUB X-Ray 09/20/20 15:49 IMPRESSION: Feeding tube extends to the stomach. Dilated loops of bowel. Electronically Signed: Rodolfo Wilkins MD at 16:20 EDT , Service support , Physical Exam Const no apparent distress Resp normal respiratory effort Cardio Rate: tachycardic GI soft to palpation and non-tender Inspection: Negative for abdominal distention Assessment & Plan Assessment/Plan (1) Small bowel obstruction: (2) Intellectual disability: (3) Leukocytosis: PLAN: We will plan for a soapsuds enema see if moving that large amount of stool in the sigmoid rectal area helps with the possible ileus. Also may do some p.o. contrast down the NG as well later today. Continue IV fluids/n.p.o./NG to low wall suction. Plan on conservative management. Leukocytosis improving Edith Pichardo M.D. Pager: [phone] [facility] [address] [place] [address], [facility], [address] [place] [address] Office: [phone]
--- NOTE | 2020-09-21 08:41 | RAD_ITS ---
CLINICAL HISTORY: Male, 49 years old. Abdominal pain PROCEDURE: Small bowel follow-through TECHNIQUE: (All elements of maximal sterile barrier technique followed, including US elements as applicable) Gastrografin was administered to the patient''s nasogastric tube and multiple images of the opacified bowel were obtained over time. FINDINGS: There is passage of oral contrast the small bowel and into the colon consistent with no evidence of bowel obstruction. RAD/Small Bowel Series Only IMPRESSION: No evidence of bowel obstruction. Electronically Signed: Mario Valentine MD at 14:54 EDT Tel , Service support ,
[2020-09-21 08:59] VITALS: BP 123/90; PULSE 105; RESP 18; TEMP 36.6; O2SAT 94
[2020-09-21] MEDS: Enoxaparin 40 MG/0.4 ML Syringe SC (09:23)
--- NOTE | 2020-09-21 09:28 | NURSING ---
Pt was given a soap suds enema and was able to tolerate it. Held it for approximately 5 min and then assisted to the bathroom where he had a moderate amt of soft, formed brown stool in the toilet.
--- NOTE | 2020-09-21 09:55 | CASEMGMT ---
Social Work Note ELI reviewed chart. Pt has Legal Guardian Rashmi Cuello and pt resides in [facility]. ELI placed a call to Rashmi Cuello, confirms she is pt's Legal Guardian. ELI updated Rashmi on pt's admission to [facility]. Rashmi confirms pt is from [facility] and plan is for pt to return when medically cleared. ELI placed Green Sheet on chart. Plan: Return to [facility] when medically cleared Yasmine Sanchez BOAT LOADER HELPER, DISTILLERY MILLER HELPER
--- NOTE | 2020-09-21 13:15 | NURSING ---
Pt up and had another BM at this time and it was loose.
--- NOTE | 2020-09-21 13:49 | NURSING ---
assisted radiology with gastrographin/xray. pt tolerated well.
[2020-09-21 16:59] VITALS: BP 127/87; PULSE 98; RESP 20; TEMP 37.3; O2SAT 94
[2020-09-21 22:00] VITALS: BP 130/84; PULSE 102; RESP 18; TEMP 36.4; O2SAT 97
[2020-09-22] VITALS (10 sets, daily range): BP systolic 126–152; BP diastolic 74–99; PULSE 89–111; RESP 18–26; TEMP 36.6–37; O2SAT 92–98
--- NOTE | 2020-09-22 05:55 | RAD_ITS ---
STUDY: X-RAY CHEST REASON FOR EXAM: Male, 49 years old. Dyspnea TECHNIQUE: Single AP portable view of the chest. COMPARISON: 02/05/2019. FINDINGS: Nasogastric tube with tip in the region of the gastric fundus. Contrast in the region of the stomach. Mild patchy infiltrate in the left lower lung concerning for early pneumonia. There is no demonstrated pleural abnormality. Normal size heart. Normal mediastinum and yvette. Normal visualized pulmonary arteries. Normal visualized aortic arch and descending thoracic aorta. Mild degenerative changes of the thoracic spine. Normal visualized ribs, clavicles, and shoulders. There is no demonstrated abnormality of the visualized soft tissue structures of the upper abdomen. RAD/Chest 1 View (Portable) IMPRESSION: Mild left hilar and lower lung infiltrate concerning for early pneumonia. Electronically Signed: Salvador Nance MD at 13:10 EDT Tel , Service support ,
--- NOTE | 2020-09-22 07:17 | NURSING ---
This nurse in room rounding with production shift supervisor Nurse Nicole when Dr. Howard came in to see pt. Dr. Howard gave verbal order to take NG out. Nicole RN took NG out at this time.
--- NOTE | 2020-09-22 07:18 | PCM.PN.SRG ---
Subjective Subjective Patient reports no abdominal pain Objective Data Objective Data Vital Signs: Vital Signs Temp Pulse Resp BP Pulse Ox 98.6 F 94 20 H 152/87 H 94 09/22/20 05:25 09/22/20 05:25 09/22/20 05:25 09/22/20 05:25 09/22/20 05:25 Oxygen Delivery Method Room Air Weight: 181 lb 14.102 oz Body Mass Index (BMI) 26.9 Intake & Output: Intake and Output for Last 24 Hours 09/20/20 09/21/20 09/22/20 23:59 23:59 23:59 Intake Total 1000 / 1000 4117.5 / 4117.5 285 / 285 Output Total 2049 / 2049 Balance 1000 / 700 2067.5 / 2067.5 285 / 285 Medical Nutrition Assessment Dietitian: Nutrition Therapy Diagnosis Start: 09/21/20 10:31 Freq: Status: Active Protocol: Document 09/21/20 10:41 ARTEMIO (Rec: 09/21/20 10:41 ARTEMIO [id number]) Nutrition Malnutrition Evidence of Malnutrition Exists No Intake Problem Inadequate Oral Intake Etiology related to GI issues / SBO Signs/Symptoms as evidenced by NG in place for suction and NPO status Status Active Problem Recommendation Dietitian Recommendations/Changes As medically able, rec JENNIFER to Transitional with goal of Regular once po diet resumes. Please consult if nutrition support warranted for recommendations. Lab / Micro Data Result Diagrams: 09/21/20 06:20 09/21/20 06:20 Micro: Microbiology 09/20/20 15:15 Mucosa - Nose SARS-CoV-2 Antigen (Rapid) - Final Radiography Diagnostic Testing: Radiology Impression Abdomen X-Ray 09/21/20 05:55 IMPRESSION: No interval change Electronically Signed: Cayetano Leblanc MD at 9:27 EDT , Service support , Physical Exam Const oriented x3 and no apparent distress Resp normal respiratory effort Cardio regular rate and regular rhythm GI soft to palpation and non-tender Assessment & Plan Assessment/Plan (1) Ileus: PLAN: Morning x-ray shows contrast in the colon. The patient reports no abdominal pain. The NG has been clamped since yesterday I returned to suction with no return of any contents. I will have the patient's NG removed. The contrast seems to be make its way through the colon once the patient has a bowel movement I will start clears and advance as tolerated the patient may be discharged home if he tolerates diet. Paolo Howard MD Pager: [facility] [address] [place] [address] [address] [place] [address] Office:
--- NOTE | 2020-09-22 07:18 | NURSING ---
NG tube d/c per verbal order from Dr. Howard
--- NOTE | 2020-09-22 07:25 | DS.PCM_ITS ---
Providers Date of Admission: 09/20/20 Primary Care Physician: Dr. Mervat Carrillo MD Consultations 09/20/20 18:09 Consult: General Surgery Routine Consulting Provider: Edith Pichardo Reason for Consult: SBO EMERGENT Consult: No MD Notified: Yes Date Notified: 09/20/20 Time Notified: 15:55 Method of Notification: By Ed Reason For Visit: SBO Diagnosis Discharge Diagnosis (1) Ileus: Status: Acute Code(s): K56.7 - Ileus, unspecified Medications at Discharge Home Medications escitalopram oxalate 10 mg PO DAILY@0700 02/04/19 melatonin 3 mg PO QHS 02/04/19 clindamycin-benzoyl peroxide 1 applic TOPICAL QHS 02/05/19 clonazepam 1 mg PO DAILY@1600 11/04/19 escitalopram oxalate 5 mg PO DAILY@0700 11/04/19 polyethylene glycol 3350 17 gm PO DAILY #10 packet 11/04/19 Linzess 145 mcg PO DAILY 09/20/20 buspirone 5 mg PO BID 09/20/20 clonazepam 0.5 mg PO BREAKFAST 09/20/20 clozapine 100 mg PO BID 09/20/20 docusate sodium 200 mg PO BID #0 cap 09/22/20 Hospital Course Summary of Care Provided Minutes Spent on Discharge: 35 Hospital Course: Patient is a 49-year-old gentleman with history of MRDD presented with abdominal distention 1. Small bowel obstruction ?Imaging studies obtained demonstrated Fluid distention of the stomach and small bowel obstruction with the transition point in the region of the mid ileal loops. Patient has been a dmitted to regular nursing floor and NG tube was passed and placed to suction. Patient to be managed with pain meds antinausea medication with consultation placed to general surgery. Subsequent evaluation with a repeat KUB in the morning ordered -09/21/2020 and order was given for patient to receive subsequent enemas. Repeat KUB ordered results pending. NG tube remains in place -09/22/2020; NG tube discontinued this a.m. diet advance as tolerated 2. Acute dyspnea ?Do suspect fluid overload from aggressive IV fluid resuscitation following patient's admission for ileus. An order was given for Lasix chest x-ray ordered for subsequent evaluation 3. Obstipation ?CT of the abdomen obtained demonstrated Large amount of fecal material is seen in the rectosigmoid colon.. ?09/22/2020; treated symptomatically 4. Learning disability with obsessive-compulsive disorder ?Supportive care 4. DVT prophylaxis ?Lovenox Physical Exam Narrative GENERAL: Appears anxious HEENT: Atraumatic; EYES; Anicteric, Normal Conjunctiva NECK; supple, normal thyroid, RESPIRATORY: Diminished to auscultation CARDIOVASCULAR: Regular S1 S2, GI: Slightly distended but soft : No Renal angle tenderness; EXTREMITIES: No edema, no clubbing, MUSCULOSKELETAL: no muscle waisting NEURO: Awake; no lateralizing signs. SKIN: No Rash PSYCH; Flat affect Medical Records Data Medical Nutrition Assessment Dietitian: Nutrition Therapy Diagnosis Start: 09/21/20 10:31 Freq: Status: Active Protocol: Document 09/21/20 10:41 ARTEMIO (Rec: 09/21/20 10:41 ARTEMIO [id number]) Nutrition Malnutrition Evidence of Malnutrition Exists No Intake Problem Inadequate Oral Intake Etiology related to GI issues / SBO Signs/Symptoms as evidenced by NG in place for suction and NPO status Status Active Problem Recommendation Dietitian Recommendations/Changes As medically able, rec JENNIFER to Transitional with goal of Regular once po diet resumes. Please consult if nutrition support warranted for recommendations. Weight / BMI Weight Weight: 82.5 kg Body Mass Index (BMI) 26.9 ABG / Lab / Microbiology Data Result Diagrams: 09/21/20 06:20 09/21/20 06:20 Microbiology: Microbiology 09/20/20 15:15 Mucosa - Nose SARS-CoV-2 Antigen (Rapid) - Final Radiography Diagnostic Testing: Radiology Impression Abdomen X-Ray 09/21/20 05:55 IMPRESSION: No interval change Electronically Signed: Cayetano Leblanc MD at 9:27 EDT , Service support , D/C Instructions Discharge Diet: No restrictions Discharge Activity: Return to Normal Activity Call your doctor if you observe: Fever of 101 or Higher, Shortness of breath, Fainting spells and Chest pain Meaningful Use Info Meaningful Use Diagnoses (Choose all that apply): None applicable Discharge Plan Admission Admit Date/Time: 09/20/20 15:57 Attending Provider: Prateek Alfaro Primary Care Provider: Mervat Carrillo Consulting Providers: Edith Pichardo Discharge Orders/Prescriptions Prescriptions: Continued melatonin 3 MG tablet 3 mg PO QHS RF: 0 escitalopram oxalate 10 MG tablet 10 mg PO DAILY@0700 RF: 0 clindamycin-benzoyl peroxide 0 gel 1 applic topical QHS RF: 0 clonazepam 1 MG tablet 1 mg PO DAILY@1600 RF: 0 escitalopram oxalate 5 MG tablet 5 mg PO DAILY@0700 RF: 0 polyethylene glycol 3350 17 GM packet 17 gm PO DAILY Qty: 10 RF: 0 buspirone 5 mg tablet 5 mg PO BID RF: 0 clonazepam 0.5 mg tablet 0.5 mg PO BREAKFAST RF: 0 Linzess 145 mcg capsule 145 mcg PO DAILY RF: 0 clozapine 100 mg tablet 100 mg PO BID RF: 0 Changed docusate sodium 100 MG capsule 200 mg PO BID Qty: 0 RF: 0 Referrals / Follow Up: Mervat Carrillo MD [Primary Care Provider] - Disposition Disposition (needs filled in before D/C Order can be placed): NonSkilled NH/Intermed Care Charges/Coding Visit Charges Inpatient E&M: 53978 Disch Hosp
[2020-09-22] MEDS: Enoxaparin 40 MG/0.4 ML Syringe SC (09:27)
--- NOTE | 2020-09-22 10:02 | PCM.PN.HOSP ---
Subjective Subjective Patient's NG tube discontinued, patient was however found to be significantly dyspneic at rest with multiple wheezes. An order was given for patient to receive Lasix chest x-ray ordered Objective Data Objective Data Vital Signs: Vital Signs Temp Pulse Resp BP Pulse Ox 98.5 F 111 H 26 H 130/86 H 92 09/22/20 09:31 09/22/20 09:31 09/22/20 09:31 09/22/20 09:31 09/22/20 09:31 Oxygen Delivery Method Room Air Weight: 82.5 kg Body Mass Index (BMI) 26.9 Intake & Output: Intake and Output for Last 24 Hours 09/20/20 09/21/20 09/22/20 23:59 23:59 23:59 Intake Total 1000 / 1000 4117.5 / 4117.5 285 / 285 Output Total 2049 / 2049 Balance 1000 / 700 2067.5 / 2067.5 285 / 285 Medical Nutrition Assessment Dietitian: Nutrition Therapy Diagnosis Start: 09/21/20 10:31 Freq: Status: Active Protocol: Document 09/21/20 10:41 SLA (Rec: 09/21/20 10:41 SLA [id number]) Nutrition Malnutrition Evidence of Malnutrition Exists No Intake Problem Inadequate Oral Intake Etiology related to GI issues / SBO Signs/Symptoms as evidenced by NG in place for suction and NPO status Status Active Problem Recommendation Dietitian Recommendations/Changes As medically able, rec JENNIFER to Transitional with goal of Regular once po diet resumes. Please consult if nutrition support warranted for recommendations. Lab / Micro Data Result Diagrams: 09/21/20 06:20 09/21/20 06:20 Micro: Microbiology 09/20/20 15:15 Mucosa - Nose SARS-CoV-2 Antigen (Rapid) - Final Physical Exam Narrative GENERAL: Appears anxious HEENT: Atraumatic; EYES; Anicteric, Normal Conjunctiva NECK; supple, normal thyroid, RESPIRATORY: Diminished to auscultation CARDIOVASCULAR: Regular S1 S2, GI: Slightly distended but soft : No Renal angle tenderness; EXTREMITIES: No edema, no clubbing, MUSCULOSKELETAL: no muscle waisting NEURO: Awake; no lateralizing signs. SKIN: No Rash PSYCH; Flat affect Assessment & Plan Assessment/Plan (1) Ileus: PLAN: Patient is a 49-year-old gentleman with history of MRDD presented with abdominal distention 1. Small bowel obstruction ?Imaging studies obtained demonstrated Fluid distention of the stomach and small bowel obstruction with the transition point in the region of the mid ileal loops. Patient has been admitted to regular nursing floor and NG tube was passed and placed to suction. Patient to be managed with pain meds antinausea medication with consultation placed to general surgery. Subsequent evaluation with a repeat KUB in the morning ordered -09/21/2020 and order was given for patient to receive subsequent enemas. Repeat KUB ordered results pending. NG tube remains in place -09/22/2020; NG tube discontinued this a.m. Plan is to advance diet as tolerated 2. Acute dyspnea ?Do suspect fluid overload from aggressive IV fluid resuscitation following patient's admission for ileus. An order was given for Lasix chest x-ray ordered for subsequent evaluation 3. Obstipation ?CT of the abdomen obtained demonstrated Large amount of fecal material is seen in the rectosigmoid colon.. ?09/22/2020; treated symptomatically 4. Learning disability with obsessive-compulsive disorder ?Supportive care 4. DVT prophylaxis ?Lovenox Charges/Coding Visit Charges Inpatient E&M: 74782 Subs Hosp L2
--- NOTE | 2020-09-22 10:04 | NURSING ---
Informed Dr. Kwon of lung sound findings, moist cough. Spo2 92-94% on RA at rest. Got pt up and walked in ness and spo2 was 94% but HR was 120-130's/ Dr. kwon aware and going to order lasix.
[2020-09-22] MEDS: 0.9% Saline Lock 10 ML Syringe IV (11:27)
[2020-09-22] MEDS: Furosemide 100 MG/10 ML Vial 60 MG IV (11:27)
[2020-09-23 02:10] VITALS: BP 143/87; PULSE 85; RESP 24; TEMP 36.9; O2SAT 98
[2020-09-23 06:55] LABS: Absolute Lymphocyte Count 0.94 X10^3/uL (0.83-4.51); Basophil# 0.03 X10^3/uL; Basophil% 0.4 % (0-1); Eosinophil# 0.13 X10^3/uL; Eosinophils% 1.6 % (0-5); Hematocrit 39.8 % (40-54); Hemoglobin 13.1 g/dL (13.0-16.5); Lymphocyte # 0.94 X10^3/ul (0.83-4.51); Lymphocyte % 11.6 % (19-41); Mean Corp Hgb Conc 32.9 g/dL (32-36); Mean Corpuscular Hgb 31.1 pg (27.0-32.0); Mean Corpuscular Volume 94.5 fL (80-94); Mean Platelet Vol. 11.9 fl (6.2-12.0); Monocyte# 0.99 X10^3/uL; Monocyte% 12.2 % (0-10); NRBC Flagged by Analyzer 0 % (0-5); Neutrophil # 6.01 X10^3/uL (2.7-7.7); Platelet Count 150 K/mm3 (150-450); RBC Distribution Width SD 48.2 fl (35.1-43.9); Red Blood Count 4.21 M/mm3 (4.6-6.2); White Blood Count 8.1 K/mm3 (4.4-11.0)
--- NOTE | 2020-09-23 07:00 | PN.SURG_ITS ---
Subjective Subjective Patient had a bowel opening yesterday. He did tolerate diet. Objective Data Objective Data Vital Signs: Vital Signs Temp Pulse Resp BP Pulse Ox 98.5 F 85 24 H 143/87 H 98 09/23/20 02:10 09/23/20 02:10 09/23/20 02:10 09/23/20 02:10 09/23/20 02:10 Oxygen Delivery Method Room Air Weight: 181 lb 14.102 oz Body Mass Index (BMI) 26.9 Intake & Output: Intake and Output for Last 24 Hours 09/21/20 09/22/20 09/23/20 23:59 23:59 23:59 Intake Total 4117.5 / 4117.5 655 / 655 Output Total 2049 / 2049 200 / 200 Balance 2067.5 / 2067.5 655 / 655 -200 / -200 Medical Nutrition Assessment Dietitian: Nutrition Therapy Diagnosis Start: 09/21/20 10:31 Freq: Status: Active Protocol: Document 09/21/20 10:41 ARTEMIO (Rec: 09/21/20 10:41 ARTEMIO [id number]) Nutrition Malnutrition Evidence of Malnutrition Exists No Intake Problem Inadequate Oral Intake Etiology related to GI issues / SBO Signs/Symptoms as evidenced by NG in place for suction and NPO status Status Active Problem Recommendation Dietitian Recommendations/Changes As medically able, rec JENNIFER to Transitional with goal of Regular once po diet resumes. Please consult if nutrition support warranted for recommendations. Lab / Micro Data Result Diagrams: 09/23/20 05:25 09/21/20 06:20 Labs: Laboratory Results - last 24 hr 09/23/20 05:25: WBC 8.1, RBC 4.21 L, Hgb 13.1, Hct 39.8 L, MCV 94.5 H, MCH 31.1, MCHC 32.9, RDW Std Deviation 48.2 H, RDW Coeff of J Luis 14.0, Plt Count 150, MPV 11.9, Immature Gran % (Auto) 0.200, Neut % (Auto) 74.0 H, Lymph % (Auto) 11.6 L, [place]in % (Auto) 12.2 H, Eos % (Auto) 1.6, Baso % (Auto) 0.4, Absolute Neuts (auto) 6.0, Absolute Lymphs (auto) 0.94, Nucleated RBC % 0 Micro: Microbiology 09/20/20 15:15 Mucosa - Nose SARS-CoV-2 Antigen (Rapid) - Final Radiography Diagnostic Testing: Radiology Impression Small Bowel X-Ray 09/21/20 08:41 IMPRESSION: No evidence of bowel obstruction. Electronically Signed: Mario Valentine MD at 14:54 EDT Tel , Service support , Chest X-Ray 09/22/20 05:55 IMPRESSION: Mild left hilar and lower lung infiltrate concerning for early pneumonia. Electronically Signed: Salvador Nance MD at 13:10 EDT Tel , Service support , Physical Exam Const no apparent distress Resp normal respiratory effort Cardio regular rate GI soft to palpation Inspection: abdominal distention Assessment & Plan Assessment/Plan (1) Small bowel obstruction: PLAN: Patient had a bowel movement yesterday and was advanced to regular diet which he tolerated. He is still somewhat distended and having some hypoactive bowel sounds. Continue to observe and if the patient has more significant bowel function and continues to tolerate diet he may be discharged home. Paolo Howard MD Pager: [facility] [address] [place] [address], [address] [place] [address] Office:
[2020-09-23 07:09] LABS: Anion Gap 7 (5-15); BUN 20 mg/dL (7-18); BUN/Creat Ratio 28.1 RATIO (10-20); Calcium,Total 8.5 mg/dL (8.5-10.1); Chloride 105 mmol/L (98-107); Creatinine, Serum 0.71 mg/dL (0.70-1.30); EST Glomerular Filtration Rate 124 mL/min (>60); Est Glom Filt Rate - Afr Amer 150 mL/min (>60); Estimated Creatinine Clearance 121.76 ml/min; Glucose 104 mg/dL (74-106); Magnesium 2.2 mg/dL (1.6-2.6); Sodium Level 139 mmol/L (136-145)
--- NOTE | 2020-09-23 07:24 | RAD_ITS ---
STUDY: X-RAY CHEST REASON FOR EXAM: Male, 49 years old. pneumonia TECHNIQUE: Single AP portable view of the chest. COMPARISON: 09/22/2020 FINDINGS: The lungs are clear and expanded. There is no demonstrated pleural abnormality. Normal size heart. Normal mediastinum and yvette. Normal visualized pulmonary arteries. Normal visualized aortic arch and descending thoracic aorta. Normal visualized thoracic spine. Normal visualized ribs, clavicles, and shoulders. There is no demonstrated abnormality of the visualized soft tissue structures of the upper abdomen. RAD/Chest 1 View (Portable) IMPRESSION: Normal x-ray examination of the chest. Electronically Signed: Mario Valentine MD at 8:30 EDT Tel , Service support ,
--- NOTE | 2020-09-23 07:31 | PN.HOSP_ITS ---
Subjective Subjective Patient anticipated discharge the day prior was placed on hold after he developed persistent cough. Chest x-ray obtained demonstrated Mild left hilar and lower lung infiltrate concerning for early pneumonia. Patient however remained afebrile without leukocytosis. Repeat x-ray this a.m. demonstrated normal chest x-ray Objective Data Objective Data Vital Signs: Vital Signs Temp Pulse Resp BP Pulse Ox 98.5 F 85 24 H 143/87 H 98 09/23/20 02:10 09/23/20 02:10 09/23/20 02:10 09/23/20 02:10 09/23/20 02:10 Oxygen Delivery Method Room Air Weight: 82.5 kg Body Mass Index (BMI) 26.9 Intake & Output: Intake and Output for Last 24 Hours 09/21/20 09/22/20 09/23/20 23:59 23:59 23:59 Intake Total 4117.5 / 4117.5 655 / 655 Output Total 2049 / 2049 200 / 200 Balance 2067.5 / 2067.5 655 / 655 -200 / -200 Medical Nutrition Assessment Dietitian: Nutrition Therapy Diagnosis Start: 09/21/20 10:31 Freq: Status: Active Protocol: Document 09/21/20 10:41 ARTEMIO (Rec: 09/21/20 10:41 ARTEMIO [id number]) Nutrition Malnutrition Evidence of Malnutrition Exists No Intake Problem Inadequate Oral Intake Etiology related to GI issues / SBO Signs/Symptoms as evidenced by NG in place for suction and NPO status Status Active Problem Recommendation Dietitian Recommendations/Changes As medically able, rec JENNIFER to Transitional with goal of Regular once po diet resumes. Please consult if nutrition support warranted for recommendations. Lab / Micro Data Result Diagrams: 09/23/20 05:25 09/23/20 05:25 Labs: Laboratory Results - last 24 hr 09/23/20 05:25: WBC 8.1, RBC 4.21 L, Hgb 13.1, Hct 39.8 L, MCV 94.5 H, MCH 31.1, MCHC 32.9, RDW Std Deviation 48.2 H, RDW Coeff of J Luis 14.0, Plt Count 150, MPV 11.9, Immature Gran % (Auto) 0.200, Neut % (Auto) 74.0 H, Lymph % (Auto) 11.6 L, [place] % (Auto) 12.2 H, Eos % (Auto) 1.6, Baso % (Auto) 0.4, Absolute Neuts (auto) 6.0, Absolute Lymphs (auto) 0.94, Nucleated RBC % 0 09/23/20 05:25: Sodium 139, Potassium 3.0 L, Chloride 105, Carbon Dioxide 27.0, Anion Gap 7, BUN 20 H, Creatinine 0.71, Estim Creat Clear Calc 121.76, Est GFR (MDRD) Af Amer 150, Est GFR (MDRD) Non-Af 124, BUN/Creatinine Ratio 28.1 H, Glucose 104, Calcium 8.5, Magnesium 2.2 Micro: Microbiology 09/20/20 15:15 Mucosa - Nose SARS-CoV-2 Antigen (Rapid) - Final Radiography Diagnostic Testing: Radiology Impression Small Bowel X-Ray 09/21/20 08:41 IMPRESSION: No evidence of bowel obstruction. Electronically Signed: Mario Valentine MD at 14:54 EDT Tel , Service support , Chest X-Ray 09/22/20 05:55 IMPRESSION: Mild left hilar and lower lung infiltrate concerning for early pneumonia. Electronically Signed: Salvador Nance MD at 13:10 EDT Tel , Service support , Physical Exam Narrative GENERAL: Appears anxious HEENT: Atraumatic; EYES; Anicteric, Normal Conjunctiva NECK; supple, normal thyroid, RESPIRATORY: Diminished to auscultation CARDIOVASCULAR: Regular S1 S2, GI: Slightly distended but soft : No Renal angle tenderness; EXTREMITIES: No edema, no clubbing, MUSCULOSKELETAL: no muscle waisting NEURO: Awake; no lateralizing signs. SKIN: No Rash PSYCH; Flat affect Assessment & Plan Assessment/Plan (1) Ileus: PLAN: Patient is a 49-year-old gentleman with history of MRDD presented with abdominal distention 1. Small bowel obstruction ?Imaging studies obtained demonstrated Fluid distention of the stomach and small bowel obstruction with the transition point in the region of the mid ileal loops. Patient has been admitted to regular nursing floor and NG tube was passed and placed to suction. Patient to be managed with pain meds antinausea medication with consultation placed to general surgery. Subsequent evaluation with a repeat KUB in the morning ordered -09/21/2020 and order was given for patient to receive subsequent enemas. Repeat KUB ordered results pending. NG tube remains in place -09/22/2020; NG tube discontinued this a.m. Plan is to advance diet as tolerated -09/23/2020. Patient still has somewhat distended abdomen plan is to advance diet as tolerated discharge home once patient has a good BM 2. Acute dyspnea ?Do suspect fluid overload from aggressive IV fluid resuscitation following parveen landin's admission for ileus. An order was given for Lasix chest x-ray ordered for subsequent evaluation -09/23/2020; Patient anticipated discharge the day prior was placed on hold after he developed persistent cough. Chest x-ray obtained demonstrated Mild left hilar and lower lung infiltrate concerning for early pneumonia. Patient however remained afebrile without leukocytosis. Repeat x-ray this a.m. demonstrated normal chest x-ray 3. Obstipation ?CT of the abdomen obtained demonstrated Large amount of fecal material is seen in the rectosigmoid colon.. ?09/22/2020; treated symptomatically 4. Learning disability with obsessive-compulsive disorder ?Supportive care 4. DVT prophylaxis ?Lovenox Charges/Coding Visit Charges Inpatient E&M: 39777 Subs Hosp L2
[2020-09-23 10:30] VITALS: BP 144/76; PULSE 95; RESP 20; TEMP 37.3; O2SAT 96
[2020-09-23] MEDS: Potassium Chloride 10mEq/100mL 10 MEQ/100 ML IV.SOLN. 100 MEQ IV BOLUS ×4 (10:37→14:15)
[2020-09-23] MEDS: Enoxaparin 40 MG/0.4 ML Syringe SC (10:58)
[2020-09-23] MEDS: Potassium Chloride Oral Tablet 20 MEQ 40 MEQ PO (10:58)
[2020-09-23] MEDS: Magnesium Citrate 300 ML PO (11:02)
[2020-09-23] MEDS: 0.9% Saline Lock 10 ML Syringe IV (11:03)
--- NOTE | 2020-09-23 14:48 | NURSING ---
Only voided once today. After voided in toilet and urine was not measured, this nurse assisted pt back into bed and bladder scanned pt. Bladder scan was 116ml.
--- NOTE | 2020-09-23 15:07 | NURSING ---
This nurse called Kati and Kurt to inform them of discharge order. No answer from either one of them. Messages left. This nurse called Rashmi Cuello, pts legal rodrigez. She is aware of discharge order and gave me a phone number to call which was [facility].
[2020-09-23 16:10] VITALS: BP 141/97; PULSE 100; RESP 20; TEMP 37.2; O2SAT 96
== END 2020-09-23 16:50 | disposition intermediate care facility (04) | DRG 390 ==
LOC: ED 16:05 → MS3 16:17
PROVIDERS: Admitting Provider Internal Medicine; Emergency Provider Emergency Medicine; PCP Internal Medicine; Visit Provider Internal Medicine
DX: K56.609 Unspecified intestinal obstruction, unspecified as to partial versus complete obstruction (principal); R06.00 Dyspnea, unspecified; F42.9 Obsessive-compulsive disorder, unspecified; F81.9 Developmental disorder of scholastic skills, unspecified; D72.829 Elevated white blood cell count, unspecified; Z79.899 Other long term (current) drug therapy
CPT/HCPCS: 36415; 71045; 74018; 74019; 74177; 74250; 80048; 80053; 81001; 83690; 83735; 84100; 85025; 87426; 99285; J7030; Q9967; A4216; J1940; J2405

== ENCOUNTER 2021-05-22 08:57 | Outpatient (RCR) | payer MEDICARE, MEDICAID, SELFPAY ==
[2021-04-24 11:41] LABS: Absolute Lymphocyte Count 1.09 X10^3/uL (0.83-4.51); Absolute Neutrophil Count 5.4 X10^3/uL (2.0-7.7); Basophil# 0.04 X10^3/uL; Basophil% 0.6 % (0-1); Eosinophil# 0.05 X10^3/uL; Eosinophils% 0.7 % (0-5); Hematocrit 44.2 % (40-54); Hemoglobin 14.5 g/dL (13.0-16.5); Lymphocyte # 1.09 X10^3/ul (0.83-4.51); Lymphocyte % 15.5 % (19-41); Mean Corp Hgb Conc 32.8 g/dL (32-36); Mean Corpuscular Hgb 30.5 pg (27.0-32.0); Mean Corpuscular Volume 92.9 fL (80-94); Mean Platelet Vol. 11.5 fl (6.2-12.0); Monocyte# 0.47 X10^3/uL; Monocyte% 6.7 % (0-10); NRBC Flagged by Analyzer 0 % (0-5); Neutrophil # 5.37 X10^3/uL (2.7-7.7); Neutrophil % 76.4 % (47-70); Platelet Count 154 K/mm3 (150-450); RBC Distribution Width CV 13.4 % (11.6-14.6); Red Blood Count 4.76 M/mm3 (4.6-6.2)
[2021-04-24 12:15] LABS: Hemoglobin A1c 5.7 % (3.8-5.6)
[2021-04-24 13:04] LABS: ALB/GLOB Ratio 1.1 RATIO (0.9-2.4); AST(SGOT) 22 U/L (15-37); Alanine Aminotransfer ALT/SGPT 40 U/L (16-61); Alkaline Phosphatase 175 U/L (45-117); Anion Gap 7 (5-15); BUN 14 mg/dL (7-18); BUN/Creat Ratio 14.9 RATIO (10-20); Calcium,Total 9.2 mg/dL (8.5-10.1); Chloride 105 mmol/L (98-107); Cholesterol 124 mg/dL (200); Creatinine, Serum 0.94 mg/dL (0.70-1.30); EST Glomerular Filtration Rate 90 mL/min (>60); Est Glom Filt Rate - Afr Amer 109 mL/min (>60); Globulin 3.8 g/dL (2.2-4.2); Glucose 92 mg/dL (74-106); High Density Lipoprotein 28 mg/dL; Potassium 3.7 mmol/L (3.5-5.1); Protein, Total 7.8 g/dL (6.4-8.2); Sodium Level 140 mmol/L (136-145); Triglycerides 110 mg/dL; Very Low Density Lipoprotein 22 mg/dL (5-40)
[2021-05-22 09:07] LABS: Absolute Lymphocyte Count 1.01 X10^3/uL (0.83-4.51); Absolute Neutrophil Count 6.6 X10^3/uL (2.0-7.7); Basophil# 0.03 X10^3/uL; Basophil% 0.4 % (0-1); Eosinophil# 0.08 X10^3/uL; Hematocrit 42.9 % (40-54); Hemoglobin 14.4 g/dL (13.0-16.5); Lymphocyte # 1.01 X10^3/ul (0.83-4.51); Lymphocyte % 12.3 % (19-41); Mean Corp Hgb Conc 33.6 g/dL (32-36); Mean Corpuscular Hgb 31.4 pg (27.0-32.0); Mean Corpuscular Volume 93.7 fL (80-94); Mean Platelet Vol. 11.3 fl (6.2-12.0); Monocyte# 0.54 X10^3/uL; Monocyte% 6.6 % (0-10); NRBC Flagged by Analyzer 0 % (0-5); Neutrophil # 6.55 X10^3/uL (2.7-7.7); Neutrophil % 79.5 % (47-70); Platelet Count 157 K/mm3 (150-450); RBC Distribution Width CV 13.6 % (11.6-14.6); RBC Distribution Width SD 46.7 fl (35.1-43.9); Red Blood Count 4.58 M/mm3 (4.6-6.2); White Blood Count 8.2 K/mm3 (4.4-11.0)
[2021-05-22 09:20] LABS: ALB/GLOB Ratio 1.2 RATIO (0.9-2.4); AST(SGOT) 26 U/L (15-37); Alanine Aminotransfer ALT/SGPT 38 U/L (16-61); Alkaline Phosphatase 172 U/L (45-117); Anion Gap 5 (5-15); BUN 14 mg/dL (7-18); Calcium,Total 8.5 mg/dL (8.5-10.1); Chloride 110 mmol/L (98-107); Cholesterol 111 mg/dL (200); Creatinine, Serum 0.93 mg/dL (0.70-1.30); EST Glomerular Filtration Rate 91 mL/min (>60); Est Glom Filt Rate - Afr Amer 110 mL/min (>60); Globulin 3.2 g/dL (2.2-4.2); Glucose 99 mg/dL (74-106); High Density Lipoprotein 27 mg/dL; Protein, Total 7.2 g/dL (6.4-8.2); Sodium Level 141 mmol/L (136-145); Triglycerides 155 mg/dL; Very Low Density Lipoprotein 31 mg/dL (5-40)
[2021-05-22 09:24] LABS: Hemoglobin A1c 5.8 % (3.8-5.6)
== END 2021-05-23 18:00 | disposition home or self-care (01) ==
LOC: LAB 08:57
PROVIDERS: PCP Internal Medicine; Referring Provider Psychiatry & Neurology Child & Adolescent Psychiatry; Visit Provider Psychiatry & Neurology Child & Adolescent Psychiatry
DX: Z79.899 Other long term (current) drug therapy (principal)
CPT/HCPCS: 36415; 80053; 80061; 83036; 85025

== ENCOUNTER 2021-06-21 08:59 | Outpatient (RCR) | payer MEDICARE, MEDICAID, SELFPAY ==
[2021-06-21 09:15] LABS: Absolute Neutrophil Count 4.5 X10^3/uL (2.0-7.7); Basophil# 0.07 X10^3/uL; Eosinophil# 0.21 X10^3/uL; Eosinophils% 2.9 % (0-5); Hematocrit 42.7 % (40-54); Hemoglobin 14.5 g/dL (13.0-16.5); Lymphocyte % 24.9 % (19-41); Mean Corpuscular Hgb 31.6 pg (27.0-32.0); Mean Platelet Vol. 12.1 fl (6.2-12.0); Monocyte# 0.69 X10^3/uL; Monocyte% 9.5 % (0-10); NRBC Flagged by Analyzer 0 % (0-5); Neutrophil # 4.45 X10^3/uL (2.7-7.7); Neutrophil % 61.4 % (47-70); Platelet Count 145 K/mm3 (150-450); RBC Distribution Width CV 13.4 % (11.6-14.6); RBC Distribution Width SD 45.6 fl (35.1-43.9); Red Blood Count 4.59 M/mm3 (4.6-6.2); White Blood Count 7.2 K/mm3 (4.4-11.0)
== END 2021-06-21 18:00 | disposition home or self-care (01) ==
LOC: LAB 08:59
PROVIDERS: PCP Internal Medicine; Referring Provider Psychiatry & Neurology Child & Adolescent Psychiatry; Visit Provider Psychiatry & Neurology Child & Adolescent Psychiatry
DX: Z79.899 Other long term (current) drug therapy (principal)
CPT/HCPCS: 85025

== ENCOUNTER 2021-06-28 08:09 | Inpatient (IN) | payer MEDICARE, MEDICAID, SELFPAY ==
[2021-06-28] VITALS (22 sets, daily range): BP systolic 104–151; BP diastolic 75–100; PULSE 110–154; RESP 12–38; TEMP 36.7–37.6; O2SAT 89–99; BMI 31.4; BMI 29.1
--- NOTE | 2021-06-28 08:33 | EKG12_ITS ---
Test Reason : SOB Blood Pressure : / mmHG Vent. Rate : 132 BPM Atrial Rate : 132 BPM P-R Int : 154 ms QRS Dur : 084 ms QT Int : 292 ms P-R-T Axes : 072 010 063 degrees QTc Int : 432 ms Sinus tachycardia Right atrial enlargement Borderline ECG Confirmed by LATHA HUITRON, TONY ([id number]), make up editor MARY ELLEN DAUGHERTY ([id number]) on 07/01/2021 1:48:00 PM Referred By: EMILY Confirmed By:TONY AZUL MD
--- NOTE | 2021-06-28 08:35 | ED.VIS.DYS ---
HPI History of Present Illness Chief Complaint: Shortness of Breath Narrative Narrative: Resident of a retirement, has mental disability and history is limited from him, most of it comes from retirement staff. For the past 2 to 3 days he has been ill, started with fever, nausea and some vomiting, cough and shortness of breath really started today. EMS picked him up and he was 85% on room air not usually on oxygen for any reason. He says his breathing is better now that he is on oxygen. He has been constipated lately, patient denies abdominal pain, has history of bowel obstructions. [facility] Medical History Bowel obstruction Impulse control disorder MRDD OCD (obsessive compulsive disorder) Home Medications escitalopram oxalate 10 mg PO DAILY@0700 02/04/19 [History Last Taken 09/20/20] melatonin 3 mg PO QHS 02/04/19 [History Last Taken 09/19/20] clindamycin-benzoyl peroxide 1 applic TOPICAL QHS 02/05/19 [History Last Taken 09/19/20] clonazepam 1 mg PO DAILY@1600 11/04/19 [History Last Taken 09/19/20] escitalopram oxalate 5 mg PO DAILY@0700 11/04/19 [History Last Taken 09/20/20] polyethylene glycol 3350 17 gm PO DAILY #10 packet 11/04/19 [Rx Last Taken 09/20/20] Linzess 145 mcg PO DAILY 09/20/20 [History Last Taken 09/20/20] buspirone 5 mg PO BID 09/20/20 [History Last Taken 09/20/20] clonazepam 0.5 mg PO BREAKFAST 09/20/20 [History Last Taken 09/20/20] clozapine 100 mg PO BID 09/20/20 [History Last Taken 09/20/20] docusate sodium 200 mg PO BID #0 cap 09/22/20 [Rx Last Taken 09/19/20] Allergy/AdvReac Type Severity Reaction Status Date / Time No Known Allergies Allergy Verified 09/20/20 12:04 Social History Smoking Status: Never smoker ROS ROS ED Review of Systems ROS Unobtainable: due to mental condition Constitutional Constitutional ED: Reports chills, fatigue, fever(s) and malaise Cardiovascular Cardiovascular: Denies chest pain or palpitations Respiratory/Chest Respiratory/Chest: Reports as per HPI, cough and dyspnea Gastrointestinal Gastrointestinal: Reports constipation, nausea and vomiting; Denies abdominal pain or diarrhea Musculoskeletal Musculoskeletal: Denies back pain or neck pain Integumentary Denies abscess or rash Neurologic Neurologic: Denies headache(s) or weakness EXAM Physical Exam Const Vital Signs: 06/28/21 08:10 06/28/21 08:48 06/28/21 08:50 Temperature 98.1 F 98.4 F Temperature Source Temporal Oral Pulse Rate 154 H 132 H Respiratory Rate 20 H 34 H Respiratory Effort Respiratory Depth Respiratory Pattern Blood Pressure 140/80 H Blood Pressure Mean 100 Pulse Ox 89 95 Oxygen Delivery Method Room Air Nasal Cannula Oxygen Flow Rate (L/min) 3.5 06/28/21 08:51 06/28/21 09:01 Temperature Temperature Source Pulse Rate 131 H Respiratory Rate 24 H Respiratory Effort Short of Breath Respiratory Depth Deep Respiratory Pattern Hyperpnea Tachypnea Blood Pressure Blood Pressure Mean Pulse Ox Oxygen Delivery Method Nasal Cannula Oxygen Flow Rate (L/min) 3.5 Positive well nourished and well developed General Appearance ED: well developed and NAD HEENT Reports moist mucous membranes normocephalic and atraumatic Eyes PERRL and EOMs intact bilaterally Neck full ROM and supple Resp Resp Narrative: Tachypneic no respiratory distress. Rales and rhonchi left greater than right bases otherwise sounds clear. Limited due to patient moaning with taking deep breaths. Cardio regular rate, regular rhythm, no murmurs and no JVD Rate: tachycardic GI non-tender and non-distended Auscultation: normoactive bowel sounds Palpation: soft Back/Spine no CVA tenderness General Back: other FROM Extremity normal to inspection General Extremety ED: Negative for edema, pulses abnormal or tenderness General Extremity: Negative for edema or pulses abnormal Neuro CN's II-XII intact bilaterally and no sensory deficits noted Neuro Narrative: Baseline mental status per menagerie caretaker Sensorium / Orientation: awake and alert Motor Exam: strength 5/5 throughout Skin no rashes or lesions noted and no wounds MDM MDM MDM Narrative Medical decision making narrative: History is mostly consistent with pneumonia however his white blood count is only 5.4. Therefore I am considering noninfectious etiologies and adding a BNP, his EKG just shows tachycardia, on my interpretation 1 view chest x-ray shows right-sided pneumonia, I am treating him for sepsis and pneumonia, he is satting in the 90s on nasal cannula, plan is for admission. Unknown if this could be aspiration or not but the x-ray pattern argues against it. His BNP returned very low, so I will continue with the plan of treating him for infection. Discussed with hospitalist will admit to PCU, I do not think he is at risk for acute respiratory failure/intubation, given his airway and breathing appears more stable after breathing treatment. Lab Data Attestation: I reviewed the patient's lab results. Labs: Laboratory Results - last 24 hr 06/28/21 06/28/21 06/28/21 09:01 09:01 09:01 WBC 5.4 RBC 4.65 Hgb 14.5 Hct 41.9 MCV 90.1 MCH 31.2 MCHC 34.6 RDW Std Deviation 43.8 RDW Coeff of J Luis 13.4 Plt Count 118 L MPV 11.4 Immature Gran % (Auto) 0.200 Neut % (Auto) 86.3 H Lymph % (Auto) 3.7 L [place] % (Auto) 9.4 Eos % (Auto) 0.0 Baso % (Auto) 0.4 Absolute Neuts (auto) 4.7 Absolute Lymphs (auto) 0.20 L Nucleated RBC % 0 PT 14.1 INR 1.1 APTT 22.5 L Sodium 132 L Potassium 3.2 L Chloride 93 L Carbon Dioxide 29.0 Anion Gap 10 BUN 28 H Creatinine 1.01 Estim Creat Clear Calc 73.27 Est GFR (MDRD) Af Amer 100 Est GFR (MDRD) Non-Af 83 BUN/Creatinine Ratio 27.7 H Glucose 178 H Lactic Acid Calcium 8.4 L Total Bilirubin 1.10 H AST 19 ALT 31 Alkaline Phosphatase 126 H Troponin I High Sens 6 B-Natriuretic Peptide Total Protein 7.5 Albumin 3.5 Globulin 4.0 Albumin/Globulin Ratio 0.9 06/28/21 06/28/21 09:01 09:01 WBC RBC Hgb Hct MCV MCH MCHC RDW Std Deviation RDW Coeff of J Luis Plt Count MPV Immature Gran % (Auto) Neut % (Auto) Lymph % (Auto) [place] % (Auto) Eos % (Auto) Baso % (Auto) Absolute Neuts (auto) Absolute Lymphs (auto) Nucleated RBC % PT INR APTT Sodium Potassium Chloride Carbon Dioxide Anion Gap BUN Creatinine Estim Creat Clear Calc Est GFR (MDRD) Af Amer Est GFR (MDRD) Non-Af BUN/Creatinine Ratio Glucose Lactic Acid 2.1 H* Calcium Total Bilirubin AST ALT Alkaline Phosphatase Troponin I High Sens B-Natriuretic Peptide 18.1 Total Protein Albumin Globulin Albumin/Globulin Ratio Radiography Diagnostic Testing: Clinical Impression(s) from Imaging Studies Chest X-Ray 06/28/21 09:10 IMPRESSION: Right perihilar and right lower lobe infiltrate with blunting of the right costophrenic angle. Electronically Signed: Terry Sinclair MD at 9:24 EDT , Rhythm Strip Rhythm Strip: Sinus Tach Rate: 130 Ectopy: None EKG Initial EKG: Attestation: I personally reviewed and interpreted this EKG as follows: Interpretation: No Acute Injury Pattern and Sinus Tachycardia Discharge Plan Dx/Rx/DC Orders Clinical Impression: Sepsis due to pneumonia, Pneumonia, Hypoxemia Disposition Disposition: Acute Care Hospital [facility]
[2021-06-28] MEDS: Albuterol 2.5 MG/3 ML VIAL.NEB. INHALATION (08:57)
--- NOTE | 2021-06-28 09:10 | RAD_ITS ---
STUDY: X-RAY CHEST REASON FOR EXAM: Male, 50 years old. Cough sob fever TECHNIQUE: Single AP portable view of the chest. COMPARISON: Comparison is made with prior study dated 09/23/2020. FINDINGS: EKG electrodes are seen. Infiltrate is seen in the right perihilar and right lower lobe. There is blunting of the left costophrenic angle. Normal size heart. Normal mediastinum and yvette. Normal visualized pulmonary arteries. Normal visualized aortic arch and descending thoracic aorta. Normal visualized thoracic spine. Normal visualized ribs, clavicles, and shoulders. There is no demonstrated abnormality of the visualized soft tissue structures of the upper abdomen. RAD/Chest 1 View (Portable) IMPRESSION: Right perihilar and right lower lobe infiltrate with blunting of the right costophrenic angle. Electronically Signed: Terry Sinclair MD at 9:24 EDT ,
[2021-06-28] MEDS: Ondansetron 4 MG/2 ML Vial IV (09:11)
[2021-06-28] MEDS: 0.9% Normal Saline 1,000 ML 999 ML IV (09:11)
[2021-06-28 09:13] LABS: Absolute Neutrophil Count 4.7 X10^3/uL (2.0-7.7); Basophil# 0.02 X10^3/uL; Basophil% 0.4 % (0-1); Hematocrit 41.9 % (40-54); Hemoglobin 14.5 g/dL (13.0-16.5); Lymphocyte % 3.7 % (19-41); Mean Corp Hgb Conc 34.6 g/dL (32-36); Mean Corpuscular Hgb 31.2 pg (27.0-32.0); Mean Corpuscular Volume 90.1 fL (80-94); Mean Platelet Vol. 11.4 fl (6.2-12.0); Monocyte# 0.51 X10^3/uL; Monocyte% 9.4 % (0-10); NRBC Flagged by Analyzer 0 % (0-5); Neutrophil # 4.69 X10^3/uL (2.7-7.7); Neutrophil % 86.3 % (47-70); POSITIVE DIFFERENTIAL YES; POSITIVE MORPHOLOGY YES; Platelet Count 118 K/mm3 (150-450); RBC Distribution Width CV 13.4 % (11.6-14.6); RBC Distribution Width SD 43.8 fl (35.1-43.9); Red Blood Count 4.65 M/mm3 (4.6-6.2); White Blood Count 5.4 K/mm3 (4.4-11.0)
[2021-06-28 09:14] LABS: Differential Indicated SCAN CRITERIA MET
[2021-06-28 09:20] LABS: International Normalized Ratio 1.1; Prothrombin Time (Protime)PT. 14.1 SECONDS (11.7-14.9)
[2021-06-28 09:21] LABS: Partial Thromboplast Time 22.5 Seconds (24.1-36.2)
[2021-06-28 09:29] LABS: ALB/GLOB Ratio 0.9 RATIO (0.9-2.4); AST(SGOT) 19 U/L (15-37); Alanine Aminotransfer ALT/SGPT 31 U/L (16-61); Albumin, Serum 3.5 g/dL (3.2-5.0); Alkaline Phosphatase 126 U/L (45-117); Anion Gap 10 (5-15); BUN 28 mg/dL (7-18); BUN/Creat Ratio 27.7 RATIO (10-20); Calcium,Total 8.4 mg/dL (8.5-10.1); Chloride 93 mmol/L (98-107); Creatinine, Serum 1.01 mg/dL (0.70-1.30); EST Glomerular Filtration Rate 83 mL/min (>60); Est Glom Filt Rate - Afr Amer 100 mL/min (>60); Estimated Creatinine Clearance 73.27 ml/min; Glucose 178 mg/dL (74-106); Potassium 3.2 mmol/L (3.5-5.1); Protein, Total 7.5 g/dL (6.4-8.2); Sodium Level 132 mmol/L (136-145); Troponin-I HS 6 pg/mL (3.0-78.0)
[2021-06-28 09:37] LABS: Lactic Acid 2.1 mmol/L (0.4-1.9)
[2021-06-28 10:02] LABS: BNP,B-Type NATRIURETIC PEPTIDE 18.1 pg/mL (0-100)
--- NOTE | 2021-06-28 10:11 | HP.PCM.HOS_ITS ---
HPI - General General Date of Admission: 06/28/21 HPI Narrative MAIRA DAS, is a 50 M with a PMH as outlined who presents via the ED on 06/28/2021 with a complaint of fever and cough. He was admitted from a long-term. He had a fever starting 2 days ago, per his caregiver he did have shortness of breath then. He threw up 2 days ago. Caregiver states he was found in bed with copious emesis. She cannot tell how many times he vomited and whether he could have aspirated. 2 days later he started getting short of breath with associated cough and was also noted to be hypoxic so they brought him into the ED. He has not had any more nausea or vomiting since then. Denies any diarrhea, or any urinary symptoms. Review of systems otherwise negative. Vitals in the ED were temperature of 98.4 Fahrenheit with respiratory rate of 24 and was saturating at 95% on 3.5 L of oxygen. He was initially quite tachycardic with heart rate at 154 but this came down to 131. CBC showed WBC of 5.4 and hemoglobin of 14.5 as well as platelets of 118. Chemistry shows sodium of 132 and potassium of 3.2 as well as creatinine of 1.01. Lactic acid was 2.1. Total bilirubin was 1.1. Chest ray showed right perihilar and right lower lobe infiltrate with blunting of the right costophrenic angle. He has been admitted to be managed for sepsis due to probable aspiration pneumonia [facility] Medical History Bowel obstruction Impulse control disorder MRDD OCD (obsessive compulsive disorder) Home Medications escitalopram oxalate 10 mg PO DAILY@0700 02/04/19 [History Last Taken 09/20/20] melatonin 3 mg PO QHS 02/04/19 [History Last Taken 09/19/20] clindamycin-benzoyl peroxide 1 applic TOPICAL QHS 02/05/19 [History Last Taken 09/19/20] clonazepam 1 mg PO DAILY@1600 11/04/19 [History Last Taken 09/19/20] escitalopram oxalate 5 mg PO DAILY@0700 11/04/19 [History Last Taken 09/20/20] Linzess 145 mcg PO DAILY 09/20/20 [History Last Taken 09/20/20] buspirone 15 mg PO BID 09/20/20 [History Last Taken 09/20/20] clonazepam 0.5 mg PO BREAKFAST 09/20/20 [History Last Taken 09/20/20] clozapine 100 mg PO BID 09/20/20 [History Last Taken 09/20/20] docusate sodium 200 mg PO BID #0 cap 09/22/20 [Rx Last Taken 09/19/20] polyethylene glycol 3350 17 gm PO DAILY 06/28/21 [History Last Taken Unknown] Allergy/AdvReac Type Severity Reaction Status Date / Time No Known Allergies Allergy Verified 09/20/20 12:04 Social History Smoking Status: Never smoker ROS Constitutional Constitutional: Reports fever(s); Denies anorexia, chills, fatigue or malaise Eyes Eyes: Denies change in vision ENT HEENT: Denies dysphagia, nasal congestion, nasal discharge or sore throat Cardiovascular Cardiovascular: Reports dyspnea on exertion; Denies chest pain, lightheadedness, orthopnea, palpitations, paroxysmal nocturnal dyspnea, rapid heart rate or syncope Respiratory/Chest Respiratory/Chest: Reports cough, dyspnea, productive cough, shortness of breath at rest and shortness of breath with exertion; Denies excessive phlegm produ ction, hemoptysis or wheezing Gastrointestinal Gastrointestinal: Reports constipation and vomiting; Denies abdominal pain, diarrhea or nausea Genitourinary Genitourinary: Denies dysuria, nocturia or urinary frequency Musculoskeletal Musculoskeletal: Denies arthralgias or back pain Neurologic Neurologic: Denies confusion, dizziness, focal weakness, headache(s), seizure- like activity or seizures Psychiatric Psychiatric: Denies anxiety or depression Hematologic/Lymphatic Hematologic/Lymphatic: Denies anemia Vital Signs Vital Signs Vital Signs: 06/28/21 08:10 06/28/21 08:48 06/28/21 08:50 Temperature 98.1 F 98.4 F Temperature Source Temporal Oral Pulse Rate 154 H 132 H Respiratory Rate 20 H 34 H Respiratory Effort Respiratory Depth Respiratory Pattern Blood Pressure 140/80 H Blood Pressure Mean 100 Pulse Ox 89 95 Oxygen Delivery Method Room Air Nasal Cannula Oxygen Flow Rate (L/min) 3.5 06/28/21 08:51 06/28/21 09:01 Temperature Temperature Source Pulse Rate 131 H Respiratory Rate 24 H Respiratory Effort Short of Breath Respiratory Depth Deep Respiratory Pattern Hyperpnea Tachypnea Blood Pressure Blood Pressure Mean Pulse Ox Oxygen Delivery Method Nasal Cannula Oxygen Flow Rate (L/min) 3.5 Weight Weight: 183 lb 6.793 oz Body Mass Index (BMI) 31.4 Physical Exam Const alert and no apparent distress General Appearance: cooperative HEENT normocephalic, head/scalp atraumatic and hearing grossly normal bilaterally Eyes PERRL, EOMs intact bilaterally and conjunctivae normal Neck no lymphadenopathy and supple Resp Resp Narrative: diminished breath sounds bibasally, bilateral coarse crackles. No wheezing. On 3L of oxygen by nasal canula Cardio regular rate, regular rhythm, S1 normal heart sound, S2 normal heart sound and no murmurs GI normal to inspection, nondistended, normoactive bowel sounds, soft to palpation, non-tender and non-distended Extremity normal to inspection, full ROM and no clubbing, cyanosis or edema Peripheral Pulses: Yes pulses 2+ throughout Skin no rashes or lesions noted Neuro CN's II-XII intact bilaterally and moves all extremities Neuro Narrative: has MRDD Sensorium / Orientation: awake and alert Psych affect normal Results Lab / Micro Data Result Diagrams: 06/28/21 09:01 06/28/21 09:01 Labs: Laboratory Results - last 24 hr 06/28/21 09:01: WBC 5.4, RBC 4.65, Hgb 14.5, Hct 41.9, MCV 90.1, MCH 31.2, MCHC 34.6, RDW Std Deviation 43.8, RDW Coeff of J Luis 13.4, Plt Count 118 L, MPV 11.4, Immature Gran % (Auto) 0.200, Neut % (Auto) 86.3 H, Lymph % (Auto) 3.7 L, [place] % (Auto) 9.4, Eos % (Auto) 0.0, Baso % (Auto) 0.4, Absolute Neuts (auto) 4.7, Absolute Lymphs (auto) 0.20 L, Nucleated RBC % 0 06/28/21 09:01: PT 14.1, INR 1.1, APTT 22.5 L 06/28/21 09:01: Sodium 132 L, Potassium 3.2 L, Chloride 93 L, Carbon Dioxide 29.0, Anion Gap 10, BUN 28 H, Creatinine 1.01, Estim Creat Clear Calc 73.27, Est GFR (MDRD) Af Amer 100, Est GFR (MDRD) Non-Af 83, BUN/Creatinine Ratio 27.7 H, Glucose 178 H, Calcium 8.4 L, Total Bilirubin 1.10 H, AST 19, ALT 31, Alkaline Phosphatase 126 H, Troponin I High Sens 6, Total Protein 7.5, Albumin 3.5, Globulin 4.0, Albumin/Globulin Ratio 0.9 06/28/21 09:01: Lactic Acid 2.1 H* 06/28/21 09:01: B-Natriuretic Peptide 18.1 Micro: Microbiology 06/28/21 08:20 Nasal Secretion SARS-CoV-2 & FLU Antigen (Rapid) - Final Rhythm Strip Rhythm Strip: Sinus Tach Rate: 130 Ectopy: None Radiology Impression Chest X-Ray 06/28/21 09:10 IMPRESSION: Right perihilar and right lower lobe infiltrate with blunting of the right costophrenic angle. Electronically Signed: Terry Sinclair MD at 9:24 EDT , Assessment & Plan Assessment/Plan (1) Sepsis due to pneumonia: (2) Aspiration pneumonia: PLAN: #SEpsis due to probable aspiration pneumonia * admit to PCU * he is tachypneic, tachycardic and lactic acid is also elevated * blood and sputum cultures pending * was started on IV ceftriaxone and azithromycin; will switch to IV zosyn in light of his vomiting and probable aspiration * check urine for strep and legionella * get speech therapy evaluation * hydrate gently with IVF NS @ 125cc/hr * titrate oxygen to maintain sats >90% * #Acute hypoxic respiratory insufficiency * on 3L of oxygen. Doesnt wear oxygen at home * CXR showed right upper and lower lobe infiltrates. * management as above * #Lactic acidosis: likely due to dehydration from sepsis and pneumonia. Should resolve with hydration. #HYpokalemia: K is 3.2. WIll replace and trend. #History of small bowel obstruction * caregiver says he hasnt had a bowel movement since 06/25/2021. It is unclear if he is passing gas. * He doesnt have hyperactive bowel sounds nor abdominal pain. I dont think there is any evidence of bowel obstruction now * will give milk of magnesia to help with a bowel movement and monitor * * #MRDD: stable. DVT prophylaxis: lovenox Code status: full code * Caregiver states she does not make decisions for him and he has a guardian. She is not sure with her guardian is but knows that is supposed to have everything needed done for him. We will enter patient is full code for now. * Total knff-xx-azcu time 16 minutes Charges/Coding Visit Charges Inpatient E&M: 87177 Init Hosp L3 Procedures Hospitalists Procedures: 13700 Advncd Care Plan 30 Min
[2021-06-28 11:06] LABS: Bacteria 0 SEEN /hpf (None Seen); Mucous, Urine 0 SEEN /hpf (<or=2+); Red Blood Cells-Urine 0 SEEN /hpf (0-5); Squamous Epithelial Cells - UA 0 SEEN /hpf (0-5); White Blood Cells 0 SEEN /hpf (0-5)
[2021-06-28 11:08] LABS: Color, Urine Yellow (Yellow); Glucose, Dipstick Normal (Normal); Ketone-Dipstick 50 mg/dl (Negative); Leukocyte Esterase-Dipstick Negative /ul (Negative); Nitrite-Dipstick Negative (Negative); Occult Blood-Urine Negative /ul (Negative); Protein-Dipstick 15 mg/dl (Negative); Urine Bilirubin Dipstick Negative (Negative); Urine Clarity Clear (Clear); Urine Urobilinogen Normal (Normal)
[2021-06-28] MEDS: 0.9% Normal Saline 1,000 ML 150 ML IV (12:30)
[2021-06-28 13:06] LABS: Troponin-I HS 4 pg/mL (3.0-78.0)
[2021-06-28 13:07] LABS: Reflex Lactate? Y
--- NOTE | 2021-06-28 14:47 | CASEMGMT ---
ELI noted patient is from a retirement. Patient also has a guardian, Rashmi Cuello. ELI called Rashmi and left her a voice mail asking if the plan is for patient to return to the retirement and if he needs O2 will it prevent him from being able to return to the retirement. Tonya Chase REPA[employer]ER [employer] OLIVIA
[2021-06-28 15:30] LABS: Lactic Acid 1.2 mmol/L (0.4-1.9)
[2021-06-28 15:31] LABS: Troponin-I HS 5 pg/mL (3.0-78.0)
--- NOTE | 2021-06-28 15:51 | CASEMGMT ---
ELI called Madisyn, patient's caregiver at the prison. Patient can return to the prison on O2 if needed as long as everything is set up before leaving [facility]. ELI told her that the RN CM take care of setting this up. Madisyn said if patient is ready to discharge over the weekend to call her and she will assist in setting up transportation. Madisyn Leger [phone]. Tonya Chase MARKETING ADMIN OLIVIA
[2021-06-28] MEDS: Potassium Chloride 10mEq/100mL 10 MEQ/100 ML IV.SOLN. 100 MEQ IV BOLUS ×4 (16:09→19:34)
[2021-06-28] MEDS: Magnesium Hydroxide 30 ML UDC 15 ML PO (18:02)
--- NOTE | 2021-06-28 21:35 | PCM.HOSP.N ---
Hospitalist Note Patient with increased work of breathing, oxygen requirements notably increased, 84% on VM, transitioning to BIPAP, stopping fluids, crackles/rales notable but notable aspiration PNA, will administer IV lasix 40 x 1, obtain stat CXR/KUB as notable abdominal distention but unclear baseline. From records patient does have history of SBO. Discussed patient directly with pulmonary and will monitor but if not improving will obtain ABG. Also, HR in 120-130, given presentation would expect improvement with the lasix and BIPAP, will continue to closely monitor.
[2021-06-28] MEDS: Furosemide 40 MG/4 ML Vial IV (21:48)
[2021-06-28 22:00] LABS: Allen Test Positive; Base Excess 1 mmol/L (-2 to +2); Bicarbonate 27.3 mmol/L (22-26); Blood Gas Specimen Type ART; FI02 100; O2 Delivery Device BiPAP; PO2 68 mmHG (75-100); SITE L Radial; SO2 92 % (95-99); Total Carbon Dioxide 29 mmol/L; pCO2 51.6 mmHg (35-45); pH 7.33 (7.35-7.45)
[2021-06-28] MEDS: Propofol 10MG/Ml 1,000 MG/100 ML Bottle 4.9 MG CONT INF (22:15)
--- NOTE | 2021-06-28 22:22 | RAD_ITS ---
EXAM: XR Abdomen HISTORY: abdominal distention TECHNIQUE: XR Abdomen COMPARISON: None. LIMITATIONS: None. FINDINGS: Portable supine views of the abdomen were obtained. Marked distention of multiple bowel loops. The tip of the NG tube projects over the distal stomach. No gross free air identified given the limitations of supine views. RAD/Abdomen Single View (Portable) IMPRESSION: Marked distention of multiple bowel loops suggestive of bowel obstruction. Electronically Signed: Stefan Yung MD at 23:41 EDT ,
--- NOTE | 2021-06-28 22:22 | RAD_ITS ---
INDICATION: Worsened dyspnea EXAMINATION: Frontal view of the chest COMPARISON: None. FINDINGS: Frontal view of the chest was obtained. The endotracheal tube terminates 2.2 cm above the clarice. The tip of the enteric tube projects over the distal stomach. The cardiac silhouette is not enlarged. Opacities in the lower lungs bilaterally. No pneumothorax. Possible small right pleural effusion. Distended loops of bowel are partially visualized. RAD/Chest 1 View (Portable) IMPRESSION: Opacities in the lower lungs bilaterally concerning for atelectasis, infection and/or aspiration. Endotracheal tube terminates 2.2 cm above the clarice. Enteric tube tip projects over the distal stomach. Electronically Signed: Stefan Yung MD at 23:45 EDT ,
--- NOTE | 2021-06-28 23:09 | NURSING ---
jeanie pereira and yasmani reynolds notified of patient status change and transfer to ICU
--- NOTE | 2021-06-28 23:24 | NURSING ---
charge nurse went into room patient trying to get out of bed, patient tachycardic, and tachypnea, audible crackles, wheezing. patient having increased work of breathing. patient requiring 6L oxygen up from 2L. MD notified of situation. respiratory in room assessing patient as well. Patient started on bipap, lasix given IV, physician arrived to floor. Patient intubated, OG placed, generous amount of output. sample sent to lab; guaic. ABG obtained. KUB and abdomen xray obtained. report given to Kiana DAVIS and sent to ICU. family notified and alf notified as well; Madisyn Leger 1002; etomidate 20mg 1002; succ 75mg 1003; intubation and OG in 1004; positive color change 1005; 10 at lip 1008; OG output immediate 1005ml dark brown 1013; portable xray at bedside
[2021-06-28 23:26] LABS: Allen Test Positive; Base Excess 1 mmol/L (-2 to +2); Bicarbonate 26.3 mmol/L (22-26); Blood Gas Specimen Type ART; FI02 100; Mode AC; O2 Delivery Device ET Tube; PEEP 10; PO2 69 mmHG (75-100); RR 14; SITE R Radial; SO2 93 % (95-99); Total Carbon Dioxide 28 mmol/L; Vt 450; pCO2 46.5 mmHg (35-45); pH 7.36 (7.35-7.45)
[2021-06-28] MEDS: Famotidine 200 MG/20 ML MDV 20 MG in 0.9% Normal Saline (Pres. free 8 ML 300 MG IV (23:35)
[2021-06-28] MEDS: 0.9% Saline Lock 10 ML Syringe IV (23:35)
[2021-06-28] MEDS: Etomidate 20 MG/10 ML Vial IV (23:41)
[2021-06-29] VITALS (30 sets, daily range): BP systolic 101–133; BP diastolic 72–97; PULSE 102–121; RESP 14–29; TEMP 37.3–38.7; O2SAT 93–100
[2021-06-29] MEDS: Chlorhexidine 15 ML PO ×3 (00:01→21:24)
[2021-06-29] MEDS: TITRATION PARAMETER CHANGE 1 EACH IV ×2 (01:36→06:04)
[2021-06-29] MEDS: 0.9% Saline Lock 10 ML Syringe IV ×2 (01:54→05:19)
[2021-06-29] MEDS: Acetaminophen 650 MG/20 ML UDC GT (02:06)
[2021-06-29 03:52] LABS: Absolute Lymphocyte Count 0.51 X10^3/uL (0.83-4.51); Absolute Neutrophil Count 5.8 X10^3/uL (2.0-7.7); Basophil# 0.02 X10^3/uL; Basophil% 0.3 % (0-1); Hematocrit 37.9 % (40-54); Hemoglobin 13.2 g/dL (13.0-16.5); Lymphocyte # 0.51 X10^3/ul (0.83-4.51); Lymphocyte % 7.5 % (19-41); Mean Corp Hgb Conc 34.8 g/dL (32-36); Mean Corpuscular Hgb 31.4 pg (27.0-32.0); Mean Corpuscular Volume 90.2 fL (80-94); Mean Platelet Vol. 11.5 fl (6.2-12.0); Monocyte# 0.49 X10^3/uL; Monocyte% 7.2 % (0-10); NRBC Flagged by Analyzer 0 % (0-5); Neutrophil # 5.78 X10^3/uL (2.7-7.7); Neutrophil % 84.7 % (47-70); POSITIVE DIFFERENTIAL YES; POSITIVE MORPHOLOGY YES; Platelet Count 112 K/mm3 (150-450); RBC Distribution Width CV 13.6 % (11.6-14.6); RBC Distribution Width SD 45.2 fl (35.1-43.9); White Blood Count 6.8 K/mm3 (4.4-11.0)
[2021-06-29 03:55] LABS: Differential Indicated SCAN CRITERIA MET
[2021-06-29 04:07] LABS: ALB/GLOB Ratio 0.8 RATIO (0.9-2.4); AST(SGOT) 14 U/L (15-37); Alanine Aminotransfer ALT/SGPT 22 U/L (16-61); Alkaline Phosphatase 99 U/L (45-117); Anion Gap 7 (5-15); BUN 23 mg/dL (7-18); BUN/Creat Ratio 22.5 RATIO (10-20); Calcium,Total 7.7 mg/dL (8.5-10.1); Chloride 99 mmol/L (98-107); Creatinine, Serum 1.02 mg/dL (0.70-1.30); EST Glomerular Filtration Rate 82 mL/min (>60); Est Glom Filt Rate - Afr Amer 99 mL/min (>60); Estimated Creatinine Clearance 78.19 ml/min; Globulin 3.8 g/dL (2.2-4.2); Glucose 146 mg/dL (74-106); Potassium 3.2 mmol/L (3.5-5.1); Protein, Total 6.8 g/dL (6.4-8.2); Sodium Level 136 mmol/L (136-145); Triglycerides 129 mg/dL
[2021-06-29 04:33] LABS: CPK Total, Creatine Kinase 56 U/L (39-308)
--- NOTE | 2021-06-29 05:00 | RAD_ITS ---
STUDY: XR Abdomen 1 View 06/29/2021 4:56 AM REASON FOR EXAM: Male, 50 years old. ABDOMINAL PAIN SBO TECHNIQUE: XR Abdomen 1 View COMPARISON: Study done yesterday FINDINGS: Lower lobe infiltrate. NG tube in place. There are dilated loops of the small intestine with a non-distended colon consistent with a small bowel obstruction. There is no demonstrated free abdominal air. The visualized liver, spleen and kidneys are grossly normal in size and morphology. Normal soft tissue structures. Normal visualized osseous structures. RAD/Abdomen Single View (Portable) IMPRESSION: Lower lobe infiltrate. NG tube in place. Persistent small bowel obstruction. CT scan can better evaluate. Electronically Signed: Rodrick Bailey MD at 8:43 EDT ,
[2021-06-29] MEDS: CHLORHEXIDINE GLUC 2% CLOTH 1 EACH TOWELETTE TOPICAL (05:19)
--- NOTE | 2021-06-29 05:38 | CON.PCM.CC_ITS ---
Assessment & Plan Assessment/Plan (1) Aspiration pneumonia: PLAN: RECOMMENDATIONS: 1. Continue assist control mode of mechanical ventilation. Wean FiO2/PEEP for saturations greater than 90%. 2. Continue empiric broad-spectrum antimicrobials, pending infectious work-up. 3. Continue propofol and fentanyl for sedation. 4. Continue PPI therapy as ordered. Continue Lovenox for DVT prophylaxis. 5. Await results of repeat KUB and general surgery recommendations. 6. Additional potassium repletion as ordered. IMPRESSIONS: 1. Acute hypoxemic respiratory failure Clinical concern for aspiration pneumonia precipitating etiology in the setting of bowel obstruction. The patient will be continued on assist control mode of mechanical ventilation. FiO2 and PEEP will be weaned to maintain oxygen saturations at or above 90%. The patient will be continued on empiric broad- spectrum antimicrobials, pending culture data results. Continue propofol and fentanyl for sedation. Continue appropriate GI and DVT prophylaxis. 2. Sepsis The patient presented to the hospital with sepsis due to suspected aspiration pneumonia with acute sepsis related organ dysfunction as evidenced by acute respiratory failure requiring invasive mechanical ventilatory support, lactic acidemia, and altered mentation. Plan to continue supportive measures as noted above. 3. Bowel obstruction Continue conservative management per general surgery recommendations with gastric decompression with OG tube and PPI therapy. Follow-up KUB is pending for this morning. 4. Hypokalemia Electrolyte repletion as ordered. Check magnesium as well. 5. History of MRDD/depression/anxiety Complicates care, management, recovery and prognosis. Continue home medications as indicated. TIME: 37 minutes of critical care time, independent of procedures, was spent addressing the patient's acute hypoxemic respiratory failure, sepsis, bowel obstruction, hypokalemia, review of all data and collaboration with the care team. HPI Consult Data Date of Consult: 06/29/21 HPI Narrative Reason for Consultation: Acute hypoxemic respiratory failure HPI Narrative: The patient is a 50-year-old male, with a history as outlined below, who presented to the emergency department on June 28 with a number of symptoms including fever, nausea, vomiting and shortness of breath. The patient resides in a intermediate and caregivers noted concern for potential aspiration in the setting of his nausea and vomiting. On presentation to the emergency department, the patient was initially noted to be afebrile hemodynamically stable. He was, however, notably tachycardic and tachypneic. Laboratory evaluation revealed no evidence of a leukocytosis. Platelet count was low at 118,000. Chemistry profile was notable for a potassium of 3.2, creatinine of 1.01 and lactate of 2.1. Total bili was increased at 1.1. Urine analysis was unremarkable. Initial chest x-ray demonstrated a right lower lobe infiltrate. The patient was initially started on supplemental IV fluid hydration along with empiric antimicrobials. He was admitted to the progressive care unit for further management. During the manager therapy hours of June 29, the patient developed worsening hypoxemia and increased work of breathing. Fluids were discontinued and the patient was given IV Lasix. Although there was initial thought to utilize BiPAP therapy, the patient decompensated quickly and became more lethargic. Therefore, the patient was emergently intubated. A KUB that was obtained demonstrated marked distention of multiple bowel loops suggestive of bowel obstruction. General surgery was subsequently consulted as well. COUNTS INCLUDE 234 BEDS AT THE [facility] Medical History Bowel obstruction Impulse control disorder MRDD OCD (obsessive compulsive disorder) Home Medications escitalopram oxalate 10 mg PO DAILY@0700 02/04/19 [History Last Taken 09/20/20] melatonin 3 mg PO QHS 02/04/19 [History Last Taken 09/19/20] clindamycin-benzoyl peroxide 1 applic TOPICAL QHS 02/05/19 [History Last Taken 09/19/20] clonazepam 1 mg PO DAILY@1600 11/04/19 [History Last Taken 09/19/20] escitalopram oxalate 5 mg PO DAILY@0700 11/04/19 [History Last Taken 09/20/20] Linzess 145 mcg PO DAILY 09/20/20 [History Last Taken 09/20/20] buspirone 15 mg PO BID 09/20/20 [History Last Taken 09/20/20] clonazepam 0.5 mg PO BREAKFAST 09/20/20 [History Last Taken 09/20/20] clozapine 100 mg PO BID 09/20/20 [History Last Taken 09/20/20] docusate sodium 200 mg PO BID #0 cap 09/22/20 [Rx Last Taken 09/19/20] polyethylene glycol 3350 17 gm PO DAILY 06/28/21 [History Last Taken Unknown] Allergy/AdvReac Type Severity Reaction Status Date / Time No Known Allergies Allergy Verified 09/20/20 12:04 Social History Smoking Status: Never smoker ROS Review of Systems ROS Unobtainable: due to endotracheal tube Physical Exam Const no apparent distress General Appearance: intubated and patient mechanically ventilated HEENT normocephalic and head/scalp atraumatic Mouth: endotracheal tube in place and OG tube in place Eyes PERRL and EOMs intact bilaterally Neck supple General: trachea midline Chest inspection of chest normal Resp Auscultation: diminished lung sounds; Negative for rales, rhonchi or wheezes Cardio S1 normal heart sound and S2 normal heart sound Rate: tachycardic GI soft to palpation Inspection: abdominal distention Auscultation: hypoactive bowel sounds Extremity no clubbing, cyanosis or edema Skin no rashes or lesions noted Neuro Sensorium / Orientation: sedated on vent Lab / Micro Data Result Diagrams: 06/29/21 03:42 06/29/21 03:42 Labs: Laboratory Results - last 24 hr 06/28/21 09:01: WBC 5.4, RBC 4.65, Hgb 14.5, Hct 41.9, MCV 90.1, MCH 31.2, MCHC 34.6, RDW Std Deviation 43.8, RDW Coeff of J Luis 13.4, Plt Count 118 L, MPV 11.4, Immature Gran % (Auto) 0.200, Neut % (Auto) 86.3 H, Lymph % (Auto) 3.7 L, [place] % (Auto) 9.4, Eos % (Auto) 0.0, Baso % (Auto) 0.4, Absolute Neuts (auto) 4.7, Absolute Lymphs (auto) 0.20 L, Nucleated RBC % 0 06/28/21 09:01: PT 14.1, INR 1.1, APTT 22.5 L 06/28/21 09:01: Sodium 132 L, Potassium 3.2 L, Chloride 93 L, Carbon Dioxide 29.0, Anion Gap 10, BUN 28 H, Creatinine 1.01, Estim Creat Clear Calc 73.27, Est GFR (MDRD) Af Amer 100, Est GFR (MDRD) Non-Af 83, BUN/Creatinine Ratio 27.7 H, Glucose 178 H, Calcium 8.4 L, Total Bilirubin 1.10 H, AST 19, ALT 31, Alkaline Phosphatase 126 H, Troponin I High Sens 6, Total Protein 7.5, Albumin 3.5, Globulin 4.0, Albumin/Globulin Ratio 0.9 06/28/21 09:01: Lactic Acid 2.1 H* 06/28/21 09:01: B-Natriuretic Peptide 18.1 06/28/21 11:00: Urine Color Yellow, Urine Clarity Clear, Urine pH 6.0, Ur Specific [place] 1.020, Urine Protein 15 H, Urine Glucose (UA) Normal, Urine Ketones 50 H, Urine Occult Blood Negative, Urine Nitrite Negative, Urine Bilirubin Negative, Urine Urobilinogen Normal, Ur Leukocyte Esterase Negative, Urine RBC 0 SEEN, Urine WBC 0 SEEN, Ur Squamous Epith Cells 0 SEEN, Urine Bacteria 0 SEEN, Urine Mucus 0 SEEN 06/28/21 12:30: Troponin I High Sens 4 06/28/21 14:55: Troponin I High Sens 5 06/28/21 14:55: Lactic Acid 1.2 06/29/21 03:42: WBC 6.8, RBC 4.20 L, Hgb 13.2, Hct 37.9 L, MCV 90.2, MCH 31.4, MCHC 34.8, RDW Std Deviation 45.2 H, RDW Coeff of J Luis 13.6, Plt Count 112 L, MPV 11.5, Immature Gran % (Auto) 0.300, Neut % (Auto) 84.7 H, Lymph % (Auto) 7.5 L, [place] % (Auto) 7.2, Eos % (Auto) 0.0, Baso % (Auto) 0.3, Absolute Neuts (auto) 5.8, Absolute Lymphs (auto) 0.51 L, Nucleated RBC % 0 06/29/21 03:42: Sodium 136, Potassium 3.2 L, Chloride 99, Carbon Dioxide 30.0, Anion Gap 7, BUN 23 H, Creatinine 1.02, Estim Creat Clear Calc 78.19, Est GFR (MDRD) Af Amer 99, Est GFR (MDRD) Non-Af 82, BUN/Creatinine Ratio 22.5 H, Glucose 146 H, Calcium 7.7 L, Total Bilirubin 2.00 H, AST 14 L, ALT 22, Alkaline Phosphatase 99, Total Protein 6.8, Albumin 3.0 L, Globulin 3.8, Albumin/Globulin Ratio 0.8 L, Triglycerides 129 06/29/21 03:42: Total Creatine Kinase 56 Micro: Microbiology 06/28/21 22:40 Stool Stool Occult Blood (RADHA) - Final Occult Blood Positive 06/28/21 08:20 Nasal Secretion SARS-CoV-2 & FLU Antigen (Rapid) - Final ABG Data ABG results: ABG 06/28/21 06/28/21 21:55 23:18 Specimen Type ART ART Sample Site L Radial R Radial pH 7.33 L 7.36 Bicarbonate Actual 27.3 H 26.3 H Total CO2 29 28 Base Excess 1 1 O2 Saturation 92 L 93 L O2 % 100 100 ABG pCO2 51.6 H 46.5 H ABG pO2 68 L 69 L Tree Test Positive Positive Respiration Rate 14 O2 Delivery Device BiPAP ET Tube Vent Mode AC Tidal Volume 450 POC PEEP 10 Rhythm Strip Rhythm Strip: Sinus Tach Rate: 130 Ectopy: None Radiology Impression Chest X-Ray 06/28/21 09:10 IMPRESSION: Right perihilar and right lower lobe infiltrate with blunting of the right costophrenic angle. Electronically Signed: Terry Sinclair MD at 9:24 EDT , Chest X-Ray 06/28/21 22:22 IMPRESSION: Opacities in the lower lungs bilaterally concerning for atelectasis, infection and/or aspiration. Endotracheal tube terminates 2.2 cm above the clarice. Enteric tube tip projects over the distal stomach. Electronically Signed: Stefan Yung MD at 23:45 EDT , KUB X-Ray 06/28/21 22:22 IMPRESSION: Marked distention of multiple bowel loops suggestive of bowel obstruction. Electronically Signed: Stefan Yung MD at 23:41 EDT , Charges/Coding Procedures Hospitalists Procedures: [id number]
[2021-06-29] MEDS: Escitalopram Oxalate 10 MG Tablet GT (06:04)
[2021-06-29] MEDS: Escitalopram Oxalate 10 MG Tablet 5 MG GT (06:04)
[2021-06-29 06:37] LABS: Differential Comment SCANNED
[2021-06-29] MEDS: Propofol 10MG/Ml 1,000 MG/100 ML Bottle 5 MG CONT INF (07:05)
[2021-06-29] MEDS: Potassium Chloride 10mEq/100mL 10 MEQ/100 ML IV.SOLN. 100 MEQ IV BOLUS ×4 (07:37→10:50)
[2021-06-29 07:59] LABS: Magnesium 2.7 mg/dL (1.6-2.6)
[2021-06-29] MEDS: Enoxaparin 40 MG/0.4 ML Syringe SC (09:38)
[2021-06-29] MEDS: busPIRone 15 MG TABLET GT ×2 (09:39→21:25)
--- NOTE | 2021-06-29 10:05 | CON.PCM.SX_ITS ---
Assessment & Plan Assessment/Plan (1) Ileus, unspecified: PLAN: Given previous presentations, unlikely that this is a true bowel obstruction, more than likely an adynamic ileus. In the past, these episodes have resolved with NG tube decompression, IV hydration and bowel rest. Continue present therapy (2) Occult blood positive stool: PLAN: From a GI standpoint, patient does not have a significant blood loss and is not hemodynamically unstable. Consideration for endoscopies can be done as patient recovers and as an outpatient. HPI Consult Data Date of Consult: 06/29/21 HPI Narrative HPI Narrative: MAIRA DAS, is a 50 M who presents with probable aspiration and is presently intubated and in the ICU. I was consulted by Dr. Joya Barragan, a hospitalist at [facility]. Maira is known to me, as he has been admitted to the hospital multiple time in the past with partial small bowel obstruction versus ileus. He has been found in the have in the past, large amount of retained stool in his colon. He has had no previous abdominal surgeries. I suspect that he has a peristaltic disorder, in addition to his pelvic floor dysfunction . He lives at a home and had nausea/emesis. He was brought to [facility] ED and found to be in respiratory failure. He was intubated and admitted to the ICU. He had workup at [facility] (2020) for his chronic constipation - for which testing revealed abnormal pelvic floor dyssynergia. Because of his mental status, he was deemed not to be a candidate for PT pelvic floor dysfunction. He was prescribed Linzess. GI small bowel follow through revealed no pathology. [facility] Medical History (Updated 06/29/21 @ 13:[address] Jazlyn Phelps MD) Bowel obstruction Ileus, unspecified Impulse control disorder MRDD Occult blood positive stool OCD (obsessive compulsive disorder) Home Medications escitalopram oxalate 10 mg PO DAILY@0700 02/04/19 [History Last Taken 09/20/20] melatonin 3 mg PO QHS 02/04/19 [History Last Taken 09/19/20] clindamycin-benzoyl peroxide 1 applic TOPICAL QHS 02/05/19 [History Last Taken 09/19/20] clonazepam 1 mg PO DAILY@1600 11/04/19 [History Last Taken 09/19/20] escitalopram oxalate 5 mg PO DAILY@0700 11/04/19 [History Last Taken 09/20/20] Linzess 145 mcg PO DAILY 09/20/20 [History Last Taken 09/20/20] buspirone 15 mg PO BID 09/20/20 [History Last Taken 09/20/20] clonazepam 0.5 mg PO BREAKFAST 09/20/20 [History Last Taken 09/20/20] clozapine 100 mg PO BID 09/20/20 [History Last Taken 09/20/20] docusate sodium 200 mg PO BID #0 cap 09/22/20 [Rx Last Taken 09/19/20] polyethylene glycol 3350 17 gm PO DAILY 06/28/21 [History Last Taken Unknown] Allergy/AdvReac Type Severity Reaction Status Date / Time No Known Allergies Allergy Verified 09/20/20 12:04 Social History Smoking Status: Never smoker ROS Review of Systems ROS Unobtainable: due to endotracheal tube Physical Exam Const alert Constitutional Narrative: Patient is intubated and on ventilatory support HEENT head/scalp atraumatic Eyes conjunctivae normal Neck supple Resp Resp Narrative: on mechanical ventilatory support Cardio Rate: tachycardic GI GI Narrative: Abdomen is soft but distended and tympanitic, also protuberant but this is not so different from his baseline Rectal examination - soft stool in vault and air, no evidence of impaction Bladder / Kidney Exam: catheter in place Extremity General Extremity: Negative for edema Skin no jaundice Lab / Micro Data Result Diagrams: 06/29/21 03:42 06/29/21 03:42 Labs: Laboratory Results - last 24 hr 06/28/21 11:00: Urine Color Yellow, Urine Clarity Clear, Urine pH 6.0, Ur Specific [place] 1.020, Urine Protein 15 H, Urine Glucose (UA) Normal, Urine Ketones 50 H, Urine Occult Blood Negative, Urine Nitrite Negative, Urine Bilirubin Negative, Urine Urobilinogen Normal, Ur Leukocyte Esterase Negative, Urine RBC 0 SEEN, Urine WBC 0 SEEN, Ur Squamous Epith Cells 0 SEEN, Urine Bacteria 0 SEEN, Urine Mucus 0 SEEN 06/28/21 12:30: Troponin I High Sens 4 06/28/21 14:55: Troponin I High Sens 5 06/28/21 14:55: Lactic Acid 1.2 06/29/21 03:42: WBC 6.8, RBC 4.20 L, Hgb 13.2, Hct 37.9 L, MCV 90.2, MCH 31.4, MCHC 34.8, RDW Std Deviation 45.2 H, RDW Coeff of J Luis 13.6, Plt Count 112 L, MPV 11.5, Immature Gran % (Auto) 0.300, Neut % (Auto) 84.7 H, Lymph % (Auto) 7.5 L, [place] % (Auto) 7.2, Eos % (Auto) 0.0, Baso % (Auto) 0.3, Absolute Neuts (auto) 5.8, Absolute Lymphs (auto) 0.51 L, Nucleated RBC % 0, Differential Comment SCANNED 06/29/21 03:42: Sodium 136, Potassium 3.2 L, Chloride 99, Carbon Dioxide 30.0, Anion Gap 7, BUN 23 H, Creatinine 1.02, Estim Creat Clear Calc 78.19, Est GFR (MDRD) Af Amer 99, Est GFR (MDRD) Non-Af 82, BUN/Creatinine Ratio 22.5 H, Glucose 146 H, Calcium 7.7 L, Total Bilirubin 2.00 H, AST 14 L, ALT 22, Alkaline Phosphatase 99, Total Protein 6.8, Albumin 3.0 L, Globulin 3.8, Albumin/Globulin Ratio 0.8 L, Triglycerides 129 06/29/21 03:42: Total Creatine Kinase 56 06/29/21 03:42: Magnesium 2.7 H Micro: Microbiology 06/28/21 22:40 Stool Stool Occult Blood (RADHA) - Final Occult Blood Positive 06/28/21 08:20 Nasal Secretion SARS-CoV-2 & FLU Antigen (Rapid) - Final ABG Data ABG results: ABG 06/28/21 06/28/21 21:55 23:18 Specimen Type ART ART Sample Site L Radial R Radial pH 7.33 L 7.36 Bicarbonate Actual 27.3 H 26.3 H Total CO2 29 28 Base Excess 1 1 O2 Saturation 92 L 93 L O2 % 100 100 ABG pCO2 51.6 H 46.5 H ABG pO2 68 L 69 L Tree Test Positive Positive Respiration Rate 14 O2 Delivery Device BiPAP ET Tube Vent Mode AC Tidal Volume 450 POC PEEP 10 Rhythm Strip Rhythm Strip: Sinus Tach Rate: 130 Ectopy: None Radiology Impression Chest X-Ray 06/28/21 22:22 IMPRESSION: Opacities in the lower lungs bilaterally concerning for atelectasis, infection and/or aspiration. Endotracheal tube terminates 2.2 cm above the clarice. Enteric tube tip projects over the distal stomach. Electronically Signed: Stefan Yung MD at 23:45 EDT , KUB X-Ray 06/28/21 22:22 IMPRESSION: Marked distention of multiple bowel loops suggestive of bowel obstruction. Electronically Signed: Stefan Yung MD at 23:41 EDT , KUB X-Ray 06/29/21 05:00 IMPRESSION: Lower lobe infiltrate. NG tube in place. Persistent small bowel obstruction. CT scan can better evaluate. Electronically Signed: Rodrick Bailey MD at 8:43 EDT ,
--- NOTE | 2021-06-29 11:42 | PN.HOSP_ITS ---
Subjective Subjective Patient seen and examined. His respiratory status worsened overnight and he was transferred to the ICU and emergently intubated. Patient also kept on having worsening abdominal distention and x-ray of the abdomen done showed evidence of bowel obstruction. General surgery therefore consulted. He was noted to be febrile this morning with a temperature of around 100.4 Fahrenheit. He remains tachycardic. Objective Data Objective Data Vital Signs: Vital Signs Temp Pulse Resp BP Pulse Ox 100.4 F H 112 H 14 112/76 98 06/29/21 10:00 06/29/21 10:34 06/29/21 10:34 06/29/21 10:00 06/29/21 10:34 Oxygen Flow Rate (L/min) 84 Oxygen Delivery Method Mechanical Ventilator Weight: 184 lb 4.903 oz Body Mass Index (BMI) 29.1 Intake & Output: Intake and Output for Last 24 Hours 06/27/21 06/28/21 06/29/21 23:59 23:59 23:59 Intake Total 3484.52 / 3517.22 813.14 / 813.14 Output Total 3040 / 3040 Balance 3484.52 / 1017.22 -2226.86 / -2226.86 Lab / Micro Data Result Diagrams: 06/29/21 03:42 06/29/21 03:42 Labs: Laboratory Results - last 24 hr 06/28/21 12:30: Troponin I High Sens 4 06/28/21 14:55: Troponin I High Sens 5 06/28/21 14:55: Lactic Acid 1.2 06/29/21 03:42: WBC 6.8, RBC 4.20 L, Hgb 13.2, Hct 37.9 L, MCV 90.2, MCH 31.4, MCHC 34.8, RDW Std Deviation 45.2 H, RDW Coeff of J Luis 13.6, Plt Count 112 L, MPV 11.5, Immature Gran % (Auto) 0.300, Neut % (Auto) 84.7 H, Lymph % (Auto) 7.5 L, [place] % (Auto) 7.2, Eos % (Auto) 0.0, Baso % (Auto) 0.3, Absolute Neuts (auto) 5.8, Absolute Lymphs (auto) 0.51 L, Nucleated RBC % 0, Differential Comment SCANNED 06/29/21 03:42: Sodium 136, Potassium 3.2 L, Chloride 99, Carbon Dioxide 30.0, Anion Gap 7, BUN 23 H, Creatinine 1.02, Estim Creat Clear Calc 78.19, Est GFR (MDRD) Af Amer 99, Est GFR (MDRD) Non-Af 82, BUN/Creatinine Ratio 22.5 H, Glucose 146 H, Calcium 7.7 L, Total Bilirubin 2.00 H, AST 14 L, ALT 22, Alkaline Phosphatase 99, Total Protein 6.8, Albumin 3.0 L, Globulin 3.8, Albumin/Globulin Ratio 0.8 L, Triglycerides 129 06/29/21 03:42: Total Creatine Kinase 56 06/29/21 03:42: Magnesium 2.7 H Micro: Microbiology 06/28/21 11:00 Urine, Clean Catch Urine Culture - Preliminary Staphylococcus species GPC Poss Enterococcus sp 06/28/21 22:40 Stool Stool Occult Blood (RADHA) - Final Occult Blood Positive 06/28/21 08:20 Nasal Secretion SARS-CoV-2 & FLU Antigen (Rapid) - Final ABG Data ABG results: ABG 06/28/21 06/28/21 21:55 23:18 Specimen Type ART ART Sample Site L Radial R Radial pH 7.33 L 7.36 Bicarbonate Actual 27.3 H 26.3 H Total CO2 29 28 Base Excess 1 1 O2 Saturation 92 L 93 L O2 % 100 100 ABG pCO2 51.6 H 46.5 H ABG pO2 68 L 69 L Tree Test Positive Positive Respiration Rate 14 O2 Delivery Device BiPAP ET Tube Vent Mode AC Tidal Volume 450 POC PEEP 10 Radiography Diagnostic Testing: Radiology Impression Chest X-Ray 06/28/21 22:22 IMPRESSION: Opacities in the lower lungs bilaterally concerning for atelectasis, infection and/or aspiration. Endotracheal tube terminates 2.2 cm above the clarice. Enteric tube tip projects over the distal stomach. Electronically Signed: Stefan Yung MD at 23:45 EDT , KUB X-Ray 06/28/21 22:22 IMPRESSION: Marked distention of multiple bowel loops suggestive of bowel obstruction. Electronically Signed: Stefan Yung MD at 23:41 EDT , KUB X-Ray 06/29/21 05:00 IMPRESSION: Lower lobe infiltrate. NG tube in place. Persistent small bowel obstruction. CT scan can better evaluate. Electronically Signed: Rodrick Bailey MD at 8:43 EDT , Rhythm Strip Rhythm Strip: Sinus Tach Rate: 130 Ectopy: None Physical Exam Const alert and no apparent distress Constitutional Narrative: intubated, sedated, RASS score is -4 General Appearance: cooperative Exam Limitations: altered mental status HEENT head/scalp atraumatic and moist oral mucous membranes HEENT Narrative: NG tube in place, draining bilious fluid Head and Scalp: normocephalic Eyes PERRL, EOMs intact bilaterally and conjunctivae normal Neck no lymphadenopathy Resp Resp Narrative: intubated, sedated, coarse crackles bibasally. Cardio regular rate, regular rhythm, S1 normal heart sound, S2 normal heart sound and no murmurs GI normal to inspection, nondistended, normoactive bowel sounds, soft to palpation, non-tender and non-distended GI Narrative: abdomen distended, no tenderness on palpation, audible bowel soun ds. Extremity normal to inspection Peripheral Pulses: Yes pulses 2+ throughout Skin no rashes or lesions noted Neuro CN's II-XII intact bilaterally and moves all extremities Neuro Narrative: intubated, sedated, RASS score is -4. Sensorium / Orientation: awake and alert Psych affect normal Psych Narrative: intubated, sedated Assessment & Plan Assessment/Plan (1) Sepsis due to pneumonia: (2) Aspiration pneumonia: (3) Acute and chronic respiratory failure with hypoxia: (4) Small bowel obstruction: PLAN: #Acute hypoxic respiratory failure due to aspiration pneumonia * Patient's respiratory status worsened yesterday and he was emergently intubated and sedated and transferred to the ICU * Currently on IV Zosyn * Critical care on board. Remains tachycardic and also febrile * Blood cultures pending. * NG tube in place. Titrate oxygen to maintain saturation above 90%. Breathing treatments bronchodilators. * Urine for strep and Legionella negative #SEpsis due to probable aspiration pneumonia * As above * Small bowel obstruction# * Patient did not appear to have small bowel obstruction when he was admitted yesterday as he did not have any abdominal pain. It was thought that he had not had a bowel movement since 06/25/2021 but this was thought to be just constipation * However the abdominal distention worsened and so x-ray of the abdomen was done which showed dilated loops of bowel and was diagnosed with small bowel obstruction * NG tube in place and general surgery consulted. Await recs. * He does have a history of small bowel obstruction * #Lactic acidosis: likely due to dehydration from sepsis and pneumonia. Should resolve with hydration. #HYpokalemia: K is 3.2. WIll replace and trend. #MRDD: stable. DVT prophylaxis: lovenox Code status: full code * Charges/Coding Visit Charges Inpatient E&M: 83482 Subs Hosp L3
[2021-06-29] MEDS: Propofol 10MG/Ml 1,000 MG/100 ML Bottle 2.5 MG CONT INF (17:33)
--- NOTE | 2021-06-29 22:14 | PN.HOSP_ITS ---
Hospitalist Note Patient and family reported interest in transfer to [facility]. Called and transfer line reported no bed availability. Staff notified family and they noted understanding with continued care at [facility]. Will discuss with daytime hospitalist also.
[2021-06-30] VITALS (36 sets, daily range): BP systolic 102–123; BP diastolic 62–83; PULSE 79–119; RESP 14–457; TEMP 37.3–37.8; O2SAT 92–97
[2021-06-30] MEDS: 0.9% Normal Saline 1,000 ML 125 ML IV ×4 (00:31→21:58)
[2021-06-30 03:47] LABS: Absolute Lymphocyte Count 0.75 X10^3/uL (0.83-4.51); Absolute Neutrophil Count 5.7 X10^3/uL (2.0-7.7); Basophil# 0.01 X10^3/uL; Basophil% 0.1 % (0-1); Eosinophil# 0.05 X10^3/uL; Eosinophils% 0.7 % (0-5); Hematocrit 33.3 % (40-54); Hemoglobin 11.2 g/dL (13.0-16.5); Lymphocyte # 0.75 X10^3/ul (0.83-4.51); Lymphocyte % 10.3 % (19-41); Mean Corp Hgb Conc 33.6 g/dL (32-36); Mean Corpuscular Hgb 31.2 pg (27.0-32.0); Mean Corpuscular Volume 92.8 fL (80-94); Mean Platelet Vol. 11.3 fl (6.2-12.0); Monocyte# 0.73 X10^3/uL; NRBC Flagged by Analyzer 0 % (0-5); Neutrophil # 5.67 X10^3/uL (2.7-7.7); Neutrophil % 77.8 % (47-70); Platelet Count 129 K/mm3 (150-450); RBC Distribution Width CV 13.9 % (11.6-14.6); RBC Distribution Width SD 47.8 fl (35.1-43.9); Red Blood Count 3.59 M/mm3 (4.6-6.2); White Blood Count 7.3 K/mm3 (4.4-11.0)
[2021-06-30 04:05] LABS: ALB/GLOB Ratio 0.7 RATIO (0.9-2.4); AST(SGOT) 37 U/L (15-37); Alanine Aminotransfer ALT/SGPT 20 U/L (16-61); Albumin, Serum 2.6 g/dL (3.2-5.0); Alkaline Phosphatase 82 U/L (45-117); Anion Gap 8 (5-15); BUN 20 mg/dL (7-18); BUN/Creat Ratio 26.8 RATIO (10-20); Calcium,Total 7.8 mg/dL (8.5-10.1); Chloride 99 mmol/L (98-107); Creatinine, Serum 0.75 mg/dL (0.70-1.30); EST Glomerular Filtration Rate 118 mL/min (>60); Est Glom Filt Rate - Afr Amer 142 mL/min (>60); Estimated Creatinine Clearance 106.33 ml/min; Globulin 3.6 g/dL (2.2-4.2); Glucose 111 mg/dL (74-106); Potassium 3.2 mmol/L (3.5-5.1); Protein, Total 6.2 g/dL (6.4-8.2); Sodium Level 136 mmol/L (136-145)
[2021-06-30] MEDS: 0.9% Saline Lock 10 ML Syringe IV ×2 (05:09→21:49)
[2021-06-30] MEDS: CHLORHEXIDINE GLUC 2% CLOTH 1 EACH TOWELETTE TOPICAL (05:09)
[2021-06-30] MEDS: Escitalopram Oxalate 10 MG Tablet 5 MG GT (06:16)
[2021-06-30] MEDS: TITRATION PARAMETER CHANGE 1 EACH IV (06:16)
[2021-06-30] MEDS: Escitalopram Oxalate 10 MG Tablet GT (06:16)
--- NOTE | 2021-06-30 06:38 | NURSING ---
SBT cancelled per Dr. Carlton d/t thick secretions overnight. Pt tolerated SBT well. Fentanyl restarted.
--- NOTE | 2021-06-30 06:49 | PN.CC_ITS ---
Assessment & Plan Assessment/Plan (1) Aspiration pneumonia: PLAN: RECOMMENDATIONS: 1. Continue assist control mode of mechanical ventilation. Wean FiO2/PEEP for saturations greater than 90%. 2. Continue empiric broad-spectrum antimicrobials, pending infectious work-up. 3. Continue propofol and fentanyl for sedation. 4. Continue PPI therapy as ordered. Continue Lovenox for DVT prophylaxis. 5. Management of bowel obstruction per general surgery recommendations. 6. Additional potassium repletion as ordered. IMPRESSIONS: 1. Acute hypoxemic respiratory failure Clinical concern for aspiration pneumonia as precipitating etiology in the setting of bowel obstruction. The patient will be continued on assist control mode of mechanical ventilation. FiO2 and PEEP will be weaned to maintain oxygen saturations at or above 90%. The patient will be continued on empiric broad- spectrum antimicrobials, pending culture data results. Continue propofol and fentanyl for sedation. Continue appropriate GI and DVT prophylaxis. 2. Sepsis The patient presented to the hospital with sepsis due to suspected aspiration pneumonia with acute sepsis related organ dysfunction as evidenced by acute respiratory failure requiring invasive mechanical ventilatory support, lactic acidemia, and altered mentation. Plan to continue supportive measures as noted above. 3. Bowel obstruction Continue conservative management per general surgery recommendations with gastric decompression with OG tube and PPI therapy. 4. Hypokalemia Electrolyte repletion as ordered. 5. History of MRDD/depression/anxiety Complicates care, management, recovery and prognosis. Continue home medications as indicated. TIME: 33 minutes of critical care time, independent of procedures, was spent addressing the patient's acute hypoxemic respiratory failure, sepsis, bowel obstruction, hypokalemia, review of all data and collaboration with the care team. Subjective Subjective The patient was seen and examined at the bedside this morning. Events from the last 24 hours have been reviewed. The patient is currently afebrile, hemodynamically stable and maintaining appropriate oxygen saturations on assist control mode mechanical ventilation with an FiO2 requirement of 30% and PEEP of 5. Nonsurgical management of the patient's bowel obstruction is still being employed. Nursing staff did report thick secretions from his endotracheal tube. The patient is currently documented to be overall net +1 L for the hospitalization. Potassium is low at 3.2. Creatinine remains within normal limits. Total bili has improved to 1.6 this morning. Objective Data Objective Data The patient's most recent lab work, culture data and imaging studies have all been personally reviewed. Rapid flu and COVID testing was negative. Blood and sputum cultures are pending. Preliminary urine culture demonstrated growth of possible Enterococcus species. Vital Signs: Vital Signs Temp Pulse Resp BP Pulse Ox 99.2 F H 104 H 16 119/78 96 06/30/21 06:00 06/30/21 06:00 06/30/21 06:00 06/30/21 06:00 06/30/21 06:00 Oxygen Flow Rate (L/min) 84 Oxygen Delivery Method Mechanical Ventilator Weight: 83.2 kg Body Mass Index (BMI) 29.1 Intake & Output: Intake and Output for Last 24 Hours 06/28/21 06/29/21 06/30/21 23:59 23:59 23:59 Intake Total 3484.52 / 3517.22 1538.19 / 1543.19 138.75 / 138.75 Output Total 3615 / 3955 490 / 490 Balance 3484.52 / 1017.22 -2076.81 / -2411.81 -351.25 / -351.25 Lab / Micro Data Attestation: I reviewed the patient's lab results. Result Diagrams: 06/30/21 03:42 06/30/21 03:42 Labs: Laboratory Results - last 24 hr 06/29/21 03:42: Magnesium 2.7 H 06/30/21 03:42: WBC 7.3, RBC 3.59 L, Hgb 11.2 L, Hct 33.3 L, MCV 92.8, MCH 31.2, MCHC 33.6, RDW Std Deviation 47.8 H, RDW Coeff of J Luis 13.9, Plt Count 129 L, MPV 11.3, Immature Gran % (Auto) 1.100 H, Neut % (Auto) 77.8 H, Lymph % (Auto) 10.3 L, [place] % (Auto) 10.0, Eos % (Auto) 0.7, Baso % (Auto) 0.1, Absolute Neuts (auto) 5.7, Absolute Lymphs (auto) 0.75 L, Nucleated RBC % 0 06/30/21 03:42: Sodium 136, Potassium 3.2 L, Chloride 99, Carbon Dioxide 29.0, Anion Gap 8, BUN 20 H, Creatinine 0.75, Estim Creat Clear Calc 106.33, Est GFR (MDRD) Af Amer 142, Est GFR (MDRD) Non-Af 118, BUN/Creatinine Ratio 26.8 H, Glucose 111 H, Calcium 7.8 L, Total Bilirubin 1.60 H, AST 37, ALT 20, Alkaline Phosphatase 82, Total Protein 6.2 L, Albumin 2.6 L, Globulin 3.6, Albumin/Globulin Ratio 0.7 L Micro: Microbiology 06/28/21 Unknown Sputum, Induced/Lukens Gram Stain - Final 06/28/21 11:00 Urine, Clean Catch Urine Culture - Preliminary Staphylococcus species GPC Poss Enterococcus sp 06/28/21 22:40 Stool Stool Occult Blood (RADHA) - Final Occult Blood Positive 06/28/21 08:20 Nasal Secretion SARS-CoV-2 & FLU Antigen (Rapid) - Final Radiography Diagnostic Testing: Radiology Impression KUB X-Ray 06/29/21 05:00 IMPRESSION: Lower lobe infiltrate. NG tube in place. Persistent small bowel obstruction. CT scan can better evaluate. Electronically Signed: Rodrick Bailey MD at 8:43 EDT Reading Location ID and State: [facility] / ID , Service support , Rhythm Strip Rhythm Strip: Sinus Tach Rate: 130 Ectopy: None Physical Exam Const no apparent distress General Appearance: intubated and patient mechanically ventilated HEENT normocephalic and head/scalp atraumatic Mouth: endotracheal tube in place and OG tube in place Eyes PERRL and EOMs intact bilaterally Neck supple General: trachea midline Chest inspection of chest normal Resp Auscultation: diminished lung sounds; Negative for rales, rhonchi or wheezes Cardio S1 normal heart sound and S2 normal heart sound Rate: tachycardic GI soft to palpation Inspection: abdominal distention Auscultation: hypoactive bowel sounds Extremity no clubbing, cyanosis or edema Skin no rashes or lesions noted Neuro Sensorium / Orientation: sedated on vent Charges/Coding Procedures Hospitalists Procedures: [id number] Critial Care 1st Hr
--- NOTE | 2021-06-30 06:52 | CPS ---
Failed SBT due to secretions.
[2021-06-30] MEDS: Potassium Chloride 10mEq/100mL 10 MEQ/100 ML IV.SOLN. 100 MEQ IV BOLUS ×4 (07:32→11:04)
[2021-06-30] MEDS: Chlorhexidine 15 ML PO ×2 (08:29→21:50)
[2021-06-30] MEDS: busPIRone 15 MG TABLET GT ×2 (08:30→21:49)
[2021-06-30] MEDS: Enoxaparin 40 MG/0.4 ML Syringe SC (08:31)
--- NOTE | 2021-06-30 10:47 | PN.HOSP_ITS ---
Subjective Subjective Patient seen and examined. He remains intubated. No active events overnight. He is on minimal vent settings. He remains febrile, and mildly tachycardic. WBC is 7.3. Potassium is 3.2. Objective Data Objective Data Vital Signs: Vital Signs Temp Pulse Resp BP Pulse Ox 99.4 F H 105 H 14 117/76 96 06/30/21 10:00 06/30/21 10:00 06/30/21 10:00 06/30/21 10:00 06/30/21 10:00 Oxygen Flow Rate (L/min) 84 Oxygen Delivery Method Mechanical Ventilator Weight: 183 lb 6.793 oz Body Mass Index (BMI) 29.1 Intake & Output: Intake and Output for Last 24 Hours 06/28/21 06/29/21 06/30/21 23:59 23:59 23:59 Intake Total 3484.52 / 3517.22 1538.19 / 1543.19 1381.25 / 1381.25 Output Total 3615 / 3955 490 / 490 Balance 3484.52 / 1017.22 -2076.81 / -2411.81 891.25 / 891.25 Lab / Micro Data Result Diagrams: 06/30/21 03:42 06/30/21 03:42 Labs: Laboratory Results - last 24 hr 06/30/21 03:42: WBC 7.3, RBC 3.59 L, Hgb 11.2 L, Hct 33.3 L, MCV 92.8, MCH 31.2, MCHC 33.6, RDW Std Deviation 47.8 H, RDW Coeff of J Luis 13.9, Plt Count 129 L, MPV 11.3, Immature Gran % (Auto) 1.100 H, Neut % (Auto) 77.8 H, Lymph % (Auto) 10.3 L, [place] % (Auto) 10.0, Eos % (Auto) 0.7, Baso % (Auto) 0.1, Absolute Neuts (auto) 5.7, Absolute Lymphs (auto) 0.75 L, Nucleated RBC % 0 06/30/21 03:42: Sodium 136, Potassium 3.2 L, Chloride 99, Carbon Dioxide 29.0, Anion Gap 8, BUN 20 H, Creatinine 0.75, Estim Creat Clear Calc 106.33, Est GFR (MDRD) Af Amer 142, Est GFR (MDRD) Non-Af 118, BUN/Creatinine Ratio 26.8 H, Glucose 111 H, Calcium 7.8 L, Total Bilirubin 1.60 H, AST 37, ALT 20, Alkaline Phosphatase 82, Total Protein 6.2 L, Albumin 2.6 L, Globulin 3.6, Albumin/Globulin Ratio 0.7 L Micro: Microbiology 06/29/21 10:53 Urine Catheter - Abraham Urine Culture - Preliminary Culture exhibits no growth. 06/28/21 Unknown Sputum, Induced/Lukens Gram Stain - Final 06/28/21 Unknown Sputum, Induced/Lukens Respiratory Culture - Preliminary GNR lactose operations examiner Presumptive C albicans 06/28/21 11:00 Urine, Clean Catch Urine Culture - Final Staphylococcus species GPC Poss Enterococcus sp 06/28/21 09:01 Blood Culture (Wb) - Anticubital Left Blood Culture - Preliminary No growth in 48 hours. 06/28/21 08:31 Blood Culture (Wb) - Anticubital Right Blood Culture - Preliminary No growth in 48 hours. 06/28/21 22:40 Stool Stool Occult Blood (RADHA) - Final Occult Blood Positive 06/28/21 08:20 Nasal Secretion SARS-CoV-2 & FLU Antigen (Rapid) - Final Rhythm Strip Rhythm Strip: Sinus Tach Rate: 130 Ectopy: None Physical Exam Const Constitutional Narrative: intubated, sedated, RASS score is -4 General Appearance: cooperative Exam Limitations: altered mental status HEENT normocephalic, head/scalp atraumatic, hearing grossly normal bilaterally and moist oral mucous membranes Head and Scalp: normocephalic Eyes PERRL, EOMs intact bilaterally and conjunctivae normal Neck no lymphadenopathy Resp Resp Narrative: intubated, sedated, coarse crackles bibasally. Cardio regular rate, regular rhythm, S1 normal heart sound, S2 normal heart sound and no murmurs GI normal to inspection, nondistended, normoactive bowel sounds, soft to palpation, non-tender and non-distended GI Narrative: abdomen distended, no tenderness on palpation, audible bowel sounds. Extremity normal to inspection, full ROM and no clubbing, cyanosis or edema Peripheral Pulses: Yes pulses 2+ throughout Skin no rashes or lesions noted Neuro Neuro Narrative: intubated, sedated, RASS score is 0 Psych Psych Narrative: intubated, sedated Assessment & Plan Assessment/Plan (1) Sepsis due to pneumonia: (2) Aspiration pneumonia: (3) Acute and chronic respiratory failure with hypoxia: (4) Small bowel obstruction: PLAN: #Acute hypoxic respiratory failure due to aspiration pneumonia * remains intubated and sedated; now on minimal settings with FiO2 of 25% * on IV zosyn * RASS score is 0 * blood cultures pending * NG tube remains in place * breathing treatments with bronchodilators * urine for strep and legionella are negative * * #Sepsis due to probable aspiration pneumonia * As above * #Small bowel obstruction * Patient did not appear to have small bowel obstruction when he was admitted yesterday as he did not have any abdominal pain. It was thought that he had not had a bowel movement since 06/25/2021 but this was thought to be just constipation * However the abdominal distention worsened and so x-ray of the abdomen was done which showed dilated loops of bowel and was diagnosed with small bowel obstruction * NG tube in place and general surgery on board * for conservative management for now * He does have a history of small bowel obstructio * #Lactic acidosis: likely due to dehydration from sepsis and pneumonia. Should resolve with hydration. #Hypokalemia: K today is 3.2. Will replace and trend. #MRDD: stable. DVT prophylaxis: lovenox Code status: full code * Charges/Coding Visit Charges Inpatient E&M: [address] [facility] Hosp L3
--- NOTE | 2021-06-30 13:47 | PCM.PN.SRG ---
Subjective Subjective Patient remains intubated, being weaned down patient states that he has no abdominal pain when asked though communication is limited Objective Data Objective Data Vital Signs: Vital Signs Temp Pulse Resp BP Pulse Ox 99.2 F H 95 14 112/76 97 06/30/21 13:00 06/30/21 13:00 06/30/21 13:00 06/30/21 13:00 06/30/21 13:00 Oxygen Flow Rate (L/min) 84 Oxygen Delivery Method Mechanical Ventilator Weight: 83.2 kg Body Mass Index (BMI) 29.1 Intake & Output: Intake and Output for Last 24 Hours 06/28/21 06/29/21 06/30/21 23:59 23:59 23:59 Intake Total 3484.52 / 3517.22 1538.19 / 1543.19 1679.58 / 1679.58 Output Total 3615 / 3955 690 / 690 Balance 3484.52 / 1017.22 -2076.81 / -2411.81 989.58 / 989.58 Lab / Micro Data Result Diagrams: 06/30/21 03:42 06/30/21 03:42 Labs: Laboratory Results - last 24 hr 06/30/21 03:42: WBC 7.3, RBC 3.59 L, Hgb 11.2 L, Hct 33.3 L, MCV 92.8, MCH 31.2, MCHC 33.6, RDW Std Deviation 47.8 H, RDW Coeff of J Luis 13.9, Plt Count 129 L, MPV 11.3, Immature Gran % (Auto) 1.100 H, Neut % (Auto) 77.8 H, Lymph % (Auto) 10.3 L, [place] % (Auto) 10.0, Eos % (Auto) 0.7, Baso % (Auto) 0.1, Absolute Neuts (auto) 5.7, Absolute Lymphs (auto) 0.75 L, Nucleated RBC % 0 06/30/21 03:42: Sodium 136, Potassium 3.2 L, Chloride 99, Carbon Dioxide 29.0, Anion Gap 8, BUN 20 H, Creatinine 0.75, Estim Creat Clear Calc 106.33, Est GFR (MDRD) Af Amer 142, Est GFR (MDRD) Non-Af 118, BUN/Creatinine Ratio 26.8 H, Glucose 111 H, Calcium 7.8 L, Total Bilirubin 1.60 H, AST 37, ALT 20, Alkaline Phosphatase 82, Total Protein 6.2 L, Albumin 2.6 L, Globulin 3.6, Albumin/Globulin Ratio 0.7 L Micro: Microbiology 06/29/21 10:53 Urine Catheter - Abraham Urine Culture - Preliminary Culture exhibits no growth. 06/28/21 Unknown Sputum, Induced/Lukens Gram Stain - Final 06/28/21 Unknown Sputum, Induced/Lukens Respiratory Culture - Preliminary GNR lactose senior clinical data manager Presumptive C albicans 06/28/21 11:00 Urine, Clean Catch Urine Culture - Final Staphylococcus species GPC Poss Enterococcus sp 06/28/21 09:01 Blood Culture (Wb) - Anticubital Left Blood Culture - Preliminary No growth in 48 hours. 06/28/21 08:31 Blood Culture (Wb) - Anticubital Right Blood Culture - Preliminary No growth in 48 hours. 06/28/21 22:40 Stool Stool Occult Blood (RADHA) - Final Occult Blood Positive 06/28/21 08:20 Nasal Secretion SARS-CoV-2 & FLU Antigen (Rapid) - Final Rhythm Strip Rhythm Strip: Sinus Tach Rate: 130 Ectopy: None Physical Exam Const alert Orientation / Consciousness: awake Resp Resp Narrative: intubated on mechanical ventilatory support GI GI Narrative: abdomen unchanged exam Assessment & Plan Assessment/Plan (1) Ileus, unspecified: PLAN: Continue present therapy
[2021-07-01] VITALS (30 sets, daily range): BP systolic 95–135; BP diastolic 71–86; PULSE 87–112; RESP 14–42; TEMP 37.6–38.1; O2SAT 86–99
[2021-07-01 04:33] LABS: Absolute Lymphocyte Count 0.91 X10^3/uL (0.83-4.51); Absolute Neutrophil Count 7.5 X10^3/uL (2.0-7.7); Basophil# 0.03 X10^3/uL; Basophil% 0.3 % (0-1); Eosinophil# 0.09 X10^3/uL; Eosinophils% 0.9 % (0-5); Hematocrit 30.8 % (40-54); Hemoglobin 10.3 g/dL (13.0-16.5); Lymphocyte # 0.91 X10^3/ul (0.83-4.51); Lymphocyte % 9.4 % (19-41); Mean Corp Hgb Conc 33.4 g/dL (32-36); Mean Corpuscular Hgb 31.5 pg (27.0-32.0); Mean Corpuscular Volume 94.2 fL (80-94); Mean Platelet Vol. 10.8 fl (6.2-12.0); Monocyte% 9.3 % (0-10); NRBC Flagged by Analyzer 0.2 % (0-5); Neutrophil # 7.49 X10^3/uL (2.7-7.7); Neutrophil % 77.7 % (47-70); Platelet Count 149 K/mm3 (150-450); RBC Distribution Width CV 14.2 % (11.6-14.6); RBC Distribution Width SD 48.8 fl (35.1-43.9); Red Blood Count 3.27 M/mm3 (4.6-6.2); White Blood Count 9.7 K/mm3 (4.4-11.0)
[2021-07-01 05:00] LABS: ALB/GLOB Ratio 0.6 RATIO (0.9-2.4); AST(SGOT) 34 U/L (15-37); Alanine Aminotransfer ALT/SGPT 20 U/L (16-61); Albumin, Serum 2.3 g/dL (3.2-5.0); Alkaline Phosphatase 84 U/L (45-117); Anion Gap 12 (5-15); BUN 15 mg/dL (7-18); BUN/Creat Ratio 23.2 RATIO (10-20); Calcium,Total 7.6 mg/dL (8.5-10.1); Chloride 106 mmol/L (98-107); Creatinine, Serum 0.65 mg/dL (0.70-1.30); EST Glomerular Filtration Rate 139 mL/min (>60); Est Glom Filt Rate - Afr Amer 168 mL/min (>60); Estimated Creatinine Clearance 122.69 ml/min; Globulin 3.7 g/dL (2.2-4.2); Glucose 86 mg/dL (74-106); Potassium 3.3 mmol/L (3.5-5.1); Sodium Level 139 mmol/L (136-145)
[2021-07-01] MEDS: 0.9% Normal Saline 1,000 ML 125 ML IV ×2 (06:04→10:32)
[2021-07-01] MEDS: CHLORHEXIDINE GLUC 2% CLOTH 1 EACH TOWELETTE TOPICAL (06:04)
[2021-07-01] MEDS: Potassium Chloride 10mEq/100mL 10 MEQ/100 ML IV.SOLN. 100 MEQ IV BOLUS ×4 (06:40→10:31)
--- NOTE | 2021-07-01 06:55 | PN.CC_ITS ---
Assessment & Plan Assessment/Plan (1) Aspiration pneumonia: PLAN: RECOMMENDATIONS: 1. Proceed with trial of extubation. Wean FiO2/PEEP for saturations greater than 90%. 2. Continue empiric broad-spectrum antimicrobials, pending culture results. 3. Discontinue propofol and fentanyl 4. Continue PPI therapy as ordered. Continue Lovenox for DVT prophylaxis. 5. Possible need to place NG pending response. 6. Additional potassium repletion as ordered. IMPRESSIONS: 1. Acute hypoxemic respiratory failure secondary to gram-negative stephanie pneumonia Clinical concern for aspiration pneumonia as precipitating etiology in the setting of bowel obstruction. The patient will be continued on assist control mode of mechanical ventilation. FiO2 and PEEP will be weaned to maintain oxygen saturations at or above 90%. The patient does appear to be growing a gram- negative stephanie in the sputum. Await culture data. Patient will be extubated. 2. Sepsis secondary to gram-negative pneumonia The patient presented to the hospital with sepsis due to suspected aspiration pneumonia with acute sepsis related organ dysfunction as evidenced by acute respiratory failure requiring invasive mechanical ventilatory support, lactic acidemia, and altered mentation. Plan to continue supportive measures as noted above. 3. Bowel obstruction Continue conservative management per general surgery recommendations with gastric decompression with OG tube and PPI therapy. OG had to be removed with endotracheal tube. Defer to surgery on whether NG needs to be placed. 4. Hypokalemia Electrolyte repletion as ordered. 5. History of MRDD/depression/anxiety Complicates care, management, recovery and prognosis. Continue home medications as indicated. TIME: 38 minutes of critical care time, independent of procedures, was spent addressing the patient's acute hypoxemic respiratory failure, sepsis, bowel obstruction, hypokalemia, review of all data and collaboration with the care team. Subjective Subjective Patient did okay overnight. No acute issues were reported. Patient was able to pass a spontaneous breathing trial this morning for over an hour. Nursing did not report any significant secretions overnight. Patient denied any pain, nausea or shortness of breath during the trial. Patient was successfully extubated under my direct supervision. Objective Data Objective Data Vital Signs: Vital Signs Temp Pulse Resp BP Pulse Ox 37.9 C H 102 H 28 H 120/81 H 95 07/01/21 06:00 07/01/21 06:00 07/01/21 06:00 07/01/21 06:00 07/01/21 06:00 Oxygen Flow Rate (L/min) 84 Oxygen Delivery Method Mechanical Ventilator Weight: 83.8 kg Body Mass Index (BMI) 29.1 Intake & Output: Intake and Output for Last 24 Hours 06/29/21 06/30/21 07/01/21 23:59 23:59 23:59 Intake Total 1538.19 / 1543.19 3186.25 / 3188.75 1274.38 / 1274.38 Output Total 3615 / 3955 1040 / 1040 875 / 875 Balance -2076.81 / -2411.81 2146.25 / 2148.75 399.38 / 399.38 Lab / Micro Data Result Diagrams: 07/01/21 04:30 07/01/21 04:30 Labs: Laboratory Results - last 24 hr 07/01/21 04:30: WBC 9.7, RBC 3.27 L, Hgb 10.3 L, Hct 30.8 L, MCV 94.2 H, MCH 31.5, MCHC 33.4, RDW Std Deviation 48.8 H, RDW Coeff of J Luis 14.2, Plt Count 149 L, MPV 10.8, Immature Gran % (Auto) 2.400 H, Neut % (Auto) 77.7 H, Lymph % (Auto) 9.4 L, [place] % (Auto) 9.3, Eos % (Auto) 0.9, Baso % (Auto) 0.3, Absolute Neuts (auto) 7.5, Absolute Lymphs (auto) 0.91, Nucleated RBC % 0.2 07/01/21 04:30: Sodium 139, Potassium 3.3 L, Chloride 106, Carbon Dioxide 21.0, Anion Gap 12, BUN 15, Creatinine 0.65 L, Estim Creat Clear Calc 122.69, Est GFR (MDRD) Af Amer 168, Est GFR (MDRD) Non-Af 139, BUN/Creatinine Ratio 23.2 H, Glucose 86, Calcium 7.6 L, Total Bilirubin 1.30 H, AST 34, ALT 20, Alkaline Phosphatase 84, Total Protein 6.0 L, Albumin 2.3 L, Globulin 3.7, Albumin/Globulin Ratio 0.6 L Micro: Microbiology 06/29/21 10:53 Urine Catheter - Abraham Urine Culture - Preliminary Culture exhibits no growth. 06/28/21 Unknown Sputum, Induced/Lukens Gram Stain - Final 06/28/21 Unknown Sputum, Induced/Lukens Respiratory Culture - Preliminary GNR lactose softball core molder Presumptive C albicans 06/28/21 11:00 Urine, Clean Catch Urine Culture - Final Staphylococcus species GPC Poss Enterococcus sp 06/28/21 09:01 Blood Culture (Wb) - Anticubital Left Blood Culture - Preliminary No growth in 48 hours. 06/28/21 08:31 Blood Culture (Wb) - Anticubital Right Blood Culture - Preliminary No growth in 48 hours. 06/28/21 22:40 Stool Stool Occult Blood (RADHA) - Final Occult Blood Positive 06/28/21 08:20 Nasal Secretion SARS-CoV-2 & FLU Antigen (Rapid) - Final Rhythm Strip Rhythm Strip: Sinus Tach Rate: 130 Ectopy: None Physical Exam Const no apparent distress Constitutional Narrative: RASS 0 General Appearance: intubated and patient mechanically ventilated HEENT normocephalic and head/scalp atraumatic Mouth: endotracheal tube in place and OG tube in place Eyes PERRL and EOMs intact bilaterally Neck supple General: trachea midline Chest inspection of chest normal Resp Auscultation: diminished lung sounds; Negative for rales, rhonchi or wheezes Cardio S1 normal heart sound and S2 normal heart sound Rate: tachycardic GI soft to palpation Inspection: abdominal distention Auscultation: hypoactive bowel sounds Extremity no clubbing, cyanosis or edema Skin no rashes or lesions noted Neuro Sensorium / Orientation: sedated on vent Charges/Coding Procedures Hospitalists Procedures: [id number] Critial Care 1st Hr
--- NOTE | 2021-07-01 07:01 | NURSING ---
0697 pt extubated to 2l nc, tolerating well
--- NOTE | 2021-07-01 07:04 | CPS ---
pt extubated at this time and placed on a 2L NC.
[2021-07-01] MEDS: Ceftriaxone 1 GM/50 ML BAG IV (10:41)
[2021-07-01] MEDS: Senna/Docusate Sodium 1 Tablet 2 TABLET GT ×2 (10:43→21:08)
[2021-07-01] MEDS: Escitalopram Oxalate 10 MG Tablet GT (10:44)
[2021-07-01] MEDS: busPIRone 15 MG TABLET GT ×2 (10:44→21:09)
[2021-07-01] MEDS: Escitalopram Oxalate 10 MG Tablet 5 MG GT (10:44)
[2021-07-01] MEDS: Enoxaparin 40 MG/0.4 ML Syringe SC (10:45)
--- NOTE | 2021-07-01 11:21 | PN.SURG_ITS ---
Subjective Subjective patient extubated this morning patient denies abdominal pain - wants to go home nurses state that he is passing flatus and had small bowel movement Objective Data Objective Data Vital Signs: Vital Signs Temp Pulse Resp BP Pulse Ox 100.3 F H 101 H 26 H 113/81 H 97 07/01/21 09:00 07/01/21 09:00 07/01/21 09:00 07/01/21 09:00 07/01/21 10:26 Oxygen Flow Rate (L/min) 6 Oxygen Delivery Method Nasal Cannula Weight: 83.8 kg Body Mass Index (BMI) 29.1 Intake & Output: Intake and Output for Last 24 Hours 06/29/21 06/30/21 07/01/21 23:59 23:59 23:59 Intake Total 1538.19 / 1543.19 3186.25 / 3288.75 2222.71 / 2222.71 Output Total 3615 / 3955 1040 / 1040 875 / 875 Balance -2076.81 / -2411.81 2146.25 / 2248.75 1347.71 / 1347.71 Lab / Micro Data Result Diagrams: 07/01/21 04:30 07/01/21 04:30 Labs: Laboratory Results - last 24 hr 07/01/21 04:30: WBC 9.7, RBC 3.27 L, Hgb 10.3 L, Hct 30.8 L, MCV 94.2 H, MCH 3 1.5, MCHC 33.4, RDW Std Deviation 48.8 H, RDW Coeff of J Luis 14.2, Plt Count 149 L , MPV 10.8, Immature Gran % (Auto) 2.400 H, Neut % (Auto) 77.7 H, Lymph % (Auto) 9.4 L, [place] % (Auto) 9.3, Eos % (Auto) 0.9, Baso % (Auto) 0.3, Absolute Neuts (auto) 7.5, Absolute Lymphs (auto) 0.91, Nucleated RBC % 0.2 07/01/21 04:30: Sodium 139, Potassium 3.3 L, Chloride 106, Carbon Dioxide 21.0, Anion Gap 12, BUN 15, Creatinine 0.65 L, Estim Creat Clear Calc 122.69, Est GFR (MDRD) Af Amer 168, Est GFR (MDRD) Non-Af 139, BUN/Creatinine Ratio 23.2 H, Glucose 86, Calcium 7.6 L, Total Bilirubin 1.30 H, AST 34, ALT 20, Alkaline Phosphatase 84, Total Protein 6.0 L, Albumin 2.3 L, Globulin 3.7, Albumin/Leah bulin Ratio 0.6 L Micro: Microbiology 06/29/21 10:53 Urine Catheter - Abraham Urine Culture - Final Culture exhibits no growth. 06/28/21 Unknown Sputum, Induced/Lukens Gram Stain - Final 06/28/21 Unknown Sputum, Induced/Lukens Respiratory Culture - Final Klebsiella pneumoniae sp pneum Presumptive C albicans 06/28/21 11:00 Urine, Clean Catch Urine Culture - Final Staphylococcus species GPC Poss Enterococcus sp 06/28/21 09:01 Blood Culture (Wb) - Anticubital Left Blood Culture - Preliminary No growth in 48 hours. 06/28/21 08:31 Blood Culture (Wb) - Anticubital Right Blood Culture - Preliminary No growth in 48 hours. 06/28/21 22:40 Stool Stool Occult Blood (RADHA) - Final Occult Blood Positive 06/28/21 08:20 Nasal Secretion SARS-CoV-2 & FLU Antigen (Rapid) - Final Rhythm Strip Rhythm Strip: Sinus Tach Rate: 130 Ectopy: None Physical Exam Const alert and no apparent distress HEENT head/scalp atraumatic Neck supple Resp normal respiratory effort Effort and Inspection: able to speak in complete sentences GI GI Narrative: abdomen is protuberant, no tympany noted, soft no pain with palpation Assessment & Plan Assessment/Plan (1) Ileus, unspecified: PLAN: start patient on sips of clear liquids and observe for nausea/emesis/abdominal pain, if tolerates can advance slowly
--- NOTE | 2021-07-01 12:13 | PN.HOSP_ITS ---
Subjective Subjective Patient was able to be extubated this morning to 6 L nasal cannula. He has no current complaints and states that his abdomen is not painful and does not feel distended. It does not appear that he has had any bowel movements. He is asking if he can go home today. Objective Data Objective Data Vital Signs: Vital Signs Temp Pulse Resp BP Pulse Ox 100.3 F H 101 H 26 H 113/81 H 97 07/01/21 09:00 07/01/21 09:00 07/01/21 09:00 07/01/21 09:00 07/01/21 10:26 Oxygen Flow Rate (L/min) 6 Oxygen Delivery Method Nasal Cannula Weight: 83.8 kg Body Mass Index (BMI) 29.1 Intake & Output: Intake and Output for Last 24 Hours 06/29/21 06/30/21 07/01/21 23:59 23:59 23:59 Intake Total 1538.19 / 1543.19 3186.25 / 3288.75 2222.71 / 2222.71 Output Total 3615 / 3955 1040 / 1040 875 / 875 Balance -2076.81 / -2411.81 2146.25 / 2248.75 1347.71 / 1347.71 Lab / Micro Data Result Diagrams: 07/01/21 04:30 07/01/21 04:30 Labs: Laboratory Results - last 24 hr 07/01/21 04:30: WBC 9.7, RBC 3.27 L, Hgb 10.3 L, Hct 30.8 L, MCV 94.2 H, MCH 31.5, MCHC 33.4, RDW Std Deviation 48.8 H, RDW Coeff of J Luis 14.2, Plt Count 149 L, MPV 10.8, Immature Gran % (Auto) 2.400 H, Neut % (Auto) 77.7 H, Lymph % (Auto) 9.4 L, [place] % (Auto) 9.3, Eos % (Auto) 0.9, Baso % (Auto) 0.3, Absolute Neuts (auto) 7.5, Absolute Lymphs (auto) 0.91, Nucleated RBC % 0.2 07/01/21 04:30: Sodium 139, Potassium 3.3 L, Chloride 106, Carbon Dioxide 21.0, Anion Gap 12, BUN 15, Creatinine 0.65 L, Estim Creat Clear Calc 122.69, Est GFR (MDRD) Af Amer 168, Est GFR (MDRD) Non-Af 139, BUN/Creatinine Ratio 23.2 H, Glucose 86, Calcium 7.6 L, Total Bilirubin 1.30 H, AST 34, ALT 20, Alkaline Phosphatase 84, Total Protein 6.0 L, Albumin 2.3 L, Globulin 3.7, Albumin/Globulin Ratio 0.6 L Micro: Microbiology 06/29/21 10:53 Urine Catheter - Abraham Urine Culture - Final Culture exhibits no growth. 06/28/21 Unknown Sputum, Induced/Lukens Gram Stain - Final 06/28/21 Unknown Sputum, Induced/Lukens Respiratory Culture - Final Klebsiella pneumoniae sp pneum Presumptive C albicans 06/28/21 11:00 Urine, Clean Catch Urine Culture - Final Staphylococcus species GPC Poss Enterococcus sp 06/28/21 09:01 Blood Culture (Wb) - Anticubital Left Blood Culture - Preliminary No growth in 48 hours. 06/28/21 08:31 Blood Culture (Wb) - Anticubital Right Blood Culture - Preliminary No growth in 48 hours. 06/28/21 22:40 Stool Stool Occult Blood (RADHA) - Final Occult Blood Positive 06/28/21 08:20 Nasal Secretion SARS-CoV-2 & FLU Antigen (Rapid) - Final Rhythm Strip Rhythm Strip: Sinus Tach Rate: 130 Ectopy: None Physical Exam Const alert, no apparent distress and well nourished Constitutional Narrative: Overweight middle-aged white male sitting up in bed, currently on nasal cannula, appears comfortable and nontoxic Exam Limitations: no limitations Nutritional Appearance: overweight HEENT head/scalp atraumatic and moist oral mucous membranes HEENT Narrative: Small oropharynx with fair dentition, Mallampati is 3, no thrush Head and Scalp: normocephalic Resp normal respiratory effort, no retractions, no use of accessory muscles and No clear to auscultation bilaterally Resp Narrative: Decreased lung sounds bilaterally especially at the bases, few rhonchi noted at the right upper lung field that clear with cough Auscultation: rhonchi; Negative for crackles, rales or wheezes Cardio regular rate, regular rhythm, S1 normal heart sound, S2 normal heart sound, no murmurs, no rub, no gallops, no clicks and no JVD GI soft to palpation and non-tender; Negative for hepatosplenomegaly GI Narrative: Abdomen appears mildly distended and bowel sounds sound hypoactive at this time Extremity no clubbing, cyanosis or edema Peripheral Pulses: Yes pulses 2+ throughout Neuro CN's II-XII intact bilaterally, moves all extremities and no focal motor deficits Sensorium / Orientation: awake and alert Assessment & Plan Assessment/Plan (1) Acute respiratory failure with hypoxia: (2) Sepsis due to pneumonia: (3) Ileus, unspecified: (4) Small bowel obstruction: (5) Pneumonia: (6) Aspiration pneumonia: (7) Hypokalemia: PLAN: Acute hypoxic respiratory failure secondary to gram-negative pneumonia -Suspect aspiration of fecal material with nausea and vomiting and bowel ob struction -Patient was able to be extubated today 07/01/2021 and is currently requiring 6 L nasal cannula. -Sputum cultures are growing Klebsiella -Continue IV antibiotics--> narrowed to ceftriaxone today and will need a total of 7 days treatment--> day 3 of 7 -Continue as needed aerosols -Wean oxygen as needed -Will transition out of ICU tomorrow if patient remains stable -Appreciate pulm/critical care input Sepsis secondary to gram-negative pneumonia -Antibiotics as noted above day 3 of 7 -Sepsis has subsequently resolved with treatment Adynamic ileus/small bowel obstruction -It was documented by surgery the patient is having some flatus and stool output -NG will be remain removed and clear liquids will be attempted -Advance diet as able based on tolerance -Patient does have history with this in the past we will continue home medications upon discharge -General surgery is following Hypokalemia -Potassium is low this morning -40 mill equivalents of IV potassium ordered -Repeat lab in a.m. Lactic acidosis -Resolved MRDD -Stable OCD/impulse control disorder -Continue escitalopram -Continue clonazepam -Continue clozapine DVT/GI prophylaxis -Continue IV PPI -Continue enoxaparin -Continue SCDs CODE STATUS -Full code Charges/Coding Visit Charges Inpatient E&M: 85006 Subs Hosp L2
[2021-07-01] MEDS: Furosemide 20 MG/2 ML VIAL IV (12:48)
--- NOTE | 2021-07-01 13:57 | CASEMGMT ---
ELI spoke with patient's guardian, Rashmi. ELI updated her that patient is no longer on the ventilator. He was on 6L now 4L. They are going to try him on sips of clear liquid to see how he can tolerate that. Rashmi thanked ELI for the update. Tonya Chase [employer]PECTING [employer]YOR OLIVIA
--- NOTE | 2021-07-01 17:34 | NURSING ---
education re pneumonia defered d/t pt inability to comprehend.
--- NOTE | 2021-07-01 23:55 | NURSING ---
pt 96% on 2l nc attempted to remove o2 and his sats dropped to 87% on ra, 1l applied and pt stayed right at 89-90%, 2l nc re applied and will monitor
[2021-07-02] VITALS (14 sets, daily range): BP systolic 110–188; BP diastolic 69–86; PULSE 80–103; RESP 14–31; TEMP 36.6–37.8; O2SAT 93–100
--- NOTE | 2021-07-02 02:51 | NURSING ---
pt sat up in bed and repositioned self. on 1l nc at the time, (before moving he was at 97%) he de -sated to 70% had sustained for a min or 2, Non rebreather applied and resp called for tx. pt unable to speak in full sentences at this time with out coughing. will monitor
[2021-07-02] MEDS: Albuterol 2.5 MG/3 ML VIAL.NEB. INHALATION ×2 (02:56→09:07)
[2021-07-02 05:43] LABS: Absolute Lymphocyte Count 0.94 X10^3/uL (0.83-4.51); Absolute Neutrophil Count 8.1 X10^3/uL (2.0-7.7); Basophil# 0.06 X10^3/uL; Basophil% 0.6 % (0-1); Eosinophil# 0.14 X10^3/uL; Eosinophils% 1.3 % (0-5); Hemoglobin 10.9 g/dL (13.0-16.5); Lymphocyte # 0.94 X10^3/ul (0.83-4.51); Lymphocyte % 8.8 % (19-41); Mean Corp Hgb Conc 34.1 g/dL (32-36); Mean Corpuscular Hgb 31.3 pg (27.0-32.0); Mean Platelet Vol. 10.3 fl (6.2-12.0); Monocyte# 1.04 X10^3/uL; Monocyte% 9.7 % (0-10); NRBC Flagged by Analyzer 0.3 % (0-5); Neutrophil # 8.07 X10^3/uL (2.7-7.7); Neutrophil % 75.1 % (47-70); Platelet Count 166 K/mm3 (150-450); RBC Distribution Width CV 13.8 % (11.6-14.6); RBC Distribution Width SD 46.7 fl (35.1-43.9); Red Blood Count 3.48 M/mm3 (4.6-6.2); White Blood Count 10.7 K/mm3 (4.4-11.0)
[2021-07-02 06:00] LABS: ALB/GLOB Ratio 0.6 RATIO (0.9-2.4); AST(SGOT) 41 U/L (15-37); Alanine Aminotransfer ALT/SGPT 34 U/L (16-61); Albumin, Serum 2.4 g/dL (3.2-5.0); Alkaline Phosphatase 148 U/L (45-117); Anion Gap 7 (5-15); BUN 8 mg/dL (7-18); BUN/Creat Ratio 15.5 RATIO (10-20); Calcium,Total 7.8 mg/dL (8.5-10.1); Chloride 101 mmol/L (98-107); Creatinine, Serum 0.52 mg/dL (0.70-1.30); EST Glomerular Filtration Rate 180 mL/min (>60); Est Glom Filt Rate - Afr Amer 218 mL/min (>60); Estimated Creatinine Clearance 153.37 ml/min; Globulin 3.7 g/dL (2.2-4.2); Glucose 113 mg/dL (74-106); Magnesium 2.2 mg/dL (1.6-2.6); Potassium 3.2 mmol/L (3.5-5.1); Protein, Total 6.1 g/dL (6.4-8.2); Sodium Level 136 mmol/L (136-145)
[2021-07-02] MEDS: Potassium Chloride Oral Tablet 20 MEQ 40 MEQ PO (06:46)
--- NOTE | 2021-07-02 06:46 | PCM.PN.INT ---
Assessment & Plan Assessment/Plan (1) Aspiration pneumonia: PLAN: RECOMMENDATIONS: 1. Increase activity as tolerated. Wean FiO2/PEEP for saturations greater than 90%. 2. Completed total of 7 days of antibiotics 3. Advance diet per surgery 4. Continue PPI therapy as ordered. Continue Lovenox for DVT prophylaxis. 5. Challenge of diuretics 6. Additional potassium repletion as ordered. 7. Okay to leave the intensive care unit from my perspective IMPRESSIONS: 1. Acute hypoxemic respiratory failure secondary to Klebsiella pneumonia Clinical concern for aspiration pneumonia as precipitating etiology in the setting of bowel obstruction. Patient did okay overnight, but is having significant shortness of breath on exertion. Patient on minimal supplemental oxygen at rest. Exertional hypoxemia may be secondary to an element of pulmonary hypertension. Patient will receive diuretics. Okay to leave the intensive care unit from my perspective. 2. Sepsis secondary to Klebsiella pneumonia The patient presented to the hospital with sepsis due to suspected aspiration pneumonia with acute sepsis related organ dysfunction as evidenced by acute respiratory failure requiring invasive mechanical ventilatory support, lactic acidemia, and altered mentation. Plan to continue supportive measures as noted above. 3. Bowel obstruction Continue conservative management per general surgery recommendations with gastric decompression with OG tube and PPI therapy. OG had to be removed with endotracheal tube. Defer to surgery on whether NG needs to be placed. Patient still has significant abdominal distention, but no nausea or vomiting of been reported. 4. Hypokalemia Electrolyte repletion as ordered. 5. History of MRDD/depression/anxiety Complicates care, management, recovery and prognosis. Continue home medications as indicated. Subjective Subjective The patient did well overnight. Nursing did report patient desaturated significantly with any ambulation. Patient did have a watery bowel movement overnight. No nausea or vomiting is been reported. Patient is denying any pain. Objective Data Objective Data Vital Signs: Vital Signs Temp Pulse Resp BP Pulse Ox 37.7 C H 88 27 H 188/73 H 94 07/02/21 05:00 07/02/21 05:00 07/02/21 05:00 07/02/21 05:00 07/02/21 05:00 Oxygen Flow Rate (L/min) 2 Oxygen Delivery Method Nasal Cannula Weight: 84.9 kg Body Mass Index (BMI) 29.1 Intake & Output: Intake and Output for Last 24 Hours 05/08/22 05/09/22 05/10/22 23:59 23:59 23:59 Intake Total 3186.25 / 3288.75 3631.46 / 3631.46 Output Total 1040 / 1040 3080 / 3080 1175 / 1175 Balance 2146.25 / 2248.75 551.46 / 551.46 -1175 / -1175 Lab / Micro Data Result Diagrams: 07/02/21 05:30 07/02/21 05:30 Labs: Laboratory Results - last 24 hr 07/02/21 05:30: WBC 10.7, RBC 3.48 L, Hgb 10.9 L, Hct 32.0 L, MCV 92.0, MCH 31.3, MCHC 34.1, RDW Std Deviation 46.7 H, RDW Coeff of J Luis 13.8, Plt Count 166, MPV 10.3, Immature Gran % (Auto) 4.500 H, Neut % (Auto) 75.1 H, Lymph % (Auto) 8.8 L, [place] % (Auto) 9.7, Eos % (Auto) 1.3, Baso % (Auto) 0.6, Absolute Neuts (auto) 8.1 H, Absolute Lymphs (auto) 0.94, Nucleated RBC % 0.3 07/02/21 05:30: Sodium 136, Potassium 3.2 L, Chloride 101, Carbon Dioxide 28.0, Anion Gap 7, BUN 8, Creatinine 0.52 L, Estim Creat Clear Calc 153.37, Est GFR (MDRD) Af Amer 218, Est GFR (MDRD) Non-Af 180, BUN/Creatinine Ratio 15.5, Glucose 113 H, Calcium 7.8 L, Magnesium 2.2, Total Bilirubin 1.80 H, AST 41 H, ALT 34, Alkaline Phosphatase 148 H, Total Protein 6.1 L, Albumin 2.4 L, Globulin 3.7, Albumin/Globulin Ratio 0.6 L Micro: Microbiology 06/29/21 10:53 Urine Catheter - Abraham Urine Culture - Final Culture exhibits no growth. 06/28/21 Unknown Sputum, Induced/Lukens Gram Stain - Final 06/28/21 Unknown Sputum, Induced/Lukens Respiratory Culture - Final Klebsiella pneumoniae sp pneum Presumptive C albicans 06/28/21 11:00 Urine, Clean Catch Urine Culture - Final Staphylococcus species GPC Poss Enterococcus sp 06/28/21 09:01 Blood Culture (Wb) - Anticubital Left Blood Culture - Preliminary No growth in 48 hours. 06/28/21 08:31 Blood Culture (Wb) - Anticubital Right Blood Culture - Preliminary No growth in 48 hours. 06/28/21 22:40 Stool Stool Occult Blood (RADHA) - Final Occult Blood Positive 06/28/21 08:20 Nasal Secretion SARS-CoV-2 & FLU Antigen (Rapid) - Final Rhythm Strip Rhythm Strip: Sinus Tach Rate: 130 Ectopy: None Physical Exam Const alert and no apparent distress Constitutional Narrative: RASS 0 General Appearance: cooperative and comfortable HEENT normocephalic and head/scalp atraumatic Eyes PERRL and EOMs intact bilaterally Neck supple General: trachea midline Chest inspection of chest normal Resp Auscultation: diminished lung sounds; Negative for rales, rhonchi or wheezes Cardio S1 normal heart sound and S2 normal heart sound Rate: tachycardic GI soft to palpation Inspection: abdominal distention Auscultation: hypoactive bowel sounds Extremity no clubbing, cyanosis or edema Skin no rashes or lesions noted Neuro CN's II-XII intact bilaterally, moves all extremities and no focal motor deficits Charges/Coding Visit Charges Inpatient E&M: 41537 Subs Hosp L3
[2021-07-02] MEDS: 0.9% Saline Lock 10 ML Syringe IV (06:47)
[2021-07-02] MEDS: Escitalopram Oxalate 10 MG Tablet PO (06:47)
[2021-07-02] MEDS: Escitalopram Oxalate 10 MG Tablet 5 MG PO (06:47)
[2021-07-02] MEDS: Potassium Chloride 10mEq/100mL 10 MEQ/100 ML IV.SOLN. 100 MEQ IV BOLUS ×4 (06:47→11:56)
[2021-07-02] MEDS: Furosemide 20 MG/2 ML VIAL IV (06:50)
[2021-07-02] MEDS: Ceftriaxone 1 GM/50 ML BAG IV (09:27)
[2021-07-02] MEDS: Senna/Docusate Sodium 1 Tablet 2 TABLET PO ×2 (09:28→20:08)
[2021-07-02] MEDS: clonazePAM 0.5 MG Tablet PO (09:28)
[2021-07-02] MEDS: busPIRone 15 MG TABLET PO ×2 (09:29→20:09)
[2021-07-02] MEDS: Enoxaparin 40 MG/0.4 ML Syringe SC (09:29)
--- NOTE | 2021-07-02 10:00 | NURSING ---
Spoke to patient's guardian, Rashmi, who stated that if anyone from the prison wishes to visit she is ok with it. Rashmi stated that she is unable to visit.
--- NOTE | 2021-07-02 12:07 | PN.SURG_ITS ---
Subjective Subjective Patient denies abdominal pain, had two small soft bowel movements patient is passing flatus Objective Data Objective Data Vital Signs: Vital Signs Temp Pulse Resp BP Pulse Ox 100.0 F H 88 16 168/69 H 96 07/02/21 08:00 07/02/21 09:08 07/02/21 09:08 07/02/21 08:00 07/02/21 09:00 Oxygen Flow Rate (L/min) 2 Oxygen Delivery Method Nasal Cannula Weight: 84.9 kg Body Mass Index (BMI) 29.1 Intake & Output: Intake and Output for Last 24 Hours 06/30/21 07/01/21 07/02/21 23:59 23:59 23:59 Intake Total 3186.25 / 3288.75 3631.46 / 3631.46 350 / 350 Output Total 1040 / 1040 3080 / 3080 1175 / 1175 Balance 2146.25 / 2248.75 551.46 / 551.46 -825 / -825 Lab / Micro Data Result Diagrams: 07/02/21 05:30 07/02/21 05:30 Labs: Laboratory Results - last 24 hr 07/02/21 05:30: WBC 10.7, RBC 3.48 L, Hgb 10.9 L, Hct 32.0 L, MCV 92.0, MCH 31.3, MCHC 34.1, RDW Std Deviation 46.7 H, RDW Coeff of J Luis 13.8, Plt Count 166, MPV 10.3, Immature Gran % (Auto) 4.500 H, Neut % (Auto) 75.1 H, Lymph % (Auto) 8.8 L, [place] % (Auto) 9.7, Eos % (Auto) 1.3, Baso % (Auto) 0.6, Absolute Neuts (auto) 8.1 H, Absolute Lymphs (auto) 0.94, Nucleated RBC % 0.3 07/02/21 05:30: Sodium 136, Potassium 3.2 L, Chloride 101, Carbon Dioxide 28.0, Anion Gap 7, BUN 8, Creatinine 0.52 L, Estim Creat Clear Calc 153.37, Est GFR (MDRD) Af Amer 218, Est GFR (MDRD) Non-Af 180, BUN/Creatinine Ratio 15.5, Glucose 113 H, Calcium 7.8 L, Magnesium 2.2, Total Bilirubin 1.80 H, AST 41 H, ALT 34, Alkaline Phosphatase 148 H, Total Protein 6.1 L, Albumin 2.4 L, Globulin 3.7, Albumin/Globulin Ratio 0.6 L Micro: Microbiology 06/29/21 10:53 Urine Catheter - Abraham Urine Culture - Final Culture exhibits no growth. 06/28/21 Unknown Sputum, Induced/Lukens Gram Stain - Final 06/28/21 Unknown Sputum, Induced/Lukens Respiratory Culture - Final Klebsiella pneumoniae sp pneum Presumptive C albicans 06/28/21 11:00 Urine, Clean Catch Urine Culture - Final Staphylococcus species GPC Poss Enterococcus sp 06/28/21 09:01 Blood Culture (Wb) - Anticubital Left Blood Culture - Preliminary No growth in 48 hours. 06/28/21 08:31 Blood Culture (Wb) - Anticubital Right Blood Culture - Preliminary No growth in 48 hours. 06/28/21 22:40 Stool Stool Occult Blood (RADHA) - Final Occult Blood Positive 06/28/21 08:20 Nasal Secretion SARS-CoV-2 & FLU Antigen (Rapid) - Final Rhythm Strip Rhythm Strip: Sinus Tach Rate: 130 Ectopy: None Physical Exam Const alert and no apparent distress GI GI Narrative: abdomen is soft and protuberant and benign Assessment & Plan Assessment/Plan (1) Ileus, unspecified: PLAN: ileus seems to be resolving advance to regular diet
--- NOTE | 2021-07-02 12:34 | PN.HOSP_ITS ---
Subjective Subjective No issues overnight. Patient desats with ambulation and required 6 L however he is down to 2 L at rest. He continues to ask when he can go home. He is having stool production and passing flatus however abdomen continues to appear mildly distended. Objective Data Objective Data Vital Signs: Vital Signs Temp Pulse Resp BP Pulse Ox 100.0 F H 88 16 168/69 H 96 07/02/21 08:00 07/02/21 09:08 07/02/21 09:08 07/02/21 08:00 07/02/21 09:00 Oxygen Flow Rate (L/min) 2 Oxygen Delivery Method Nasal Cannula Weight: 84.9 kg Body Mass Index (BMI) 29.1 Intake & Output: Intake and Output for Last 24 Hours 06/30/21 07/01/21 07/02/21 23:59 23:59 23:59 Intake Total 3186.25 / 3288.75 3631.46 / 3631.46 350 / 350 Output Total 1040 / 1040 3080 / 3080 1175 / 1175 Balance 2146.25 / 2248.75 551.46 / 551.46 -825 / -825 Lab / Micro Data Result Diagrams: 07/02/21 05:30 07/02/21 05:30 Labs: Laboratory Results - last 24 hr 07/02/21 05:30: WBC 10.7, RBC 3.48 L, Hgb 10.9 L, Hct 32.0 L, MCV 92.0, MCH 31.3, MCHC 34.1, RDW Std Deviation 46.7 H, RDW Coeff of J Luis 13.8, Plt Count 166, MPV 10.3, Immature Gran % (Auto) 4.500 H, Neut % (Auto) 75.1 H, Lymph % (Auto) 8.8 L, [place] % (Auto) 9.7, Eos % (Auto) 1.3, Baso % (Auto) 0.6, Absolute Neuts (auto) 8.1 H, Absolute Lymphs (auto) 0.94, Nucleated RBC % 0.3 07/02/21 05:30: Sodium 136, Potassium 3.2 L, Chloride 101, Carbon Dioxide 28.0, Anion Gap 7, BUN 8, Creatinine 0.52 L, Estim Creat Clear Calc 153.37, Est GFR (MDRD) Af Amer 218, Est GFR (MDRD) Non-Af 180, BUN/Creatinine Ratio 15.5, Glucose 113 H, Calcium 7.8 L, Magnesium 2.2, Total Bilirubin 1.80 H, AST 41 H, ALT 34, Alkaline Phosphatase 148 H, Total Protein 6.1 L, Albumin 2.4 L, Globulin 3.7, Albumin/Globulin Ratio 0.6 L Micro: Microbiology 06/29/21 10:53 Urine Catheter - Abraham Urine Culture - Final Culture exhibits no growth. 06/28/21 Unknown Sputum, Induced/Lukens Gram Stain - Final 06/28/21 Unknown Sputum, Induced/Lukens Respiratory Culture - Final Klebsiella pneumoniae sp pneum Presumptive C albicans 06/28/21 11:00 Urine, Clean Catch Urine Culture - Final Staphylococcus species GPC Poss Enterococcus sp 06/28/21 09:01 Blood Culture (Wb) - Anticubital Left Blood Culture - Preliminary No growth in 48 hours. 06/28/21 08:31 Blood Culture (Wb) - Anticubital Right Blood Culture - Preliminary No growth in 48 hours. 06/28/21 22:40 Stool Stool Occult Blood (RADHA) - Final Occult Blood Positive 06/28/21 08:20 Nasal Secretion SARS-CoV-2 & FLU Antigen (Rapid) - Final Rhythm Strip Rhythm Strip: Sinus Tach Rate: 130 Ectopy: None Physical Exam Const alert, no apparent distress and well nourished Constitutional Narrative: Overweight middle-aged white male sitting up in bed, currently on nasal cannula, appears comfortable and nontoxic General Appearance: cooperative Exam Limitations: no limitations and altered mental status Nutritional Appearance: overweight HEENT normocephalic, head/scalp atraumatic, hearing grossly normal bilaterally and moist oral mucous membranes HEENT Narrative: Mallampati 3, no thrush Head and Scalp: normocephalic Resp normal respiratory effort, no retractions, no use of accessory muscles and clear to auscultation bilaterally Resp Narrative: Diminished bases but clear Auscultation: crackles, rales, rhonchi and wheezes Cardio regular rate, regular rhythm, S1 normal heart sound, S2 normal heart sound, no murmurs, no rub, no gallops, no clicks and no JVD GI soft to palpation, non-tender and non-distended; Negative for hepatosplenomegaly GI Narrative: Abdomen appears mildly distended and bowel sounds sound hypoactive at this time Extremity normal to inspection, full ROM and no clubbing, cyanosis or edema Peripheral Pulses: Yes pulses 2+ throughout Neuro moves all extremities and no focal motor deficits Sensorium / Orientation: awake and alert Assessment & Plan Assessment/Plan (1) Acute respiratory failure with hypoxia: (2) Sepsis due to pneumonia: (3) Ileus, unspecified: (4) Small bowel obstruction: (5) Pneumonia: (6) Aspiration pneumonia: (7) Hypokalemia: PLAN: Acute hypoxic respiratory failure secondary to Klebsiella pneumonia -Suspect aspiration of fecal material with nausea and vomiting and bowel obstruction -Patient was able to be extubated today 07/01/2021 and is currently requiring 2 L nasal cannula with rest and required 6 overnight with exertion -Sputum cultures are growing Klebsiella -Lasix--> Discontinue Abraham later today -Continue IV ceftriaxone-->will need a total of 7 days treatment--> day 4 of 7 -Continue as needed aerosols -Wean oxygen as needed -Transfer to [facility] -Appreciate pulm/critical care input Sepsis secondary to gram-negative pneumonia -Antibiotics as noted above day 4 of 7 -Sepsis has subsequently resolved with treatment Adynamic ileus/small bowel obstruction -Patient having flatus and stool output -Surgery has advance his diet to regular diet -This has been problematic for the patient in the past -General surgery is following-appreciate input Hypokalemia -Potassium is low again this morning -40 mill equivalents of IV potassium ordered -Repeat lab in a.m. -Mag level normal this morning MRDD -Stable OCD/impulse control disorder -Continue escitalopram -Continue clonazepam -Continue clozapine DVT/GI prophylaxis -Continue IV PPI -Continue enoxaparin -Continue SCDs CODE STATUS -Full code Charges/Coding Visit Charges Inpatient E&M: 46030 Subs Hosp L2
--- NOTE | 2021-07-02 14:20 | NURSING ---
Patient pulse ox 98% on room air. oxygen removed and pulse ox remained at 97% at rest. Ambulated patient to restroom on room air. Patient's pulse ox dropped to 83% on room air. 2L NC placed back on patient and he recovered to 95%. Ambulated back to the chair with 2L NC and pulse ox was 94%. Patient pulse ox 97% at rest on 2L NC after ambulating.
[2021-07-02] MEDS: Ensure Clear 120 ML Liquid PO ×3 (14:22→20:07)
[2021-07-02] MEDS: clonazePAM 1 MG Tablet PO (17:02)
[2021-07-03 02:10] VITALS: BP 130/70; PULSE 98; RESP 14; TEMP 36.6; O2SAT 96
[2021-07-03 05:23] LABS: Basophil# 0.04 X10^3/uL; Basophil% 0.4 % (0-1); Eosinophil# 0.17 X10^3/uL; Eosinophils% 1.5 % (0-5); Hematocrit 34.5 % (40-54); Hemoglobin 11.9 g/dL (13.0-16.5); Lymphocyte % 10.8 % (19-41); Mean Corp Hgb Conc 34.5 g/dL (32-36); Mean Corpuscular Hgb 31.5 pg (27.0-32.0); Mean Corpuscular Volume 91.3 fL (80-94); Mean Platelet Vol. 10.4 fl (6.2-12.0); Monocyte# 1.23 X10^3/uL; Monocyte% 11.1 % (0-10); NRBC Flagged by Analyzer 0.3 % (0-5); Neutrophil # 7.99 X10^3/uL (2.7-7.7); Neutrophil % 72.1 % (47-70); Platelet Count 191 K/mm3 (150-450); RBC Distribution Width CV 13.5 % (11.6-14.6); Red Blood Count 3.78 M/mm3 (4.6-6.2); White Blood Count 11.1 K/mm3 (4.4-11.0)
[2021-07-03 05:44] LABS: Anion Gap 6 (5-15); BUN 14 mg/dL (7-18); BUN/Creat Ratio 20.5 RATIO (10-20); Calcium,Total 8.3 mg/dL (8.5-10.1); Chloride 102 mmol/L (98-107); Creatinine, Serum 0.68 mg/dL (0.70-1.30); EST Glomerular Filtration Rate 130 mL/min (>60); Est Glom Filt Rate - Afr Amer 157 mL/min (>60); Estimated Creatinine Clearance 117.28 ml/min; Glucose 136 mg/dL (74-106); Potassium 3.5 mmol/L (3.5-5.1); Sodium Level 138 mmol/L (136-145)
--- NOTE | 2021-07-03 06:28 | PCM.PN.INT ---
Assessment & Plan Assessment/Plan (1) Aspiration pneumonia: PLAN: RECOMMENDATIONS: 1. Increase activity as tolerated. Wean FiO2/PEEP for saturations greater than 90%. 2. Completed total of 7 days of antibiotics 3. Advance diet per surgery 4. Continue PPI therapy as ordered. Continue Lovenox for DVT prophylaxis. 5. Encourage incentive spirometer 6. Additional potassium repletion as ordered. 7. Okay to discharge from a pulmonary perspective with 2-week follow-up with nurse practitioner IMPRESSIONS: 1. Acute hypoxemic respiratory failure secondary to Klebsiella pneumonia Clinical concern for aspiration pneumonia as precipitating etiology in the setting of bowel obstruction. Patient continues to improve. Patient on minimal supplemental oxygen at rest. Exertional hypoxemia may be secondary to an element of pulmonary hypertension. Patient with good diuresis yesterday. Continue to encourage incentive spirometer. Likely okay to discharge on supplemental oxygen. Patient should follow-up in our office with nurse practitioner in 2 weeks. Patient will likely need a repeat chest x-ray in 4 to 6 weeks to document resolution. 2. Sepsis secondary to Klebsiella pneumonia The patient presented to the hospital with sepsis due to suspected aspiration pneumonia with acute sepsis related organ dysfunction as evidenced by acute respiratory failure requiring invasive mechanical ventilatory support, lactic acidemia, and altered mentation. Plan to continue supportive measures as noted above. 3. Bowel obstruction SBO appears to be improving. Patient tolerating lack of OG suctioning well despite continued distention. OG had to be removed with endotracheal tube. Defer to surgery on whether NG needs to be placed. Patient still has significant abdominal distention, but no nausea or vomiting of been reported. 4. Hypokalemia Electrolyte repletion as ordered. 5. History of MRDD/depression/anxiety Complicates care, management, recovery and prognosis. Continue home medications as indicated. Subjective Subjective Patient did well overnight. No acute issues were reported. Patient did desaturate with ambulation, but continues to improve at rest. Patient did have 2 bowel movements yesterday. No nausea or vomiting is reported. Objective Data Objective Data Vital Signs: Vital Signs Temp Pulse Resp BP Pulse Ox 36.6 C 98 14 130/70 H 96 07/03/21 02:10 07/03/21 02:10 07/03/21 02:10 07/03/21 02:10 07/03/21 02:10 Oxygen Flow Rate (L/min) 2 Oxygen Delivery Method Nasal Cannula Weight: 81.8 kg Body Mass Index (BMI) 29.1 Intake & Output: Intake and Output for Last 24 Hours 07/01/21 07/02/21 07/03/21 23:59 23:59 23:59 Intake Total 3631.46 / 3631.46 930 / 1130 200 / 200 Output Total 3080 / 3080 2950 / 3150 200 / 200 Balance 551.46 / 551.46 -2019 / -2019 0 / 0 Lab / Micro Data Result Diagrams: 07/03/21 05:15 07/03/21 05:15 Labs: Laboratory Results - last 24 hr 07/03/21 05:15: WBC 11.1 H, RBC 3.78 L, Hgb 11.9 L, Hct 34.5 L, MCV 91.3, MCH 31.5, MCHC 34.5, RDW Std Deviation 45.0 H, RDW Coeff of J Luis 13.5, Plt Count 191, MPV 10.4, Immature Gran % (Auto) 4.100 H, Neut % (Auto) 72.1 H, Lymph % (Auto) 10.8 L, [place] % (Auto) 11.1 H, Eos % (Auto) 1.5, Baso % (Auto) 0.4, Absolute Neuts (auto) 8.0 H, Absolute Lymphs (auto) 1.20, Nucleated RBC % 0.3 07/03/21 05:15: Sodium 138, Potassium 3.5, Chloride 102, Carbon Dioxide 30.0, Anion Gap 6, BUN 14, Creatinine 0.68 L, Estim Creat Clear Calc 117.28, Est GFR (MDRD) Af Amer 157, Est GFR (MDRD) Non-Af 130, BUN/Creatinine Ratio 20.5 H, Glucose 136 H, Calcium 8.3 L Micro: Microbiology 06/29/21 10:53 Urine Catheter - Abraham Urine Culture - Final Culture exhibits no growth. 06/28/21 Unknown Sputum, Induced/Lukens Gram Stain - Final 06/28/21 Unknown Sputum, Induced/Lukens Respiratory Culture - Final Klebsiella pneumoniae sp pneum Presumptive C albicans 06/28/21 11:00 Urine, Clean Catch Urine Culture - Final Staphylococcus species GPC Poss Enterococcus sp 06/28/21 09:01 Blood Culture (Wb) - Anticubital Left Blood Culture - Preliminary No growth in 48 hours. 06/28/21 08:31 Blood Culture (Wb) - Anticubital Right Blood Culture - Preliminary No growth in 48 hours. 06/28/21 22:40 Stool Stool Occult Blood (RADHA) - Final Occult Blood Positive 06/28/21 08:20 Nasal Secretion SARS-CoV-2 & FLU Antigen (Rapid) - Final Rhythm Strip Rhythm Strip: Sinus Tach Rate: 130 Ectopy: None Physical Exam Const alert and no apparent distress Constitutional Narrative: Resting comfortably. Slightly diaphoretic, but afebrile General Appearance: cooperative and comfortable HEENT normocephalic and head/scalp atraumatic Eyes PERRL and EOMs intact bilaterally Neck supple General: trachea midline Chest inspection of chest normal Resp Auscultation: diminished lung sounds; Negative for rales, rhonchi or wheezes Cardio S1 normal heart sound and S2 normal heart sound Rate: tachycardic GI soft to palpation Inspection: abdominal distention Auscultation: hypoactive bowel sounds Extremity no clubbing, cyanosis or edema Skin no rashes or lesions noted Neuro CN's II-XII intact bilaterally, moves all extremities and no focal motor deficits Charges/Coding Visit Charges Inpatient E&M: 75208 Subs Hosp L2
[2021-07-03] MEDS: Escitalopram Oxalate 10 MG Tablet PO (06:37)
[2021-07-03] MEDS: Escitalopram Oxalate 10 MG Tablet 5 MG PO (06:37)
[2021-07-03 07:57] VITALS: O2SAT 95
[2021-07-03 08:27] VITALS: BP 142/90; PULSE 93; RESP 18; TEMP 36.3; O2SAT 97
[2021-07-03] MEDS: Senna/Docusate Sodium 1 Tablet 2 TABLET PO ×2 (09:50→22:05)
[2021-07-03] MEDS: Enoxaparin 40 MG/0.4 ML Syringe SC (09:51)
[2021-07-03] MEDS: busPIRone 15 MG TABLET PO ×2 (09:51→22:05)
[2021-07-03] MEDS: clonazePAM 0.5 MG Tablet PO (09:54)
[2021-07-03] MEDS: Ceftriaxone 1 GM/50 ML BAG IV (09:55)
[2021-07-03] MEDS: Ensure Clear 120 ML Liquid PO ×3 (10:05→17:27)
--- NOTE | 2021-07-03 10:28 | PCM.PN.HOSP ---
Subjective Subjective Patient sleeping this morning during my exam however he was awake earlier and per nursing he was doing well and asking when he can go home. He remains on 2 L nasal cannula however oxygenation appears to be between 96 and 98%. I have asked nursing to wean this. He was still having desaturation with exertion and we will assess him for oxygenation with exertion later today. I do feel if he continues to do well with his p.o. intake and with regards to his pneumonia he will likely be able to go home tomorrow. He is able to return to his long term. Objective Data Objective Data Vital Signs: Vital Signs Temp Pulse Resp BP Pulse Ox 97.3 F L 93 18 142/90 H 97 07/03/21 08:27 07/03/21 08:27 07/03/21 08:27 07/03/21 08:27 07/03/21 08:27 Oxygen Flow Rate (L/min) 2 Oxygen Delivery Method Room Air Weight: 81.8 kg Body Mass Index (BMI) 29.1 Intake & Output: Intake and Output for Last 24 Hours 07/01/21 07/02/21 07/03/21 23:59 23:59 23:59 Intake Total 3631.46 / 3631.46 930 / 1130 250 / 250 Output Total 3080 / 3080 2950 / 3150 200 / 200 Balance 551.46 / 551.46 -2019 / 50 / 50 Lab / Micro Data Result Diagrams: 07/03/21 05:15 07/03/21 05:15 Labs: Laboratory Results - last 24 hr 07/03/21 05:15: WBC 11.1 H, RBC 3.78 L, Hgb 11.9 L, Hct 34.5 L, MCV 91.3, MCH 31.5, MCHC 34.5, RDW Std Deviation 45.0 H, RDW Coeff of J Luis 13.5, Plt Count 191, MPV 10.4, Immature Gran % (Auto) 4.100 H, Neut % (Auto) 72.1 H, Lymph % (Auto) 10.8 L, [place] % (Auto) 11.1 H, Eos % (Auto) 1.5, Baso % (Auto) 0.4, Absolute Neuts (auto) 8.0 H, Absolute Lymphs (auto) 1.20, Nucleated RBC % 0.3 07/03/21 05:15: Sodium 138, Potassium 3.5, Chloride 102, Carbon Dioxide 30.0, Anion Gap 6, BUN 14, Creatinine 0.68 L, Estim Creat Clear Calc 117.28, Est GFR (MDRD) Af Amer 157, Est GFR (MDRD) Non-Af 130, BUN/Creatinine Ratio 20.5 H, Glucose 136 H, Calcium 8.3 L Micro: Microbiology 06/28/21 08:31 Blood Culture (Wb) - Anticubital Right Blood Culture - Final No growth in 5 days. 06/28/21 09:01 Blood Culture (Wb) - Anticubital Left Blood Culture - Final No growth. 06/29/21 10:53 Urine Catheter - Abraham Urine Culture - Final Culture exhibits no growth. 06/28/21 Unknown Sputum, Induced/Lukens Gram Stain - Final 06/28/21 Unknown Sputum, Induced/Lukens Respiratory Culture - Final Klebsiella pneumoniae sp pneum Presumptive C albicans 06/28/21 11:00 Urine, Clean Catch Urine Culture - Final Staphylococcus species GPC Poss Enterococcus sp 06/28/21 22:40 Stool Stool Occult Blood (RADHA) - Final Occult Blood Positive 06/28/21 08:20 Nasal Secretion SARS-CoV-2 & FLU Antigen (Rapid) - Final Rhythm Strip Rhythm Strip: Sinus Tach Rate: 130 Ectopy: None Physical Exam Const well nourished Constitutional Narrative: Overweight middle-aged lying in bed sleeping comfortably, nontoxic appearing General Appearance: cooperative Exam Limitations: other limitations Nutritional Appearance: overweight HEENT normocephalic, head/scalp atraumatic and hearing grossly normal bilaterally Head and Scalp: normocephalic Resp normal respiratory effort, no retractions, no use of accessory muscles and clear to auscultation bilaterally Resp Narrative: Diminished bases but clear Auscultation: crackles, rales, rhonchi and wheezes Cardio regular rate, regular rhythm, S1 normal heart sound, S2 normal heart sound, no murmurs, no rub, no gallops, no clicks and no JVD GI soft to palpation, non-tender and non-distended; Negative for hepatosplenomegaly GI Narrative: Abdomen continues to appear mildly distended and bowel sounds are normal active and patient has been having bowel movements and flatus Extremity no clubbing, cyanosis or edema Peripheral Pulses: Yes pulses 2+ throughout Neuro Neuro Narrative: Patient is sleeping soundly nursing is at bedside and states he was appropriate asking to go home while he was awake Psych Psych Narrative: Unable to assess as patient is sleeping Assessment & Plan Assessment/Plan (1) Acute respiratory failure with hypoxia: (2) Sepsis due to pneumonia: (3) Ileus, unspecified: (4) Small bowel obstruction: (5) Pneumonia: (6) Aspiration pneumonia: (7) Hypokalemia: PLAN: Acute hypoxic respiratory failure secondary to Klebsiella pneumonia -Suspect aspiration of fecal material with nausea and vomiting and bowel obstruction -Patient was able to be extubated today 07/01/2021 and is currently requiring 2 L nasal cannula--> we will try to wean today -Check O2 with with exertion -Sputum cultures are growing Klebsiella -We will dose Lasix again today -Continue IV ceftriaxone-->will need a total of 7 days treatment--> day 5 of 7 -Continue as needed aerosols -Probable discharge home tomorrow -Appreciate pulm/critical care input Sepsis secondary to gram-negative pneumonia -Antibiotics as noted above day 5 of 7 -Sepsis has subsequently resolved with treatment Adynamic ileus/small bowel obstruction -Patient having flatus and stool output -Surgery has advance his diet to regular diet -Patient appears to be tolerating this without any issues however abdomen does still appear slightly distended -This has been problematic for the patient in the past -General surgery is following-appreciate input Hypokalemia -Potassium has normalized but at 3.5 -Will dose another 60 mEq as we are giving further Lasix today -40 mill equivalents of IV potassium ordered -Repeat lab in a.m. MRDD -Stable OCD/impulse control disorder -Continue escitalopram -Continue clonazepam -Continue clozapine DVT/GI prophylaxis -Continue IV PPI -Continue enoxaparin -Continue SCDs CODE STATUS -Full code Disposition: -Discussed the case with case management earlier this morning he is able to go back to his long term if he does need oxygen however we are trying to get him off oxygen if possible. He has needed increased oxygen exertion and remains on 2 L at rest. We are trying to wean this today and plan will be for discharge home tomorrow to complete course of antibiotics. His abdominal issues appear to have resolved at this time Charges/Coding Visit Charges Inpatient E&M: 90480 Subs Hosp L2
[2021-07-03] MEDS: Potassium Chloride Oral Tablet 20 MEQ 60 MEQ PO (11:50)
[2021-07-03] MEDS: Furosemide 40 MG/4 ML Vial IV (11:50)
[2021-07-03 12:00] VITALS: O2SAT 84; O2SAT 93
[2021-07-03 14:10] VITALS: BP 120/87; PULSE 118; RESP 20; TEMP 36.3; O2SAT 93
--- NOTE | 2021-07-03 15:50 | CASEMGMT ---
Social Work VM left with Daja Cuello and [facility] informing of possible discharge tomorrow. SW will continue to follow. ERI Alcantara
--- NOTE | 2021-07-03 17:19 | PCM.PN.SRG ---
Subjective Subjective patient denies abdominal pain tolerating regular diet passing flatus having bowel movements wants to go home Objective Data Objective Data Vital Signs: Vital Signs Temp Pulse Resp BP Pulse Ox 97.3 F L 118 H 20 H 120/87 H 93 07/03/21 14:10 07/03/21 14:10 07/03/21 14:10 07/03/21 14:10 07/03/21 14:10 Oxygen Flow Rate (L/min) [ 2 AMBULATING with Oxygen #1] Oxygen Flow Rate (L/min) 2 Oxygen Delivery Method Room Air Weight: 81.8 kg Body Mass Index (BMI) 29.1 Intake & Output: Intake and Output for Last 24 Hours 07/01/21 07/02/21 07/03/21 23:59 23:59 23:59 Intake Total 3631.46 / 3631.46 930 / 1130 250 / 250 Output Total 3080 / 3080 2950 / 3150 1050 / 1050 Balance 551.46 / 551.46 -2020 / -2020 -800 / -800 Lab / Micro Data Result Diagrams: 07/03/21 05:15 07/03/21 05:15 Labs: Laboratory Results - last 24 hr 07/03/21 05:15: WBC 11.1 H, RBC 3.78 L, Hgb 11.9 L, Hct 34.5 L, MCV 91.3, MCH 31.5, MCHC 34.5, RDW Std Deviation 45.0 H, RDW Coeff of J Luis 13.5, Plt Count 191, MPV 10.4, Immature Gran % (Auto) 4.100 H, Neut % (Auto) 72.1 H, Lymph % (Auto) 10.8 L, [place] % (Auto) 11.1 H, Eos % (Auto) 1.5, Baso % (Auto) 0.4, Absolute Neuts (auto) 8.0 H, Absolute Lymphs (auto) 1.20, Nucleated RBC % 0.3 07/03/21 05:15: Sodium 138, Potassium 3.5, Chloride 102, Carbon Dioxide 30.0, Anion Gap 6, BUN 14, Creatinine 0.68 L, Estim Creat Clear Calc 117.28, Est GFR (MDRD) Af Amer 157, Est GFR (MDRD) Non-Af 130, BUN/Creatinine Ratio 20.5 H, Glucose 136 H, Calcium 8.3 L Micro: Microbiology 06/28/21 08:31 Blood Culture (Wb) - Anticubital Right Blood Culture - Final No growth in 5 days. 06/28/21 09:01 Blood Culture (Wb) - Anticubital Left Blood Culture - Final No growth. 06/29/21 10:53 Urine Catheter - Abraham Urine Culture - Final Culture exhibits no growth. 06/28/21 Unknown Sputum, Induced/Lukens Gram Stain - Final 06/28/21 Unknown Sputum, Induced/Lukens Respiratory Culture - Final Klebsiella pneumoniae sp pneum Presumptive C albicans 06/28/21 11:00 Urine, Clean Catch Urine Culture - Final Staphylococcus species GPC Poss Enterococcus sp 06/28/21 22:40 Stool Stool Occult Blood (RADHA) - Final Occult Blood Positive 06/28/21 08:20 Nasal Secretion SARS-CoV-2 & FLU Antigen (Rapid) - Final Rhythm Strip Rhythm Strip: Sinus Tach Rate: 130 Ectopy: None Physical Exam Const alert General Appearance: cooperative and comfortable HEENT normocephalic Neck supple Resp normal respiratory effort Effort and Inspection: able to speak in complete sentences GI GI Narrative: abdomen is soft and benign and protuberant Assessment & Plan Assessment/Plan (1) Ileus, unspecified: PLAN: patient having normal bowel function and tolerating diet will sign off case
[2021-07-03] MEDS: clonazePAM 1 MG Tablet PO (17:27)
[2021-07-03 19:50] VITALS: BP 128/85; PULSE 102; RESP 18; TEMP 37.2; O2SAT 94
[2021-07-04 02:15] VITALS: BP 122/82; PULSE 86; RESP 16; TEMP 36.7; O2SAT 93
[2021-07-04] MEDS: Escitalopram Oxalate 10 MG Tablet PO (06:12)
[2021-07-04] MEDS: Escitalopram Oxalate 10 MG Tablet 5 MG PO (06:12)
[2021-07-04 06:47] LABS: Anion Gap 6 (5-15); BUN 17 mg/dL (7-18); BUN/Creat Ratio 25.3 RATIO (10-20); Calcium,Total 8.8 mg/dL (8.5-10.1); Chloride 104 mmol/L (98-107); Creatinine, Serum 0.67 mg/dL (0.70-1.30); EST Glomerular Filtration Rate 132 mL/min (>60); Est Glom Filt Rate - Afr Amer 160 mL/min (>60); Estimated Creatinine Clearance 119.03 ml/min; Glucose 109 mg/dL (74-106); Potassium 3.5 mmol/L (3.5-5.1); Sodium Level 139 mmol/L (136-145)
--- NOTE | 2021-07-04 07:10 | PCM.PN.INT ---
Assessment & Plan Assessment/Plan (1) Aspiration pneumonia: PLAN: RECOMMENDATIONS: 1. Increase activity as tolerated. Walking oximetry prior to discharge 2. Completed total of 7 days of antibiotics 3. Okay to resume regular diet per surgery 4. Continue PPI therapy as ordered. Continue Lovenox for DVT prophylaxis. 5. Encourage incentive spirometer 6. Okay to discharge on supplemental oxygen if needed from a pulmonary perspective with 2-week follow-up with nurse practitioner IMPRESSIONS: 1. Acute hypoxemic respiratory failure secondary to Klebsiella pneumonia Clinical concern for aspiration pneumonia as precipitating etiology in the setting of bowel obstruction. Patient continues to improve. Patient on minimal supplemental oxygen at rest. Exertional hypoxemia may be secondary to an element of pulmonary hypertension. Patient with good diuresis yesterday. Continue to encourage incentive spirometer. Will obtain a walking oximetry. Supplemental oxygen can be provided if indicated. Patient should follow-up in our office with nurse practitioner in 2 weeks. Patient will likely need a repeat chest x-ray in 4 to 6 weeks to document resolution. 2. Sepsis secondary to Klebsiella pneumonia Result. The patient presented to the hospital with sepsis due to suspected aspiration pneumonia with acute sepsis related organ dysfunction as evidenced by acute respiratory failure requiring invasive mechanical ventilatory support, lactic acidemia, and altered mentation. Plan to continue supportive measures as noted above. 3. Bowel obstruction SBO appears to be resolved. Patient tolerating lack of OG suctioning well despite continued distention. OG had to be removed with endotracheal tube. Patient still has significant abdominal distention, but no nausea or vomiting of been reported. 4. Hypokalemia Electrolyte repletion not indicated today unless additional diuretics. 5. History of MRDD/depression/anxiety Complicates care, management, recovery and prognosis. Continue home medications as indicated. Subjective Subjective Patient did okay overnight. No acute issues were reported. Patient continues to request to go home. Patient has tolerated well on room air, but did desaturate with ambulation yesterday. Patient is not reporting any nausea or vomiting. Objective Data Objective Data Vital Signs: Vital Signs Temp Pulse Resp BP Pulse Ox 36.7 C 86 16 122/82 H 93 07/04/21 02:15 07/04/21 02:15 07/04/21 02:15 07/04/21 02:15 07/04/21 02:15 Oxygen Flow Rate (L/min) [ 2 AMBULATING with Oxygen #1] Oxygen Flow Rate (L/min) 2 Oxygen Delivery Method Room Air Weight: 82.4 kg Body Mass Index (BMI) 29.1 Intake & Output: Intake and Output for Last 24 Hours 07/02/21 07/03/21 07/04/21 23:59 23:59 23:59 Intake Total 930 / 1130 250 / 250 Output Total 2950 / 3150 1700 / 1700 Balance -2020 / -2020 -1450 / -1450 Lab / Micro Data Result Diagrams: 07/03/21 05:15 07/04/21 05:30 Labs: Laboratory Results - last 24 hr 07/04/21 05:30: Sodium 139, Potassium 3.5, Chloride 104, Carbon Dioxide 29.0, Anion Gap 6, BUN 17, Creatinine 0.67 L, Estim Creat Clear Calc 119.03, Est GFR (MDRD) Af Amer 160, Est GFR (MDRD) Non-Af 132, BUN/Creatinine Ratio 25.3 H, Glucose 109 H, Calcium 8.8 Micro: Microbiology 06/28/21 08:31 Blood Culture (Wb) - Anticubital Right Blood Culture - Final No growth in 5 days. 06/28/21 09:01 Blood Culture (Wb) - Anticubital Left Blood Culture - Final No growth. 06/29/21 10:53 Urine Catheter - Abraham Urine Culture - Final Culture exhibits no growth. 06/28/21 Unknown Sputum, Induced/Lukens Gram Stain - Final 06/28/21 Unknown Sputum, Induced/Lukens Respiratory Culture - Final Klebsiella pneumoniae sp pneum Presumptive C albicans 06/28/21 11:00 Urine, Clean Catch Urine Culture - Final Staphylococcus species GPC Poss Enterococcus sp 06/28/21 22:40 Stool Stool Occult Blood (RADHA) - Final Occult Blood Positive 06/28/21 08:20 Nasal Secretion SARS-CoV-2 & FLU Antigen (Rapid) - Final Rhythm Strip Rhythm Strip: Sinus Tach Rate: 130 Ectopy: None Physical Exam Const alert and no apparent distress Constitutional Narrative: Resting comfortably on room air General Appearance: cooperative and comfortable HEENT normocephalic and head/scalp atraumatic Eyes PERRL and EOMs intact bilaterally Neck supple General: trachea midline Chest inspection of chest normal Resp Auscultation: diminished lung sounds; Negative for rales, rhonchi or wheezes Cardio S1 normal heart sound and S2 normal heart sound Rate: regular rate GI soft to palpation Inspection: abdominal distention Auscultation: hypoactive bowel sounds Extremity no clubbing, cyanosis or edema Skin no rashes or lesions noted Neuro CN's II-XII intact bilaterally, moves all extremities and no focal motor deficits Charges/Coding Visit Charges Inpatient E&M: 20085 Subs Hosp L2
[2021-07-04 07:45] VITALS: O2SAT 93
[2021-07-04 09:08] VITALS: O2SAT 93
[2021-07-04 09:38] VITALS: BP 143/86; PULSE 119; RESP 18; TEMP 37.3; O2SAT 92
[2021-07-04] MEDS: clonazePAM 0.5 MG Tablet PO (09:58)
[2021-07-04] MEDS: busPIRone 15 MG TABLET PO (09:58)
[2021-07-04] MEDS: Senna/Docusate Sodium 1 Tablet 2 TABLET PO (09:58)
[2021-07-04] MEDS: Enoxaparin 40 MG/0.4 ML Syringe SC (09:58)
[2021-07-04 09:59] VITALS: O2SAT 90; O2SAT 92
--- NOTE | 2021-07-04 10:39 | CASEMGMT ---
Addendum entered by Alie Ferris 07/04/21 11:19: [id number]- Spoke with pt darren Cuello via tc to make aware of [facility] appt. Addendum entered by Alie Ferris 07/04/21 11:10: Received call back from Ophelia at [facility], appt scheduled for 07/17 at 0845, placed on dc plan. Original Note: TC to 's office to schedule FU for pt with [facility] in 2wks, left message on vm stating reason for call and requesting call back. Noted pt did not qualify for home O2.
--- NOTE | 2021-07-04 10:44 | DS.PCM_ITS ---
Providers Date of Admission: 06/28/21 Date of Discharge: 07/04/21 Primary Care Physician: Dr. Mervat Carrillo MD Consultations 06/28/21 23:01 Consult: Residential Coordinator / Pulmonary Medicine Routine Consulting Provider: Contreras Carlton Reason for Consult: ICU admit, resp failure, asp pna, suspect SBO EMERGENT Consult: No MD Notified: Yes Date Notified: 06/28/21 Time Notified: 22:20 Method of Notification: Text 06/29/21 00:00 Consult: General Surgery Routine Consulting Provider: Jazlyn Phelps Reason for Consult: Bowel obstruction, also setting GI bleed EMERGENT Consult: No MD Notified: Yes Date Notified: 06/29/21 Time Notified: 00:00 Method of Notification: Text Reason For Visit: SEPSIS DUE TO COMMUNITY ACQUIRED PNEUMONIA Diagnosis Discharge Diagnosis (1) Aspiration pneumonia: Status: Acute Code(s): J69.0 - Pneumonitis due to inhalation of food and vomit (2) Small bowel obstruction: Status: Acute Code(s): K56.609 - Unspecified intestinal obstruction, unspecified as to partial versus complete obstruction (3) Sepsis due to pneumonia: Status: Acute Code(s): J18.9 - Pneumonia, unspecified organism; A41.9 - Sepsis, unspecified organism (4) Acute respiratory failure with hypoxia: Status: Acute Code(s): J96.01 - Acute respiratory failure with hypoxia (5) Hypokalemia: Status: Acute Code(s): E87.6 - Hypokalemia Medications at Discharge Home Medications escitalopram oxalate 10 mg PO DAILY@0702/04/19 melatonin 3 mg PO QHS 02/04/19 clindamycin-benzoyl peroxide 1 applic TOPICAL QHS 02/05/19 clonazepam 1 mg PO DAILY@1600 11/04/19 escitalopram oxalate 5 mg PO DAILY@0700 11/04/19 Linzess 145 mcg PO DAILY 09/20/20 buspirone 15 mg PO BID 09/20/20 clonazepam 0.5 mg PO BREAKFAST 09/20/20 clozapine 100 mg PO BID 09/20/20 docusate sodium 200 mg PO BID #0 cap 09/22/20 polyethylene glycol 3350 17 gm PO DAILY 06/28/21 amoxicillin-pot clavulanate [Augmentin XR] 1 tab PO BID #2 tab 07/04/21 Hospital Course Procedures Intubation Summary of Care Provided Minutes Spent on Discharge: 38 Hospital Course: Mr. Vasquez is a 50-year-old white male with a history of MRDD who presented to the emergency department at [facility] on 06/28/2020 with symptoms to include fever, nausea, vomiting, and shortness of breath. The patient resides in a shelter at [facility] and caregivers noted concern for potential aspiration in the setting of his nausea and vomiting. Upon presentation the emergency department he was noted to be afebrile and hemodynamically stable however he was noted to be tachycardic and tachypneic. His CBC was overtly u nremarkable. His chemistry profile noted hypokalemia with a potassium of 3.2 and a serum creatinine of 1.02 with a lactate of 2.1. His urinalysis was unremarkable. His initial chest x-ray demonstrated a right lower lobe infiltrate. The patient was started on IV fluids as well as empiric antimicr obials and he was admitted to the PCU for further management. Unfortunately during the certified ophthalmic assistant hours of 06/29/2020 the patient developed worsening hypoxemia and increased work of breathing. Fluids were discontinued at that time and he was given IV Lasix and the patient became further decompensated and more lethargic. He at that time required emergent intubation. A KUB was obtained and demonstrated marked distention of multiple bowel loops suggestive of obstruction. General surgery was consulted at that time. Once he was intubated and NG was placed for decompression and he was maintained on bowel rest. Surgery reviewed his case and he is evidently had multiple presentations similar to this with bowel obstruction and it was felt that this was more likely an adynamic ileus rather than true bowel obstruction. The patient was maintained on mechanical ventilation IV by antibiotics with gut rest and NG decompression but was able to be extubated on 07/01/2021. Upon extubation he was weaned to 6 L nasal cannula and did have a bowel movement therefore NG decompression was not replaced after extubation. He was started on clear liquid diet at that time and monitored for tolerance. He was maintained with aggressive pulmonary toilet and given as needed Lasix for excessive volume given during resuscitation. We were eventually able to advance his diet on 07/02/2021 to a regular diet with avoiding carbonation and the patient tolerated this well without any further nausea vomiting. He continued to have flatus and bowel movements. He was maintained on IV antibiotics with ceftriaxone as his cultures grew out sensitive Klebsiella causing his pneumonia. Antibiotics were continued until the day of discharge at which time he had completed 6 days of a 7-day course for antibiotics. He was discharged Augmentin to be completed on 07/06/2019 2 in the evening. He was able to be completely weaned from oxygen with oxygen saturations 93 to 95% at rest and 90 to 92% with exertion prior to discharge. It is recommended that he follow-up with pulmonary in 2 weeks and his primary care physician within 1 to 2 weeks as well. He was discharged back to his shelter on 07/04/2021 and is cleared to go back to [employer] on 07/08/2021 for work. Discharge diagnoses: Acute hypoxic respiratory failure Klebsiella pneumonia Sepsis secondary to Klebsiella pneumonia Adynamic ileus-recurrent Hypokalemia MRDD OCD Impulse control disorder Physical Exam Const well nourished Constitutional Narrative: Overweight middle-aged watching television, appears co mfortable and nontoxic, nontoxic appearing General Appearance: cooperative, comfortable and well developed Orientation / Consciousness: awake Exam Limitations: other limitations Nutritional Appearance: overweight HEENT normocephalic, head/scalp atraumatic and hearing grossly normal bilaterally HEENT Narrative: Mallampati 3, no thrush Eyes PERRL, EOMs intact bilaterally and conjunctivae normal Eyes Narrative: No scleral icterus Neck no lymphadenopathy, supple and no JVD Neck Narrative: Trachea midline, no thyroid enlargement Resp normal respiratory effort, no retractions, no use of accessory muscles and clear to auscultation bilaterally Resp Narrative: Diminished bases but clear Auscultation: crackles, rales, rhonchi and wheezes Cardio regular rate, regular rhythm, S1 normal heart sound, S2 normal heart sound, no murmurs, no rub, no gallops, no clicks and no JVD GI normal to inspection, nondistended, normoactive bowel sounds, soft to palpation, non-tender and non-distended; Negative for hepatosplenomegaly Extremity no clubbing, cyanosis or edema Extremity Narrative: 2+ cap refill, pedal pulses 2+ Skin no rashes or lesions noted, no wounds, skin turgor normal and no jaundice Neuro CN's II-XII intact bilaterally, moves all extremities, no focal motor deficits and no sensory deficits noted Neuro Narrative: Speech is baseline Sensorium / Orientation: awake and alert Motor Exam: strength 5/5 throughout Psych affect normal Weight / BMI Weight Weight: 82.4 kg Body Mass Index (BMI) 29.1 ABG / Lab / Microbiology Data Result Diagrams: 07/03/21 05:15 07/04/21 05:30 Laboratory: Laboratory Results - last 24 hr 07/04/21 05:30: Sodium 139, Potassium 3.5, Chloride 104, Carbon Dioxide 29.0, Anion Gap 6, BUN 17, Creatinine 0.67 L, Estim Creat Clear Calc 119.03, Est GFR (MDRD) Af Amer 160, Est GFR (MDRD) Non-Af 132, BUN/Creatinine Ratio 25.3 H, Glucose 109 H, Calcium 8.8 Microbiology: Microbiology 06/28/21 08:31 Blood Culture (Wb) - Anticubital Right Blood Culture - Final No growth in 5 days. 06/28/21 09:01 Blood Culture (Wb) - Anticubital Left Blood Culture - Final No growth. 06/29/21 10:53 Urine Catheter - Abraham Urine Culture - Final Culture exhibits no growth. 06/28/21 Unknown Sputum, Induced/Lukens Gram Stain - Final 06/28/21 Unknown Sputum, Induced/Lukens Respiratory Culture - Final Klebsiella pneumoniae sp pneum Presumptive C albicans 06/28/21 11:00 Urine, Clean Catch Urine Culture - Final Staphylococcus species GPC Poss Enterococcus sp 06/28/21 22:40 Stool Stool Occult Blood (RADHA) - Final Occult Blood Positive 06/28/21 08:20 Nasal Secretion SARS-CoV-2 & FLU Antigen (Rapid) - Final D/C Instructions Discharge Diet: No restrictions (no carbonated beverages) Discharge Activity: Return to Normal Activity Meaningful Use Info Meaningful Use Diagnoses (Choose all that apply): None applicable Discharge Plan Admission Admit Date/Time: 06/28/21 10:21 Primary Reason for Your Visit: Fever and cough Attending Provider: Gwen Oconnell Primary Care Provider: Mervat Carrillo Consulting Providers: Gudelia Catherine ; Jazlyn Phelps ; Contreras Carlton Instructions Forms: Work / School Excuse Discharge Orders/Prescriptions Prescriptions: New amoxicillin-pot clavulanate [Augmentin XR] 1,000-62.5 mg tablet extended release 12 hr 1 tab PO BID Qty: 2 RF: 0 Continued melatonin 3 MG tablet 3 mg PO QHS RF: 0 escitalopram oxalate 10 MG tablet 10 mg PO DAILY@0700 RF: 0 clindamycin-benzoyl peroxide 0 gel 1 applic topical QHS RF: 0 clonazepam 1 MG tablet 1 mg PO DAILY@1600 RF: 0 escitalopram oxalate 5 MG tablet 5 mg PO DAILY@0700 RF: 0 buspirone 5 mg tablet 15 mg PO BID RF: 0 clonazepam 0.5 mg tablet 0.5 mg PO BREAKFAST RF: 0 Linzess 145 mcg capsule 145 mcg PO DAILY RF: 0 clozapine 100 mg tablet 100 mg PO BID RF: 0 docusate sodium 100 MG capsule 200 mg PO BID Qty: 0 RF: 0 polyethylene glycol 3350 17 GM powder in packet 17 gm PO DAILY RF: 0 Referrals / Follow Up: Khari Mccray MD [STAFF PHYSICIAN] - 07/17/21 8:45 am (You will see the nurse practitioner) Mervat Carrillo MD [Primary Care Provider] - Within 1 Week Disposition Disposition (needs filled in before D/C Order can be placed): Home, Self Care Charges/Coding Visit Charges Inpatient E&M: 03412 Disch Hosp
--- NOTE | 2021-07-04 11:17 | CASEMGMT ---
Social Work Pt is ready for discharge today. Pt will not require home oxygen. Phone call to Ashish Cuello and updated on discharge. Phone call to [employer] [facility] and updated on d/c today. Madisyn will arrange for transportation. Nursing updated. ERI Alcantara
== END 2021-07-04 12:35 | disposition home or self-care (01) | DRG 871 ==
LOC: ED 09:30 → PCU 10:51 → ICU 22:45 → MS3 07-03 18:04
PROVIDERS: Family Medicine; Internal Medicine Critical Care Medicine; Admitting Provider Student in an Organized Health Care Education/Training Program; Emergency Provider Emergency Medicine; PCP Internal Medicine; Visit Provider Internal Medicine
DX: A41.59 Other Gram-negative sepsis (principal); J96.01 Acute respiratory failure with hypoxia; J69.0 Pneumonitis due to inhalation of food and vomit; J15.0 Pneumonia due to Klebsiella pneumoniae; K56.0 Paralytic ileus; E87.6 Hypokalemia; F41.9 Anxiety disorder, unspecified; F63.9 Impulse disorder, unspecified; F42.9 Obsessive-compulsive disorder, unspecified; Z79.01 Long term (current) use of anticoagulants; F79 Unspecified intellectual disabilities; F32.A Depression, unspecified; Z79.899 Other long term (current) drug therapy
CPT/HCPCS: 31500; 31720; 36415; 36600; 71045; 74018; 80048; 80053; 81001; 82274; 82550; 82803; 83605; 83735; 83880; 84478; 84484; 85025; 85610; 85730; 87040; 87070; 87077; 87086; 87088; 87186; 87205; 87428; 93005; 94002; 94003; 94640; 94660; 97110; 97162; 97166; 97530; 97535; 99251; 99285; J7030; J7050; A4216; G0463; J0696; J1940; J2405; J3010; J3490

== ENCOUNTER 2021-07-16 09:17 | Outpatient (RCR) | payer MEDICARE, MEDICAID, SELFPAY ==
[2021-07-16 10:23] LABS: Absolute Lymphocyte Count 1.01 X10^3/uL (0.83-4.51); Absolute Neutrophil Count 4.1 X10^3/uL (2.0-7.7); Basophil# 0.06 X10^3/uL; Basophil% 1.1 % (0-1); Eosinophil# 0.07 X10^3/uL; Eosinophils% 1.2 % (0-5); Hematocrit 40.5 % (40-54); Hemoglobin 13.5 g/dL (13.0-16.5); Lymphocyte # 1.01 X10^3/ul (0.83-4.51); Lymphocyte % 17.9 % (19-41); Mean Corp Hgb Conc 33.3 g/dL (32-36); Mean Corpuscular Hgb 31.5 pg (27.0-32.0); Mean Corpuscular Volume 94.6 fL (80-94); Mean Platelet Vol. 12.4 fl (6.2-12.0); Monocyte# 0.36 X10^3/uL; Monocyte% 6.4 % (0-10); NRBC Flagged by Analyzer 0 % (0-5); Neutrophil # 4.14 X10^3/uL (2.7-7.7); Neutrophil % 73.2 % (47-70); POSITIVE COUNT YES; RBC Distribution Width CV 13.9 % (11.6-14.6); RBC Distribution Width SD 48.4 fl (35.1-43.9); Red Blood Count 4.28 M/mm3 (4.6-6.2); White Blood Count 5.7 K/mm3 (4.4-11.0)
[2021-07-16 10:46] LABS: Differential Indicated SCAN CRITERIA MET
[2021-07-16 10:47] LABS: Platelet Estimate ADEQUATE (ADEQ)
[2021-07-16 10:51] LABS: ALB/GLOB Ratio 1.2 RATIO (0.9-2.4); AST(SGOT) 15 U/L (15-37); Alanine Aminotransfer ALT/SGPT 40 U/L (16-61); Albumin, Serum 3.9 g/dL (3.2-5.0); Alkaline Phosphatase 137 U/L (45-117); Anion Gap 6 (5-15); BUN 8 mg/dL (7-18); BUN/Creat Ratio 8.8 RATIO (10-20); Calcium,Total 8.9 mg/dL (8.5-10.1); Chloride 107 mmol/L (98-107); Creatinine, Serum 0.91 mg/dL (0.70-1.30); EST Glomerular Filtration Rate 94 mL/min (>60); Est Glom Filt Rate - Afr Amer 113 mL/min (>60); Globulin 3.3 g/dL (2.2-4.2); Glucose 129 mg/dL (74-106); Potassium 3.9 mmol/L (3.5-5.1); Protein, Total 7.2 g/dL (6.4-8.2); Sodium Level 141 mmol/L (136-145)
== END 2021-07-16 18:00 | disposition home or self-care (01) ==
LOC: LAB 09:17
PROVIDERS: PCP Internal Medicine; Referring Provider Psychiatry & Neurology Child & Adolescent Psychiatry; Visit Provider Psychiatry & Neurology Child & Adolescent Psychiatry
DX: Z79.899 Other long term (current) drug therapy (principal)
CPT/HCPCS: 80053; 85025

== ENCOUNTER 2021-08-13 08:48 | Outpatient (RCR) | payer MEDICARE, MEDICAID, SELFPAY ==
[2021-08-13 12:11] LABS: Absolute Lymphocyte Count 1.39 X10^3/uL (0.83-4.51); Absolute Neutrophil Count 5.2 X10^3/uL (2.0-7.7); Basophil# 0.05 X10^3/uL; Basophil% 0.7 % (0-1); Eosinophil# 0.14 X10^3/uL; Eosinophils% 1.9 % (0-5); Hematocrit 41.2 % (40-54); Hemoglobin 13.6 g/dL (13.0-16.5); Lymphocyte # 1.39 X10^3/ul (0.83-4.51); Lymphocyte % 18.9 % (19-41); Mean Corpuscular Hgb 31.3 pg (27.0-32.0); Mean Corpuscular Volume 94.9 fL (80-94); Mean Platelet Vol. 12.1 fl (6.2-12.0); Monocyte# 0.57 X10^3/uL; Monocyte% 7.8 % (0-10); NRBC Flagged by Analyzer 0 % (0-5); Neutrophil # 5.18 X10^3/uL (2.7-7.7); Neutrophil % 70.4 % (47-70); Platelet Count 163 K/mm3 (150-450); RBC Distribution Width CV 14.2 % (11.6-14.6); RBC Distribution Width SD 49.4 fl (35.1-43.9); Red Blood Count 4.34 M/mm3 (4.6-6.2); White Blood Count 7.4 K/mm3 (4.4-11.0)
[2021-08-13 12:31] LABS: ALB/GLOB Ratio 1.1 RATIO (0.9-2.4); AST(SGOT) 16 U/L (15-37); Alanine Aminotransfer ALT/SGPT 39 U/L (16-61); Albumin, Serum 3.9 g/dL (3.2-5.0); Alkaline Phosphatase 160 U/L (45-117); Anion Gap 9 (5-15); BUN 18 mg/dL (7-18); BUN/Creat Ratio 19.4 RATIO (10-20); Calcium,Total 8.9 mg/dL (8.5-10.1); Chloride 109 mmol/L (98-107); Cholesterol 126 mg/dL (200); Creatinine, Serum 0.93 mg/dL (0.70-1.30); EST Glomerular Filtration Rate 91 mL/min (>60); Est Glom Filt Rate - Afr Amer 110 mL/min (>60); Globulin 3.5 g/dL (2.2-4.2); Glucose 86 mg/dL (74-106); High Density Lipoprotein 28 mg/dL; Potassium 3.9 mmol/L (3.5-5.1); Protein, Total 7.4 g/dL (6.4-8.2); Sodium Level 143 mmol/L (136-145); Triglycerides 199 mg/dL; Very Low Density Lipoprotein 40 mg/dL (5-40)
[2021-08-13 12:47] LABS: Hemoglobin A1c 5.4 % (3.8-5.6)
== END 2021-08-13 23:59 | disposition home or self-care (01) ==
LOC: LAB 08:48
PROVIDERS: PCP Internal Medicine; Referring Provider Psychiatry & Neurology Child & Adolescent Psychiatry; Visit Provider Psychiatry & Neurology Child & Adolescent Psychiatry
DX: Z79.899 Other long term (current) drug therapy (principal)
CPT/HCPCS: 80053; 80061; 83036; 85025

== ENCOUNTER → 2021-08-28 | Outpatient (CLI) | payer MEDICARE, MEDICAID, SELFPAY ==
--- NOTE | 2021-08-28 12:02 | RAD_ITS ---
STUDY: X-RAY CHEST REASON FOR EXAM: Male, 50 years old. Aspiration pneumonia TECHNIQUE: PA and lateral views of the chest. COMPARISON: Comparison is made with prior study dated 06/28/2021. FINDINGS: The left lung is clear. Minimal residual increased markings at the right lung base. There is no demonstrated pleural abnormality. Normal size heart. Normal mediastinum and yvette. Normal visualized pulmonary arteries. Normal visualized aortic arch and descending thoracic aorta. There are diffuse degenerative changes of the visualized thoracic spine. Normal visualized ribs, clavicles, and shoulders. There is no demonstrated abnormality of the visualized soft tissue structures of the upper abdomen. RAD/Chest PA and Lateral IMPRESSION: Minimal increased markings at the right lung base. The left lung is clear. Electronically Signed: Terry Sinclair MD at 15:48 EDT ,
== END | disposition home or self-care (01) ==
LOC: RAD 11:58
PROVIDERS: PCP Internal Medicine; Referring Provider Nurse Practitioner Acute Care; Visit Provider Nurse Practitioner Acute Care
DX: J69.0 Pneumonitis due to inhalation of food and vomit (principal)
CPT/HCPCS: 71046

== ENCOUNTER 2021-09-13 09:00 | Outpatient (RCR) | payer MEDICARE, MEDICAID, SELFPAY ==
[2021-09-13 12:29] LABS: Absolute Lymphocyte Count 1.39 X10^3/uL (0.83-4.51); Absolute Neutrophil Count 4.2 X10^3/uL (2.0-7.7); Basophil# 0.05 X10^3/uL; Basophil% 0.8 % (0-1); Eosinophil# 0.13 X10^3/uL; Hematocrit 41.1 % (40-54); Hemoglobin 13.5 g/dL (13.0-16.5); Lymphocyte # 1.39 X10^3/ul (0.83-4.51); Lymphocyte % 21.7 % (19-41); Mean Corp Hgb Conc 32.8 g/dL (32-36); Mean Corpuscular Hgb 31.6 pg (27.0-32.0); Mean Corpuscular Volume 96.3 fL (80-94); Mean Platelet Vol. 12.5 fl (6.2-12.0); Monocyte# 0.69 X10^3/uL; Monocyte% 10.7 % (0-10); NRBC Flagged by Analyzer 0 % (0-5); Neutrophil # 4.16 X10^3/uL (2.7-7.7); Neutrophil % 64.8 % (47-70); Platelet Count 138 K/mm3 (150-450); RBC Distribution Width CV 13.8 % (11.6-14.6); RBC Distribution Width SD 49.1 fl (35.1-43.9); Red Blood Count 4.27 M/mm3 (4.6-6.2); White Blood Count 6.4 K/mm3 (4.4-11.0)
[2021-09-13 12:42] LABS: ALB/GLOB Ratio 1.3 RATIO (0.9-2.4); AST(SGOT) 46 U/L (15-37); Alanine Aminotransfer ALT/SGPT 87 U/L (16-61); Albumin, Serum 3.8 g/dL (3.2-5.0); Alkaline Phosphatase 177 U/L (45-117); Anion Gap 5 (5-15); BUN 12 mg/dL (7-18); Calcium,Total 8.9 mg/dL (8.5-10.1); Chloride 109 mmol/L (98-107); Creatinine, Serum 0.86 mg/dL (0.70-1.30); EST Glomerular Filtration Rate 100 mL/min (>60); Est Glom Filt Rate - Afr Amer 121 mL/min (>60); Glucose 95 mg/dL (74-106); Potassium 4.2 mmol/L (3.5-5.1); Protein, Total 6.8 g/dL (6.4-8.2); Sodium Level 141 mmol/L (136-145)
== END 2021-09-22 23:59 ==
LOC: LABSPEC 09:00
PROVIDERS: PCP Internal Medicine; Referring Provider Psychiatry & Neurology Child & Adolescent Psychiatry; Visit Provider Psychiatry & Neurology Child & Adolescent Psychiatry
DX: Z79.899 Other long term (current) drug therapy (principal)
CPT/HCPCS: 80053; 85025

== ENCOUNTER → 2021-10-09 | Outpatient (CLI) | payer MEDICARE, MEDICAID, SELFPAY ==
[2021-10-09 12:47] LABS: Absolute Neutrophil Count 4.3 X10^3/uL (2.0-7.7); Basophil# 0.05 X10^3/uL; Basophil% 0.8 % (0-1); Eosinophil# 0.12 X10^3/uL; Eosinophils% 1.9 % (0-5); Hematocrit 43.8 % (40-54); Hemoglobin 14.7 g/dL (13.0-16.5); Lymphocyte % 21.9 % (19-41); Mean Corp Hgb Conc 33.6 g/dL (32-36); Mean Corpuscular Hgb 31.7 pg (27.0-32.0); Mean Corpuscular Volume 94.4 fL (80-94); Mean Platelet Vol. 11.8 fl (6.2-12.0); Monocyte% 7.8 % (0-10); NRBC Flagged by Analyzer 0 % (0-5); Neutrophil % 67.4 % (47-70); Platelet Count 153 K/mm3 (150-450); RBC Distribution Width CV 13.4 % (11.6-14.6); RBC Distribution Width SD 46.6 fl (35.1-43.9); Red Blood Count 4.64 M/mm3 (4.6-6.2); White Blood Count 6.4 K/mm3 (4.4-11.0)
[2021-10-09 13:17] LABS: ALB/GLOB Ratio 1.1 RATIO (0.9-2.4); AST(SGOT) 19 U/L (15-37); Alanine Aminotransfer ALT/SGPT 39 U/L (16-61); Albumin, Serum 3.8 g/dL (3.2-5.0); Alkaline Phosphatase 168 U/L (45-117); Anion Gap 4 (5-15); BUN 12 mg/dL (7-18); BUN/Creat Ratio 13.6 RATIO (10-20); Calcium,Total 9.1 mg/dL (8.5-10.1); Chloride 107 mmol/L (98-107); Creatinine, Serum 0.88 mg/dL (0.70-1.30); EST Glomerular Filtration Rate 97 mL/min (>60); Est Glom Filt Rate - Afr Amer 117 mL/min (>60); Globulin 3.4 g/dL (2.2-4.2); Glucose 87 mg/dL (74-106); Potassium 4.1 mmol/L (3.5-5.1); Protein, Total 7.2 g/dL (6.4-8.2); Sodium Level 141 mmol/L (136-145)
== END | disposition home or self-care (01) ==
LOC: LABSPEC 10:57
PROVIDERS: PCP Internal Medicine; Visit Provider Psychiatry & Neurology Child & Adolescent Psychiatry
DX: Z79.899 Other long term (current) drug therapy (principal)
CPT/HCPCS: 80053; 85025

== ENCOUNTER → 2021-10-31 | Outpatient (CLI) | payer MEDICARE, MEDICAID, SELFPAY ==
[2021-10-31 12:19] LABS: Absolute Lymphocyte Count 1.58 X10^3/uL (0.83-4.51); Absolute Neutrophil Count 5.3 X10^3/uL (2.0-7.7); Basophil# 0.04 X10^3/uL; Basophil% 0.5 % (0-1); Eosinophil# 0.14 X10^3/uL; Eosinophils% 1.8 % (0-5); Hematocrit 41.7 % (40-54); Hemoglobin 13.7 g/dL (13.0-16.5); Lymphocyte # 1.58 X10^3/ul (0.83-4.51); Lymphocyte % 20.2 % (19-41); Mean Corp Hgb Conc 32.9 g/dL (32-36); Mean Corpuscular Hgb 31.2 pg (27.0-32.0); Mean Platelet Vol. 12.4 fl (6.2-12.0); Monocyte# 0.78 X10^3/uL; NRBC Flagged by Analyzer 0 % (0-5); Neutrophil # 5.26 X10^3/uL (2.7-7.7); Neutrophil % 67.1 % (47-70); Platelet Count 153 K/mm3 (150-450); RBC Distribution Width CV 13.6 % (11.6-14.6); RBC Distribution Width SD 47.6 fl (35.1-43.9); Red Blood Count 4.39 M/mm3 (4.6-6.2); White Blood Count 7.8 K/mm3 (4.4-11.0)
[2021-10-31 12:45] LABS: Hemoglobin A1c 5.8 % (3.8-5.6)
== END | disposition home or self-care (01) ==
LOC: LABSPEC 08:40
PROVIDERS: PCP Internal Medicine; Referring Provider Psychiatry & Neurology Child & Adolescent Psychiatry; Visit Provider Psychiatry & Neurology Child & Adolescent Psychiatry
DX: Z79.899 Other long term (current) drug therapy (principal)
CPT/HCPCS: 83036; 85025

== ENCOUNTER → 2021-11-18 | Outpatient (CLI) | payer MEDICARE, MEDICAID, SELFPAY ==
[2021-11-18 12:29] LABS: ALB/GLOB Ratio 1.1 RATIO (0.9-2.4); AST(SGOT) 18 U/L (15-37); Alanine Aminotransfer ALT/SGPT 35 U/L (16-61); Albumin, Serum 3.9 g/dL (3.2-5.0); Alkaline Phosphatase 165 U/L (45-117); Anion Gap 6 (5-15); BUN 17 mg/dL (7-18); BUN/Creat Ratio 18.2 RATIO (10-20); Calcium,Total 8.8 mg/dL (8.5-10.1); Chloride 106 mmol/L (98-107); Cholesterol 107 mg/dL (200); Creatinine, Serum 0.93 mg/dL (0.70-1.30); EST Glomerular Filtration Rate 91 mL/min (>60); Est Glom Filt Rate - Afr Amer 110 mL/min (>60); Globulin 3.4 g/dL (2.2-4.2); Glucose 93 mg/dL (74-106); High Density Lipoprotein 26 mg/dL; Potassium 4.2 mmol/L (3.5-5.1); Protein, Total 7.3 g/dL (6.4-8.2); Sodium Level 141 mmol/L (136-145); Triglycerides 154 mg/dL; Very Low Density Lipoprotein 31 mg/dL (5-40)
== END | disposition home or self-care (01) ==
LOC: LABSPEC 08:34
PROVIDERS: PCP Internal Medicine; Visit Provider Psychiatry & Neurology Child & Adolescent Psychiatry
DX: Z79.899 Other long term (current) drug therapy (principal)
CPT/HCPCS: 80053; 80061

== ENCOUNTER → 2021-12-09 | Outpatient (CLI) | payer MEDICARE, MEDICAID, SELFPAY ==
[2021-12-09 12:25] LABS: Absolute Lymphocyte Count 1.01 X10^3/uL (0.83-4.51); Absolute Neutrophil Count 5.3 X10^3/uL (2.0-7.7); Basophil# 0.03 X10^3/uL; Basophil% 0.4 % (0-1); Eosinophil# 0.08 X10^3/uL; Eosinophils% 1.2 % (0-5); Hematocrit 42.1 % (40-54); Hemoglobin 14.3 g/dL (13.0-16.5); Lymphocyte # 1.01 X10^3/ul (0.83-4.51); Lymphocyte % 14.7 % (19-41); Mean Corpuscular Hgb 31.2 pg (27.0-32.0); Mean Corpuscular Volume 91.9 fL (80-94); Mean Platelet Vol. 12.1 fl (6.2-12.0); Monocyte# 0.38 X10^3/uL; Monocyte% 5.5 % (0-10); NRBC Flagged by Analyzer 0 % (0-5); Neutrophil # 5.34 X10^3/uL (2.7-7.7); Neutrophil % 78.1 % (47-70); Platelet Count 147 K/mm3 (150-450); RBC Distribution Width CV 12.9 % (11.6-14.6); RBC Distribution Width SD 43.8 fl (35.1-43.9); Red Blood Count 4.58 M/mm3 (4.6-6.2); White Blood Count 6.9 K/mm3 (4.4-11.0)
[2021-12-09 12:39] LABS: ALB/GLOB Ratio 1.2 RATIO (0.9-2.4); AST(SGOT) 18 U/L (15-37); Alanine Aminotransfer ALT/SGPT 40 U/L (16-61); Albumin, Serum 4.1 g/dL (3.2-5.0); Alkaline Phosphatase 160 U/L (45-117); Anion Gap 10 (5-15); BUN 15 mg/dL (7-18); BUN/Creat Ratio 16.2 RATIO (10-20); Chloride 106 mmol/L (98-107); Creatinine, Serum 0.93 mg/dL (0.70-1.30); EST Glomerular Filtration Rate 91 mL/min (>60); Est Glom Filt Rate - Afr Amer 111 mL/min (>60); Globulin 3.3 g/dL (2.2-4.2); Glucose 100 mg/dL (74-106); Potassium 4.1 mmol/L (3.5-5.1); Protein, Total 7.4 g/dL (6.4-8.2); Sodium Level 141 mmol/L (136-145)
== END | disposition home or self-care (01) ==
PROVIDERS: PCP Internal Medicine; Visit Provider Psychiatry & Neurology Child & Adolescent Psychiatry
DX: Z79.899 Other long term (current) drug therapy (principal)
CPT/HCPCS: 80053; 85025

== ENCOUNTER → 2021-12-30 | Outpatient (CLI) | payer MEDICARE, MEDICAID, SELFPAY ==
[2021-12-30 12:14] LABS: Absolute Lymphocyte Count 1.26 X10^3/uL (0.83-4.51); Absolute Neutrophil Count 3.9 X10^3/uL (2.0-7.7); Basophil# 0.04 X10^3/uL; Basophil% 0.7 % (0-1); Eosinophil# 0.12 X10^3/uL; Eosinophils% 2.1 % (0-5); Hematocrit 41.6 % (40-54); Hemoglobin 14.5 g/dL (13.0-16.5); Lymphocyte # 1.26 X10^3/ul (0.83-4.51); Lymphocyte % 21.6 % (19-41); Mean Corp Hgb Conc 34.9 g/dL (32-36); Mean Corpuscular Hgb 32.4 pg (27.0-32.0); Mean Corpuscular Volume 93.1 fL (80-94); Monocyte# 0.53 X10^3/uL; Monocyte% 9.1 % (0-10); NRBC Flagged by Analyzer 0 % (0-5); Neutrophil # 3.88 X10^3/uL (2.7-7.7); Neutrophil % 66.3 % (47-70); Platelet Count 135 K/mm3 (150-450); RBC Distribution Width CV 13.4 % (11.6-14.6); RBC Distribution Width SD 45.9 fl (35.1-43.9); Red Blood Count 4.47 M/mm3 (4.6-6.2); White Blood Count 5.8 K/mm3 (4.4-11.0)
[2021-12-30 12:25] LABS: ALB/GLOB Ratio 1.2 RATIO (0.9-2.4); AST(SGOT) 20 U/L (15-37); Alanine Aminotransfer ALT/SGPT 59 U/L (16-61); Albumin, Serum 3.9 g/dL (3.2-5.0); Alkaline Phosphatase 170 U/L (45-117); Anion Gap 8 (5-15); BUN 11 mg/dL (7-18); BUN/Creat Ratio 11.1 RATIO (10-20); Calcium,Total 8.8 mg/dL (8.5-10.1); Chloride 107 mmol/L (98-107); Creatinine, Serum 0.99 mg/dL (0.70-1.30); EST Glomerular Filtration Rate 85 mL/min (>60); Est Glom Filt Rate - Afr Amer 103 mL/min (>60); Globulin 3.2 g/dL (2.2-4.2); Glucose 136 mg/dL (74-106); Protein, Total 7.1 g/dL (6.4-8.2); Sodium Level 140 mmol/L (136-145)
== END | disposition home or self-care (01) ==
LOC: LABSPEC 09:08
PROVIDERS: PCP Internal Medicine; Referring Provider Psychiatry & Neurology Child & Adolescent Psychiatry; Visit Provider Psychiatry & Neurology Child & Adolescent Psychiatry
DX: Z79.899 Other long term (current) drug therapy (principal)
CPT/HCPCS: 80053; 85025

== ENCOUNTER → 2022-01-24 | Outpatient (CLI) | payer MEDICARE, MEDICAID, SELFPAY ==
[2022-01-24 12:29] LABS: Absolute Lymphocyte Count 1.43 X10^3/uL (0.83-4.51); Absolute Neutrophil Count 5.7 X10^3/uL (2.0-7.7); Basophil# 0.05 X10^3/uL; Basophil% 0.6 % (0-1); Eosinophil# 0.12 X10^3/uL; Eosinophils% 1.5 % (0-5); Hematocrit 44.6 % (40-54); Hemoglobin 14.5 g/dL (13.0-16.5); Lymphocyte # 1.43 X10^3/ul (0.83-4.51); Mean Corp Hgb Conc 32.5 g/dL (32-36); Mean Corpuscular Hgb 31.3 pg (27.0-32.0); Mean Corpuscular Volume 96.1 fL (80-94); Mean Platelet Vol. 12.1 fl (6.2-12.0); Monocyte# 0.65 X10^3/uL; Monocyte% 8.2 % (0-10); NRBC Flagged by Analyzer 0 % (0-5); Neutrophil # 5.68 X10^3/uL (2.7-7.7); Neutrophil % 71.3 % (47-70); Platelet Count 157 K/mm3 (150-450); RBC Distribution Width SD 49.5 fl (35.1-43.9); Red Blood Count 4.64 M/mm3 (4.6-6.2)
[2022-01-24 12:48] LABS: ALB/GLOB Ratio 1.2 RATIO (0.9-2.4); AST(SGOT) 28 U/L (15-37); Alanine Aminotransfer ALT/SGPT 68 U/L (16-61); Albumin, Serum 4.2 g/dL (3.2-5.0); Alkaline Phosphatase 174 U/L (45-117); Anion Gap 6 (5-15); BUN 18 mg/dL (7-18); Calcium,Total 8.6 mg/dL (8.5-10.1); Chloride 104 mmol/L (98-107); Creatinine, Serum 0.94 mg/dL (0.70-1.30); EST Glomerular Filtration Rate 89 mL/min (>60); Est Glom Filt Rate - Afr Amer 108 mL/min (>60); Globulin 3.5 g/dL (2.2-4.2); Glucose 103 mg/dL (74-106); Potassium 4.1 mmol/L (3.5-5.1); Protein, Total 7.7 g/dL (6.4-8.2); Sodium Level 139 mmol/L (136-145)
== END | disposition home or self-care (01) ==
LOC: LABSPEC 10:01
PROVIDERS: PCP Internal Medicine; Referring Provider Psychiatry & Neurology Child & Adolescent Psychiatry; Visit Provider Psychiatry & Neurology Child & Adolescent Psychiatry
DX: Z79.899 Other long term (current) drug therapy (principal)
CPT/HCPCS: 80053; 85025

== ENCOUNTER → 2022-02-11 | Outpatient (CLI) | payer MEDICARE, MEDICAID, SELFPAY ==
[2022-02-11 08:20] LABS: Absolute Lymphocyte Count 1.56 X10^3/uL (0.83-4.51); Absolute Neutrophil Count 4.2 X10^3/uL (2.0-7.7); Basophil# 0.04 X10^3/uL; Basophil% 0.6 % (0-1); Eosinophil# 0.12 X10^3/uL; Eosinophils% 1.9 % (0-5); Hematocrit 40.1 % (40-54); Hemoglobin 13.6 g/dL (13.0-16.5); Lymphocyte # 1.56 X10^3/ul (0.83-4.51); Lymphocyte % 24.1 % (19-41); Mean Corp Hgb Conc 33.9 g/dL (32-36); Mean Corpuscular Hgb 31.9 pg (27.0-32.0); Mean Corpuscular Volume 94.1 fL (80-94); Mean Platelet Vol. 11.8 fl (6.2-12.0); Monocyte# 0.57 X10^3/uL; Monocyte% 8.8 % (0-10); NRBC Flagged by Analyzer 0 % (0-5); Neutrophil # 4.17 X10^3/uL (2.7-7.7); Neutrophil % 64.3 % (47-70); Platelet Count 143 K/mm3 (150-450); RBC Distribution Width CV 13.9 % (11.6-14.6); RBC Distribution Width SD 47.5 fl (35.1-43.9); Red Blood Count 4.26 M/mm3 (4.6-6.2); White Blood Count 6.5 K/mm3 (4.4-11.0)
[2022-02-11 08:27] LABS: ALB/GLOB Ratio 1.1 RATIO (0.9-2.4); AST(SGOT) 16 U/L (15-37); Alanine Aminotransfer ALT/SGPT 42 U/L (16-61); Albumin, Serum 3.6 g/dL (3.2-5.0); Alkaline Phosphatase 141 U/L (45-117); Anion Gap 3 (5-15); BUN 15 mg/dL (7-18); BUN/Creat Ratio 18.3 RATIO (10-20); Calcium,Total 8.5 mg/dL (8.5-10.1); Chloride 110 mmol/L (98-107); Cholesterol 103 mg/dL (200); Creatinine, Serum 0.82 mg/dL (0.70-1.30); EST Glomerular Filtration Rate 105 mL/min (>60); Est Glom Filt Rate - Afr Amer 127 mL/min (>60); Globulin 3.4 g/dL (2.2-4.2); Glucose 108 mg/dL (74-106); High Density Lipoprotein 24 mg/dL; Potassium 3.6 mmol/L (3.5-5.1); Sodium Level 141 mmol/L (136-145); Triglycerides 146 mg/dL; Very Low Density Lipoprotein 29 mg/dL (5-40)
[2022-02-11 09:47] LABS: Hemoglobin A1c 5.8 % (3.8-5.6)
== END | disposition home or self-care (01) ==
LOC: LABSPEC 08:08
PROVIDERS: PCP Internal Medicine; Visit Provider Psychiatry & Neurology Child & Adolescent Psychiatry
DX: Z79.899 Other long term (current) drug therapy (principal)
CPT/HCPCS: 80053; 80061; 83036; 85025

== ENCOUNTER → 2022-03-04 | Outpatient (CLI) | payer MEDICARE, MEDICAID, SELFPAY ==
[2022-03-04 07:02] LABS: Absolute Lymphocyte Count 1.64 X10^3/uL (0.83-4.51); Absolute Neutrophil Count 4.5 X10^3/uL (2.0-7.7); Basophil# 0.05 X10^3/uL; Basophil% 0.7 % (0-1); Eosinophil# 0.17 X10^3/uL; Eosinophils% 2.4 % (0-5); Hematocrit 41.3 % (40-54); Hemoglobin 13.7 g/dL (13.0-16.5); Lymphocyte # 1.64 X10^3/ul (0.83-4.51); Mean Corp Hgb Conc 33.2 g/dL (32-36); Mean Corpuscular Hgb 31.2 pg (27.0-32.0); Mean Corpuscular Volume 94.1 fL (80-94); Mean Platelet Vol. 11.4 fl (6.2-12.0); Monocyte# 0.76 X10^3/uL; Monocyte% 10.6 % (0-10); NRBC Flagged by Analyzer 0 % (0-5); Platelet Count 147 K/mm3 (150-450); RBC Distribution Width CV 13.7 % (11.6-14.6); RBC Distribution Width SD 47.8 fl (35.1-43.9); Red Blood Count 4.39 M/mm3 (4.6-6.2); White Blood Count 7.1 K/mm3 (4.4-11.0)
[2022-03-04 07:30] LABS: ALB/GLOB Ratio 1.2 RATIO (0.9-2.4); AST(SGOT) 18 U/L (15-37); Alanine Aminotransfer ALT/SGPT 38 U/L (16-61); Albumin, Serum 3.7 g/dL (3.2-5.0); Alkaline Phosphatase 156 U/L (45-117); Anion Gap 8 (5-15); BUN 15 mg/dL (7-18); BUN/Creat Ratio 17.2 RATIO (10-20); Calcium,Total 8.7 mg/dL (8.5-10.1); Chloride 106 mmol/L (98-107); Creatinine, Serum 0.87 mg/dL (0.70-1.30); EST Glomerular Filtration Rate 98 mL/min (>60); Est Glom Filt Rate - Afr Amer 118 mL/min (>60); Globulin 3.2 g/dL (2.2-4.2); Glucose 91 mg/dL (74-106); Protein, Total 6.9 g/dL (6.4-8.2); Sodium Level 142 mmol/L (136-145)
[2022-03-04 08:33] LABS: Hemoglobin A1c 5.5 % (3.8-5.6)
== END | disposition home or self-care (01) ==
PROVIDERS: PCP Internal Medicine; Referring Provider Psychiatry & Neurology Child & Adolescent Psychiatry; Visit Provider Psychiatry & Neurology Child & Adolescent Psychiatry
DX: Z79.899 Other long term (current) drug therapy (principal)
CPT/HCPCS: 80053; 83036; 85025

== ENCOUNTER → 2022-03-27 | Outpatient (CLI) | payer MEDICARE, MEDICAID, SELFPAY ==
[2022-03-27 12:22] LABS: Absolute Lymphocyte Count 1.44 X10^3/uL (0.83-4.51); Absolute Neutrophil Count 4.7 X10^3/uL (2.0-7.7); Basophil# 0.04 X10^3/uL; Basophil% 0.6 % (0-1); Eosinophil# 0.14 X10^3/uL; Hematocrit 41.4 % (40-54); Hemoglobin 13.5 g/dL (13.0-16.5); Lymphocyte # 1.44 X10^3/ul (0.83-4.51); Lymphocyte % 20.5 % (19-41); Mean Corp Hgb Conc 32.6 g/dL (32-36); Mean Corpuscular Hgb 31.3 pg (27.0-32.0); Mean Corpuscular Volume 95.8 fL (80-94); Mean Platelet Vol. 12.4 fl (6.2-12.0); Monocyte# 0.67 X10^3/uL; Monocyte% 9.6 % (0-10); NRBC Flagged by Analyzer 0 % (0-5); Neutrophil # 4.71 X10^3/uL (2.7-7.7); Neutrophil % 67.2 % (47-70); Platelet Count 134 K/mm3 (150-450); RBC Distribution Width CV 13.7 % (11.6-14.6); RBC Distribution Width SD 48.8 fl (35.1-43.9); Red Blood Count 4.32 M/mm3 (4.6-6.2)
== END | disposition home or self-care (01) ==
LOC: LABSPEC 08:38
PROVIDERS: PCP Internal Medicine; Referring Provider Psychiatry & Neurology Child & Adolescent Psychiatry; Visit Provider Psychiatry & Neurology Child & Adolescent Psychiatry
DX: Z79.899 Other long term (current) drug therapy (principal)
CPT/HCPCS: 85025

== ENCOUNTER 2022-04-16 07:35 | Outpatient (RCR) | payer MEDICARE, MEDICAID, SELFPAY ==
[2022-04-16 08:02] LABS: Absolute Lymphocyte Count 1.75 X10^3/uL (0.83-4.51); Absolute Neutrophil Count 4.9 X10^3/uL (2.0-7.7); Basophil# 0.04 X10^3/uL; Basophil% 0.5 % (0-1); Eosinophil# 0.15 X10^3/uL; Hematocrit 41.8 % (40-54); Hemoglobin 14.1 g/dL (13.0-16.5); Lymphocyte # 1.75 X10^3/ul (0.83-4.51); Lymphocyte % 22.8 % (19-41); Mean Corp Hgb Conc 33.7 g/dL (32-36); Mean Corpuscular Hgb 31.6 pg (27.0-32.0); Mean Corpuscular Volume 93.7 fL (80-94); Mean Platelet Vol. 12.8 fl (6.2-12.0); Monocyte# 0.84 X10^3/uL; NRBC Flagged by Analyzer 0 % (0-5); Neutrophil # 4.87 X10^3/uL (2.7-7.7); Neutrophil % 63.6 % (47-70); Platelet Count 126 K/mm3 (150-450); RBC Distribution Width CV 13.5 % (11.6-14.6); RBC Distribution Width SD 46.5 fl (35.1-43.9); Red Blood Count 4.46 M/mm3 (4.6-6.2); White Blood Count 7.7 K/mm3 (4.4-11.0)
[2022-04-16 08:16] LABS: ALB/GLOB Ratio 1.2 RATIO (0.9-2.4); AST(SGOT) 24 U/L (15-37); Alanine Aminotransfer ALT/SGPT 40 U/L (16-61); Albumin, Serum 3.7 g/dL (3.2-5.0); Alkaline Phosphatase 166 U/L (45-117); Anion Gap 6 (5-15); BUN 19 mg/dL (7-18); BUN/Creat Ratio 23.8 RATIO (10-20); Calcium,Total 9.2 mg/dL (8.5-10.1); Chloride 106 mmol/L (98-107); EST Glomerular Filtration Rate 108 mL/min (>60); Est Glom Filt Rate - Afr Amer 131 mL/min (>60); Globulin 3.1 g/dL (2.2-4.2); Glucose 109 mg/dL (74-106); Potassium 4.1 mmol/L (3.5-5.1); Protein, Total 6.8 g/dL (6.4-8.2); Sodium Level 141 mmol/L (136-145)
[2022-04-16 11:03] LABS: Hemoglobin A1c 5.6 % (3.8-5.6)
== END 2022-04-22 23:59 ==
LOC: LABSPEC 07:35
PROVIDERS: PCP Internal Medicine; Visit Provider Psychiatry & Neurology Child & Adolescent Psychiatry
DX: Z79.899 Other long term (current) drug therapy (principal)
CPT/HCPCS: 80053; 83036; 85025

== ENCOUNTER 2022-05-05 07:42 | Outpatient (RCR) | payer MEDICARE, MEDICAID, SELFPAY ==
[2022-05-05 08:00] LABS: Absolute Lymphocyte Count 1.88 X10^3/uL (0.83-4.51); Absolute Neutrophil Count 6.5 X10^3/uL (2.0-7.7); Basophil# 0.04 X10^3/uL; Basophil% 0.4 % (0-1); Eosinophil# 0.22 X10^3/uL; Eosinophils% 2.3 % (0-5); Hematocrit 40.1 % (40-54); Hemoglobin 13.6 g/dL (13.0-16.5); Lymphocyte # 1.88 X10^3/ul (0.83-4.51); Lymphocyte % 19.5 % (19-41); Mean Corp Hgb Conc 33.9 g/dL (32-36); Mean Corpuscular Hgb 32.2 pg (27.0-32.0); Mean Platelet Vol. 11.5 fl (6.2-12.0); Monocyte% 10.4 % (0-10); NRBC Flagged by Analyzer 0 % (0-5); Neutrophil # 6.46 X10^3/uL (2.7-7.7); Neutrophil % 67.1 % (47-70); Platelet Count 151 K/mm3 (150-450); RBC Distribution Width CV 13.2 % (11.6-14.6); Red Blood Count 4.22 M/mm3 (4.6-6.2); White Blood Count 9.6 K/mm3 (4.4-11.0)
[2022-05-05 08:22] LABS: AST(SGOT) 24 U/L (15-37); Alanine Aminotransfer ALT/SGPT 74 U/L (16-61); Albumin, Serum 3.4 g/dL (3.2-5.0); Alkaline Phosphatase 192 U/L (45-117); Anion Gap 7 (5-15); BUN 16 mg/dL (7-18); BUN/Creat Ratio 19.4 RATIO (10-20); Calcium,Total 9.3 mg/dL (8.5-10.1); Chloride 106 mmol/L (98-107); Cholesterol 120 mg/dL (200); Creatinine, Serum 0.82 mg/dL (0.70-1.30); EST Glomerular Filtration Rate 104 mL/min (>60); Est Glom Filt Rate - Afr Amer 126 mL/min (>60); Globulin 3.5 g/dL (2.2-4.2); Glucose 105 mg/dL (74-106); High Density Lipoprotein 25 mg/dL; Potassium 3.9 mmol/L (3.5-5.1); Protein, Total 6.9 g/dL (6.4-8.2); Sodium Level 141 mmol/L (136-145); Triglycerides 204 mg/dL; Very Low Density Lipoprotein 41 mg/dL (5-40)
[2022-05-05 08:47] LABS: Hemoglobin A1c 5.7 % (3.8-5.6)
== END 2022-05-23 23:59 ==
LOC: LABSPEC 07:42
PROVIDERS: PCP Internal Medicine; Referring Provider Psychiatry & Neurology Child & Adolescent Psychiatry; Visit Provider Psychiatry & Neurology Child & Adolescent Psychiatry
DX: Z79.899 Other long term (current) drug therapy (principal)
CPT/HCPCS: 80053; 80061; 83036; 85025

== ENCOUNTER 2022-05-16 17:56 | Emergency (ER) | payer MEDICARE, MEDICAID, SELFPAY ==
[2022-05-16 17:57] VITALS: BP 149/90; PULSE 90; RESP 18; TEMP 36.6; O2SAT 100
--- NOTE | 2022-05-16 19:19 | EDS_ITS ---
HPI HPI - GI History of Present Illness Chief Complaint: Abd Pain Narrative Narrative: 51-year-old male with history of MRDD and extensive history of bowel obstructions. His caregiver states that this is because he has poor gut motility. He sees a GI doctor at [facility] in [place]. Staff noticed today that when he was at workshop [facility] Medical History (Updated 05/16/22 @ 22:[address] Aldo Bass, DO) Bowel obstruction Conduct disorder COVID-19 History of small bowel obstruction Ileus, unspecified Impulse control disorder Intellectual disability MRDD Occult blood positive stool OCD (obsessive compulsive disorder) Home Medications escitalopram oxalate 10 mg tablet 10 mg PO DAILY@0700 depression 02/04/19 [H istory Last Taken 09/20/20] melatonin 3 mg tablet 3 mg PO QHS sleep 02/04/19 [History Last Taken 09/19/20] clindamycin 1.2 % (1 % base)-benzoyl peroxide 5 % topical gel 1 applic topical QHS facial skin condition 02/05/19 [History Last Taken 09/19/20] clonazepam 1 mg tablet 1 mg PO DAILY@1600 ANXIETY 11/04/19 [History Last Taken 09/19/20] escitalopram oxalate 5 mg tablet 5 mg PO DAILY@0700 ANXIETY 11/04/19 [History Last Taken 09/20/20] buspirone 5 mg tablet 15 mg PO BID MOOD 09/20/20 [History Last Taken 09/20/20] clonazepam 0.5 mg tablet 0.5 mg PO BREAKFAST ANXIETY 09/20/20 [History Last Taken 09/20/20] clozapine 100 mg tablet 100 mg PO BID BEHAVIOR 09/20/20 [History Last Taken 09/20/20] linaclotide 145 mcg capsule (Linzess) 145 mcg PO DAILY IBS 09/20/20 [History Last Taken 09/20/20] docusate sodium 100 mg capsule 200 mg PO BID bowels #0 caps 09/22/20 [Rx Last Taken 09/19/20] polyethylene glycol 3350 17 gram oral powder packet 17 g PO DAILY constipation 06/28/21 [History Last Taken Unknown] metoclopramide HCl 10 mg tablet 10 mg PO Q6H PRN 08/29/21 [History Last Taken Unknown] nirmatrelvir 300 mg (150 mg x2)-ritonavir 100 mg tablet,dose pack(EUA) (Paxlovid) See Rx Instructions PO .COMPLEX #30 tabs 12/02/21 [Rx Last Taken Unknown] sodium phosphates 19 gram-7 gram/118 mL enema (Fleet Enema) 118 ml MN DAILY PRN constipation 7 days #133 mL 05/16/22 [Rx Last Taken Unknown] Allergy/AdvReac Type Severity Reaction Status Date / Time No Known Allergies Allergy Verified 05/16/22 18:00 Social History (Reviewed 07/17/21 @ 09:06 by Nhung Strong AUTOMATED LOGISTICS SPECIALIST, AUTOMATED LOGISTICS SPECIALIST-C) Smoking Status: Never smoker EXAM Physical Exam Const Vital Signs: 05/16/22 17:57 05/16/22 22:23 Temperature 98 F Temperature Source Temporal Pulse Rate 90 96 Respiratory Rate 18 18 Blood Pressure 149/90 H 114/103 H Blood Pressure Mean 109 106 Pulse Ox 100 97 Oxygen Delivery Method Room Air Room Air MDM MDM MDM Narrative Medical decision making narrative: 51-year-old male presenting with distention of his abdomen that is not having an y pain. No fever. He had bowel movements. Has a history of slow bowels and small bowel obstructions. I obtained an acute abdominal series which does show diffuse gaseous distention concerning for possible obstruction. Radiology interprets this as no significant interval change from previous CT in 2020. On review of the CT from 2020 this showed a bowel obstruction. At this point lab work was obtained and CBC showed no leukocytosis. Hemoglobin monitor stable. Platelets are normal. CMP shows normal renal function, liver function, electrolytes, are normal. Glucose slightly elevated without anion gap. Patient still pain-free. I spoke with Dr. Rose regarding the CT read of stercoral colitis. He recommended soapsuds enema. This was performed and he had a very large bowel movement. He still pain-free. I will send him home with enemas to do at home. Return precautions were discussed. Impression: 1. Stercoral colitis 2. abdominal distention Lab Data Labs: Laboratory Results - last 24 hr 05/16/22 05/16/22 21:05 21:05 WBC 8.9 RBC 4.43 L Hgb 13.9 Hct 42.2 MCV 95.3 H MCH 31.4 MCHC 32.9 RDW Std Deviation 48.6 H RDW Coeff of J Luis 13.8 Plt Count 185 MPV 11.4 Immature Gran % (Auto) 0.200 Neut % (Auto) 76.7 H Lymph % (Auto) 13.3 L Harper % (Auto) 8.0 Eos % (Auto) 1.2 Baso % (Auto) 0.6 Absolute Neuts (auto) 6.8 Absolute Lymphs (auto) 1.19 Nucleated RBC % 0 Sodium 140 Potassium 3.5 Chloride 105 Carbon Dioxide 28.0 Anion Gap 7 BUN 13 Creatinine 0.87 Est GFR (MDRD) Af Amer 119 Est GFR (MDRD) Non-Af 98 BUN/Creatinine Ratio 15.0 Glucose 109 H Calcium 9.2 Total Bilirubin 0.30 AST 22 ALT 51 Alkaline Phosphatase 182 H Total Protein 7.7 Albumin 3.9 Globulin 3.8 Albumin/Globulin Ratio 1.0 Radiography Diagnostic Testing: Clinical Impression(s) from Imaging Studies Acute Abdomen Series 05/16/22 19:42 IMPRESSION: Diffuse gaseous bowel distention is not significantly changed compared to 09/20/2020 CT. No acute abnormal cardiopulmonary finding. Electronically Signed: Mahesh Clarke MD at 20:09 EDT , Abdomen/Pelvis CT 05/16/22 20:41 IMPRESSION: Stercoral colitis with sigmoid dilation. Electronically Signed: Mahesh Clarke MD at 21:53 EDT , Discharge Plan Triage Chief Complaint: Abd Pain ED Provider: Aldo Bass Dx/Rx/DC Orders Clinical Impression: Stercoral colitis Instructions: Anatomy of the Digestive System, ED Constipation (Adult) Prescriptions: [place] Enema 19-7 gram/118 mL enema 118 ml MN DAILY PRN (Reason: constipation) 7 Days Qty: 133 0RF No Action metoclopramide HCl 10 mg tablet 10 mg PO Q6H PRN Paxlovid (EUA) 300 mg (150 mg x 2)-100 mg tablets,dose pack See Rx Instructions PO .COMPLEX Qty: 30 0RF Rx Instructions: take TWO 150 mg tablets of nirmatrelvir with ONE 100 mg tablet of ritonavir twice daily for 5 days PO melatonin 3 MG tablet 3 mg PO QHS escitalopram oxalate 10 MG tablet 10 mg PO DAILY@0700 clindamycin-benzoyl peroxide 0 gel 1 applic topical QHS clonazepam 1 MG tablet 1 mg PO DAILY@1600 escitalopram oxalate 5 MG tablet 5 mg PO DAILY@0700 buspirone 5 mg tablet 15 mg PO BID clonazepam 0.5 mg tablet 0.5 mg PO BREAKFAST Label Comments: TAKE (1) TABLET BY MOUTHCDAILY IN THE MORNING. Linzess 145 mcg capsule 145 mcg PO DAILY Label Comments: TAKE (1) CAPSULE BY MOUTHDDAILY. clozapine 100 mg tablet 100 mg PO BID docusate sodium 100 MG capsule 200 mg PO BID Qty: 0 0RF polyethylene glycol 3350 17 GM powder in packet 17 g PO DAILY Primary Care Provider: Mervat Carrillo Referrals: Mervat Carrillo MD [Primary Care Provider] - Disposition Disposition: Home, Self Care
--- NOTE | 2022-05-16 19:42 | RAD_ITS ---
INDICATION: Abdominal distention EXAMINATION/TECHNIQUE: X-RAY - XR Abdomen Series W/ Chest 1 View COMPARISON: 09/20/2020 CT FINDINGS: --Chest: LINES/DEVICES: None. LUNGS: No consolidation, edema or effusion. No pneumothorax. MEDIASTINUM AND CARDIOVASCULAR STRUCTURES: Cardiac silhouette not enlarged. Central airways and mediastinal contour are unremarkable. --Abdomen: BOWEL GAS PATTERN: Diffuse gaseous bowel distention appears similar to 09/20/2020 CT. FREE AIR: None visualized. ORGANOMEGALY: Not seen. CALCIFICATIONS: No abnormal calcifications observed. BONES AND SOFT TISSUES: No acute abnormal finding. RAD/Acute Abdomen Inc Chest IMPRESSION: Diffuse gaseous bowel distention is not significantly changed compared to 09/20/2020 CT. No acute abnormal cardiopulmonary finding. Electronically Signed: Mahesh Clarke MD at 20:09 EDT ,
--- NOTE | 2022-05-16 20:41 | CT_ITS ---
INDICATION: Abdominal pain EXAMINATION: CT ABDOMEN AND PELVIS WITH CONTRAST - CT Abdomen And Pelvis W/ Contrast Injection TECHNIQUE: Helically acquired images were obtained of the abdomen and pelvis following IV contrast. A radiation dose optimization technique was used for this scan. IV Contrast dosage and agent: 96 mL Isovue-370 Oral contrast: None. COMPARISON: 09/20/2020 FINDINGS: LOWER CHEST: Lung bases are clear. No cardiomegaly or pericardial effusion. LIVER: Homogeneous. No focal mass. GALLBLADDER AND BILIARY TREE: No calcified gallstones. No gallbladder distension or wall edema. No intra- or extrahepatic biliary ductal dilation. PANCREAS: No focal cystic or solid mass. SPLEEN: Normal size without focal cystic or solid mass. ADRENAL GLANDS: No nodules. KIDNEYS AND URETERS: Normal renal size. Pelvic position of the left kidney redemonstrated. No hydronephrosis. Right ureter ectasia redemonstrated. PERITONEUM: No ascites or free air. No other fluid collection. BOWEL: No evidence of acute appendicitis. No stomach or small bowel distension. Rectal stool ball circumferential wall thickening and enhancement. Mild gaseous dilation of the sigmoid. LYMPH NODES: No enlarged mesenteric or retroperitoneal lymph nodes. VESSELS: Aorta is non-dilated. URINARY BLADDER: Unremarkable. REPRODUCTIVE ORGANS: No pelvic masses. ABDOMINAL WALL: No discrete abdominal or pelvic wall hernia. BONES: Thoracolumbar spine degenerative change. CT/Abdomen/Pelvis W IV Cont ONLY IMPRESSION: Stercoral colitis with sigmoid dilation. Electronically Signed: Mahesh Clarke MD at 21:53 EDT ,
[2022-05-16 21:16] LABS: Absolute Lymphocyte Count 1.19 X10^3/uL (0.83-4.51); Absolute Neutrophil Count 6.8 X10^3/uL (2.0-7.7); Basophil# 0.05 X10^3/uL; Basophil% 0.6 % (0-1); Eosinophil# 0.11 X10^3/uL; Eosinophils% 1.2 % (0-5); Hematocrit 42.2 % (40-54); Hemoglobin 13.9 g/dL (13.0-16.5); Lymphocyte # 1.19 X10^3/ul (0.83-4.51); Lymphocyte % 13.3 % (19-41); Mean Corp Hgb Conc 32.9 g/dL (32-36); Mean Corpuscular Hgb 31.4 pg (27.0-32.0); Mean Corpuscular Volume 95.3 fL (80-94); Mean Platelet Vol. 11.4 fl (6.2-12.0); Monocyte# 0.71 X10^3/uL; NRBC Flagged by Analyzer 0 % (0-5); Neutrophil # 6.84 X10^3/uL (2.7-7.7); Neutrophil % 76.7 % (47-70); Platelet Count 185 K/mm3 (150-450); RBC Distribution Width CV 13.8 % (11.6-14.6); RBC Distribution Width SD 48.6 fl (35.1-43.9); Red Blood Count 4.43 M/mm3 (4.6-6.2); White Blood Count 8.9 K/mm3 (4.4-11.0)
[2022-05-16] MEDS: 0.9% Normal Saline 1,000 ML 1000 ML IV (21:18)
[2022-05-16 21:32] LABS: AST(SGOT) 22 U/L (15-37); Alanine Aminotransfer ALT/SGPT 51 U/L (16-61); Albumin, Serum 3.9 g/dL (3.2-5.0); Alkaline Phosphatase 182 U/L (45-117); Anion Gap 7 (5-15); BUN 13 mg/dL (7-18); Calcium,Total 9.2 mg/dL (8.5-10.1); Chloride 105 mmol/L (98-107); Creatinine, Serum 0.87 mg/dL (0.70-1.30); EST Glomerular Filtration Rate 98 mL/min (>60); Est Glom Filt Rate - Afr Amer 119 mL/min (>60); Globulin 3.8 g/dL (2.2-4.2); Glucose 109 mg/dL (74-106); Potassium 3.5 mmol/L (3.5-5.1); Protein, Total 7.7 g/dL (6.4-8.2); Sodium Level 140 mmol/L (136-145)
[2022-05-16 22:23] VITALS: BP 114/103; PULSE 96; RESP 18; O2SAT 97
[2022-05-17 00:19] VITALS: PULSE 76; RESP 16; O2SAT 98
== END 2022-05-17 00:19 | disposition home or self-care (01) ==
PROVIDERS: Emergency Provider Student in an Organized Health Care Education/Training Program; PCP Internal Medicine; Visit Provider Student in an Organized Health Care Education/Training Program
DX: K52.89 Other specified noninfective gastroenteritis and colitis (principal); Z87.19 Personal history of other diseases of the digestive system
CPT/HCPCS: 74022; 74177; 80053; 85025; 96360; 96361; 99285; J7030; Q9967; A4216

== ENCOUNTER 2022-05-26 06:22 | Outpatient (RCR) | payer MEDICARE, MEDICAID, SELFPAY ==
[2022-05-26 06:35] LABS: Absolute Lymphocyte Count 1.36 X10^3/uL (0.83-4.51); Absolute Neutrophil Count 4.3 X10^3/uL (2.0-7.7); Basophil# 0.04 X10^3/uL; Basophil% 0.6 % (0-1); Eosinophil# 0.18 X10^3/uL; Eosinophils% 2.7 % (0-5); Hematocrit 40.5 % (40-54); Hemoglobin 13.6 g/dL (13.0-16.5); Lymphocyte # 1.36 X10^3/ul (0.83-4.51); Lymphocyte % 20.7 % (19-41); Mean Corp Hgb Conc 33.6 g/dL (32-36); Mean Corpuscular Hgb 31.4 pg (27.0-32.0); Mean Corpuscular Volume 93.5 fL (80-94); Mean Platelet Vol. 11.1 fl (6.2-12.0); Monocyte# 0.69 X10^3/uL; Monocyte% 10.5 % (0-10); NRBC Flagged by Analyzer 0 % (0-5); Neutrophil # 4.28 X10^3/uL (2.7-7.7); Neutrophil % 65.2 % (47-70); Platelet Count 156 K/mm3 (150-450); RBC Distribution Width CV 13.2 % (11.6-14.6); RBC Distribution Width SD 45.6 fl (35.1-43.9); Red Blood Count 4.33 M/mm3 (4.6-6.2); White Blood Count 6.6 K/mm3 (4.4-11.0)
== END 2022-06-22 23:59 ==
LOC: LABSPEC 06:22
PROVIDERS: PCP Internal Medicine; Referring Provider Psychiatry & Neurology Child & Adolescent Psychiatry; Visit Provider Psychiatry & Neurology Child & Adolescent Psychiatry
DX: Z79.899 Other long term (current) drug therapy (principal)
CPT/HCPCS: 85025

== ENCOUNTER → 2022-06-17 | Outpatient (CLI) | payer MEDICARE, MEDICAID, SELFPAY ==
[2022-06-17 08:29] LABS: AST(SGOT) 30 U/L (15-37); Alanine Aminotransfer ALT/SGPT 37 U/L (16-61); Albumin, Serum 3.5 g/dL (3.2-5.0); Alkaline Phosphatase 145 U/L (45-117); Anion Gap 5 (5-15); BUN 17 mg/dL (7-18); BUN/Creat Ratio 19.4 RATIO (10-20); Calcium,Total 9.3 mg/dL (8.5-10.1); Chloride 107 mmol/L (98-107); Creatinine, Serum 0.88 mg/dL (0.70-1.30); EST Glomerular Filtration Rate 97 mL/min (>60); Est Glom Filt Rate - Afr Amer 118 mL/min (>60); Globulin 3.5 g/dL (2.2-4.2); Glucose 111 mg/dL (74-106); Potassium 4.4 mmol/L (3.5-5.1); Sodium Level 139 mmol/L (136-145)
== END | disposition home or self-care (01) ==
LOC: LABSPEC 07:38
PROVIDERS: PCP Internal Medicine; Referring Provider Psychiatry & Neurology Child & Adolescent Psychiatry; Visit Provider Psychiatry & Neurology Child & Adolescent Psychiatry
DX: Z79.899 Other long term (current) drug therapy (principal)
CPT/HCPCS: 80053

== ENCOUNTER → 2022-07-07 | Outpatient (CLI) | payer MEDICARE, MEDICAID, SELFPAY ==
[2022-07-07 07:40] LABS: Absolute Lymphocyte Count 1.59 X10^3/uL (0.83-4.51); Basophil# 0.05 X10^3/uL; Basophil% 0.7 % (0-1); Eosinophil# 0.17 X10^3/uL; Eosinophils% 2.2 % (0-5); Hematocrit 41.4 % (40-54); Hemoglobin 13.5 g/dL (13.0-16.5); Lymphocyte # 1.59 X10^3/ul (0.83-4.51); Lymphocyte % 20.9 % (19-41); Mean Corp Hgb Conc 32.6 g/dL (32-36); Mean Corpuscular Hgb 31.3 pg (27.0-32.0); Mean Corpuscular Volume 96.1 fL (80-94); Monocyte# 0.74 X10^3/uL; Monocyte% 9.7 % (0-10); NRBC Flagged by Analyzer 0 % (0-5); Neutrophil # 5.04 X10^3/uL (2.7-7.7); Neutrophil % 66.4 % (47-70); Platelet Count 143 K/mm3 (150-450); RBC Distribution Width CV 13.4 % (11.6-14.6); RBC Distribution Width SD 48.1 fl (35.1-43.9); Red Blood Count 4.31 M/mm3 (4.6-6.2); White Blood Count 7.6 K/mm3 (4.4-11.0)
== END | disposition home or self-care (01) ==
PROVIDERS: PCP Internal Medicine; Referring Provider Psychiatry & Neurology Child & Adolescent Psychiatry; Visit Provider Psychiatry & Neurology Child & Adolescent Psychiatry
DX: Z79.899 Other long term (current) drug therapy (principal)
CPT/HCPCS: 85025

== ENCOUNTER 2022-08-07 09:30 | Outpatient (RCR) | payer MEDICARE, MEDICAID, SELFPAY ==
[2022-08-07 12:03] LABS: Absolute Lymphocyte Count 1.63 X10^3/uL (0.83-4.51); Absolute Neutrophil Count 5.9 X10^3/uL (2.0-7.7); Basophil# 0.06 X10^3/uL; Basophil% 0.7 % (0-1); Eosinophil# 0.15 X10^3/uL; Eosinophils% 1.7 % (0-5); Hematocrit 41.4 % (40-54); Hemoglobin 13.3 g/dL (13.0-16.5); Lymphocyte # 1.63 X10^3/ul (0.83-4.51); Lymphocyte % 18.8 % (19-41); Mean Corp Hgb Conc 32.1 g/dL (32-36); Mean Corpuscular Hgb 31.2 pg (27.0-32.0); Mean Corpuscular Volume 97.2 fL (80-94); Mean Platelet Vol. 12.4 fl (6.2-12.0); Monocyte% 10.4 % (0-10); NRBC Flagged by Analyzer 0 % (0-5); Neutrophil # 5.92 X10^3/uL (2.7-7.7); Neutrophil % 68.1 % (47-70); Platelet Count 133 K/mm3 (150-450); RBC Distribution Width CV 13.5 % (11.6-14.6); Red Blood Count 4.26 M/mm3 (4.6-6.2); White Blood Count 8.7 K/mm3 (4.4-11.0)
== END 2022-08-22 23:59 ==
LOC: LABSPEC 09:30
PROVIDERS: PCP Internal Medicine
DX: Z79.899 Other long term (current) drug therapy (principal)
CPT/HCPCS: 85025

== ENCOUNTER 2022-09-09 10:36 | Outpatient (RCR) | payer MEDICARE, MEDICAID, SELFPAY ==
[2022-09-09 12:22] LABS: Absolute Lymphocyte Count 0.89 X10^3/uL (0.83-4.51); Absolute Neutrophil Count 7.8 X10^3/uL (2.0-7.7); Basophil# 0.05 X10^3/uL; Basophil% 0.5 % (0-1); Eosinophil# 0.08 X10^3/uL; Eosinophils% 0.8 % (0-5); Hematocrit 41.6 % (40-54); Hemoglobin 13.7 g/dL (13.0-16.5); Lymphocyte # 0.89 X10^3/ul (0.83-4.51); Lymphocyte % 9.2 % (19-41); Mean Corp Hgb Conc 32.9 g/dL (32-36); Mean Corpuscular Hgb 31.2 pg (27.0-32.0); Mean Corpuscular Volume 94.8 fL (80-94); Mean Platelet Vol. 11.7 fl (6.2-12.0); Monocyte# 0.85 X10^3/uL; Monocyte% 8.8 % (0-10); NRBC Flagged by Analyzer 0 % (0-5); Neutrophil % 80.3 % (47-70); Platelet Count 129 K/mm3 (150-450); RBC Distribution Width CV 13.2 % (11.6-14.6); RBC Distribution Width SD 46.5 fl (35.1-43.9); Red Blood Count 4.39 M/mm3 (4.6-6.2); White Blood Count 9.7 K/mm3 (4.4-11.0)
== END 2022-09-22 23:59 ==
LOC: LABSPEC 10:36
PROVIDERS: PCP Internal Medicine
DX: Z79.899 Other long term (current) drug therapy (principal)
CPT/HCPCS: 85025

== ENCOUNTER → 2022-10-06 | Outpatient (CLI) | payer MEDICARE, MEDICAID, SELFPAY | END | disposition home or self-care (01) | LOC: LABSPEC 11:27 | PROVIDERS: PCP Internal Medicine; Referring Provider Psychiatry & Neurology Child & Adolescent Psychiatry; Visit Provider Psychiatry & Neurology Child & Adolescent Psychiatry | DX: Z79.899 Other long term (current) drug therapy (principal) ==

== ENCOUNTER 2022-10-14 09:50 | Outpatient (RCR) | payer MEDICARE, MEDICAID, SELFPAY ==
[2022-10-14 12:27] LABS: Absolute Lymphocyte Count 0.97 X10^3/uL (0.83-4.51); Absolute Neutrophil Count 8.3 X10^3/uL (2.0-7.7); Basophil# 0.05 X10^3/uL; Basophil% 0.5 % (0-1); Eosinophil# 0.11 X10^3/uL; Eosinophils% 1.1 % (0-5); Hematocrit 43.1 % (40-54); Hemoglobin 14.2 g/dL (13.0-16.5); Lymphocyte # 0.97 X10^3/ul (0.83-4.51); Lymphocyte % 9.5 % (19-41); Mean Corp Hgb Conc 32.9 g/dL (32-36); Mean Corpuscular Hgb 31.6 pg (27.0-32.0); Mean Corpuscular Volume 95.8 fL (80-94); Mean Platelet Vol. 12.1 fl (6.2-12.0); Monocyte# 0.66 X10^3/uL; Monocyte% 6.5 % (0-10); NRBC Flagged by Analyzer 0 % (0-5); Neutrophil # 8.33 X10^3/uL (2.7-7.7); Platelet Count 134 K/mm3 (150-450); RBC Distribution Width CV 13.9 % (11.6-14.6); RBC Distribution Width SD 49.5 fl (35.1-43.9); White Blood Count 10.2 K/mm3 (4.4-11.0)
== END 2022-10-23 23:59 ==
LOC: LABSPEC 09:50
PROVIDERS: PCP Internal Medicine
DX: Z79.899 Other long term (current) drug therapy (principal)
CPT/HCPCS: 85025

== ENCOUNTER 2022-11-14 11:19 | Outpatient (RCR) | payer MEDICARE, MEDICAID, SELFPAY ==
[2022-11-14 12:23] LABS: Absolute Neutrophil Count 6.5 X10^3/uL (2.0-7.7); Basophil# 0.06 X10^3/uL; Basophil% 0.7 % (0-1); Eosinophil# 0.13 X10^3/uL; Eosinophils% 1.5 % (0-5); Hematocrit 41.8 % (40-54); Hemoglobin 13.8 g/dL (13.0-16.5); Lymphocyte % 14.2 % (19-41); Mean Corpuscular Hgb 31.7 pg (27.0-32.0); Mean Corpuscular Volume 95.9 fL (80-94); Mean Platelet Vol. 12.1 fl (6.2-12.0); Monocyte# 0.58 X10^3/uL; Monocyte% 6.9 % (0-10); NRBC Flagged by Analyzer 0 % (0-5); Neutrophil # 6.46 X10^3/uL (2.7-7.7); Neutrophil % 76.3 % (47-70); Platelet Count 134 K/mm3 (150-450); RBC Distribution Width CV 13.4 % (11.6-14.6); RBC Distribution Width SD 47.9 fl (35.1-43.9); Red Blood Count 4.36 M/mm3 (4.6-6.2); White Blood Count 8.5 K/mm3 (4.4-11.0)
== END 2022-11-22 23:59 ==
LOC: LABSPEC 11:19
PROVIDERS: PCP Internal Medicine
DX: Z79.899 Other long term (current) drug therapy (principal)
CPT/HCPCS: 85025

== ENCOUNTER 2022-12-10 11:20 | Outpatient (RCR) | payer MEDICARE, MEDICAID, SELFPAY ==
[2022-12-10 12:43] LABS: Absolute Lymphocyte Count 0.81 X10^3/uL (0.83-4.51); Absolute Neutrophil Count 5.2 X10^3/uL (2.0-7.7); Basophil# 0.03 X10^3/uL; Basophil% 0.5 % (0-1); Eosinophil# 0.06 X10^3/uL; Eosinophils% 0.9 % (0-5); Hematocrit 43.2 % (40-54); Hemoglobin 14.1 g/dL (13.0-16.5); Lymphocyte # 0.81 X10^3/ul (0.83-4.51); Lymphocyte % 12.5 % (19-41); Mean Corp Hgb Conc 32.6 g/dL (32-36); Mean Corpuscular Hgb 31.3 pg (27.0-32.0); Mean Platelet Vol. 12.2 fl (6.2-12.0); Monocyte# 0.37 X10^3/uL; Monocyte% 5.7 % (0-10); NRBC Flagged by Analyzer 0 % (0-5); Neutrophil # 5.17 X10^3/uL (2.7-7.7); Neutrophil % 80.1 % (47-70); Platelet Count 128 K/mm3 (150-450); RBC Distribution Width CV 13.3 % (11.6-14.6); RBC Distribution Width SD 47.6 fl (35.1-43.9); White Blood Count 6.5 K/mm3 (4.4-11.0)
== END 2022-12-23 23:59 ==
LOC: LABSPEC 11:20
PROVIDERS: PCP Internal Medicine
DX: Z79.899 Other long term (current) drug therapy (principal)
CPT/HCPCS: 85025

== ENCOUNTER → 2023-01-09 | Outpatient (CLI) | payer MEDICARE, MEDICAID, SELFPAY ==
[2023-01-09 07:55] LABS: Absolute Lymphocyte Count 1.74 X10^3/uL (0.83-4.51); Absolute Neutrophil Count 4.9 X10^3/uL (2.0-7.7); Basophil# 0.04 X10^3/uL; Basophil% 0.5 % (0-1); Eosinophil# 0.17 X10^3/uL; Eosinophils% 2.2 % (0-5); Hematocrit 42.4 % (40-54); Hemoglobin 13.9 g/dL (13.0-16.5); Lymphocyte # 1.74 X10^3/ul (0.83-4.51); Lymphocyte % 22.8 % (19-41); Mean Corp Hgb Conc 32.8 g/dL (32-36); Mean Corpuscular Hgb 31.2 pg (27.0-32.0); Mean Corpuscular Volume 95.3 fL (80-94); Mean Platelet Vol. 12.4 fl (6.2-12.0); Monocyte# 0.82 X10^3/uL; Monocyte% 10.7 % (0-10); NRBC Flagged by Analyzer 0 % (0-5); Neutrophil # 4.85 X10^3/uL (2.7-7.7); Neutrophil % 63.7 % (47-70); POSITIVE COUNT YES; RBC Distribution Width CV 13.3 % (11.6-14.6); RBC Distribution Width SD 47.3 fl (35.1-43.9); Red Blood Count 4.45 M/mm3 (4.6-6.2); White Blood Count 7.6 K/mm3 (4.4-11.0)
[2023-01-09 08:02] LABS: ALB/GLOB Ratio 1.1 RATIO (0.9-2.4); AST(SGOT) 19 U/L (15-37); Alanine Aminotransfer ALT/SGPT 30 U/L (16-61); Albumin, Serum 3.7 g/dL (3.2-5.0); Alkaline Phosphatase 153 U/L (45-117); Anion Gap 6 (5-15); BUN 15 mg/dL (7-18); BUN/Creat Ratio 15.4 RATIO (10-20); Calcium,Total 8.5 mg/dL (8.5-10.1); Chloride 107 mmol/L (98-107); Cholesterol 102 mg/dL (200); Creatinine, Serum 0.98 mg/dL (0.70-1.30); EST Glomerular Filtration Rate 86 mL/min (>60); Est Glom Filt Rate - Afr Amer 104 mL/min (>60); Globulin 3.5 g/dL (2.2-4.2); Glucose 119 mg/dL (74-106); High Density Lipoprotein 22 mg/dL; Protein, Total 7.2 g/dL (6.4-8.2); Sodium Level 140 mmol/L (136-145); Triglycerides 231 mg/dL; Very Low Density Lipoprotein 46 mg/dL (5-40)
[2023-01-09 08:33] LABS: Differential Indicated SCAN CRITERIA MET
[2023-01-09 08:34] LABS: Platelet Estimate SLT DEC (ADEQ)
[2023-01-09 11:45] LABS: Hemoglobin A1c 5.8 % (3.8-5.6)
== END | disposition home or self-care (01) ==
LOC: LABSPEC 07:25
PROVIDERS: PCP Internal Medicine; Referring Provider Psychiatry & Neurology Child & Adolescent Psychiatry; Visit Provider Psychiatry & Neurology Child & Adolescent Psychiatry
DX: Z79.899 Other long term (current) drug therapy (principal)
CPT/HCPCS: 80053; 80061; 83036; 85025

== ENCOUNTER 2023-02-05 07:01 | Outpatient (RCR) | payer MEDICARE, MEDICAID, SELFPAY ==
[2023-02-05 09:56] LABS: Absolute Lymphocyte Count 1.59 X10^3/uL (0.83-4.51); Basophil# 0.06 X10^3/uL; Basophil% 0.8 % (0-1); Eosinophil# 0.17 X10^3/uL; Eosinophils% 2.2 % (0-5); Hematocrit 40.8 % (40-54); Hemoglobin 13.3 g/dL (13.0-16.5); Lymphocyte # 1.59 X10^3/ul (0.83-4.51); Mean Corp Hgb Conc 32.6 g/dL (32-36); Mean Corpuscular Hgb 30.8 pg (27.0-32.0); Mean Corpuscular Volume 94.4 fL (80-94); Mean Platelet Vol. 12.4 fl (6.2-12.0); Monocyte# 0.74 X10^3/uL; Monocyte% 9.8 % (0-10); NRBC Flagged by Analyzer 0 % (0-5); Neutrophil # 4.99 X10^3/uL (2.7-7.7); Neutrophil % 65.8 % (47-70); Platelet Count 147 K/mm3 (150-450); RBC Distribution Width CV 13.9 % (11.6-14.6); RBC Distribution Width SD 47.8 fl (35.1-43.9); Red Blood Count 4.32 M/mm3 (4.6-6.2); White Blood Count 7.6 K/mm3 (4.4-11.0)
[2023-02-05 11:53] LABS: Hemoglobin A1c 5.6 % (3.8-5.6)
== END 2023-02-22 23:59 ==
LOC: LABSPEC 07:01
PROVIDERS: PCP Internal Medicine; Referring Provider Psychiatry & Neurology Child & Adolescent Psychiatry; Visit Provider Psychiatry & Neurology Child & Adolescent Psychiatry
DX: Z79.899 Other long term (current) drug therapy (principal)
CPT/HCPCS: 83036; 85025

== ENCOUNTER 2023-03-09 10:43 | Outpatient (RCR) | payer MEDICARE, MEDICAID, SELFPAY ==
[2023-03-09 12:40] LABS: Absolute Lymphocyte Count 1.25 X10^3/uL (0.83-4.51); Absolute Neutrophil Count 4.8 X10^3/uL (2.0-7.7); Basophil# 0.04 X10^3/uL; Basophil% 0.6 % (0-1); Eosinophil# 0.16 X10^3/uL; Eosinophils% 2.3 % (0-5); Hematocrit 42.2 % (40-54); Hemoglobin 13.9 g/dL (13.0-16.5); Lymphocyte # 1.25 X10^3/ul (0.83-4.51); Lymphocyte % 17.9 % (19-41); Mean Corp Hgb Conc 32.9 g/dL (32-36); Mean Corpuscular Hgb 31.1 pg (27.0-32.0); Mean Corpuscular Volume 94.4 fL (80-94); Mean Platelet Vol. 12.5 fl (6.2-12.0); NRBC Flagged by Analyzer 0 % (0-5); Neutrophil # 4.82 X10^3/uL (2.7-7.7); Neutrophil % 68.9 % (47-70); Platelet Count 135 K/mm3 (150-450); RBC Distribution Width CV 13.5 % (11.6-14.6); RBC Distribution Width SD 47.1 fl (35.1-43.9); Red Blood Count 4.47 M/mm3 (4.6-6.2)
== END 2023-03-25 23:59 ==
LOC: LABSPEC 10:43
PROVIDERS: PCP Internal Medicine; Visit Provider Internal Medicine
DX: F39 Unspecified mood [affective] disorder
CPT/HCPCS: 85025

== ENCOUNTER 2023-04-10 10:34 | Outpatient (RCR) | payer MEDICARE, MEDICAID, SELFPAY ==
[2023-04-10 12:19] LABS: Absolute Lymphocyte Count 0.93 X10^3/uL (0.83-4.51); Absolute Neutrophil Count 6.2 X10^3/uL (2.0-7.7); Basophil# 0.04 X10^3/uL; Basophil% 0.5 % (0-1); Eosinophil# 0.11 X10^3/uL; Eosinophils% 1.4 % (0-5); Hematocrit 42.6 % (40-54); Hemoglobin 13.9 g/dL (13.0-16.5); Lymphocyte # 0.93 X10^3/ul (0.83-4.51); Mean Corp Hgb Conc 32.6 g/dL (32-36); Mean Corpuscular Hgb 31.1 pg (27.0-32.0); Mean Corpuscular Volume 95.3 fL (80-94); Mean Platelet Vol. 12.6 fl (6.2-12.0); Monocyte# 0.46 X10^3/uL; Monocyte% 5.9 % (0-10); NRBC Flagged by Analyzer 0 % (0-5); Neutrophil % 80.1 % (47-70); Platelet Count 138 K/mm3 (150-450); RBC Distribution Width CV 13.7 % (11.6-14.6); RBC Distribution Width SD 48.2 fl (35.1-43.9); Red Blood Count 4.47 M/mm3 (4.6-6.2); White Blood Count 7.8 K/mm3 (4.4-11.0)
== END 2023-04-23 23:59 ==
LOC: LABSPEC 10:34
PROVIDERS: PCP Internal Medicine; Visit Provider Internal Medicine
DX: Z79.899 Other long term (current) drug therapy (principal); F39 Unspecified mood [affective] disorder
CPT/HCPCS: 85025

== ENCOUNTER 2023-05-04 06:33 | Outpatient (RCR) | payer MEDICARE, MEDICAID, SELFPAY ==
[2023-05-04 07:52] LABS: Absolute Lymphocyte Count 1.86 X10^3/uL (0.83-4.51); Absolute Neutrophil Count 5.9 X10^3/uL (2.0-7.7); Basophil# 0.06 X10^3/uL; Basophil% 0.7 % (0-1); Eosinophil# 0.23 X10^3/uL; Eosinophils% 2.6 % (0-5); Hematocrit 41.4 % (40-54); Hemoglobin 13.4 g/dL (13.0-16.5); Lymphocyte # 1.86 X10^3/ul (0.83-4.51); Lymphocyte % 20.9 % (19-41); Mean Corp Hgb Conc 32.4 g/dL (32-36); Mean Corpuscular Hgb 30.5 pg (27.0-32.0); Mean Corpuscular Volume 94.1 fL (80-94); Mean Platelet Vol. 12.7 fl (6.2-12.0); NRBC Flagged by Analyzer 0 % (0-5); Neutrophil # 5.91 X10^3/uL (2.7-7.7); Neutrophil % 66.5 % (47-70); POSITIVE COUNT YES; Platelet Count 129 K/mm3 (150-450); RBC Distribution Width CV 13.6 % (11.6-14.6); RBC Distribution Width SD 47.6 fl (35.1-43.9); White Blood Count 8.9 K/mm3 (4.4-11.0)
[2023-05-04 08:58] LABS: Hemoglobin A1c 5.5 % (3.8-5.6)
== END 2023-05-24 23:59 ==
LOC: LABSPEC 06:33
PROVIDERS: PCP Internal Medicine
DX: F39 Unspecified mood [affective] disorder (principal)
CPT/HCPCS: 83036; 85025

== ENCOUNTER 2023-06-08 10:27 | Outpatient (RCR) | payer MEDICARE, MEDICAID, SELFPAY ==
[2023-06-08 12:32] LABS: Absolute Lymphocyte Count 0.88 X10^3/uL (0.83-4.51); Absolute Neutrophil Count 4.4 X10^3/uL (2.0-7.7); Basophil# 0.03 X10^3/uL; Basophil% 0.5 % (0-1); Eosinophils% 1.7 % (0-5); Hematocrit 43.9 % (40-54); Hemoglobin 14.3 g/dL (13.0-16.5); Lymphocyte # 0.88 X10^3/ul (0.83-4.51); Mean Corp Hgb Conc 32.6 g/dL (32-36); Mean Corpuscular Volume 95.2 fL (80-94); Mean Platelet Vol. 12.1 fl (6.2-12.0); Monocyte# 0.42 X10^3/uL; Monocyte% 7.2 % (0-10); NRBC Flagged by Analyzer 0 % (0-5); Neutrophil # 4.42 X10^3/uL (2.7-7.7); Neutrophil % 75.4 % (47-70); Platelet Count 140 K/mm3 (150-450); RBC Distribution Width CV 14.1 % (11.6-14.6); RBC Distribution Width SD 49.1 fl (35.1-43.9); Red Blood Count 4.61 M/mm3 (4.6-6.2); White Blood Count 5.9 K/mm3 (4.4-11.0)
== END 2023-06-23 23:59 ==
LOC: LABSPEC 10:27
PROVIDERS: PCP Internal Medicine
DX: F39 Unspecified mood [affective] disorder (principal)
CPT/HCPCS: 85025

== ENCOUNTER 2023-07-08 07:05 | Outpatient (RCR) | payer MEDICARE, MEDICAID, SELFPAY ==
[2023-07-06 07:44] LABS: Absolute Lymphocyte Count 1.85 X10^3/uL (0.83-4.51); Absolute Neutrophil Count 5.8 X10^3/uL (2.0-7.7); Basophil# 0.05 X10^3/uL; Basophil% 0.6 % (0-1); Eosinophil# 0.19 X10^3/uL; Eosinophils% 2.2 % (0-5); Hematocrit 40.8 % (40-54); Hemoglobin 13.4 g/dL (13.0-16.5); Lymphocyte # 1.85 X10^3/ul (0.83-4.51); Lymphocyte % 21.5 % (19-41); Mean Corp Hgb Conc 32.8 g/dL (32-36); Mean Corpuscular Volume 94.4 fL (80-94); Mean Platelet Vol. 12.2 fl (6.2-12.0); Monocyte# 0.68 X10^3/uL; Monocyte% 7.9 % (0-10); NRBC Flagged by Analyzer 0 % (0-5); Neutrophil # 5.83 X10^3/uL (2.7-7.7); Neutrophil % 67.6 % (47-70); Platelet Count 151 K/mm3 (150-450); RBC Distribution Width CV 13.6 % (11.6-14.6); RBC Distribution Width SD 47.2 fl (35.1-43.9); Red Blood Count 4.32 M/mm3 (4.6-6.2); White Blood Count 8.6 K/mm3 (4.4-11.0)
[2023-07-06 12:03] LABS: Hemoglobin A1c 5.7 % (3.8-5.6)
[2023-07-08 08:40] LABS: AST(SGOT) 28 U/L (15-37); Alanine Aminotransfer ALT/SGPT 40 U/L (16-61); Albumin, Serum 3.5 g/dL (3.2-5.0); Alkaline Phosphatase 164 U/L (45-117); Anion Gap 4 (5-15); BUN 16 mg/dL (7-18); BUN/Creat Ratio 18.9 RATIO (10-20); Calcium,Total 8.6 mg/dL (8.5-10.1); Chloride 111 mmol/L (98-107); Creatinine, Serum 0.85 mg/dL (0.70-1.30); EST Glomerular Filtration Rate 101 mL/min (>60); Est Glom Filt Rate - Afr Amer 122 mL/min (>60); Globulin 3.6 g/dL (2.2-4.2); Glucose 104 mg/dL (74-106); Potassium 3.9 mmol/L (3.5-5.1); Protein, Total 7.1 g/dL (6.4-8.2); Sodium Level 140 mmol/L (136-145)
== END 2023-07-24 23:59 ==
LOC: LABSPEC 07:05
PROVIDERS: PCP Internal Medicine
DX: F39 Unspecified mood [affective] disorder (principal); R73.01 Impaired fasting glucose
CPT/HCPCS: 80053; 83036; 85025

== ENCOUNTER 2023-08-06 17:00 | Inpatient (IN) | payer MEDICARE, MEDICAID, SELFPAY ==
[2023-08-06] VITALS (9 sets, daily range): BP systolic 133–143; BP diastolic 79–108; PULSE 110–128; RESP 14–22; TEMP 36.7–38; O2SAT 93–98; BMI 31.3; BMI 29.9
--- NOTE | 2023-08-06 17:19 | EDS_ITS ---
HPI History of Present Illness Chief Complaint: Abd Pain Informant: patient and other Narrative Narrative: Patient presents with skilled nursing staff member secondary to abdominal pain and having vomited today. Caregiver states the patient has a history of partial sm all bowel obstructions. His abdomen is always distended but seems more so today. He reports he did have a bowel movement this morning. Patient did not want to eat lunch today which is not normal for him. After eating only 2 bites of dinner he vomited. [facility] Medical History COVID-19 Occult blood positive stool Ileus, unspecified Bowel obstruction Impulse control disorder OCD (obsessive compulsive disorder) History of small bowel obstruction Conduct disorder Intellectual disability MRDD Home Medications ?Medication ?Instructions ?Recorded ?Last Taken ?Type melatonin 3 mg tablet 3 mg PO QHS sleep 02/04/19 08/05/23 History clindamycin 1.2 % (1 % 1 applic topical QHS facial skin 02/05/19 08/05/23 History base)-benzoyl peroxide 5 % topical condition gel clonazepam 1 mg tablet 1 mg PO DAILY@1900 ANXIETY 11/04/19 09/19/20 History clonazepam 0.5 mg tablet 0.5 mg PO BID ANXIETY 09/20/20 08/06/23 History clozapine 100 mg tablet 100 mg PO BID BEHAVIOR 09/20/20 08/06/23 History linaclotide 145 mcg capsule 290 mcg PO DAILY IBS 09/20/20 08/06/23 History (Linzess) docusate sodium 100 mg capsule 200 mg (2 x 100 mg) PO BID bowels 09/22/20 08/06/23 Rx #0 caps polyethylene glycol 3350 17 gram 34 g PO DAILY constipation 06/28/21 08/06/23 History oral powder packet sodium phosphates 19 gram-7 118 ml ND DAILY PRN constipation 7 05/16/22 Unknown Rx gram/118 mL enema (Fleet Enema) days #133 mL magnesium oxide 400 mg (241.3 mg 400 mg PO DAILY 08/06/23 08/06/23 History magnesium) tablet prucalopride 2 mg tablet 2 mg PO DAILY 08/06/23 08/05/23 History (Motegrity) sertraline 100 mg tablet (Zoloft) 200 mg PO DAILY 08/06/23 08/05/23 History Allergy/AdvReac Type Severity Reaction Status Date / Time No Known Allergies Allergy Verified 08/06/23 17:04 Social History Smoking Status: Never smoker ROS ROS ED Review of Systems ROS Unobtainable: due to mental condition Constitutional Constitutional ED: Denies fever(s) Gastrointestinal Gastrointestinal: Reports abdominal pain, nausea and vomiting Neurologic Neurologic: Denies headache(s) EXAM Physical Exam Const Vital Signs: 08/06/23 17:01 08/06/23 17:03 08/06/23 18:03 Temperature 98.1 F 98.1 F 98.2 F Temperature Source Temporal Temporal Temporal Pulse Rate 128 H 128 H 116 H Respiratory Rate 17 16 16 Blood Pressure 141/108 H 141/108 H 137/89 H Blood Pressure Mean 119 119 105 Pulse Ox 98 97 97 Oxygen Delivery Method Room Air Room Air Room Air 08/06/23 18:54 08/06/23 19:00 Temperature 98.1 F Temperature Source Temporal Pulse Rate 122 H Respiratory Rate 22 H Blood Pressure 133/79 H Blood Pressure Mean 97 Pulse Ox 95 94 Oxygen Delivery Method Room Air Room Air Positive well nourished and well developed General Appearance ED: well developed HEENT Reports moist mucous membranes Eyes EOMs intact bilaterally Chest Wall inspection of chest normal and palpation of chest normal Resp normal respiratory effort and clear to auscultation bilaterally Cardio regular rate and regular rhythm GI GI Narrative: Abdomen soft but distended. No significant focal tenderness on exam. Hypoactive bowel sounds noted. Extremity normal to inspection Neuro Neuro Narrative: Patient alert and moves all 4 extremities. Answer some questions. Psych mental status grossly normal Skin no rashes or lesions noted MDM MDM MDM Narrative Medical decision making narrative: IV line established. Labwork obtained to evaluate for leukocytosis, anemia, and electrolyte derangement. Urinalysis obtained to evaluate for infection/hematuria. Given his history of ileus and partial small bowel obstructions, CT scan of the abdomen and pelvis will be obtained to evaluate for potential blockage. History & Record Review Discussion w/independent historian: Patient and Other Additional record(s) reviewed:: Prior inpatient record, Prior ED visit and Prior labs Lab Data Attestation: I reviewed the patient's lab results. Labs: Laboratory Results - last 24 hr 08/06/23 08/06/23 08/06/23 17:22 17:57 19:00 WBC 20.2 H RBC 5.15 Hgb 16.2 Hct 47.4 MCV 92.0 MCH 31.5 MCHC 34.2 RDW Std Deviation 47.8 H RDW Coeff of J Luis 14.0 Plt Count 187 MPV 11.2 Immature Gran % (Auto) 0.300 Neut % (Auto) 94.6 H Lymph % (Auto) 2.1 L [place] % (Auto) 2.9 Eos % (Auto) 0.0 Baso % (Auto) 0.1 Absolute Neuts (auto) 19.1 H Absolute Lymphs (auto) 0.43 L Nucleated RBC % 0 Sodium 133 L Potassium 3.6 Chloride 103 Carbon Dioxide 23.0 Anion Gap 7 BUN 25 H Creatinine 1.40 H Est GFR (MDRD) Af Amer 68 Est GFR (MDRD) Non-Af 56 L BUN/Creatinine Ratio 17.9 Glucose 192 H Lactic Acid 1.0 Calcium 9.8 Total Bilirubin 0.90 Direct Bilirubin 0.32 H AST 22 ALT 38 Alkaline Phosphatase 186 H Total Protein 9.2 H Albumin 4.8 Globulin 4.4 H Urine Color Yellow Urine Clarity Sl. Cloudy Urine pH 5.0 Ur Specific [place] 1.025 Urine Protein 30 H Urine Glucose (UA) Normal Urine Ketones 15 H Urine Occult Blood 10 H Urine Nitrite Positive H Urine Bilirubin 1 H Urine Urobilinogen 1 H Ur Leukocyte Esterase 500 H Urine RBC 0-5 SEEN Urine WBC 10-25 SEEN Ur Squamous Epith Cells 5-10 SEEN Calcium Oxalate Crystal RARE Amorphous Sediment 1+ URATE Urine Bacteria RARE Hyaline Casts 5-10 SEEN WBC Casts 0-5 SEEN Urine Mucus 2+ Radiography Diagnostic Testing: Clinical Impression(s) from Imaging Studies Abdomen/Pelvis CT 08/06/23 17:45 IMPRESSION: Small bowel obstruction without significant gastric distention. Appearance suggests possible closed loop obstruction with transition to nondistended distal small bowel in the right mid abdomen. Recommend surgical consultation. Bibasilar patchy infiltrates, possible pneumonia. Electronically Signed: Bam Sears MD at 18:29 EDT Reading Location ID and State: [facility] / [place] Tel , Service support , ADDENDUM: 08/06/23 1851 IMPRESSION: Small bowel obstruction without significant gastric distention. Appearance suggests possible closed loop obstruction with transition to nondistended distal small bowel in the right mid abdomen. Recommend surgical consultation. Bibasilar patchy infiltrates, possible pneumonia. N.B. : The above Results were Read Back by Bam Sears MD to Ophelia Francois MD, and understanding confirmed on 08/06/2023 18:44:11 (ET). Electronically Signed: Bam Sears MD at 18:29 EDT , KUB X-Ray 08/06/23 19:19 IMPRESSION: Satisfactory NG tube placement. Electronically Signed: Bam Sears MD at 20:26 EDT , Treatment and Re-Evaluation :: CBC was a white count of 20.2 with 94% neutrophils. Hemoglobin is 16.2. Chemistry studies reveal a sodium of 133. BUN is 25 and creatinine is 1.4. This is slightly bumped when compared to prior. Glucose is 192. LFTs significant only for a alk phos of 186. Urinalysis is positive for nitrites with 5-10 epithelial cells and 10-[address] scan of the abdomen pelvis reveals small bowel obstruction without significant gastric distention. This suggest possible closed-loop bowel obstruction with transition to nondistended small bowel in the right mid abdomen. Recommend surgical consultation. Bibasilar patchy infiltrates, possible pneumonia also noted. Patient discussed with Dr. Pichardo who reviewed the patient's images. She did request to receive a liter of IV fluids, lactic acid, and an NG tube. Lactic acid returns normal at 1.0. Patient's O2 sats remained in the mid 90s on room air. He has been given a dose of Zosyn with his abdominal findings as well as potential aspiration pneumonia. I will also speak with hospitalist regarding patient's care. Discharge Plan Dx/Rx/DC Orders Clinical Impression: Bowel obstruction, Aspiration pneumonia, UTI (urinary tract infection) Disposition Disposition: Acute Care Hospital [facility] Discharge Date/Time: 08/06/23 20:27
[2023-08-06] MEDS: Ondansetron 4 MG/2 ML Vial IV (17:24)
[2023-08-06] MEDS: 0.9% Normal Saline (1000mL) 1,000 ML 150 ML IV (17:24)
[2023-08-06] MEDS: fentaNYL 100 MCG/2 ML Ampul 25 MCG IV (17:25)
[2023-08-06 17:29] LABS: Absolute Lymphocyte Count 0.43 X10^3/uL (0.83-4.51); Absolute Neutrophil Count 19.1 X10^3/uL (2.0-7.7); Basophil# 0.03 X10^3/uL; Basophil% 0.1 % (0-1); Hematocrit 47.4 % (40-54); Hemoglobin 16.2 g/dL (13.0-16.5); Lymphocyte # 0.43 X10^3/ul (0.83-4.51); Lymphocyte % 2.1 % (19-41); Mean Corp Hgb Conc 34.2 g/dL (32-36); Mean Corpuscular Hgb 31.5 pg (27.0-32.0); Mean Platelet Vol. 11.2 fl (6.2-12.0); Monocyte# 0.59 X10^3/uL; Monocyte% 2.9 % (0-10); NRBC Flagged by Analyzer 0 % (0-5); Neutrophil # 19.09 X10^3/uL (2.7-7.7); Neutrophil % 94.6 % (47-70); POSITIVE DIFFERENTIAL YES; Platelet Count 187 K/mm3 (150-450); RBC Distribution Width SD 47.8 fl (35.1-43.9); Red Blood Count 5.15 M/mm3 (4.6-6.2); White Blood Count 20.2 K/mm3 (4.4-11.0)
[2023-08-06 17:45] LABS: AST(SGOT) 22 U/L (15-37); Alanine Aminotransfer ALT/SGPT 38 U/L (16-61); Albumin, Serum 4.8 g/dL (3.2-5.0); Alkaline Phosphatase 186 U/L (45-117); Anion Gap 7 (5-15); BUN 25 mg/dL (7-18); BUN/Creat Ratio 17.9 RATIO (10-20); Bilirubin, Direct 0.32 mg/dL (0.00-0.30); Calcium,Total 9.8 mg/dL (8.5-10.1); Chloride 103 mmol/L (98-107); EST Glomerular Filtration Rate 56 mL/min (>60); Est Glom Filt Rate - Afr Amer 68 mL/min (>60); Globulin 4.4 g/dL (2.2-4.2); Glucose 192 mg/dL (74-106); Potassium 3.6 mmol/L (3.5-5.1); Protein, Total 9.2 g/dL (6.4-8.2); Sodium Level 133 mmol/L (136-145)
--- NOTE | 2023-08-06 17:45 | CT_ITS ---
We are attempting to reach an attending provider to discuss findings. An addendum with communication details will be sent when the communication is complete. INDICATION: abd pain EXAMINATION: CT ABDOMEN AND PELVIS WITHOUT CONTRAST - CT Abdomen And Pelvis W/O Contrast Injection TECHNIQUE: Helically acquired images were obtained of the abdomen and pelvis without oral or IV contrast. A radiation dose optimization technique was used for this scan. IV Contrast dosage and agent: None. Oral contrast: None. COMPARISON: 05/16/2022 FINDINGS: LOWER CHEST: Patchy bibasilar infiltrates without consolidation or effusion. No cardiomegaly or pericardial effusion. LIVER: Homogeneous. No focal mass. GALLBLADDER AND BILIARY TREE: No calcified gallstones. No gallbladder distension or wall edema. No intra- or extrahepatic biliary ductal dilation. PANCREAS: No focal cystic or solid mass. SPLEEN: Normal size without focal cystic or solid mass. ADRENAL GLANDS: No nodules. KIDNEYS AND URETERS: Right pelvic kidney. No nephrolithiasis or hydronephrosis. PERITONEUM: No ascites or free air. BOWEL: No evidence of acute appendicitis. Abnormal distention of proximal small bowel loops without gastric distention. Small bowel loops up to 5 cm in diameter. Transition to normal small bowel in the right mid abdomen. No focal inflammatory change. LYMPH NODES: No enlarged mesenteric or retroperitoneal lymph nodes. VESSELS: Aorta is non-dilated. URINARY BLADDER: Unremarkable. REPRODUCTIVE ORGANS: No pelvic masses. ABDOMINAL WALL: No discrete abdominal or pelvic wall hernia. BONES: No acute or aggressive abnormality. CT/Abdomen/Pelvis without Cont IMPRESSION: Small bowel obstruction without significant gastric distention. Appearance suggests possible closed loop obstruction with transition to nondistended distal small bowel in the right mid abdomen. Recommend surgical consultation. Bibasilar patchy infiltrates, possible pneumonia. Electronically Signed: Bam Sears MD at 18:29 EDT ,
[2023-08-06 18:16] LABS: Color, Urine Yellow (Yellow); Glucose, Dipstick Normal (Normal); Ketone-Dipstick 15 mg/dl (Negative); Leukocyte Esterase-Dipstick 500 /ul (Negative); Nitrite-Dipstick Positive (Negative); Occult Blood-Urine 10 /ul (Negative); Protein-Dipstick 30 mg/dl (Negative); Specific Gravity, Urine 1.025 (1.002-1.030); Urine Clarity Sl. Cloudy (Clear); Urine Urobilinogen 1 mg/dl (Normal)
[2023-08-06 18:34] LABS: Urine Bilirubin Dipstick 1 mg/dL (Negative)
[2023-08-06 18:36] LABS: Bacteria RARE /hpf (None Seen); Hyaline Cast 5-10 SEEN /lpf (0-5); Mucous, Urine 2+ /hpf (<or=2+); Red Blood Cells-Urine 0-5 SEEN /hpf (0-5); Squamous Epithelial Cells - UA 5-10 SEEN /hpf (0-5); White Blood Cells 10-25 SEEN /hpf (0-5); White Cell Cast 0-5 SEEN /lpf (None Seen)
[2023-08-06 18:37] LABS: Amorphous Sediment 1+ URATE; Calcium Oxalate Crystals Ur RARE /hpf (<or=2+)
--- NOTE | 2023-08-06 19:13 | CON.PCM.SX_ITS ---
Assessment & Plan Assessment/Plan (1) Small bowel obstruction: (2) Leukocytosis: (3) Intellectual disability: (4) UTI (urinary tract infection): PLAN: Plan Did review CT abdomen pelvis patient does have distended small bowel unable to find exact transition area. Patient does have gaseous distention of his sigmoid,which is redundent and some in his transverse colon. Patient does have a leukocytosis of [address] also shows some bibasilar infiltrates possible pneumonia as well as patient's UA looks to have a UTI-with positive nitrate, 500 leukesterase, 5-10 squamous cells. Patient did receive Zosyn IV in the ER. Also NG was placed only about 500 cc out initially patient did vomit prior to coming to the ER quite a bit per supervisor [employer]. Did discuss with the patient and his supervisor [employer] who is in the room with him that currently we will attempt conservative management however if this does not improve would plan for surgical intervention at that time. Do think patient's leukocytosis may be also due to possible pneumonia/UTI. Patient also has lactic acid pending but could also be elevated due to dehydration as his creatinine is 1.4 normal is below 1. Attempted to call patient's appointed guardian Rashmi Cuello however got her voicemail. Edith Pichardo M.D. Pager: [phone] [facility] [address] [place] [address], [address] [place] [address] Office: [phone] HPI Consult Data Date of Consult: 08/07/23 HPI Narrative HPI Narrative: MAIRA DAS, is a 52 M who presents to the ER due to nausea and vomiting. Patient lives in a halfway and has intellectual disability?poor historian. Patient's supervisor [employer] is also with him states he did throw up at workshop this morning/early afternoon and patient stated he was hungry and he went to [employer] which he took 2 bites and then threw up quite a bit and they came to the ER. Patient did have a normal bowel movement for him which was loose as he is on Linzess as well as normally motegrity which they have been unable to get for the last week per the supervisor [employer]. No obvious previous abdominal incisions. Patient has had multiple admissions due to partial small bowel obstructions/ileus in the past. CT abdomen pelvis showed dilated small bowel loops up to 5 cm and normal small bowel in the right abdomen unable to find a distinct transition. CT abdomen pelvis also close bilateral basilar infiltrates questionable pneumonia. Patient white blood count is 20.2, UA had 500 leuk esterase, nitrate positive?culture pending [facility] Medical History COVID-19 Occult blood positive stool Ileus, unspecified Bowel obstruction Impulse control disorder OCD (obsessive compulsive disorder) History of small bowel obstruction Conduct disorder Intellectual disability MRDD Home Medications ?Medication ?Instructions ?Recorded ?Last Taken ?Type melatonin 3 mg tablet 3 mg PO QHS sleep 02/04/19 08/05/23 History clindamycin 1.2 % (1 % 1 applic topical QHS facial skin 02/05/19 08/05/23 History base)-benzoyl peroxide 5 % topical condition gel clonazepam 1 mg tablet 1 mg PO DAILY@1900 ANXIETY 11/04/19 09/19/20 History clonazepam 0.5 mg tablet 0.5 mg PO BID ANXIETY 09/20/20 08/06/23 History clozapine 100 mg tablet 100 mg PO BID BEHAVIOR 09/20/20 08/06/23 History linaclotide 145 mcg capsule 290 mcg PO DAILY IBS 09/20/20 08/06/23 History (Linzess) docusate sodium 100 mg capsule 200 mg (2 x 100 mg) PO BID bowels 09/22/20 08/06/23 Rx #0 caps polyethylene glycol 3350 17 gram 34 g PO DAILY constipation 06/28/21 08/06/23 History oral powder packet sodium phosphates 19 gram-7 118 ml NE DAILY PRN constipation 7 05/16/22 Unknown Rx gram/118 mL enema (Fleet Enema) days #133 mL magnesium oxide 400 mg (241.3 mg 400 mg PO DAILY 08/06/23 08/06/23 History magnesium) tablet prucalopride 2 mg tablet 2 mg PO DAILY 08/06/23 08/05/23 History (Motegrity) sertraline 100 mg tablet (Zoloft) 200 mg PO DAILY 08/06/23 08/05/23 History Allergy/AdvReac Type Severity Reaction Status Date / Time No Known Allergies Allergy Verified 08/06/23 17:04 Social History Smoking Status: Never smoker ROS Constitutional Constitutional: Reports anorexia Eyes Eyes: Denies loss of vision ENT HEENT: Denies dysphagia Cardiovascular Cardiovascular: Denies chest pain Respiratory/Chest Respiratory/Chest: Reports cough Gastrointestinal Gastrointestinal: Reports abdominal pain, nausea and vomiting Genitourinary Genitourinary: Denies dysuria Musculoskeletal Musculoskeletal: Denies joint swelling Integumentary Integumentary: Denies jaundice Psychiatric Psychiatric: Denies depression Hematologic/Lymphatic Hematologic/Lymphatic: Denies easy bleeding Physical Exam Const alert and no apparent distress HEENT normocephalic HEENT Narrative: NG in place Eyes conjunctivae normal Neck supple Resp normal respiratory effort Cardio Rate: regular rate GI soft to palpation GI Narrative: Nontender per patient Inspection: abdominal distention Extremity normal to inspection Skin no rashes or lesions noted Psych Mood & Affect: flat affect Lab / Micro Data 08/07/23 06:30 08/07/23 06:30 Labs: Laboratory Results - last 24 hr 08/06/23 17:22: WBC 20.2 H, RBC 5.15, Hgb 16.2, Hct 47.4, MCV 92.0, MCH 31.5, MCHC 34.2, RDW Std Deviation 47.8 H, RDW Coeff of J Luis 14.0, Plt Count 187, MPV 11.2, Immature Gran % (Auto) 0.300, Neut % (Auto) 94.6 H, Lymph % (Auto) 2.1 L, [place] % (Auto) 2.9, Eos % (Auto) 0.0, Baso % (Auto) 0.1, Absolute Neuts (auto) 19.1 H, Absolute Lymphs (auto) 0.43 L, Nucleated RBC % 0, Sodium 133 L, Potassium 3.6, Chloride 103, Carbon Dioxide 23.0, Anion Gap 7, BUN 25 H, C reatinine 1.40 H, Est GFR (MDRD) Af Amer 68, Est GFR (MDRD) Non-Af 56 L, BUN/Creatinine Ratio 17.9, Glucose 192 H, Calcium 9.8, Total Bilirubin 0.90, D irect Bilirubin 0.32 H, AST 22, ALT 38, Alkaline Phosphatase 186 H, Total Protein 9.2 H, Albumin 4.8, Globulin 4.4 H 08/06/23 17:57: Urine Color Yellow, Urine Clarity Sl. Cloudy, Urine pH 5.0, Ur Specific [place] 1.025, Urine Protein 30 H, Urine Glucose (UA) Normal, Urine Ketones 15 H, Urine Occult Blood 10 H, Urine Nitrite Positive H, Urine Bilirubin 1 H, Urine Urobilinogen 1 H, Ur Leukocyte Esterase 500 H, Urine RBC 0-5 SEEN, Urine WBC 10-25 SEEN, Ur Squamous Epith Cells 5-10 SEEN, Calcium Oxalate Crystal RARE, Amorphous Sediment 1+ URATE, Urine Bacteria RARE, Hyaline Casts 5-10 SEEN, WBC Casts 0-5 SEEN, Urine Mucus 2+ Imaging Radiology Impression Abdomen/Pelvis CT 08/06/23 17:45 IMPRESSION: Small bowel obstruction without significant gastric distention. Appearance suggests possible closed loop obstruction with transition to nondistended distal small bowel in the right mid abdomen. Recommend surgical consultation. Bibasilar patchy infiltrates, possible pneumonia. Electronically Signed: Bam Sears MD at 18:29 EDT , ADDENDUM: 08/06/23 1851 IMPRESSION: Small bowel obstruction without significant gastric distention. Appearance suggests possible closed loop obstruction with transition to nondistended distal small bowel in the right mid abdomen. Recommend surgical consultation. Bibasilar patchy infiltrates, possible pneumonia. N.B. : The above Results were Read Back by Bam Sears MD to Ophelia Francois MD, and understanding confirmed on 08/06/2023 18:44:11 (ET). Electronically Signed: Bam Sears MD at 18:29 EDT , Charges/Coding Visit Charges Inpatient E&M: 35495 Init Hosp L3
--- NOTE | 2023-08-06 19:19 | RAD_ITS ---
INDICATION: NG Insertion EXAMINATION/TECHNIQUE: X-RAY - XR Abdomen 1 View COMPARISON: CT abdomen and pelvis 08/06/2023 FINDINGS: NG tube passes well into the stomach. Persistent distended bowel loops present. RAD/Abdomen Single View (Portable) IMPRESSION: Satisfactory NG tube placement. Electronically Signed: Bam Sears MD at 20:26 EDT ,
[2023-08-06] MEDS: Piperacil/Tazobactam 3.375 GM in 0.9% Normal Saline (50mL MB+) 50 ML IV ×2 (19:30→22:48)
[2023-08-06] MEDS: 0.9% Normal Saline (1000mL) 1,000 ML 999 ML IV (19:31)
--- NOTE | 2023-08-06 19:40 | HP.PCM.HOS_ITS ---
HPI - General General Date of Admission: 08/06/23 Date of Service: 08/06/23 Chief Complaint: Abdominal pain and nausea/vomiting HPI Narrative MAIRA DAS, is a 52 M who presented to [facility] ED on 08/06/2023 from his long term with abdominal pain and nausea with vomiting. Patient has previous history of partial small bowel obstructions and has presented similarly in the past. On CT imaging in the ED, he was found to have a small bowel obstruction without significant gastric distention. ED physician spoke with Dr. Pichardo with surgery, who recommended trying conservative management with NG tube placement and n.p.o. status for now. NG tube was placed at bedside in the ED and patient tolerated this without issue. Hospitalist was then contacted for admission. I saw patient at the bedside in the ED, family member was present. Patient had NG tube in place with only a small amount of contents in the tube. Per nursing staff, he initially had 500 cc out but output then slowed considerably. Patient has intellectual disability but was making appropriate eye contact with me. He was sitting up in bed and appeared comfortable on exam. He was able to tell me that he did not have any pain and wanted to go home. Per staff, he consistently tells other providers that he wants to go home. Family member noted that he currently appears much improved from earlier in the day. No other acute concerns at this time. Vitals in ED notable for sinus tachycardia to the 110s to 120s, mild hypertension, low-grade fever and satting in low to mid 90s on room air. Labs notable for WBC count 20, sodium 133, potassium 3.6, BUN 25, creatinine 1.40 (baseline around 0.8), alk phos 186, AST and ALT normal. UA with positive nitrites, 500 leukocyte esterase but rare bacteria. CT abdomen pelvis without contrast showed a small bowel obstruction without significant gastric distention, with appearance suggesting possible close obstruction with transition to nondistended distal small bowel in the right midabdomen; also showed bibasilar patchy infiltrates concerning for pneumonia. Chest x-ray showed a mild left basilar infiltrate. Post NG tube placement KUB showed satisfactory NG tube placement. [facility] Medical History COVID-19 Occult blood positive stool Ileus, unspecified Bowel obstruction Impulse control disorder OCD (obsessive compulsive disorder) History of small bowel obstruction Conduct disorder Intellectual disability MRDD Home Medications ?Medication ?Instructions ?Recorded ?Last Taken ?Type melatonin 3 mg tablet 3 mg PO QHS sleep 02/04/19 08/05/23 History clindamycin 1.2 % (1 % 1 applic topical QHS facial skin 02/05/19 08/05/23 History base)-benzoyl peroxide 5 % topical condition gel clonazepam 1 mg tablet 1 mg PO DAILY@1900 ANXIETY 11/04/19 09/19/20 History clonazepam 0.5 mg tablet 0.5 mg PO BID ANXIETY 09/20/20 08/06/23 History clozapine 100 mg tablet 100 mg PO BID BEHAVIOR 09/20/20 08/06/23 History linaclotide 145 mcg capsule 290 mcg PO DAILY IBS 09/20/20 08/06/23 History (Linzess) docusate sodium 100 mg capsule 200 mg (2 x 100 mg) PO BID bowels 09/22/20 08/06/23 Rx #0 caps polyethylene glycol 3350 17 gram 34 g PO DAILY constipation 06/28/21 08/06/23 History oral powder packet sodium phosphates 19 gram-7 118 ml IL DAILY PRN constipation 7 05/16/22 Unknown Rx gram/118 mL enema (Fleet Enema) days #133 mL magnesium oxide 400 mg (241.3 mg 400 mg PO DAILY 08/06/23 08/06/23 History magnesium) tablet prucalopride 2 mg tablet 2 mg PO DAILY 08/06/23 08/05/23 History (Motegrity) sertraline 100 mg tablet (Zoloft) 200 mg PO DAILY 08/06/23 08/05/23 History Allergy/AdvReac Type Severity Reaction Status Date / Time No Known Allergies Allergy Verified 08/06/23 17:04 Social History Smoking Status: Never smoker ROS Review of Systems ROS Unobtainable: due to mental condition Vital Signs Vital Signs Vital Signs: 08/06/23 17:01 08/06/23 17:03 08/06/23 18:03 Temperature 98.1 F 98.1 F 98.2 F Temperature Source Temporal Temporal Temporal Pulse Rate 128 H 128 H 116 H Respiratory Rate 17 16 16 Blood Pressure 141/108 H 141/108 H 137/89 H Blood Pressure Mean 119 119 105 Pulse Ox 98 97 97 Oxygen Delivery Method Room Air Room Air Room Air 08/06/23 18:54 08/06/23 19:00 Temperature 98.1 F Temperature Source Temporal Pulse Rate 122 H Respiratory Rate 22 H Blood Pressure 133/79 H Blood Pressure Mean 97 Pulse Ox 95 94 Oxygen Delivery Method Room Air Room Air Weight Weight: 88.042 kg Body Mass Index (BMI) 31.3 Physical Exam Const alert and no apparent distress Constitutional Narrative: Pleasant middle-age male with intellectual disability, obese, making appropriate eye contact but not answering questions appropriately, sitting up comfortably in bed and does not appear to be in any distress. General Appearance: cooperative and comfortable HEENT normocephalic, head/scalp atraumatic, hearing grossly normal bilaterally and nasal mucous membranes and turbinates normal HEENT Narrative: NG tube in place with minimal drainage. Eyes PERRL, EOMs intact bilaterally and conjunctivae normal Neck full ROM Chest inspection of chest normal Resp normal respiratory effort and no use of accessory muscles Resp Narrative: Mildly decreased breath sounds at bilateral lung bases, no wheezing or crackles noted. Breathing comfortably on room air. Cardio no murmurs and peripheral pulses 2+ throughout Cardio Narrative: Tachycardic, regular rhythm. GI GI Narrative: Mildly distended, otherwise soft and nontender to palpation. Back/Spine normal ROM Extremity normal to inspection, full ROM and no pedal edema Skin no rashes or lesions noted Neuro moves all extremities and no focal motor deficits Psych mental status grossly normal Results Lab / Micro Data 08/06/23 17:22 08/06/23 17:22 Labs: Laboratory Results - last 24 hr 08/06/23 17:22: WBC 20.2 H, RBC 5.15, Hgb 16.2, Hct 47.4, MCV 92.0, MCH 31.5, MCHC 34.2, RDW Std Deviation 47.8 H, RDW Coeff of J Luis 14.0, Plt Count 187, MPV 11.2, Immature Gran % (Auto) 0.300, Neut % (Auto) 94.6 H, Lymph % (Auto) 2.1 L, [place] % (Auto) 2.9, Eos % (Auto) 0.0, Baso % (Auto) 0.1, Absolute Neuts (auto) 19.1 H, Absolute Lymphs (auto) 0.43 L, Nucleated RBC % 0, Sodium 133 L, Potassium 3.6, Chloride 103, Carbon Dioxide 23.0, Anion Gap 7, BUN 25 H, C reatinine 1.40 H, Est GFR (MDRD) Af Amer 68, Est GFR (MDRD) Non-Af 56 L, BUN/Creatinine Ratio 17.9, Glucose 192 H, Calcium 9.8, Total Bilirubin 0.90, D irect Bilirubin 0.32 H, AST 22, ALT 38, Alkaline Phosphatase 186 H, Total Protein 9.2 H, Albumin 4.8, Globulin 4.4 H 08/06/23 17:57: Urine Color Yellow, Urine Clarity Sl. Cloudy, Urine pH 5.0, Ur Specific [place] 1.025, Urine Protein 30 H, Urine Glucose (UA) Normal, Urine Ketones 15 H, Urine Occult Blood 10 H, Urine Nitrite Positive H, Urine Bilirubin 1 H, Urine Urobilinogen 1 H, Ur Leukocyte Esterase 500 H, Urine RBC 0-5 SEEN, Urine WBC 10-25 SEEN, Ur Squamous Epith Cells 5-10 SEEN, Calcium Oxalate Crystal RARE, Amorphous Sediment 1+ URATE, Urine Bacteria RARE, Hyaline Casts 5-10 SEEN, WBC Casts 0-5 SEEN, Urine Mucus 2+ 08/06/23 19:00: Lactic Acid 1.0 Imaging Radiology Impression Abdomen/Pelvis CT 08/06/23 17:45 IMPRESSION: Small bowel obstruction without significant gastric distention. Appearance suggests possible closed loop obstruction with transition to nondistended distal small bowel in the right mid abdomen. Recommend surgical consultation. Bibasilar patchy infiltrates, possible pneumonia. Electronically Signed: Bam Sears MD at 18:29 EDT , ADDENDUM: 08/06/23 1851 IMPRESSION: Small bowel obstruction without significant gastric distention. Appearance suggests possible closed loop obstruction with transition to nondistended distal small bowel in the right mid abdomen. Recommend surgical consultation. Bibasilar patchy infiltrates, possible pneumonia. N.B. : The above Results were Read Back by Bam Sears MD to Ophelia Francois MD, and understanding confirmed on 08/06/2023 18:44:11 (ET). Electronically Signed: Bam Sears MD at 18:29 EDT , Assessment & Plan Assessment/Plan (1) Small bowel obstruction: (2) UTI (urinary tract infection): (3) Intellectual disability: PLAN: Plan Patient is a 52-year-old male who presented to [facility] ED on 08/06/2023 from his long term with abdominal pain and nausea with vomiting. 1. Small bowel obstruction ? Admit under inpatient status to [facility]. General surgery consulted. NG tube placed in the ED with 500 cc of initial output. Maintain NG tube to low intermittent wall suction. N.p.o. status. Treat with IV Zosyn to cover for intra-abdominal infection, as well as possible UTI and aspiration pneumonia as noted below. Appreciate further surgery recommendations. 2. Concern for UTI ? UA on admit with positive nitrites, 500 leukocyte esterase but only rare bacteria. Unable to determine if patient has UTI type symptoms as patient is a poor historian. Had urine culture in 2021 that grew less than 1000 GPC Enterococcus and staphylococcus, no other urine culture data available. Treating with IV Zosyn as noted above. Follow-up urine culture. 3. Concern for recurrent aspiration pneumonia ? Noted on CT abdomen pelvis to have bibasilar atelectasis with concern for pneumonia. Chest x-ray with mild left lower lobe infiltrate. Notably does have a history of aspiration pneumonia in June 2021 leading to acute hypoxic respiratory failure and need for intubation. Does not appear he has had any significant issues with aspiration since that time. Treated with IV Zosyn as noted above. Sputum culture ordered. Respiratory PCR panel ordered. 4. Mild HYUN ? Creatinine 1.50 on admit, baseline around 0.8. Presumed prerenal HYUN in setting of vomiting with dehydration. Given supplemental IV fluids on admit, follow-up a.m. BMP and monitor urine output. Chronic medical conditions: ? Intellectual disability: Stable at baseline. Lives in long term. ? Obesity: BMI 30 on admit. Complicates hospital course, care and prognosis. ? Behavioral disorder with anxiety: Stable. Continue home sertraline, clozapine, clonazepam and melatonin at night. ? History of constipation: On several home laxatives, holding these for now given SBO as noted above. DVT prophylaxis: Lovenox CODE STATUS: Full code, unverified Expected disposition: Back to long term, D Total clinical time spent by myself addressing the patient's medical issues, reviewing all the data, and collaborating with patient's care team: 55 minutes. Charges/Coding Visit Charges Inpatient E&M: 85258 Init Hosp L2
--- NOTE | 2023-08-06 19:55 | RAD_ITS ---
INDICATION: concern for aspiration pna EXAMINATION/TECHNIQUE: X-RAY - XR Chest 1 View COMPARISON: May 16, 2022 FINDINGS: LINES/DEVICES: Nasogastric tube in the stomach. LUNGS: Mild left basilar infiltrate. No pneumothorax. MEDIASTINUM AND CARDIOVASCULAR STRUCTURES: Cardiac silhouette not enlarged. Central airways and mediastinal contour are unremarkable. BONES AND SOFT TISSUES: Degenerative vertebral changes. RAD/Chest 1 View (Portable) IMPRESSION: Mild left basilar infiltrate. Electronically Signed: Bc Amaro DO at 20:25 EDT ,
--- NOTE | 2023-08-06 20:40 | ED.RN ---
NG placed at 1905, confirmed with x ray. at the second black line at the nare.
[2023-08-06] MEDS: Lactated Ringers 1,000 ML 75 ML IV (20:50)
[2023-08-07 03:17] VITALS: BP 138/85; PULSE 107; RESP 16; TEMP 37.2; O2SAT 93
[2023-08-07] MEDS: Piperacil/Tazobactam 3.375 GM in 0.9% Normal Saline (50mL MB+) 50 ML IV ×3 (05:54→21:38)
[2023-08-07 06:40] LABS: Hematocrit 39.9 % (40-54); Hemoglobin 13.3 g/dL (13.0-16.5); Mean Corp Hgb Conc 33.3 g/dL (32-36); Mean Corpuscular Hgb 30.9 pg (27.0-32.0); Mean Corpuscular Volume 92.6 fL (80-94); Mean Platelet Vol. 11.2 fl (6.2-12.0); Platelet Count 166 K/mm3 (150-450); RBC Distribution Width CV 14.4 % (11.6-14.6); RBC Distribution Width SD 48.9 fl (35.1-43.9); Red Blood Count 4.31 M/mm3 (4.6-6.2); White Blood Count 12.1 K/mm3 (4.4-11.0)
[2023-08-07 07:07] LABS: Anion Gap 8 (5-15); BUN 26 mg/dL (7-18); BUN/Creat Ratio 27.9 RATIO (10-20); Calcium,Total 8.4 mg/dL (8.5-10.1); Chloride 110 mmol/L (98-107); Creatinine, Serum 0.93 mg/dL (0.70-1.30); EST Glomerular Filtration Rate 90 mL/min (>60); Est Glom Filt Rate - Afr Amer 109 mL/min (>60); Estimated Creatinine Clearance 94.62 ml/min; Glucose 113 mg/dL (74-106); Potassium 3.1 mmol/L (3.5-5.1); Sodium Level 141 mmol/L (136-145)
--- NOTE | 2023-08-07 08:04 | PN.SURG_ITS ---
Subjective Subjective Nursing charted a couple bowel movements, but patient denies bowel movements or flatus. KUB this morning not done yet Objective Data Objective Data Vital Signs: Vital Signs Temp Pulse Resp BP Pulse Ox O2 Del Method 99 F 107 H 16 138/85 H 93 Room Air 08/07/23 03:17 08/07/23 03:17 08/07/23 03:17 08/07/23 03:17 08/07/23 03:17 08/07/23 03:17 Oxygen Delivery Method Room Air Weight: 185 lb 13.595 oz Body Mass Index (BMI) 29.9 Intake & Output: Intake and Output for Last 24 Hours 08/05/23 08/06/23 08/07/23 23:59 23:59 23:59 Intake Total 1775 / 1775 170 / 170 Output Total 200 / 200 150 / 150 Balance 1575 / 1575 Lab / Micro Data 08/07/23 06:30 08/07/23 06:30 Labs: Laboratory Results - last 24 hr 08/06/23 17:22: WBC 20.2 H, RBC 5.15, Hgb 16.2, Hct 47.4, MCV 92.0, MCH 31.5, MCHC 34.2, RDW Std Deviation 47.8 H, RDW Coeff of J Luis 14.0, Plt Count 187, MPV 11.2, Immature Gran % (Auto) 0.300, Neut % (Auto) 94.6 H, Lymph % (Auto) 2.1 L, [place] % (Auto) 2.9, Eos % (Auto) 0.0, Baso % (Auto) 0.1, Absolute Neuts (auto) 19.1 H, Absolute Lymphs (auto) 0.43 L, Nucleated RBC % 0, Sodium 133 L, Potassium 3.6, Chloride 103, Carbon Dioxide 23.0, Anion Gap 7, BUN 25 H, C reatinine 1.40 H, Est GFR (MDRD) Af Amer 68, Est GFR (MDRD) Non-Af 56 L, BUN/Creatinine Ratio 17.9, Glucose 192 H, Calcium 9.8, Total Bilirubin 0.90, D irect Bilirubin 0.32 H, AST 22, ALT 38, Alkaline Phosphatase 186 H, Total Protein 9.2 H, Albumin 4.8, Globulin 4.4 H 08/06/23 17:57: Urine Color Yellow, Urine Clarity Sl. Cloudy, Urine pH 5.0, Ur Specific [place] 1.025, Urine Protein 30 H, Urine Glucose (UA) Normal, Urine Ketones 15 H, Urine Occult Blood 10 H, Urine Nitrite Positive H, Urine Bilirubin 1 H, Urine Urobilinogen 1 H, Ur Leukocyte Esterase 500 H, Urine RBC 0-5 SEEN, Urine WBC 10-25 SEEN, Ur Squamous Epith Cells 5-10 SEEN, Calcium Oxalate Crystal RARE, Amorphous Sediment 1+ URATE, Urine Bacteria RARE, Hyaline Casts 5-10 SEEN, WBC Casts 0-5 SEEN, Urine Mucus 2+ 08/06/23 19:00: Lactic Acid 1.0 08/07/23 06:30: WBC 12.1 H, RBC 4.31 L, Hgb 13.3, Hct 39.9 L, MCV 92.6, MCH 30.9, MCHC 33.3, RDW Std Deviation 48.9 H, RDW Coeff of J Luis 14.4, Plt Count 166, MPV 11.2, Sodium 141, Potassium 3.1 L, Chloride 110 H, Carbon Dioxide 23.0, Anion Gap 8, BUN 26 H, Creatinine 0.93, Estim Creat Clear Calc 94.62, Est GFR (MDRD) Af Amer 109, Est GFR (MDRD) Non-Af 90, BUN/Creatinine Ratio 27.9 H, G lucose 113 H, Calcium 8.4 L Micro: Microbiology 08/07/23 03:45 Stool Stool Occult Blood (RADHA) - Final Occult Blood Positive 08/06/23 22:10 Mucosa - Nasopharyngeal Respiratory Panel (PCR) - Final Radiography Diagnostic Testing: Radiology Impression Abdomen/Pelvis CT 08/06/23 17:45 IMPRESSION: Small bowel obstruction without significant gastric distention. Appearance suggests possible closed loop obstruction with transition to nondistended distal small bowel in the right mid abdomen. Recommend surgical consultation. Bibasilar patchy infiltrates, possible pneumonia. Electronically Signed: Bam Sears MD at 18:29 EDT , ADDENDUM: 08/06/23 1851 IMPRESSION: Small bowel obstruction without significant gastric distention. Appearance suggests possible closed loop obstruction with transition to nondistended distal small bowel in the right mid abdomen. Recommend surgical consultation. Bibasilar patchy infiltrates, possible pneumonia. N.B. : The above Results were Read Back by Bam Sears MD to Ophelia Francois MD, and understanding confirmed on 08/06/2023 18:44:11 (ET). Electronically Signed: Bam Sears MD at 18:29 EDT , KUB X-Ray 08/06/23 19:19 IMPRESSION: Satisfactory NG tube placement. Electronically Signed: Bam Sears MD at 20:26 EDT , Chest X-Ray 08/06/23 19:55 IMPRESSION: Mild left basilar infiltrate. Electronically Signed: Bc Amaro DO at 20:25 EDT , Physical Exam Const no apparent distress Resp normal respiratory effort Cardio regular rate GI soft to palpation and non-tender GI Narrative: Less distended from yesterday/softer, no peritoneal signs Assessment & Plan Assessment/Plan (1) Small bowel obstruction: (2) Leukocytosis: (3) Intellectual disability: (4) UTI (urinary tract infection): PLAN: Plan Will continue NG/IV fluids. Will check KUB this morning. Likely do a small bowel follow-through with Gastrografin. Patient did have a couple bowel movements documented. Leukocytosis improved to 12.2, urinary culture pending, sputum ordered but do not believe patient has coughed up anything. Edith Pichardo M.D. Pager: [phone] [facility] [address] [place] [address], Outpatient [facility]ilion, [address] [place] [address] Office: [phone]
--- NOTE | 2023-08-07 08:35 | RAD_ITS ---
HISTORY: sbo -- portable. TECHNIQUE: XR Abdomen 1 View. COMPARISON: Prior day. FINDINGS: LINES/TUBES: Nasogastric tube tip again in the left upper quadrant region of the stomach. BOWEL GAS PATTERN: Gaseous distention and dilatation of bowel, increased in the midabdomen. OTHER: Limited evaluation for free air on supine view. Pelvic phleboliths noted. RAD/Abdomen Single View (Portable) IMPRESSION: Increased gaseous distention and dilatation of bowel. Electronically Signed: Nai Yin MD at 9:05 EDT ,
--- NOTE | 2023-08-07 08:41 | RAD_ITS ---
STUDY: MODIFIED GASTROGRAFIN SMALL BOWEL FOLLOW-THROUGH EXAMINATION. REASON FOR EXAM: Male, 52 years old. sbo-gastrografin -- modified-kub 1hr/3hr TECHNIQUE: Gastrografin was introduced through the indwelling nasogastric tube. Imaging was performed at 1 hour and at 3 hours. COMPARISON: None. FINDINGS: Contrast is seen within the colon on the 3 hour examination. RAD/Small Bowel Series Only IMPRESSION: Contrast is seen within the colon on the 3 hour examination. Electronically Signed: Terry Sinclair MD at 14:42 EDT ,
[2023-08-07 08:55] VITALS: BP 133/78; PULSE 95; RESP 18; TEMP 36.6; O2SAT 95
[2023-08-07 09:00] VITALS: BP 133/78; PULSE 95; RESP 18; TEMP 36.3; O2SAT 95
--- NOTE | 2023-08-07 09:01 | CASEMGMT ---
Social Work- SW called Kia, legal guardian, and left a message to coordinate care. ERI Choudhary
--- NOTE | 2023-08-07 10:56 | PCM.PN.HOSP ---
Reason for Visit Reason for Visit: Diagnoses Elevated white blood cell count, unspecified (08/06/23) Unspecified intellectual disabilities (08/06/23) Unspecified intestinal obstruction, unspecified as to partial versus complete obstruction (08/06/23) Urinary tract infection, site not specified (08/06/23) Subjective Subjective Patient was seen and examined today, he has an NG tube in place, his abdomen is distended but is soft. The abdomen is tympanic. Patient is going to undergo a small bowel follow-through with Gastrografin today. Objective Data Objective Data Vital Signs: Vital Signs Temp Pulse Resp BP Pulse Ox O2 Del Method 97.8 F 95 18 133/78 H 95 Room Air 08/07/23 08:55 08/07/23 08:55 08/07/23 08:55 08/07/23 08:55 08/07/23 08:55 08/07/23 08:55 Oxygen Delivery Method Room Air Weight: 84.3 kg Body Mass Index (BMI) 29.9 Intake & Output: Intake and Output for Last 24 Hours 08/05/23 08/06/23 08/07/23 23:59 23:59 23:59 Intake Total 1775 / 1775 170 / 170 Output Total 200 / 200 150 / 150 Balance 1575 / 1575 20 / 20 Lab / Micro Data 08/07/23 06:30 08/07/23 06:30 Labs: Laboratory Results - last 24 hr 08/06/23 17:22: WBC 20.2 H, RBC 5.15, Hgb 16.2, Hct 47.4, MCV 92.0, MCH 31.5, MCHC 34.2, RDW Std Deviation 47.8 H, RDW Coeff of J Luis 14.0, Plt Count 187, MPV 11.2, Immature Gran % (Auto) 0.300, Neut % (Auto) 94.6 H, Lymph % (Auto) 2.1 L, [place] % (Auto) 2.9, Eos % (Auto) 0.0, Baso % (Auto) 0.1, Absolute Neuts (auto) 19.1 H, Absolute Lymphs (auto) 0.43 L, Nucleated RBC % 0, Sodium 133 L, Potassium 3.6, Chloride 103, Carbon Dioxide 23.0, Anion Gap 7, BUN 25 H, Creatinine 1.40 H, Est GFR (MDRD) Af Amer 68, Est GFR (MDRD) Non-Af 56 L, BUN/Creatinine Ratio 17.9, Glucose 192 H, Calcium 9.8, Total Bilirubin 0.90, Direct Bilirubin 0.32 H, AST 22, ALT 38, Alkaline Phosphatase 186 H, Total Protein 9.2 H, Albumin 4.8, Globulin 4.4 H 08/06/23 17:57: Urine Color Yellow, Urine Clarity Sl. Cloudy, Urine pH 5.0, Ur Specific [place] 1.025, Urine Protein 30 H, Urine Glucose (UA) Normal, Urine Ketones 15 H, Urine Occult Blood 10 H, Urine Nitrite Positive H, Urine Bilirubin 1 H, Urine Urobilinogen 1 H, Ur Leukocyte Esterase 500 H, Urine RBC 0-5 SEEN, Urine WBC 10-25 SEEN, Ur Squamous Epith Cells 5-10 SEEN, Calcium Oxalate Crystal RARE, Amorphous Sediment 1+ URATE, Urine Bacteria RARE, Hyaline Casts 5-10 SEEN, WBC Casts 0-5 SEEN, Urine Mucus 2+ 08/06/23 19:00: Lactic Acid 1.0 08/07/23 06:30: WBC 12.1 H, RBC 4.31 L, Hgb 13.3, Hct 39.9 L, MCV 92.6, MCH 30.9, MCHC 33.3, RDW Std Deviation 48.9 H, RDW Coeff of J Luis 14.4, Plt Count 166, MPV 11.2, Sodium 141, Potassium 3.1 L, Chloride 110 H, Carbon Dioxide 23.0, Anion Gap 8, BUN 26 H, Creatinine 0.93, Estim Creat Clear Calc 94.62, Est GFR (MDRD) Af Amer 109, Est GFR (MDRD) Non-Af 90, BUN/Creatinine Ratio 27.9 H, Glucose 113 H, Calcium 8.4 L Micro: Microbiology 08/07/23 03:45 Stool Stool Occult Blood (RADHA) - Final Occult Blood Positive 08/06/23 22:10 Mucosa - Nasopharyngeal Respiratory Panel (PCR) - Final Radiography Diagnostic Testing: Radiology Impression Abdomen/Pelvis CT 08/06/23 17:45 IMPRESSION: Small bowel obstruction without significant gastric distention. Appearance suggests possible closed loop obstruction with transition to nondistended distal small bowel in the right mid abdomen. Recommend surgical consultation. Bibasilar patchy infiltrates, possible pneumonia. Electronically Signed: Bam Sears MD at 18:29 EDT , ADDENDUM: 08/06/23 1851 IMPRESSION: Small bowel obstruction without significant gastric distention. Appearance suggests possible closed loop obstruction with transition to nondistended distal small bowel in the right mid abdomen. Recommend surgical consultation. Bibasilar patchy infiltrates, possible pneumonia. N.B. : The above Results were Read Back by Bam Sears MD to Ophelia Francois MD, and understanding confirmed on 08/06/2023 18:44:11 (ET). Electronically Signed: Bam Sears MD at 18:29 EDT , KUB X-Ray 08/06/23 19:19 IMPRESSION: Satisfactory NG tube placement. Electronically Signed: Bam Sears MD at 20:26 EDT , Chest X-Ray 08/06/23 19:55 IMPRESSION: Mild left basilar infiltrate. Electronically Signed: Bc Amaro DO at 20:25 EDT , KUB X-Ray 08/07/23 08:35 IMPRESSION: Increased gaseous distention and dilatation of bowel. Electronically Signed: Nai Yin MD at 9:05 EDT , Physical Exam Const alert and no apparent distress Constitutional Narrative: Patient has cognitive impairment which is chronic General Appearance: cooperative, well kempt and well developed Orientation / Consciousness: awake and oriented to person HEENT normocephalic, head/scalp atraumatic and moist oral mucous membranes Eyes PERRL, EOMs intact bilaterally and conjunctivae normal Neck supple, no JVD, thyroid normal and no carotid bruits General: trachea midline Resp normal respiratory effort, no retractions, no use of accessory muscles and clear to auscultation bilaterally Auscultation: Negative for rales, rhonchi or wheezes Cardio regular rate, regular rhythm, S1 normal heart sound, S2 normal heart sound, no murmurs, no rub and no gallops GI GI Narrative: Abdomen is distended, it is soft, tympanic, minimal bowel sounds are noted Extremity no clubbing, cyanosis or edema Skin no rashes or lesions noted General Skin Exam: no breakdown Neuro CN's II-XII intact bilaterally, no focal motor deficits and no sensory deficits noted Sensorium / Orientation: awake, alert and oriented to person Psych Psych Narrative: Patient has cognitive impairment Assessment & Plan Assessment/Plan (1) Bowel obstruction: PLAN: Plan 1. Small bowel obstruction-patient has an NG in place, general surgery seeing the patient, will undergo small bowel follow-through today, patient is on empiric IV Zosyn #2 possible acute cystitis-again patient is on Zosyn at the present time, cultures are pending #3 left basilar lung infiltrate-possible pneumonia versus atelectasis, patient is being covered with Zosyn for his abdominal issues at the present time, he is not requiring supplemental oxygen #4 acute kidney injury-patient's creatinine today is 0.93, his HYUN has resolved #5 chronic cognitive impairment-complicates care, management, recovery, and prognosis #6 obsessive-compulsive disorder-the patient's psychiatric medications are being held at this time due to his n.p.o. status #7 impulse control disorder-again patient's psychiatric medications are being held at this time due to his n.p.o. status, complicates care, management, recovery, and prognosis Total clinical time spent by myself addressing the patient's medical issues, reviewing all of the data, and collaborating with patient's care team: 35-minute Charges/Coding Visit Charges Inpatient E&M: 70035 Subs Hosp L2
[2023-08-07] MEDS: Lactated Ringers 1,000 ML 75 ML IV (11:06)
--- NOTE | 2023-08-07 14:08 | CASEMGMT ---
Social Work- ELI spoke with Rashmi, rosaan, who states that pt has significant anxiety at times, but enjoys drawing, magazines, and rock and roll trivia. Rashmi reports that pt will return to [facility] at discharge. ELI took pt coloring book, paper, and colored pencils and spoke with pt to provide supports. ERI Choudhary
[2023-08-07] MEDS: Lactulose 20 GM/30 ML UDC PO ×2 (14:44→21:37)
[2023-08-07] MEDS: Enoxaparin 40 MG/0.4 ML Syringe SC (14:45)
[2023-08-07 17:00] VITALS: BP 130/70; PULSE 90; RESP 18; TEMP 36.8; O2SAT 95
[2023-08-07 21:30] VITALS: BP 142/91; PULSE 100; RESP 18; TEMP 36.8; O2SAT 98
[2023-08-07] MEDS: cloZAPine 100 MG TABLET PO (21:37)
[2023-08-07] MEDS: MELATONIN 3 MG TABLET PO (21:37)
[2023-08-07] MEDS: clonazePAM 0.5 MG Tablet PO (21:38)
[2023-08-08] MEDS: Lactated Ringers 1,000 ML 75 ML IV ×2 (00:52→15:01)
[2023-08-08] MEDS: 0.9% Saline Lock 10 ML Syringe IV ×2 (01:50→05:18)
[2023-08-08 04:24] VITALS: BP 111/61; PULSE 94; RESP 16; TEMP 36.7; O2SAT 96
[2023-08-08] MEDS: Piperacil/Tazobactam 3.375 GM in 0.9% Normal Saline (50mL MB+) 50 ML IV ×3 (05:18→21:49)
--- NOTE | 2023-08-08 07:18 | PCM.PN.SRG ---
Subjective Subjective Patient seen and examined during AM rounds. He is found sitting out of bed in the chair. He repeatedly asked whether or not he can go home today. He denies any vomiting. I was notified by Dr. Charles that nursing had encountered robert blood per rectum with a recent bowel movement. Objective Data Objective Data Vital Signs: Vital Signs Temp Pulse Resp BP Pulse Ox O2 Del Method 98.1 F 94 16 111/61 96 Room Air 08/08/23 04:24 08/08/23 04:24 08/08/23 04:24 08/08/23 04:24 08/08/23 04:24 08/08/23 04:24 Oxygen Delivery Method Room Air Weight: 185 lb 13.595 oz Body Mass Index (BMI) 29.9 Intake & Output: Intake and Output for Last 24 Hours 08/06/23 08/07/23 08/08/23 23:59 23:59 23:59 Intake Total 1775 / 1775 2330 / 2330 1050 / 1050 Output Total 200 / 200 650 / 650 Balance 1575 / 1575 1680 / 1680 1050 / 1050 Lab / Micro Data 08/08/23 07:45 08/08/23 07:45 Micro: Microbiology 08/07/23 03:45 Stool Stool Occult Blood (RADHA) - Final Occult Blood Positive 08/06/23 22:10 Mucosa - Nasopharyngeal Respiratory Panel (PCR) - Final Radiography Diagnostic Testing: Radiology Impression KUB X-Ray 08/07/23 08:35 IMPRESSION: Increased gaseous distention and dilatation of bowel. Electronically Signed: Nai Yin MD at 9:05 EDT , Small Bowel X-Ray 08/07/23 08:41 IMPRESSION: Contrast is seen within the colon on the 3 hour examination. Electronically Signed: Terry Sinclair MD at 14:42 EDT , Physical Exam Const Constitutional Narrative: Oriented to person and place. Patient appears in some distress due to his persistent stay in the hospital Resp normal respiratory effort GI GI Narrative: Mild to moderately distended, diastases present, soft, patient adamantly denies any tenderness with palpation x 4 quadrants Assessment & Plan Assessment/Plan (1) Small bowel obstruction: (2) Leukocytosis: (3) Intellectual disability: (4) UTI (urinary tract infection): PLAN: Plan Patient's status post passage of a small bowel follow-through and discontinuation of the NG yesterday. Ongoing bowel activity reported and patient denies any intolerance of restarted diet. Patient's abdomen does remain somewhat distended, but is difficult for me to determine what his baseline is like. His abdominal exam is benign otherwise. Overall his hemoglobin is minimally down trended despite reports of some hematochezia overnight. Therefore, I am inclined to treat patient like mild ischemic enteritis/colitis and recommend continuing IV fluid support with maintenance of a clear liquid diet. Will check a lactic acid now but remainder of CBC is reassuring. With plan for a.m. labs and repeat abdominal exam at that time to determine patient's candidacy for discharge home. Jairo Mendoza MD General Surgery Endocrine Surgery Pager: [facility] [address] [place] [address], [facility], [address] [place] [address] Office: [phone] Charges/Coding Visit Charges Inpatient E&M: 38589 Subs Hosp L2
[2023-08-08] MEDS: Lactulose 20 GM/30 ML UDC PO (08:05)
[2023-08-08] MEDS: Magnesium Chloride 64 MG Delay Rel.Tablet 128 MG PO (08:06)
[2023-08-08] MEDS: Sertraline 100 MG Tablet 200 MG PO (08:06)
[2023-08-08] MEDS: cloZAPine 100 MG TABLET PO ×2 (08:06→21:49)
[2023-08-08] MEDS: clonazePAM 0.5 MG Tablet PO ×2 (08:13→21:49)
[2023-08-08 08:30] LABS: Absolute Lymphocyte Count 0.91 X10^3/uL (0.83-4.51); Absolute Neutrophil Count 8.4 X10^3/uL (2.0-7.7); Basophil# 0.03 X10^3/uL; Basophil% 0.3 % (0-1); Eosinophil# 0.08 X10^3/uL; Eosinophils% 0.8 % (0-5); Hematocrit 37.8 % (40-54); Hemoglobin 12.5 g/dL (13.0-16.5); Lymphocyte # 0.91 X10^3/ul (0.83-4.51); Lymphocyte % 8.9 % (19-41); Mean Corp Hgb Conc 33.1 g/dL (32-36); Mean Corpuscular Hgb 30.9 pg (27.0-32.0); Mean Corpuscular Volume 93.6 fL (80-94); Mean Platelet Vol. 11.3 fl (6.2-12.0); Monocyte# 0.74 X10^3/uL; Monocyte% 7.2 % (0-10); NRBC Flagged by Analyzer 0 % (0-5); Neutrophil # 8.44 X10^3/uL (2.7-7.7); Neutrophil % 82.6 % (47-70); Platelet Count 163 K/mm3 (150-450); RBC Distribution Width CV 14.5 % (11.6-14.6); RBC Distribution Width SD 49.8 fl (35.1-43.9); Red Blood Count 4.04 M/mm3 (4.6-6.2); White Blood Count 10.2 K/mm3 (4.4-11.0)
[2023-08-08 08:31] LABS: Anion Gap 9 (5-15); BUN 22 mg/dL (7-18); BUN/Creat Ratio 26.4 RATIO (10-20); Calcium,Total 8.4 mg/dL (8.5-10.1); Chloride 108 mmol/L (98-107); Creatinine, Serum 0.83 mg/dL (0.70-1.30); EST Glomerular Filtration Rate 103 mL/min (>60); Est Glom Filt Rate - Afr Amer 124 mL/min (>60); Estimated Creatinine Clearance 106.02 ml/min; Glucose 105 mg/dL (74-106); Potassium 2.8 mmol/L (3.5-5.1); Sodium Level 141 mmol/L (136-145)
[2023-08-08 08:37] VITALS: BP 140/98; PULSE 105; RESP 16; TEMP 37.3; O2SAT 96
[2023-08-08] MEDS: Potassium Chloride Oral Tablet 20 MEQ 60 MEQ PO (09:50)
--- NOTE | 2023-08-08 10:14 | PCM.PN.HOSP ---
Reason for Visit Reason for Visit: Diagnoses Elevated white blood cell count, unspecified (08/06/23) Unspecified intellectual disabilities (08/06/23) Unspecified intestinal obstruction, unspecified as to partial versus complete obstruction (08/06/23) Urinary tract infection, site not specified (08/06/23) Subjective Subjective Patient was seen and examined today, he did have a bowel movement, patient's abdomen is distended today but nontender. Patient had blood in his bowel movements this morning, I let general surgery know about this, they would like the patient to be on Protonix and a clear liquid diet presently. Objective Data Objective Data Vital Signs: Vital Signs Temp Pulse Resp BP Pulse Ox O2 Del Method 99.1 F 105 H 16 140/98 H 96 Room Air 08/08/23 08:37 08/08/23 08:37 08/08/23 08:37 08/08/23 08:37 08/08/23 08:37 08/08/23 08:37 Oxygen Delivery Method Room Air Weight: 84.3 kg Body Mass Index (BMI) 29.9 Intake & Output: Intake and Output for Last 24 Hours 08/06/23 08/07/23 08/08/23 23:59 23:59 23:59 Intake Total 1775 / 1775 2330 / 2330 1100 / 1100 Output Total 200 / 200 650 / 650 Balance 1575 / 1575 1680 / 1680 1100 / 1100 Lab / Micro Data 08/08/23 07:45 08/08/23 07:45 Labs: Laboratory Results - last 24 hr 08/08/23 07:45: WBC 10.2, RBC 4.04 L, Hgb 12.5 L, Hct 37.8 L, MCV 93.6, MCH 30.9, MCHC 33.1, RDW Std Deviation 49.8 H, RDW Coeff of J Luis 14.5, Plt Count 163, MPV 11.3, Immature Gran % (Auto) 0.200, Neut % (Auto) 82.6 H, Lymph % (Auto) 8.9 L, [place] % (Auto) 7.2, Eos % (Auto) 0.8, Baso % (Auto) 0.3, Absolute Neuts (auto) 8.4 H, Absolute Lymphs (auto) 0.91, Nucleated RBC % 0, Sodium 141, Potassium 2.8 L, Chloride 108 H, Carbon Dioxide 24.0, Anion Gap 9, BUN 22 H, Creatinine 0.83, Estim Creat Clear Calc 106.02, Est GFR (MDRD) Af Amer 124, Est GFR (MDRD) Non-Af 103, BUN/Creatinine Ratio 26.4 H, Glucose 105, Calcium 8.4 L Micro: Microbiology 08/07/23 03:45 Stool Stool Occult Blood (RADHA) - Final Occult Blood Positive 08/06/23 22:10 Mucosa - Nasopharyngeal Respiratory Panel (PCR) - Final Radiography Diagnostic Testing: Radiology Impression Small Bowel X-Ray 08/07/23 08:41 IMPRESSION: Contrast is seen within the colon on the 3 hour examination. Electronically Signed: Terry Sinclair MD at 14:42 EDT , Physical Exam Narrative alert and no apparent distress Constitutional Narrative: Patient has cognitive impairment which is chronic General Appearance: cooperative, well kempt and well developed Orientation / Consciousness: awake and oriented to person HEENT normocephalic, head/scalp atraumatic and moist oral mucous membranes Eyes PERRL, EOMs intact bilaterally and conjunctivae normal Neck supple, no JVD, thyroid normal and no carotid bruits General: trachea midline Resp normal respiratory effort, no retractions, no use of accessory muscles and clear to auscultation bilaterally Auscultation: Negative for rales, rhonchi or wheezes Cardio regular rate, regular rhythm, S1 normal heart sound, S2 normal heart sound, no murmurs, no rub and no gallops GI GI Narrative: Abdomen is distended, it is soft, tympanic, minimal bowel sounds are noted Extremity no clubbing, cyanosis or edema Skin no rashes or lesions noted General Skin Exam: no breakdown Neuro CN's II-XII intact bilaterally, no focal motor deficits and no sensory deficits noted Sensorium / Orientation: awake, alert and oriented to person Psych Psych Narrative: Patient has cognitive impairment Assessment & Plan Assessment/Plan (1) Small bowel obstruction: (2) Bowel obstruction: PLAN: Plan 1. Small bowel obstruction-surgery requested the patient be on clear liquids until they were able to assess the patient today #2 possible acute cystitis-again patient is on Zosyn at the present time, cultures are pending #3 left basilar lung infiltrate-possible pneumonia versus atelectasis, patient is being covered with Zosyn for UTI at this time, patient does not appear to have pneumonia clinically #4 acute kidney injury-patient's creatinine today is 0.93, his HYUN has resolved #5 chronic cognitive impairment-complicates care, management, recovery, and prognosis #6 obsessive-compulsive disorder-the patient's psychiatric medications are being held at this time due to his n.p.o. status #7 impulse control disorder-again patient's psychiatric medications are being held at this time, surgery will reevaluate the patient today #8 bright red rectal bleeding-etiology unclear, again general surgery will evaluate the patient Total clinical time spent by myself addressing the patient's medical issues, reviewing all of the data, and collaborating with patient's care team: 35-minute Charges/Coding Visit Charges Inpatient E&M: 96738 Subs Hosp L2
[2023-08-08] MEDS: Pantoprazole Sodium 40 MG in 0.9% Normal Saline (100mL MB+) 100 ML 330 MG IV (10:33)
[2023-08-08 10:56] VITALS: BP 126/81; PULSE 104; RESP 16; TEMP 36.3; O2SAT 98
--- NOTE | 2023-08-08 12:23 | RAD_ITS ---
EXAM: XR ABDOMEN, 1 VIEW CLINICAL INDICATION: Follow-up abdominal distention and bloody BM TECHNIQUE: Frontal supine view of the abdomen/pelvis. COMPARISON: CT 08/06/2023 FINDINGS: LOWER THORAX: No acute pathology. GASTROINTESTINAL TRACT: Gaseous distention of the stomach. Diffuse gaseous distention of the colon in the right lower quadrant. This can suggest an ileus. ORGANS: Unremarkable as visualized. No organomegaly. No abnormal calcifications. BONES/JOINTS: Degenerative findings in the lumbar spine. SOFT TISSUES: No acute pathology. RAD/Abdomen Single View (Portable) IMPRESSION: Diffuse gaseous distention of the colon in the right lower quadrant. This can suggest an ileus. If of concern repeat CT scan can reevaluate Electronically Signed: Rodrick Bailey MD at 16:44 EDT ,
[2023-08-08 13:08] LABS: Lactic Acid 0.7 mmol/L (0.4-1.9)
[2023-08-08] MEDS: Fleet Enema 133 ML RC (13:35)
[2023-08-08 15:16] VITALS: BP 129/85; PULSE 93; RESP 16; TEMP 37; O2SAT 100
[2023-08-08] MEDS: Metoclopramide 10 MG/2 ML Vial 5 MG IV (17:33)
[2023-08-08 20:14] VITALS: BP 130/90; PULSE 77; RESP 18; TEMP 37; O2SAT 100
[2023-08-08] MEDS: Lactulose 20 GM/30 ML UDC 30 GM PO (21:49)
[2023-08-08] MEDS: MELATONIN 3 MG TABLET PO (21:50)
[2023-08-09] MEDS: Metoclopramide 10 MG/2 ML Vial 5 MG IV ×3 (00:03→11:33)
[2023-08-09 02:34] VITALS: BP 123/80; PULSE 84; RESP 18; TEMP 37; O2SAT 100
[2023-08-09] MEDS: Piperacil/Tazobactam 3.375 GM in 0.9% Normal Saline (50mL MB+) 50 ML IV ×2 (05:07→13:36)
[2023-08-09] MEDS: Lactated Ringers 1,000 ML 75 ML IV (05:07)
[2023-08-09 08:11] LABS: Absolute Lymphocyte Count 1.27 X10^3/uL (0.83-4.51); Absolute Neutrophil Count 5.4 X10^3/uL (2.0-7.7); Basophil# 0.03 X10^3/uL; Basophil% 0.4 % (0-1); Eosinophil# 0.14 X10^3/uL; Eosinophils% 1.9 % (0-5); Lymphocyte # 1.27 X10^3/ul (0.83-4.51); Lymphocyte % 16.9 % (19-41); Mean Corp Hgb Conc 33.3 g/dL (32-36); Mean Corpuscular Hgb 30.8 pg (27.0-32.0); Mean Corpuscular Volume 92.5 fL (80-94); Mean Platelet Vol. 10.4 fl (6.2-12.0); Monocyte# 0.67 X10^3/uL; Monocyte% 8.9 % (0-10); NRBC Flagged by Analyzer 0 % (0-5); Neutrophil # 5.37 X10^3/uL (2.7-7.7); Neutrophil % 71.6 % (47-70); Platelet Count 162 K/mm3 (150-450); RBC Distribution Width CV 14.1 % (11.6-14.6); RBC Distribution Width SD 48.2 fl (35.1-43.9); Red Blood Count 3.89 M/mm3 (4.6-6.2); White Blood Count 7.5 K/mm3 (4.4-11.0)
--- NOTE | 2023-08-09 08:12 | PCM.PN.SRG ---
Subjective Subjective Patient seen and examined during AM rounds. He is found resting in bed. He appears somewhat irritable and uncooperative but repeatedly asked whether or not it is possible he can go home today. He denies vomiting and confirms that his belly feels normal and is not hurting. Objective Data Objective Data Vital Signs: Vital Signs Temp Pulse Resp BP Pulse Ox O2 Del Method 98.6 F 84 18 123/80 H 100 Room Air 08/09/23 02:34 08/09/23 02:34 08/09/23 02:34 08/09/23 02:34 08/09/23 02:34 08/09/23 07:34 Oxygen Delivery Method Room Air Weight: 185 lb 13.595 oz Body Mass Index (BMI) 29.9 Intake & Output: Intake and Output for Last 24 Hours 08/07/23 08/08/23 08/09/23 23:59 23:59 23:59 Intake Total 2330 / 2330 2860.0 / 2860.0 1300 / 1300 Output Total 650 / 650 Balance 1680 / 1680 2860.0 / 2860.0 1300 / 1300 Lab / Micro Data 08/09/23 08:01 08/09/23 08:01 Labs: Laboratory Results - last 24 hr 08/08/23 07:45: WBC 10.2, RBC 4.04 L, Hgb 12.5 L, Hct 37.8 L, MCV 93.6, MCH 30.9, MCHC 33.1, RDW Std Deviation 49.8 H, RDW Coeff of J Luis 14.5, Plt Count 163, MPV 11.3, Immature Gran % (Auto) 0.200, Neut % (Auto) 82.6 H, Lymph % (Auto) 8.9 L, [place] % (Auto) 7.2, Eos % (Auto) 0.8, Baso % (Auto) 0.3, Absolute Neuts (auto) 8.4 H, Absolute Lymphs (auto) 0.91, Nucleated RBC % 0, Sodium 141, Potassium 2.8 L, Chloride 108 H, Carbon Dioxide 24.0, Anion Gap 9, BUN 22 H, Creatinine 0.83, Estim Creat Clear Calc 106.02, Est GFR (MDRD) Af Amer 124, Est GFR (MDRD) Non-Af 103, BUN/Creatinine Ratio 26.4 H, Glucose 105, Calcium 8.4 L 08/08/23 12:30: Lactic Acid 0.7 08/09/23 08:01: WBC 7.5, RBC 3.89 L, Hgb 12.0 L, Hct 36.0 L, MCV 92.5, MCH 30.8, MCHC 33.3, RDW Std Deviation 48.2 H, RDW Coeff of J Luis 14.1, Plt Count 162, MPV 10.4, Immature Gran % (Auto) 0.300, Neut % (Auto) 71.6 H, Lymph % (Auto) 16.9 L, [place] % (Auto) 8.9, Eos % (Auto) 1.9, Baso % (Auto) 0.4, Absolute Neuts (auto) 5.4, Absolute Lymphs (auto) 1.27, Nucleated RBC % 0 Micro: Microbiology 08/06/23 17:57 Urine, Random Urine Culture - Final Culture exhibits no growth. 08/07/23 03:45 Stool Stool Occult Blood (RADHA) - Final Occult Blood Positive 08/06/23 22:10 Mucosa - Nasopharyngeal Respiratory Panel (PCR) - Final Radiography Diagnostic Testing: Radiology Impression KUB X-Ray 08/08/23 12:23 IMPRESSION: Diffuse gaseous distention of the colon in the right lower quadrant. This can suggest an ileus. If of concern repeat CT scan can reevaluate Electronically Signed: Rodrick Bailey MD at 16:44 EDT Reading Location ID and State: [facility] / [place] , Service support , Physical Exam Const oriented x3 Constitutional Narrative: Mildly agitated Resp normal respiratory effort GI GI Narrative: Mildly distended and firm but nontender to palpation x 4 quadrants Assessment & Plan Assessment/Plan (1) Small bowel obstruction: (2) Leukocytosis: (3) Intellectual disability: (4) UTI (urinary tract infection): PLAN: Plan Patient's status post passage of a small bowel follow-through and discontinuation of the NG 2 days ago. Ongoing bowel activity reported and patient denies any intolerance of restarted diet. 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 Additionally I obtained a KUB yesterday showing gaseous distention of the stomach and colon suggestive of an ileus or delayed gastric motility and abnormal colonic motility. The suspicion was shared hospital service and Reglan/enemas will be given empirically. Once again, hemoglobin is minimally down trended. White blood cell count remains within normal limits on empiric Zosyn. Therefore, I am inclined to treat patient like mild ischemic enteritis/colitis and recommend probable thoughtful/gradual reinstitution of the diet today. Jairo Mendoza MD General Surgery Endocrine Surgery Pager: [facility] [address] [place] [address], [facility], [address] [place] [address] Office: [phone] Charges/Coding Visit Charges Inpatient E&M: 16989 Subs Hosp L2
[2023-08-09 08:41] LABS: Anion Gap 7 (5-15); BUN 13 mg/dL (7-18); BUN/Creat Ratio 15.8 RATIO (10-20); Calcium,Total 8.1 mg/dL (8.5-10.1); Chloride 111 mmol/L (98-107); Creatinine, Serum 0.82 mg/dL (0.70-1.30); EST Glomerular Filtration Rate 104 mL/min (>60); Est Glom Filt Rate - Afr Amer 126 mL/min (>60); Estimated Creatinine Clearance 107.32 ml/min; Glucose 98 mg/dL (74-106); Potassium 3.1 mmol/L (3.5-5.1); Sodium Level 141 mmol/L (136-145)
[2023-08-09 08:59] VITALS: PULSE 70
[2023-08-09 09:05] VITALS: BP 128/84; PULSE 90; RESP 18; TEMP 37.1; O2SAT 98
[2023-08-09] MEDS: Lactulose 20 GM/30 ML UDC 30 GM PO ×2 (09:10→13:37)
[2023-08-09] MEDS: Magnesium Chloride 64 MG Delay Rel.Tablet 128 MG PO (09:11)
[2023-08-09] MEDS: cloZAPine 100 MG TABLET PO (09:11)
[2023-08-09] MEDS: Sertraline 100 MG Tablet 200 MG PO (09:12)
[2023-08-09] MEDS: clonazePAM 0.5 MG Tablet PO (09:16)
[2023-08-09] MEDS: Pantoprazole Sodium 40 MG in 0.9% Normal Saline (100mL MB+) 100 ML 330 MG IV (10:56)
[2023-08-09] MEDS: Potassium Chloride Oral Tablet 20 MEQ 40 MEQ PO (11:03)
[2023-08-09] MEDS: 0.9% Saline Lock 10 ML Syringe IV (11:33)
[2023-08-09 13:47] VITALS: BP 138/80; PULSE 117; RESP 20; TEMP 36.8; O2SAT 100
--- NOTE | 2023-08-09 14:33 | DCINST_ITS ---
Discharge Instructions Diet Discharge Diet: No restrictions Activity Discharge Activity: Return to Normal Activity Weight Bearing Status: Full weight bearing Follow Up Care Test Results: Test results from this visit will be discussed in further detail at your follow- up appointment, if applicable. Discharge Plan Admission Admit Date/Time: 08/06/23 19:44 Primary Reason for Your Visit: Small bowel obstruction Attending Provider: Victoriano Charles Primary Care Provider: Mervat Carrillo Consulting Providers: Joselo Vera Additional Instructions / Restrictions: You will need to follow-up with your creative technologist due to your rectal bleeding, you will most likely need a colonoscopy done as an outpatient Discharge Orders/Prescriptions Prescriptions: Continued melatonin 3 MG tablet 3 mg PO QHS clindamycin-benzoyl peroxide 0 gel 1 applic topical QHS clonazepam 1 MG tablet 1 mg PO DAILY@1900 clonazepam 0.5 mg tablet 0.5 mg PO BID Patient Comments: TAKE (1) TABLET BY MOUTHCDAILY IN THE MORNING. Rx Instructions: 7 AM AND 3 PM Linzess 145 mcg capsule 290 mcg PO DAILY Patient Comments: TAKE (1) CAPSULE BY MOUTHDDAILY. clozapine 100 mg tablet 100 mg PO BID docusate sodium 100 MG capsule 200 mg PO BID Qty: 0 0RF polyethylene glycol 3350 17 GM powder in packet 34 g PO DAILY Fleet Enema 19-7 gram/118 mL enema 118 ml MI DAILY PRN (Reason: constipation) 7 Days Qty: 133 0RF magnesium oxide 400 mg (241.3 mg magnesium) tablet 400 mg PO DAILY Motegrity 2 mg tablet 2 mg PO DAILY sertraline [Zoloft] 100 mg tablet 200 mg PO DAILY Rx Instructions: AT 7 AM Referrals / Follow Up: Mervat Carrillo MD [Primary Care Provider] - Within 2 Weeks Disposition Disposition (needs filled in before D/C Order can be placed): Home, Self Care
--- NOTE | 2023-08-09 14:42 | PCM.DC.SUM ---
Providers Date of Admission: 08/06/23 Date of Discharge: 08/09/23 Primary Care Physician: Dr. Mervat Carrillo MD Reason For Visit: SBO, CONCERN FOR ASPIRATION PNEUMONIA Diagnosis Discharge Diagnosis (1) Small bowel obstruction: Status: Acute Code(s): K56.609 - Unspecified intestinal obstruction, unspecified as to partial versus complete obstruction (2) Leukocytosis: Status: Acute Code(s): D72.829 - Elevated white blood cell count, unspecified (3) Intellectual disability: Status: Acute Code(s): F79 - Unspecified intellectual disabilities (4) UTI (urinary tract infection): Status: Acute Code(s): N39.0 - Urinary tract infection, site not specified Plan 1. 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 status #6 impulse control disorder-again patient's psychiatric medications are being held at this time, surgery will reevaluate the patient today #7 bright red rectal bleeding-etiology unclear #8 hypokalemia #9 anemia-etiology unclear Urinary tract infection and aspiration pneumonia were ruled out Total clinical time spent by myself addressing the patient's medical issues, reviewing all of the data, and collaborating with patient's care team: 35-minute Medications at Discharge Home Medications melatonin 3 mg tablet 3 mg PO QHS sleep 02/04/19 clindamycin 1.2 % (1 % base)-benzoyl peroxide 5 % topical gel 1 applic topical QHS facial skin condition 02/05/19 clonazepam 1 mg tablet 1 mg PO DAILY@1900 ANXIETY 11/04/19 clonazepam 0.5 mg tablet 0.5 mg PO BID ANXIETY 09/20/20 clozapine 100 mg tablet 100 mg PO BID BEHAVIOR 09/20/20 linaclotide 145 mcg capsule (Linzess) 290 mcg PO DAILY IBS 09/20/20 docusate sodium 100 mg capsule 200 mg (2 x 100 mg) PO BID bowels #0 caps 09/22/20 polyethylene glycol 3350 17 gram oral powder packet 34 g PO DAILY constipation 06/28/21 sodium phosphates 19 gram-7 gram/118 mL enema (Fleet Enema) 118 ml OR DAILY PRN constipation 7 days #133 mL 05/16/22 magnesium oxide 400 mg (241.3 mg magnesium) tablet 400 mg PO DAILY 08/06/23 prucalopride 2 mg tablet (Motegrity) 2 mg PO DAILY 08/06/23 sertraline 100 mg tablet (Zoloft) 200 mg PO DAILY 08/06/23 Hospital Course Operations None Procedures None Summary of Care Provided Minutes Spent on Discharge: 32 Hospital Course: Patient was seen in the emergency room at [facility] with complaints of generalized abdominal pain and vomiting. Patient lives in a alf and is on multiple medications for chronic constipation. Workup in the emergency room revealed an elevated white blood cell count at 20.2, creatinine was elevated at 1.4 and BUN was 25. Urinalysis showed rare urine bacteria, 10-25 white blood cells were seen but there was also squamous epithelial cells in the urine. CT of the abdomen and pelvis revealed a small bowel obstruction without significant gastric distention. There was also noted to be bibasilar patchy infiltrates in the lungs-patient had no symptoms of a respiratory infection and was not short of breath. Patient was admitted to [place] [address], he was placed on IV antibiotics due to concerns of a urinary tract infection or aspiration pneumonia while cultures were pending. Patient was seen in consultation by general surgery, he had an NG tube inserted with return of gastric fluid, small bowel follow-through was obtained using Gastrografin and this showed the presence of contrast in the colon and the NG tube was removed. Patient continued to be distended but his abdomen was soft, he was placed on some lactulose and IV Reglan and ultimately had bowel movements. He did have some blood in his bowel movements, general surgery felt that the patient should not undergo endoscopy presently and should follow-up as an outpatient to have a possible colonoscopy. On 08/09/2023, patient was seen and examined:alert and no apparent distress Constitutional Narrative: Patient has cognitive impairment which is chronic General Appearance: cooperative, well kempt and well developed Orientation / Consciousness: awake and oriented to person HEENT normocephalic, head/scalp atraumatic and moist oral mucous membranes Eyes PERRL, EOMs intact bilaterally and conjunctivae normal Neck supple, no JVD, thyroid normal and no carotid bruits General: trachea midline Resp normal respiratory effort, no retractions, no use of accessory muscles and clear to auscultation bilaterally Auscultation: Negative for rales, rhonchi or wheezes Cardio regular rate, regular rhythm, S1 normal heart sound, S2 normal heart sound, no murmurs, no rub and no gallops GI GI Narrative: Abdomen is distended, it is soft, tympanic, minimal bowel sounds are noted Extremity no clubbing, cyanosis or edema Skin no rashes or lesions noted General Skin Exam: no breakdown Neuro CN's II-XII intact bilaterally, no focal motor deficits and no sensory deficits noted Sensorium / Orientation: awake, alert and oriented to person Psych Psych Narrative: Patient has cognitive impairment I talked to the patient's POA on 08/09/2023 and recommended the patient follow-up with his bar machine operator multiple spindle to investigate the etiology of his rectal bleeding. I elected not to place the patient on another laxative at the time of discharge-patient was already on several different laxatives for stercoral colitis. Weight / BMI Weight Weight: 84.3 kg Body Mass Index (BMI) 29.9 ABG / Lab / Microbiology Data 08/09/23 08:01 08/09/23 08:01 Laboratory: Laboratory Results - last 24 hr 08/09/23 08:01: WBC 7.5, RBC 3.89 L, Hgb 12.0 L, Hct 36.0 L, MCV 92.5, MCH 30.8, MCHC 33.3, RDW Std Deviation 48.2 H, RDW Coeff of J Luis 14.1, Plt Count 162, MPV 10.4, Immature Gran % (Auto) 0.300, Neut % (Auto) 71.6 H, Lymph % (Auto) 16.9 L, [place] % (Auto) 8.9, Eos % (Auto) 1.9, Baso % (Auto) 0.4, Absolute Neuts (auto) 5.4, Absolute Lymphs (auto) 1.27, Nucleated RBC % 0, Sodium 141, Potassium 3.1 L, Chloride 111 H, Carbon Dioxide 23.0, Anion Gap 7, BUN 13, Creatinine 0.82, Estim Creat Clear Calc 107.32, Est GFR (MDRD) Af Amer 126, Est GFR (MDRD) Non-Af 104, BUN/Creatinine Ratio 15.8, Glucose 98, Calcium 8.1 L Microbiology: Microbiology 08/06/23 17:57 Urine, Random Urine Culture - Final Culture exhibits no growth. 08/07/23 03:45 Stool Stool Occult Blood (RADHA) - Final Occult Blood Positive 08/06/23 22:10 Mucosa - Nasopharyngeal Respiratory Panel (PCR) - Final Radiography Diagnostic Testing: Radiology Impression KUB X-Ray 08/08/23 12:23 IMPRESSION: Diffuse gaseous distention of the colon in the right lower quadrant. This can suggest an ileus. If of concern repeat CT scan can reevaluate Electronically Signed: Rodrick Bailey MD at 16:44 EDT , D/C Instructions Discharge Diet: No restrictions Weight Bearing Status: Full weight bearing Meaningful Use Info Meaningful Use Meaningful Use Diagnoses (Choose all that apply): None applicable Ischemic Stroke Statin Dosing Therapy Reference: STATIN DOSE THERAPY REFERENCE: * Patients > 75 years receive moderate or high dose statin therapy. * Patients 75 years or YOUNGER should receive HIGH intensity statin dose unless contraindicated. You will be required to document reason for non-treatment if statin daily dose does not meet guidelines. HIGH DOSE STATIN THERAPY DAILY Atorvastatin > than or = to 40 mg Rosuvastatin > than or = to 20 mg Amlodipine + Atorvastatin > than or = to 2.5/40 mg Ezetimibe + Simvastatin 10/80 mg Simvastatin 80mg Discharge Plan Admission Admit Date/Time: 08/06/23 19:44 Primary Reason for Your Visit: Small bowel obstruction Attending Provider: Victoriano Charles Primary Care Provider: Mervat Carrillo Consulting Providers: Joselo Vera Instructions Additional Instructions / Restrictions: You will need to follow-up with your bar machine operator multiple spindle due to your rectal bleeding, you will most likely need a colonoscopy done as an outpatient Discharge Orders/Prescriptions Prescriptions: Continued melatonin 3 MG tablet 3 mg PO QHS clindamycin-benzoyl peroxide 0 gel 1 applic topical QHS clonazepam 1 MG tablet 1 mg PO DAILY@1900 clonazepam 0.5 mg tablet 0.5 mg PO BID Patient Comments: TAKE (1) TABLET BY MOUTHCDAILY IN THE MORNING. Rx Instructions: 7 AM AND 3 PM Linzess 145 mcg capsule 290 mcg PO DAILY Patient Comments: TAKE (1) CAPSULE BY MOUTHDDAILY. clozapine 100 mg tablet 100 mg PO BID docusate sodium 100 MG capsule 200 mg PO BID Qty: 0 0RF polyethylene glycol 3350 17 GM powder in packet 34 g PO DAILY Fleet Enema 19-7 gram/118 mL enema 118 ml OR DAILY PRN (Reason: constipation) 7 Days Qty: 133 0RF magnesium oxide 400 mg (241.3 mg magnesium) tablet 400 mg PO DAILY Motegrity 2 mg tablet 2 mg PO DAILY sertraline [Zoloft] 100 mg tablet 200 mg PO DAILY Rx Instructions: AT 7 AM Referrals / Follow Up: Mervat Carrillo MD [Primary Care Provider] - Within 2 Weeks Disposition Disposition (needs filled in before D/C Order can be placed): Home, Self Care Charges/Coding Visit Charges Inpatient E&M: 01179 Disch Hosp >30min
== END 2023-08-09 16:13 | disposition home or self-care (01) | DRG 389 ==
LOC: ED 19:40 → MS3 19:55
PROVIDERS: Surgery; Admitting Provider Hospitalist; Emergency Provider Emergency Medicine; PCP Internal Medicine; Visit Provider Internal Medicine
DX: K56.699 Other intestinal obstruction unspecified as to partial versus complete obstruction (principal); N17.9 Acute kidney failure, unspecified; K52.89 Other specified noninfective gastroenteritis and colitis; E86.0 Dehydration; F63.9 Impulse disorder, unspecified; E87.6 Hypokalemia; F41.9 Anxiety disorder, unspecified; E66.9 Obesity, unspecified; Z68.30 Body mass index [BMI] 30.0-30.9, adult; F79 Unspecified intellectual disabilities; F42.9 Obsessive-compulsive disorder, unspecified
CPT/HCPCS: 36415; 71045; 74018; 74176; 74250; 80048; 80076; 81001; 82274; 83605; 85025; 85027; 87086; 87633; 94668; 97802; 99285; J7030; J7040; J7120; A4216; J2405

== ENCOUNTER 2023-08-12 09:15 | Emergency (ER) | payer MEDICARE, MEDICAID, SELFPAY ==
[2023-08-12 09:15] VITALS: BP 127/93; PULSE 121; RESP 18; TEMP 36.4; O2SAT 94
--- NOTE | 2023-08-12 09:41 | ED.VIS.GI ---
HPI HPI - GI History of Present Illness Chief Complaint: Abd Pain Detail of Chief Complaint: Abdominal pain resolved. Informant: patient and other (Accompanied by his case folder. Patient lives in a senior living.) Abdominal Pain/Flank Pain Onset: Today Context: Gradual Onset Timing: Intermittent Location: Diffuse Current Severity: Gone Maximum Severity: Mild Worsened by: Nothing Relieved by: Nothing Nausea/Vomiting/Emesis GI Symptom: Negative for Nausea or Vomiting Diarrhea/Melena/Hematochezia GI Symptom: Positive for Diarrhea; Negative for Melena or Hematochezia Onset: Today Stool Quality: Positive for Loose Severity: Mild Associated Symptoms Associated Symptoms: Negative for Dysuria, Frequency or Hematuria Narrative Narrative: 52-year-old male history of prediabetic, small bowel obstruction and OCD. Lives in a senior living. Recent hospitalization here for small bowel obstruction that resolved without surgery. He complains of abdominal discomfort today with diarrhea and they brought him in for evaluation. No vomiting. No fever. No dysuria. Prior similar symptoms: Yes Recent Illness/Hospitalization: Yes [facility] Medical History COVID-19 Occult blood positive stool Ileus, unspecified Bowel obstruction Impulse control disorder OCD (obsessive compulsive disorder) History of small bowel obstruction Conduct disorder Intellectual disability MRDD Home Medications ?Medication ?Instructions ?Recorded ?Last Taken ?Type melatonin 3 mg tablet 3 mg PO QHS sleep 02/04/19 08/05/23 History clindamycin 1.2 % (1 % 1 applic topical QHS facial skin 02/05/19 08/05/23 History base)-benzoyl peroxide 5 % topical condition gel clonazepam 1 mg tablet 1 mg PO DAILY@1900 ANXIETY 11/04/19 09/19/20 History clonazepam 0.5 mg tablet 0.5 mg PO BID ANXIETY 09/20/20 08/06/23 History clozapine 100 mg tablet 100 mg PO BID BEHAVIOR 09/20/20 08/06/23 History linaclotide 145 mcg capsule 290 mcg PO DAILY IBS 09/20/20 08/06/23 History (Linzess) docusate sodium 100 mg capsule 200 mg (2 x 100 mg) PO BID bowels 09/22/20 08/06/23 Rx #0 caps polyethylene glycol 3350 17 gram 34 g PO DAILY constipation 06/28/21 08/06/23 History oral powder packet sodium phosphates 19 gram-7 118 ml MT DAILY PRN constipation 7 05/16/22 Unknown Rx gram/118 mL enema (Fleet Enema) days #133 mL magnesium oxide 400 mg (241.3 mg 400 mg PO DAILY 08/06/23 08/06/23 History magnesium) tablet prucalopride 2 mg tablet 2 mg PO DAILY 08/06/23 08/05/23 History (Motegrity) sertraline 100 mg tablet (Zoloft) 200 mg PO DAILY 08/06/23 08/05/23 History Allergy/AdvReac Type Severity Reaction Status Date / Time No Known Allergies Allergy Verified 08/12/23 09:15 Social History Smoking Status: Never smoker ROS ROS ED ROS Narrative Abdominal pain. Diarrhea. Abdominal pain is resolved. Review of Systems ROS Unobtainable: Denies due to encephalopathy Constitutional Constitutional ED: Denies chills or fever(s) ENT ENT ED: Denies ear pain Cardiovascular Cardiovascular: Denies chest pain Respiratory/Chest Respiratory/Chest: Denies cough Gastrointestinal Gastrointestinal: Reports abdominal pain and diarrhea; Denies melena, nausea or vomiting Genitourinary Genitourinary ED: Denies dysuria or hematuria Musculoskeletal Musculoskeletal: Denies arthralgias, back pain or myalgias Integumentary Denies abscess or Abrasions Neurologic Neurologic: Denies headache(s) Psychiatric Psychiatric: Denies anxiety Endocrine Endocrinology: Denies polydipsia Hematologic/Lymphatic Hematologic/Lymphatic: Denies easy bleeding Allergic/Immunologic Allergic/Immunologic ED: Denies mouth swelling, tongue swelling or urticaria EXAM Physical Exam Narrative Exam Narrative: 52-year-old male HEENT exam unremarkable. Mytrex membranes. Lungs clear to auscultation bilaterally. [id number] male sitting upright in bed no distress. Vital signs are stable he is mildly tachycardic. Is no complaints. When specifically asked he denies abdominal pain at this time. 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 Tachycardic rate about 115 no murmur. Chest wall nontender. Abdomen nondistended normal bowel sounds no peritoneal signs. He has no signs of obstruction at this time. Currently he is completely pain-free on palpation. He is moving all 4 extremities. Calves are nontender without edema. He is awake and alert. Answering questions and following commands. Const Vital Signs: 08/12/23 09:15 08/12/23 11:15 08/12/23 13:00 Temperature 97.6 F L Temperature Source Temporal Pulse Rate 121 H 107 H 105 H Respiratory Rate 18 16 18 Blood Pressure 127/93 H 142/98 H 133/91 H Blood Pressure Mean 104 112 105 Pulse Ox 94 96 95 Oxygen Delivery Method Room Air Room Air Room Air Positive well nourished and well developed; Negative for cachectic, contractures or unkempt General Appearance ED: well developed and NAD; Negative for unkempt, cachectic, contractures or pallor Nutritional Appearance: Negative for cachectic HEENT Reports moist mucous membranes; Denies dry mucous membranes normocephalic and atraumatic; Negative for trauma or tenderness Mouth ED: No dry mucous membranes Mouth: No dry mucous membranes Eyes PERRL and EOMs intact bilaterally General Eye ED: Negative for pale conjunctiva or scleral icterus Neck no lymphadenopathy, supple and no JVD General: Negative for tenderness Carotids: Negative for other Lymph Lymphatic: Negative for other Resp normal respiratory effort and clear to auscultation bilaterally Effort and Inspection: Negative for respiratory distress Auscultation: rales, rhonchi and wheezes; Negative for diminished lung sounds or other Cardio regular rhythm, S1 normal heart sound, S2 normal heart sound and no murmurs; Negative for regular rate Rate: bradycardia and tachycardic Rhythm: Negative for abnormal rhythm GI non-tender, non-distended and no masses Inspection: Negative for abdominal distention Auscultation: normoactive bowel sounds Palpation: soft; Negative for tender, guarding, rigid or rebound tenderness present Back/Spine no CVA tenderness General Back: Negative for CVA tenderness Cervical Spine: Negative for cervical spine tenderness Thoracic Spine / Upper Back: Negative for thoracic spinal tenderness Lumbar Spine / Lower Back: Negative for lumbar spinal tenderness Coccyx: Negative for other Extremity full ROM General Extremety ED: Negative for edema or tenderness General Extremity: Negative for edema Neuro CN's II-XII intact bilaterally and moves all extremities Sensorium / Orientation: alert, oriented to person, oriented to place and oriented to time; Negative for orientation impaired, confused, lethargic or stuporous Motor Exam: strength 5/5 throughout Psych mental status grossly normal and thought process normal Appearance: Negative for unkempt Attitude: No agitated Mood & Affect: Negative for depressed, anxious or tearful Skin no wounds General Skin Exam: Negative for jaundice or pallor Lesions: no lesions Rashes: no rashes Trauma: Negative for abrasion Nails: Negative for discolored MDM MDM MDM Narrative Medical decision making narrative: 52-year-old male recent hospitalization for bowel obstruction resolved. Currently his abdomen is completely benign. Screening labs and a CT will be obtained. At this time I have a very low suspicion for an obstruction at this time. Repeat exam patient is doing well at 1:30 PM. I discussed with the senior living staff that was in the room with the patient. And also called his legal guardian Rashmi Cuello and discussed his workup with her and outpatient follow-up for colonoscopy. There is nothing at this time to really admit the patient for her to be hospitalized. He does not have a bowel obstruction. I discussed the CAT scan results with our radiologist. They can follow-up with his primary care physician be referred to a [facility] general surgeon to have endoscopy done or they can follow-up with one of the [place] physicians. History & Record Review Discussion w/independent historian: Patient Additional record(s) reviewed:: Prior inpatient record, Prior outpatient record, Prior ED visit, Prior labs and No prior records Lab Data Attestation: I reviewed the patient's lab results. Lab results narrative: CBC shows a white count of 14.9. H&H of 14 and 41. Platelets 177. Chemistries show potassium 3.3. Gap 7. Normal BUN and creatinine. Glucose 162. Liver enzymes unremarkable. Alk phos 135. Lipase 16. Labs: Laboratory Results - last 24 hr 08/12/23 09:47 WBC 14.9 H RBC 4.57 L Hgb 14.0 Hct 41.9 MCV 91.7 MCH 30.6 MCHC 33.4 RDW Std Deviation 47.5 H RDW Coeff of J Luis 14.2 Plt Count 177 MPV 10.8 Immature Gran % (Auto) 0.500 Neut % (Auto) 88.9 H Lymph % (Auto) 4.9 L [place] % (Auto) 5.1 Eos % (Auto) 0.3 Baso % (Auto) 0.3 Absolute Neuts (auto) 13.3 H Absolute Lymphs (auto) 0.73 L Nucleated RBC % 0 Sodium 139 Potassium 3.3 L Chloride 106 Carbon Dioxide 26.0 Anion Gap 7 BUN 16 Creatinine 0.81 Estim Creat Clear Calc 96.27 Est GFR (MDRD) Af Amer 129 Est GFR (MDRD) Non-Af 107 BUN/Creatinine Ratio 19.8 Glucose 162 H Calcium 9.2 Total Bilirubin 0.50 AST 27 ALT 44 Alkaline Phosphatase 135 H Total Protein 8.0 Albumin 4.2 Globulin 3.8 Albumin/Globulin Ratio 1.1 Lipase 16 Radiography Diagnostic Testing: Clinical Impression(s) from Imaging Studies Abdomen/Pelvis CT 08/12/23 10:02 IMPRESSION: Persistent fluid distention of small bowel loops down to the right side of the midline. There now is evidence of a distended fluid-filled rectosigmoid colon with the thickened haustral pattern. Distal colitis should be ruled out. Electronically Signed: Terry Sinclair MD at 10:34 EDT , Rhythm Strip Rhythm Strip: Sinus Tach Rate: 112 Ectopy: None EKG Initial EKG: Attestation: I personally reviewed and interpreted this EKG as follows: Interpretation: Sinus Rhythm, No Acute Injury Pattern and Sinus Tachycardia Comments: Sinus tachycardia rate of 112 no acute signs of NV no ischemia nor dysrhythmia. Discharge Plan Triage Chief Complaint: Abd Pain ED Provider: John Trujillo Dx/Rx/DC Orders Clinical Impression: Colitis, Diarrhea, History of small bowel obstruction Prescriptions: No Action melatonin 3 MG tablet 3 mg PO QHS clindamycin-benzoyl peroxide 0 gel 1 applic topical QHS clonazepam 1 MG tablet 1 mg PO DAILY@1900 clonazepam 0.5 mg tablet 0.5 mg PO BID Patient Comments: TAKE (1) TABLET BY MOUTHCDAILY IN THE MORNING. Rx Instructions: 7 AM AND 3 PM Linzess 145 mcg capsule 290 mcg PO DAILY Patient Comments: TAKE (1) CAPSULE BY MOUTHDDAILY. clozapine 100 mg tablet 100 mg PO BID docusate sodium 100 MG capsule 200 mg PO BID Qty: 0 0RF polyethylene glycol 3350 17 GM powder in packet 34 g PO DAILY Fleet Enema 19-7 gram/118 mL enema 118 ml MT DAILY PRN (Reason: constipation) 7 Days Qty: 133 0RF magnesium oxide 400 mg (241.3 mg magnesium) tablet 400 mg PO DAILY Motegrity 2 mg tablet 2 mg PO DAILY sertraline [Zoloft] 100 mg tablet 200 mg PO DAILY Rx Instructions: AT 7 AM Primary Care Provider: Mervat Carrillo Referrals: Mervat Carrillo MD [Primary Care Provider] - As soon as possible Jairo Mendoza MD [Med Staff - Active Staff] - As soon as possible Mario Valencia MD [Non-Staff] - As soon as possible Activity Restrictions/Additional Instructions: His labs today overall are good. His CAT scan showed fluid in his colon but not any bowel obstruction. He needs to have an outpatient follow-up colonoscopy for further evaluation of his colon. Call follow-up with his primary care physician. To get set up for referral to either general surgeon or a local physician to get a colonoscopy. Print Language: Vincentian Disposition Disposition: Home, Self Care
[2023-08-12 09:49] VITALS: BMI 27.1
[2023-08-12 09:55] LABS: Absolute Lymphocyte Count 0.73 X10^3/uL (0.83-4.51); Absolute Neutrophil Count 13.3 X10^3/uL (2.0-7.7); Basophil# 0.04 X10^3/uL; Basophil% 0.3 % (0-1); Eosinophil# 0.04 X10^3/uL; Eosinophils% 0.3 % (0-5); Hematocrit 41.9 % (40-54); Lymphocyte # 0.73 X10^3/ul (0.83-4.51); Lymphocyte % 4.9 % (19-41); Mean Corp Hgb Conc 33.4 g/dL (32-36); Mean Corpuscular Hgb 30.6 pg (27.0-32.0); Mean Corpuscular Volume 91.7 fL (80-94); Mean Platelet Vol. 10.8 fl (6.2-12.0); Monocyte# 0.76 X10^3/uL; Monocyte% 5.1 % (0-10); NRBC Flagged by Analyzer 0 % (0-5); Neutrophil # 13.28 X10^3/uL (2.7-7.7); Neutrophil % 88.9 % (47-70); Platelet Count 177 K/mm3 (150-450); RBC Distribution Width CV 14.2 % (11.6-14.6); RBC Distribution Width SD 47.5 fl (35.1-43.9); Red Blood Count 4.57 M/mm3 (4.6-6.2); White Blood Count 14.9 K/mm3 (4.4-11.0)
--- NOTE | 2023-08-12 10:02 | CT_ITS ---
STUDY: CT ABDOMEN AND PELVIS WITH CONTRAST REASON FOR EXAM: Male, 52 years old. Abd pain resolved RADIATION DOSAGE (If Supplied By Facility): CTDIvol = ( 15.42 ) mGy, DLP = ( 1191.00 ) mGycm TECHNIQUE: Transaxial images were obtained from the dome of the diaphragm to the symphysis pubis without oral contrast. IV 100mL Isovue-300 was administered. Sagittal and coronal images were reconstructed. Individualized dose optimization techniques were used for this CT. COMPARISON: Comparison is made with prior study dated August 06, 2023. FINDINGS: Mild increased linear markings at the lung bases suggestive of atelectasis. The visualized portions of the heart are within normal limits. Normal liver. Normal gallbladder and extrahepatic biliary system. Normal spleen. Normal pancreas. Normal bilateral adrenal glands. Normal right kidney. Ectopic location of the left kidney within the left side of the pelvis. There is a small hiatal hernia. Persistent fluid distention of the small bowel loops. The transition point is in the mid abdomen. There now is evidence of a fluid distention of the rectosigmoid colon. Normal colon. The appendix is visualized and appears normal. Normal abdominal aorta. Normal inferior vena cava. Normal retroperitoneum. Normal urinary bladder. Normal abdominal wall. There are mild degenerative changes of the visualized lumbar spine. CT/Abdomen/Pelvis W IV Cont ONLY IMPRESSION: Persistent fluid distention of small bowel loops down to the right side of the midline. There now is evidence of a distended fluid-filled rectosigmoid colon with the thickened haustral pattern. Distal colitis should be ruled out. Electronically Signed: Terry Sinclair MD at 10:34 EDT ,
--- NOTE | 2023-08-12 10:15 | EKG12_ITS ---
Test Reason : ABD PAIN Blood Pressure : / mmHG Vent. Rate : 112 BPM Atrial Rate : 112 BPM P-R Int : 150 ms QRS Dur : 086 ms QT Int : 324 ms P-R-T Axes : 057 007 042 degrees QTc Int : 442 ms Sinus tachycardia Otherwise normal ECG Confirmed by LATHA HUITRON, TONY ([id number]), scientific publications editor MARY ELLEN DAUGHERTY ([id number]) on 08/13/2023 8:25:39 AM Referred By: ANGELINA/DEVON Confirmed By:TONY AZUL MD
[2023-08-12 10:17] LABS: ALB/GLOB Ratio 1.1 RATIO (0.9-2.4); AST(SGOT) 27 U/L (15-37); Alanine Aminotransfer ALT/SGPT 44 U/L (16-61); Albumin, Serum 4.2 g/dL (3.2-5.0); Alkaline Phosphatase 135 U/L (45-117); Anion Gap 7 (5-15); BUN 16 mg/dL (7-18); BUN/Creat Ratio 19.8 RATIO (10-20); Calcium,Total 9.2 mg/dL (8.5-10.1); Chloride 106 mmol/L (98-107); Creatinine, Serum 0.81 mg/dL (0.70-1.30); EST Glomerular Filtration Rate 107 mL/min (>60); Est Glom Filt Rate - Afr Amer 129 mL/min (>60); Estimated Creatinine Clearance 96.27 ml/min; Globulin 3.8 g/dL (2.2-4.2); Glucose 162 mg/dL (74-106); Lipase 16 U/L (13-75); Potassium 3.3 mmol/L (3.5-5.1); Sodium Level 139 mmol/L (136-145)
[2023-08-12 11:15] VITALS: BP 142/98; PULSE 107; RESP 16; O2SAT 96
[2023-08-12 13:00] VITALS: BP 133/91; PULSE 105; RESP 18; O2SAT 95
[2023-08-12 14:22] VITALS: BP 135/85; PULSE 105; RESP 18; TEMP 36.6; O2SAT 97
== END 2023-08-12 14:00 | disposition home or self-care (01) ==
PROVIDERS: Emergency Provider Emergency Medicine; PCP Internal Medicine; Visit Provider Emergency Medicine
DX: K52.9 Noninfective gastroenteritis and colitis, unspecified (principal); F42.9 Obsessive-compulsive disorder, unspecified; Z87.19 Personal history of other diseases of the digestive system; Z79.899 Other long term (current) drug therapy
CPT/HCPCS: 74177; 80053; 83690; 85025; 93005; 99283; Q9967; A4216

== ENCOUNTER → 2023-09-07 | Outpatient (CLI) | payer MEDICARE, MEDICAID, SELFPAY ==
[2023-09-07 08:58] LABS: Absolute Lymphocyte Count 1.54 X10^3/uL (0.83-4.51); Absolute Neutrophil Count 4.1 X10^3/uL (2.0-7.7); Basophil# 0.04 X10^3/uL; Basophil% 0.6 % (0-1); Eosinophil# 0.15 X10^3/uL; Eosinophils% 2.3 % (0-5); Hematocrit 41.2 % (40-54); Hemoglobin 13.9 g/dL (13.0-16.5); Lymphocyte # 1.54 X10^3/ul (0.83-4.51); Lymphocyte % 23.7 % (19-41); Mean Corp Hgb Conc 33.7 g/dL (32-36); Mean Corpuscular Hgb 31.4 pg (27.0-32.0); Mean Platelet Vol. 11.7 fl (6.2-12.0); Monocyte# 0.62 X10^3/uL; Monocyte% 9.5 % (0-10); NRBC Flagged by Analyzer 0 % (0-5); Neutrophil # 4.14 X10^3/uL (2.7-7.7); Neutrophil % 63.7 % (47-70); Platelet Count 144 K/mm3 (150-450); RBC Distribution Width CV 13.9 % (11.6-14.6); RBC Distribution Width SD 47.8 fl (35.1-43.9); Red Blood Count 4.43 M/mm3 (4.6-6.2); White Blood Count 6.5 K/mm3 (4.4-11.0)
== END | disposition home or self-care (01) ==
PROVIDERS: PCP Internal Medicine; Referring Provider Family Medicine; Visit Provider Family Medicine
DX: F39 Unspecified mood [affective] disorder (principal)
CPT/HCPCS: 85025

== ENCOUNTER 2023-10-05 07:16 | Outpatient (RCR) | payer MEDICARE, MEDICAID, SELFPAY ==
[2023-10-05 07:35] LABS: Absolute Lymphocyte Count 1.56 X10^3/uL (0.83-4.51); Basophil# 0.05 X10^3/uL; Basophil% 0.7 % (0-1); Eosinophil# 0.18 X10^3/uL; Eosinophils% 2.4 % (0-5); Hematocrit 41.7 % (40-54); Hemoglobin 13.6 g/dL (13.0-16.5); Lymphocyte # 1.56 X10^3/ul (0.83-4.51); Mean Corp Hgb Conc 32.6 g/dL (32-36); Mean Corpuscular Hgb 30.8 pg (27.0-32.0); Mean Corpuscular Volume 94.3 fL (80-94); Mean Platelet Vol. 11.5 fl (6.2-12.0); Monocyte# 0.65 X10^3/uL; Monocyte% 8.8 % (0-10); NRBC Flagged by Analyzer 0 % (0-5); Neutrophil # 4.95 X10^3/uL (2.7-7.7); Neutrophil % 66.7 % (47-70); Platelet Count 144 K/mm3 (150-450); RBC Distribution Width CV 14.3 % (11.6-14.6); RBC Distribution Width SD 49.5 fl (35.1-43.9); Red Blood Count 4.42 M/mm3 (4.6-6.2); White Blood Count 7.4 K/mm3 (4.4-11.0)
[2023-10-05 09:45] LABS: Hemoglobin A1c 5.7 % (3.8-5.6)
== END 2023-10-24 23:59 ==
LOC: LABSPEC 07:16
PROVIDERS: PCP Internal Medicine
DX: F39 Unspecified mood [affective] disorder (principal); R73.01 Impaired fasting glucose
CPT/HCPCS: 83036; 85025

== ENCOUNTER 2023-11-06 11:39 | Outpatient (RCR) | payer MEDICARE, MEDICAID, SELFPAY ==
[2023-11-06 12:44] LABS: Absolute Lymphocyte Count 1.08 X10^3/uL (0.83-4.51); Absolute Neutrophil Count 4.2 X10^3/uL (2.0-7.7); Basophil# 0.03 X10^3/uL; Basophil% 0.5 % (0-1); Eosinophil# 0.11 X10^3/uL; Eosinophils% 1.9 % (0-5); Hematocrit 42.1 % (40-54); Hemoglobin 13.6 g/dL (13.0-16.5); Lymphocyte # 1.08 X10^3/ul (0.83-4.51); Lymphocyte % 18.2 % (19-41); Mean Corp Hgb Conc 32.3 g/dL (32-36); Mean Corpuscular Hgb 30.9 pg (27.0-32.0); Mean Corpuscular Volume 95.7 fL (80-94); Mean Platelet Vol. 11.6 fl (6.2-12.0); Monocyte# 0.51 X10^3/uL; Monocyte% 8.6 % (0-10); NRBC Flagged by Analyzer 0 % (0-5); Neutrophil % 70.6 % (47-70); Platelet Count 130 K/mm3 (150-450); RBC Distribution Width CV 13.9 % (11.6-14.6); RBC Distribution Width SD 49.1 fl (35.1-43.9); White Blood Count 5.9 K/mm3 (4.4-11.0)
== END 2023-11-23 23:59 ==
LOC: LABSPEC 11:39
PROVIDERS: PCP Internal Medicine
DX: F39 Unspecified mood [affective] disorder (principal)
CPT/HCPCS: 85025

== ENCOUNTER 2023-12-17 12:19 | Outpatient (RCR) | payer MEDICARE, MEDICAID, SELFPAY ==
[2023-12-17 15:31] LABS: Absolute Lymphocyte Count 1.37 X10^3/uL (0.83-4.51); Absolute Neutrophil Count 7.9 X10^3/uL (2.0-7.7); Basophil# 0.05 X10^3/uL; Basophil% 0.5 % (0-1); Eosinophil# 0.08 X10^3/uL; Eosinophils% 0.8 % (0-5); Hematocrit 41.1 % (40-54); Hemoglobin 13.5 g/dL (13.0-16.5); Lymphocyte # 1.37 X10^3/ul (0.83-4.51); Lymphocyte % 13.8 % (19-41); Mean Corp Hgb Conc 32.8 g/dL (32-36); Mean Corpuscular Hgb 30.5 pg (27.0-32.0); Mean Platelet Vol. 11.6 fl (6.2-12.0); Monocyte# 0.52 X10^3/uL; Monocyte% 5.2 % (0-10); NRBC Flagged by Analyzer 0 % (0-5); Neutrophil # 7.85 X10^3/uL (2.7-7.7); Neutrophil % 79.2 % (47-70); Platelet Count 182 K/mm3 (150-450); RBC Distribution Width CV 13.4 % (11.6-14.6); RBC Distribution Width SD 46.3 fl (35.1-43.9); Red Blood Count 4.42 M/mm3 (4.6-6.2); White Blood Count 9.9 K/mm3 (4.4-11.0)
== END 2023-12-24 23:59 ==
LOC: LABSPEC 12:19
PROVIDERS: PCP Internal Medicine
DX: F39 Unspecified mood [affective] disorder (principal)
CPT/HCPCS: 85025

== ENCOUNTER 2024-01-14 07:01 | Outpatient (RCR) | payer MEDICARE, MEDICAID, SELFPAY ==
[2024-01-14 07:43] LABS: Absolute Lymphocyte Count 1.49 X10^3/uL (0.83-4.51); Absolute Neutrophil Count 4.2 X10^3/uL (2.0-7.7); Basophil# 0.05 X10^3/uL; Basophil% 0.7 % (0-1); Eosinophil# 0.23 X10^3/uL; Eosinophils% 3.4 % (0-5); Hematocrit 41.7 % (40-54); Hemoglobin 13.5 g/dL (13.0-16.5); Lymphocyte # 1.49 X10^3/ul (0.83-4.51); Lymphocyte % 22.3 % (19-41); Mean Corp Hgb Conc 32.4 g/dL (32-36); Mean Corpuscular Hgb 30.1 pg (27.0-32.0); Mean Corpuscular Volume 93.1 fL (80-94); Monocyte% 10.5 % (0-10); NRBC Flagged by Analyzer 0 % (0-5); Neutrophil % 62.8 % (47-70); Platelet Count 119 K/mm3 (150-450); RBC Distribution Width CV 13.8 % (11.6-14.6); RBC Distribution Width SD 47.5 fl (35.1-43.9); Red Blood Count 4.48 M/mm3 (4.6-6.2); White Blood Count 6.7 K/mm3 (4.4-11.0)
== END 2024-01-23 23:59 ==
LOC: LABSPEC 07:01
PROVIDERS: PCP Internal Medicine
DX: F39 Unspecified mood [affective] disorder (principal)
CPT/HCPCS: 85025

== ENCOUNTER 2024-01-14 07:18 | Outpatient (RCR) | payer MEDICARE, MEDICAID, SELFPAY ==
[2024-01-14 08:18] LABS: AST(SGOT) 17 U/L (15-37); Alanine Aminotransfer ALT/SGPT 25 U/L (16-61); Albumin, Serum 3.7 g/dL (3.2-5.0); Alkaline Phosphatase 141 U/L (45-117); Anion Gap 5 (5-15); BUN 12 mg/dL (7-18); BUN/Creat Ratio 14.4 RATIO (10-20); Calcium,Total 8.7 mg/dL (8.5-10.1); Chloride 110 mmol/L (98-107); Creatinine, Serum 0.83 mg/dL (0.70-1.30); EST Glomerular Filtration Rate 103 mL/min (>60); Est Glom Filt Rate - Afr Amer 124 mL/min (>60); Globulin 3.7 g/dL (2.2-4.2); Glucose 102 mg/dL (74-106); Potassium 3.9 mmol/L (3.5-5.1); Protein, Total 7.4 g/dL (6.4-8.2); Sodium Level 140 mmol/L (136-145)
== END 2024-01-23 23:59 ==
LOC: LABSPEC 07:18
PROVIDERS: PCP Internal Medicine; Referring Provider Internal Medicine; Visit Provider Internal Medicine
DX: R73.01 Impaired fasting glucose (principal)
CPT/HCPCS: 80053; 83036

== ENCOUNTER 2024-02-10 10:07 | Outpatient (RCR) | payer MEDICARE, MEDICAID, SELFPAY ==
[2024-02-10 12:11] LABS: Absolute Lymphocyte Count 1.09 X10^3/uL (0.83-4.51); Absolute Neutrophil Count 6.7 X10^3/uL (2.0-7.7); Basophil# 0.05 X10^3/uL; Basophil% 0.6 % (0-1); Eosinophil# 0.11 X10^3/uL; Eosinophils% 1.3 % (0-5); Hematocrit 42.6 % (40-54); Hemoglobin 13.8 g/dL (13.0-16.5); Lymphocyte # 1.09 X10^3/ul (0.83-4.51); Lymphocyte % 12.6 % (19-41); Mean Corp Hgb Conc 32.4 g/dL (32-36); Mean Corpuscular Hgb 30.6 pg (27.0-32.0); Mean Corpuscular Volume 94.5 fL (80-94); Mean Platelet Vol. 11.9 fl (6.2-12.0); Monocyte% 8.1 % (0-10); NRBC Flagged by Analyzer 0 % (0-5); Neutrophil # 6.67 X10^3/uL (2.7-7.7); Neutrophil % 77.2 % (47-70); Platelet Count 169 K/mm3 (150-450); RBC Distribution Width CV 14.2 % (11.6-14.6); RBC Distribution Width SD 49.5 fl (35.1-43.9); Red Blood Count 4.51 M/mm3 (4.6-6.2); White Blood Count 8.6 K/mm3 (4.4-11.0)
== END 2024-02-23 23:59 ==
LOC: LABSPEC 10:07
PROVIDERS: PCP Internal Medicine
DX: F39 Unspecified mood [affective] disorder (principal); Z79.899 Other long term (current) drug therapy
CPT/HCPCS: 85025

== ENCOUNTER 2024-03-16 07:50 | Outpatient (RCR) | payer MEDICARE, MEDICAID, SELFPAY ==
[2024-03-10 11:46] LABS: Absolute Lymphocyte Count 1.23 X10^3/uL (0.83-4.51); Absolute Neutrophil Count 4.5 X10^3/uL (2.0-7.7); Basophil# 0.05 X10^3/uL; Basophil% 0.8 % (0-1); Eosinophil# 0.12 X10^3/uL; Eosinophils% 1.9 % (0-5); Hematocrit 40.9 % (40-54); Hemoglobin 13.5 g/dL (13.0-16.5); Lymphocyte # 1.23 X10^3/ul (0.83-4.51); Lymphocyte % 19.2 % (19-41); Mean Corpuscular Hgb 30.4 pg (27.0-32.0); Mean Corpuscular Volume 92.1 fL (80-94); Mean Platelet Vol. 11.7 fl (6.2-12.0); Monocyte# 0.52 X10^3/uL; Monocyte% 8.1 % (0-10); NRBC Flagged by Analyzer 0 % (0-5); Neutrophil # 4.46 X10^3/uL (2.7-7.7); Neutrophil % 69.8 % (47-70); Platelet Count 160 K/mm3 (150-450); RBC Distribution Width CV 14.1 % (11.6-14.6); RBC Distribution Width SD 47.7 fl (35.1-43.9); Red Blood Count 4.44 M/mm3 (4.6-6.2); White Blood Count 6.4 K/mm3 (4.4-11.0)
[2024-03-16 08:33] LABS: AST(SGOT) 14 U/L (15-37); Alanine Aminotransfer ALT/SGPT 25 U/L (16-61); Albumin, Serum 3.8 g/dL (3.2-5.0); Alkaline Phosphatase 160 U/L (45-117); Anion Gap 9 (5-15); BUN 18 mg/dL (7-18); Calcium,Total 9.2 mg/dL (8.5-10.1); Chloride 105 mmol/L (98-107); Cholesterol 115 mg/dL (200); Creatinine, Serum 0.86 mg/dL (0.70-1.30); EST Glomerular Filtration Rate 99 mL/min (>60); Est Glom Filt Rate - Afr Amer 120 mL/min (>60); Globulin 3.9 g/dL (2.2-4.2); Glucose 98 mg/dL (74-106); High Density Lipoprotein 28 mg/dL; Potassium 3.8 mmol/L (3.5-5.1); Protein, Total 7.7 g/dL (6.4-8.2); Sodium Level 141 mmol/L (136-145); Triglycerides 192 mg/dL; Very Low Density Lipoprotein 38 mg/dL (5-40)
[2024-03-16 08:38] LABS: Hemoglobin A1c 5.9 % (3.8-5.6)
== END 2024-03-25 23:59 ==
LOC: LABSPEC 07:50
PROVIDERS: PCP Internal Medicine; Visit Provider Internal Medicine
DX: F39 Unspecified mood [affective] disorder (principal); Z79.899 Other long term (current) drug therapy
CPT/HCPCS: 80053; 80061; 83036; 85025

== ENCOUNTER 2024-04-04 07:46 | Outpatient (RCR) | payer MEDICARE, MEDICAID, SELFPAY ==
[2024-04-04 08:30] LABS: Absolute Lymphocyte Count 1.74 X10^3/uL (0.83-4.51); Absolute Neutrophil Count 5.8 X10^3/uL (2.0-7.7); Basophil# 0.05 X10^3/uL; Basophil% 0.6 % (0-1); Eosinophil# 0.21 X10^3/uL; Eosinophils% 2.5 % (0-5); Hematocrit 40.2 % (40-54); Hemoglobin 13.5 g/dL (13.0-16.5); Lymphocyte # 1.74 X10^3/ul (0.83-4.51); Lymphocyte % 20.3 % (19-41); Mean Corp Hgb Conc 33.6 g/dL (32-36); Mean Corpuscular Hgb 31.1 pg (27.0-32.0); Mean Corpuscular Volume 92.6 fL (80-94); Mean Platelet Vol. 12.4 fl (6.2-12.0); Monocyte# 0.72 X10^3/uL; Monocyte% 8.4 % (0-10); NRBC Flagged by Analyzer 0 % (0-5); Neutrophil # 5.81 X10^3/uL (2.7-7.7); Neutrophil % 67.8 % (47-70); Platelet Count 123 K/mm3 (150-450); RBC Distribution Width CV 13.9 % (11.6-14.6); RBC Distribution Width SD 46.9 fl (35.1-43.9); Red Blood Count 4.34 M/mm3 (4.6-6.2); White Blood Count 8.6 K/mm3 (4.4-11.0)
== END 2024-04-22 23:59 ==
LOC: LABSPEC 07:46
PROVIDERS: PCP Internal Medicine; Visit Provider Internal Medicine
DX: F39 Unspecified mood [affective] disorder (principal); R73.01 Impaired fasting glucose
CPT/HCPCS: 83036; 85025

== ENCOUNTER 2024-05-02 11:32 | Outpatient (RCR) | payer MEDICARE, MEDICAID, SELFPAY ==
[2024-05-02 12:52] LABS: Absolute Lymphocyte Count 1.06 X10^3/uL (0.83-4.51); Absolute Neutrophil Count 6.1 X10^3/uL (2.0-7.7); Basophil# 0.05 X10^3/uL; Basophil% 0.6 % (0-1); Eosinophil# 0.14 X10^3/uL; Eosinophils% 1.8 % (0-5); Hematocrit 43.2 % (40-54); Hemoglobin 14.3 g/dL (13.0-16.5); Lymphocyte # 1.06 X10^3/ul (0.83-4.51); Lymphocyte % 13.4 % (19-41); Mean Corp Hgb Conc 33.1 g/dL (32-36); Mean Corpuscular Hgb 31.1 pg (27.0-32.0); Mean Corpuscular Volume 93.9 fL (80-94); Mean Platelet Vol. 11.6 fl (6.2-12.0); Monocyte# 0.61 X10^3/uL; Monocyte% 7.7 % (0-10); NRBC Flagged by Analyzer 0 % (0-5); Neutrophil # 6.05 X10^3/uL (2.7-7.7); Neutrophil % 76.2 % (47-70); Platelet Count 145 K/mm3 (150-450); RBC Distribution Width CV 13.9 % (11.6-14.6); RBC Distribution Width SD 47.5 fl (35.1-43.9); White Blood Count 7.9 K/mm3 (4.4-11.0)
== END 2024-05-23 23:59 ==
LOC: LABSPEC 11:32
PROVIDERS: PCP Internal Medicine; Visit Provider Internal Medicine
DX: F39 Unspecified mood [affective] disorder (principal)
CPT/HCPCS: 85025

== ENCOUNTER 2024-06-01 10:01 | Outpatient (RCR) | payer MEDICARE, MEDICAID, SELFPAY ==
[2024-06-01 12:23] LABS: Absolute Lymphocyte Count 1.15 X10^3/uL (0.83-4.51); Absolute Neutrophil Count 5.7 X10^3/uL (2.0-7.7); Basophil# 0.04 X10^3/uL; Basophil% 0.5 % (0-1); Eosinophil# 0.17 X10^3/uL; Eosinophils% 2.2 % (0-5); Hematocrit 40.1 % (40-54); Hemoglobin 13.7 g/dL (13.0-16.5); Lymphocyte # 1.15 X10^3/ul (0.83-4.51); Lymphocyte % 15.1 % (19-41); Mean Corp Hgb Conc 34.2 g/dL (32-36); Mean Corpuscular Hgb 32.2 pg (27.0-32.0); Mean Corpuscular Volume 94.4 fL (80-94); Mean Platelet Vol. 11.7 fl (6.2-12.0); Monocyte# 0.54 X10^3/uL; Monocyte% 7.1 % (0-10); NRBC Flagged by Analyzer 0 % (0-5); Neutrophil # 5.68 X10^3/uL (2.7-7.7); Neutrophil % 74.8 % (47-70); Platelet Count 146 K/mm3 (150-450); RBC Distribution Width CV 13.7 % (11.6-14.6); RBC Distribution Width SD 47.8 fl (35.1-43.9); Red Blood Count 4.25 M/mm3 (4.6-6.2); White Blood Count 7.6 K/mm3 (4.4-11.0)
== END 2024-06-22 23:59 ==
LOC: LABSPEC 10:01
PROVIDERS: PCP Internal Medicine; Visit Provider Internal Medicine
DX: F39 Unspecified mood [affective] disorder (principal)
CPT/HCPCS: 85025

== ENCOUNTER 2024-06-27 09:01 | Outpatient (RCR) | payer MEDICARE, MEDICAID, SELFPAY ==
[2024-06-27 12:35] LABS: Hematocrit 40.8 % (40-54); Hemoglobin 13.8 g/dL (13.0-16.5); Mean Corp Hgb Conc 33.8 g/dL (32-36); Mean Corpuscular Hgb 31.6 pg (27.0-32.0); Mean Corpuscular Volume 93.4 fL (80-94); Mean Platelet Vol. 12.4 fl (6.2-12.0); Platelet Count 130 K/mm3 (150-450); RBC Distribution Width CV 13.7 % (11.6-14.6); RBC Distribution Width SD 47.1 fl (35.1-43.9); Red Blood Count 4.37 M/mm3 (4.6-6.2); White Blood Count 6.9 K/mm3 (4.4-11.0)
[2024-06-27 12:48] LABS: ALB/GLOB Ratio 1.6 RATIO (0.9-2.4); AST(SGOT) 18 U/L (<=37); Alanine Aminotransfer ALT/SGPT 21 U/L (<=46); Albumin, Serum 4.1 g/dL (3.5-5.0); Alkaline Phosphatase 162 U/L (40-129); Anion Gap 11 (5-15); BUN 16 mg/dL (4-19); BUN/Creat Ratio 18.1 RATIO (10-20); Calcium,Total 9.2 mg/dL (7.6-11.0); Carbon Dioxide 24.1 mmol/L (21.0-32.0); Chloride 106 mmol/L (98-108); Creatinine, Serum 0.87 mg/dL (0.70-1.20); EST Glomerular Filtration Rate 103 (>60); Globulin 2.5 g/dL (2.2-4.2); Glucose 105 mg/dL (70-99); Potassium 4.1 mmol/L (3.3-5.1); Protein, Total 6.7 g/dL (5.9-8.4); Sodium Level 141 mmol/L (133-145)
[2024-06-27 14:14] LABS: Hemoglobin A1c 6.2 % (<=5.6)
== END 2024-07-23 23:59 ==
LOC: LABSPEC 09:01
PROVIDERS: PCP Internal Medicine; Referring Provider Internal Medicine; Visit Provider Internal Medicine
DX: Z51.81 Encounter for therapeutic drug level monitoring; R73.01 Impaired fasting glucose; R00.0 Tachycardia, unspecified
CPT/HCPCS: 80053; 83036; 85027

== ENCOUNTER 2024-07-27 09:35 | Outpatient (RCR) | payer MEDICARE, MEDICAID, SELFPAY ==
[2024-07-27 12:30] LABS: Absolute Lymphocyte Count 1.31 X10^3/uL (0.83-4.51); Absolute Neutrophil Count 11.4 X10^3/uL (2.0-7.7); Basophil# 0.06 X10^3/uL; Basophil% 0.4 % (0-1); Eosinophil# 0.13 X10^3/uL; Eosinophils% 0.9 % (0-5); Hematocrit 42.4 % (40-54); Hemoglobin 14.1 g/dL (13.0-16.5); Lymphocyte # 1.31 X10^3/ul (0.83-4.51); Lymphocyte % 9.5 % (19-41); Mean Corp Hgb Conc 33.3 g/dL (32-36); Mean Corpuscular Hgb 31.1 pg (27.0-32.0); Mean Corpuscular Volume 93.6 fL (80-94); Mean Platelet Vol. 11.1 fl (6.2-12.0); Monocyte# 0.77 X10^3/uL; Monocyte% 5.6 % (0-10); NRBC Flagged by Analyzer 0 % (0-5); Neutrophil # 11.44 X10^3/uL (2.7-7.7); Neutrophil % 83.1 % (47-70); Platelet Count 201 K/mm3 (150-450); RBC Distribution Width CV 13.7 % (11.6-14.6); RBC Distribution Width SD 47.4 fl (35.1-43.9); Red Blood Count 4.53 M/mm3 (4.6-6.2); White Blood Count 13.8 K/mm3 (4.4-11.0)
== END 2024-08-22 23:59 ==
LOC: LABSPEC 09:35
PROVIDERS: PCP Internal Medicine; Referring Provider Internal Medicine; Visit Provider Internal Medicine
DX: F39 Unspecified mood [affective] disorder (principal)
CPT/HCPCS: 85025

== ENCOUNTER 2024-08-25 10:25 | Outpatient (RCR) | payer MEDICARE, MEDICAID, SELFPAY ==
[2024-08-25 10:42] LABS: Hematocrit 40.8 % (40-54); Hemoglobin 13.5 g/dL (13.0-16.5); Immature Granulocytes Count 0.030 X10^3/uL (0.0-0.0); Mean Corp Hgb Conc 33.1 g/dL (32-36); Mean Corpuscular Volume 94.4 fL (80-94); Mean Platelet Vol. 11.7 fl (6.2-12.0); NRBC Flagged by Analyzer 0 % (0-5); Platelet Count 130 K/mm3 (150-450); RBC Distribution Width CV 14.5 % (11.6-14.6); RBC Distribution Width SD 50.5 fl (35.1-43.9); Red Blood Count 4.32 M/mm3 (4.6-6.2); White Blood Count 7.4 K/mm3 (4.4-11.0)
== END 2024-09-22 23:59 ==
LOC: LABSPEC 10:25
PROVIDERS: PCP Internal Medicine; Referring Provider Internal Medicine; Visit Provider Internal Medicine
DX: F39 Unspecified mood [affective] disorder
CPT/HCPCS: 85025

== ENCOUNTER 2024-09-26 10:27 | Outpatient (RCR) | payer MEDICARE, MEDICAID, SELFPAY ==
[2024-09-26 13:20] LABS: Hematocrit 41.3 % (40-54); Hemoglobin 13.6 g/dL (13.0-16.5); Immature Granulocytes Count 0.020 X10^3/uL (0.0-0.0); Mean Corp Hgb Conc 32.9 g/dL (32-36); Mean Corpuscular Volume 94.3 fL (80-94); Mean Platelet Vol. 12.0 fl (6.2-12.0); NRBC Flagged by Analyzer 0 % (0-5); Platelet Count 159 K/mm3 (150-450); RBC Distribution Width CV 14.1 % (11.6-14.6); RBC Distribution Width SD 48.5 fl (35.1-43.9); Red Blood Count 4.38 M/mm3 (4.6-6.2); White Blood Count 7.6 K/mm3 (4.4-11.0)
== END 2024-10-23 23:59 ==
LOC: LABSPEC 10:27
PROVIDERS: PCP Internal Medicine; Referring Provider Internal Medicine; Visit Provider Internal Medicine
DX: Z51.81 Encounter for therapeutic drug level monitoring; R73.01 Impaired fasting glucose; R00.0 Tachycardia, unspecified
CPT/HCPCS: 83036; 85025

== ENCOUNTER 2024-10-28 10:31 | Outpatient (RCR) | payer MEDICARE, MEDICAID, SELFPAY ==
[2024-10-28 15:35] LABS: Hematocrit 39.8 % (40-54); Hemoglobin 13.2 g/dL (13.0-16.5); Immature Granulocytes Count 0.020 X10^3/uL (0.0-0.0); Mean Corp Hgb Conc 33.2 g/dL (32-36); Mean Corpuscular Volume 95.2 fL (80-94); Mean Platelet Vol. 12.8 fl (6.2-12.0); NRBC Flagged by Analyzer 0 % (0-5); Platelet Count 135 K/mm3 (150-450); RBC Distribution Width CV 14.3 % (11.6-14.6); RBC Distribution Width SD 50.1 fl (35.1-43.9); Red Blood Count 4.18 M/mm3 (4.6-6.2); White Blood Count 7.2 K/mm3 (4.4-11.0)
== END 2024-11-22 23:59 ==
LOC: LABSPEC 10:31
PROVIDERS: PCP Internal Medicine; Referring Provider Internal Medicine; Visit Provider Internal Medicine
DX: F39 Unspecified mood [affective] disorder (principal); Z79.899 Other long term (current) drug therapy
CPT/HCPCS: 85025

== ENCOUNTER 2024-11-25 08:46 | Outpatient (RCR) | payer MEDICARE, MEDICAID, SELFPAY ==
[2024-11-25 09:11] LABS: Hematocrit 42.2 % (40-54); Hemoglobin 14.1 g/dL (13.0-16.5); Immature Granulocytes Count 0.030 X10^3/uL (0.0-0.0); Mean Corp Hgb Conc 33.4 g/dL (32-36); Mean Corpuscular Volume 92.7 fL (80-94); Mean Platelet Vol. 11.3 fl (6.2-12.0); NRBC Flagged by Analyzer 0 % (0-5); Platelet Count 157 K/mm3 (150-450); RBC Distribution Width CV 13.7 % (11.6-14.6); RBC Distribution Width SD 46.5 fl (35.1-43.9); Red Blood Count 4.55 M/mm3 (4.6-6.2); White Blood Count 7.8 K/mm3 (4.4-11.0)
== END 2024-12-23 23:59 ==
LOC: LABSPEC 08:46
PROVIDERS: PCP Internal Medicine; Referring Provider Internal Medicine; Visit Provider Internal Medicine
DX: F39 Unspecified mood [affective] disorder (principal)
CPT/HCPCS: 85025

== ENCOUNTER 2024-12-28 10:14 | Outpatient (RCR) | payer MEDICARE, MEDICAID, SELFPAY ==
[2024-12-28 10:53] LABS: Hematocrit 42.6 % (40-54); Hemoglobin 14.1 g/dL (13.0-16.5); Immature Granulocytes Count 0.030 X10^3/uL (0.0-0.0); Mean Corp Hgb Conc 33.1 g/dL (32-36); Mean Corpuscular Volume 94.9 fL (80-94); Mean Platelet Vol. 12.1 fl (6.2-12.0); NRBC Flagged by Analyzer 0 % (0-5); Platelet Count 147 K/mm3 (150-450); RBC Distribution Width CV 13.9 % (11.6-14.6); RBC Distribution Width SD 48.3 fl (35.1-43.9); Red Blood Count 4.49 M/mm3 (4.6-6.2); White Blood Count 9.0 K/mm3 (4.4-11.0)
[2024-12-28 11:28] LABS: AST(SGOT) 33 U/L (<=37); Alanine Aminotransfer ALT/SGPT 43 U/L (<=46); Albumin, Serum 4.4 g/dL (3.5-5.0); Alkaline Phosphatase 153 U/L (40-129); Anion Gap 11 (5-15); BUN 17 mg/dL (4-19); BUN/Creat Ratio 21.0 RATIO (10-20); Calcium,Total 8.9 mg/dL (7.6-11.0); Carbon Dioxide 24.5 mmol/L (21.0-32.0); Chloride 106 mmol/L (98-108); Globulin 2.8 g/dL (2.2-4.2); Glucose 106 mg/dL (70-99); Potassium 4.0 mmol/L (3.3-5.1)
== END 2025-01-22 23:59 ==
LOC: LABSPEC 10:14
PROVIDERS: PCP Internal Medicine; Referring Provider Registered Nurse; Visit Provider Registered Nurse
DX: F39 Unspecified mood [affective] disorder (principal)
CPT/HCPCS: 80053; 85025

== ENCOUNTER 2025-01-26 10:05 | Outpatient (RCR) | payer MEDICARE, MEDICAID, SELFPAY ==
[2025-01-26 10:23] LABS: Hematocrit 41.5 % (40-54); Hemoglobin 13.7 g/dL (13.0-16.5); Mean Corp Hgb Conc 33.0 g/dL (32-36); Mean Corpuscular Volume 94.7 fL (80-94); Mean Platelet Vol. 11.4 fl (6.2-12.0); Platelet Count 186 K/mm3 (150-450); RBC Distribution Width CV 13.5 % (11.6-14.6); RBC Distribution Width SD 47.5 fl (35.1-43.9); Red Blood Count 4.38 M/mm3 (4.6-6.2); White Blood Count 8.1 K/mm3 (4.4-11.0)
== END 2025-02-22 23:59 ==
LOC: LABSPEC 10:05
PROVIDERS: PCP Internal Medicine; Referring Provider Registered Nurse; Visit Provider Registered Nurse
DX: F39 Unspecified mood [affective] disorder (principal); R73.01 Impaired fasting glucose
CPT/HCPCS: 83036; 85027